=== PATIENT | female | born 1945 | race Caucasian/White ===

== ENCOUNTER 2024-06-26 17:29 | Inpatient (IN) | payer MEDICARE, SELFPAY ==
--- NOTE | ~2024-06-26 | XR_ITS ---
EXAMINATION: XR CHEST CLINICAL INFORMATION: wheezing COMPARISON: 06/26/2024 TECHNIQUE: Frontal view of the chest was obtained. FINDINGS: Cardiac and mediastinal contours are stable. Aortic calcification. Since the prior exam, consolidation has developed in the left base, and to lesser degree the medial right base. No effusions. No pneumothorax allowing for patient's chin obscuring portions of the medial apices. There are old right rib fractures. Severe erosive arthropathy bilateral shoulder joints, end-stage. Degenerative changes of the spine. XR/XR chest 1V IMPRESSION: 1. Development of left basilar, and to a lesser degree medial right basilar airspace opacities consistent with bibasilar pneumonia. 2. End-stage inflammatory arthropathy bilateral shoulder joints. Electronically signed by: Kike Sykes MD 06/28/2024 04:02 PM [facility]
--- NOTE | ~2024-06-26 | XR_ITS ---
CLINICAL HISTORY: hypotension 1 view chest x-ray Comparison: None Findings: Low lung volumes with mild infrahilar atelectasis. No consolidation, large effusion or pneumothorax. Normal heart size. Aortic atherosclerosis. Severe bilateral glenohumeral osteoarthritis with chronic appearing erosion of the right humeral head. IMPRESSION: 1. No acute cardiopulmonary findings. This document has been electronically signed by: Mia Manley MD on 06/26/2024 18:55:09
[2024-06-26 17:42] VITALS: BP 85/56; BP 92/51; PULSE 108; PULSE 115; RESP 20; TEMP 36.9; O2SAT 93; O2SAT 94; BMI 21.3
--- NOTE | 2024-06-26 17:42 | ECG_ITS ---
Test Reason : FALL Blood Pressure : */* mmHG Vent. Rate : 94 BPM Atrial Rate : 94 BPM P-R Int : 134 ms QRS Dur : 70 ms QT Int : 332 ms P-R-T Axes : 23 -31 8 degrees QTcB Int : 415 ms Normal sinus rhythm Left axis deviation Abnormal ECG No previous ECGs available Referred By: Edith Jin Electronically Signed By: KENDRICK MISHRA MD
--- NOTE | 2024-06-26 17:55 | ED.GENADULT ---
HPI - General Adult General Chief complaint: Weakness Stated complaint: weakeness unable to stand baseline walker Source: patient and EMS Mode of arrival: EMS Limitations: no limitations History of Present Illness ED Provider: Dr. Edith Jin HPI narrative: The emergency room via ambulance from home. According to EMS, the patient called them because today, 6 hours ago, patient went to use the restroom, slowly slid off the toilet when trying to get up and was not able to get up. Patient states that she did not land hard, patient states that she was too weak to get up. Patient kept trying for the following 5 hours trying to get up but she gave up and called 911 for a lift assist. Patient did not have any other complaints. According to EMS, it was hard to convince the patient to come to the emergency room. Patient states that she does not remember how long ago she has not been seen by a primary care physician. To her knowledge, she does not have any medical conditions other than ?arthritis pains?. She does not take any medications. Patient states that she and her live at home together, they do not go out anywhere. Patient denies drinking alcohol or ever smoking, denies using drugs Related Data Allergies Allergy/AdvReac Type Severity Reaction Status Date / Time No Known Allergies Allergy Verified 06/26/24 18:06 [No Known Allergies*] Review of Systems Review of Systems: Constitutional : No Weight loss, No Fever, No Chills, No Night Sweats, No Fatigue, No Malaise, complaining of weakness, unable to sit up. ENT/Mouth : No Hearing loss, No Ear Pain, No Nasal Congestion, No Sinus Pain, No Hoarseness, No sore throat, No Rhinorrhea, No Swallowing Difficulty Eyes: No Eye Pain, No Swelling, No Redness, No Foreign Body, No Discharge, No Vision Changes Cardiovascular : No Chest Pain, No SOB, No Dyspnea on Exertion, No Orthopnea, No Edema, No Palpitations Respiratory : No Cough, No Sputum, No Wheezing, No Smoke Exposure, No Dyspnea Gastrointestinal : No Nausea, No Vomiting, No Diarrhea, No Constipation, No abdominal Pain, No Hematochezia, No Melena Genitourinary : no irregular bleeding, No Dysuria, No Urinary Frequency, No Hematuria, No Urinary Incontinence, No Urgency, No Flank Pain, No Urinary Flow Changes, No Hesitancy Musculoskeletal : No joint pain, No Myalgias, No Joint Swelling Skin : No Skin Lesions, No rash Neuro : No Weakness, No Numbness, No Paresthesias, No Loss of Consciousness, No Dizziness, No Headache Psych : No Anxiety/Panic, No Depression, No SI/HI/AH/VH, No Social Issues, Heme/Lymph: No Bruising, No Bleeding,No Lymphadenopathy Endocrine : No Polyuria, No Polydipsia, No Temperature Intolerance [facility] Past Medical History Medical History (Updated 06/26/24 @ 20:28 by Edith Jin MD) Arthritis Social History Social History Advance Directives: No Advance Directives Information Provided: Yes Do you have a plan to hurt others: No Plan Physical Exam ED Vital Signs: Vital Signs - 24 hr 06/26/24 17:42 06/26/24 20:03 Temperature 98.4 F 98.3 F Pulse Rate 108 H 95 Respiratory Rate 20 14 Blood Pressure 92/51 L 121/61 Pulse Oximetry 93 92 Oxygen Delivery Method Room Air Room Air BMI result Body Mass Index 21.3 Const Other: Appearance: Alert. Oriented X3. No acute distress. Disheveled Eyes: Pupils equal, round and reactive to light. ENT: Pharynx normal. Neck: Normal inspection. Neck supple. No lymph nodes noted. No crepitus CVS: Normal heart rate and rhythm. Pulses normal. Normal S1 and S2 Respiratory: No respiratory distress. Breath sounds normal. No Wheezing. No rales Abdomen: Soft and nontender. No rigidity. No distention. Back: Patient has significant kyphosis Skin: Skin warm and dry. Normal skin color. Normal skin turgor. Extremities: +1 pitting edema bilaterally No Lacerations. No Rash Neuro: Oriented X 3. No motor deficit. No sensory deficit. Moving all extremities. No slurred speech. CN 2 through 12 grossly intact Psych: calm, cooperative, normal affect Course Course Course Narrative: According to the patient, she has no medical history other than arthritis pains Pt has very dry oral mucosa, as of now, no history of CHF. Patient is receiving IV fluids Patient is disheveled, patient has a strong odor, possibly UTI? Patient is empirically being treated with a dose of IV ceftriaxone. According to EMS, patient has blood pressure was in the 80s. However, here in the emergency room, patient's blood pressure has been above 90. Patient denies any UTI symptoms, denies URI Medications Administered Discontinued Medications Generic Name Dose Route Start Last Admin Trade Name René PRN Reason Stop Dose Admin Ceftriaxone Sodium 1 gm 06/26/24 17:43 06/26/24 18:22 Ceftriaxone Sodium 1 Gm Vial IVPUSH 06/26/24 17:44 1 gm ONCE ONE Administration Sodium Chloride 2,000 mls @ 999 mls/hr 06/26/24 17:43 06/26/24 18:15 Ns IVCONT 06/26/24 19:43 999 mls/hr .Q2H1M ONE Administration Medical Decision Making Medical Decision Making [facility] Narrative: My interpretation of EKG: Normal sinus rhythm, heart rate 94, no ST segment depression or elevation, no T-wave inversion, QTC 415 My interpretation of labs: Patient's white blood cell count 13.7, a bit anemic with a hemoglobin of 11.6, PT INR no acute abnormalities. Patient's chemistry shows a creatinine of 1.58. Last time we have any labs on the patient was about 5 years ago. Unclear if this is new or old. Given her current dehydration status, this is likely secondary to dehydration. Influenza positive LFTs are normal, lipase normal At this time, 60 16:00, patient's urine has returned, patient does have a UTI. Patient has already been treated with antibiotics and IV fluids. Current blood pressure 121/61 after IV hydration. No fever, normal heart rate I discussed the patient with Dr. Diop from the Medicine team, patient being admitted Differential Diagnosis Differential Diagnoses: The differential diagnosis associated with the presentation includes (Deconditioning, UTI, renal failure, ACD) Admission/Observation Consideration of admission/observation: Escalation of care including admission/observation considered Consult Healthcare Provider Management of the patient was discussed with: Hospitalist Lab Data [facility] Lab Attestation statement: I reviewed the patient's lab results. 06/26/24 18:11 06/26/24 18:11 Labs: Lab Results 06/26/24 06/26/24 06/26/24 Range/Units 18:01 18:11 18:17 WBC 13.7 H (4.8-10.8) X10*3/uL RBC 4.14 L (4.20-5.50) X10*6/uL Hgb 11.6 L (12.0-16.0) g/dl Hct 35.8 L (37.0-47.0) % MCV 86.5 (80.0-98.0) fL MCH 28.0 (27.0-33.0) pg MCHC 32.4 (31.0-35.0) g/dl RDW 15.3 (11.0-16.0) % Plt Count 230 (160-400) X10*3/uL MPV 10.0 (9.4-12.3) fL Immature Gran % (Auto) Cancelled Neut % (Auto) Cancelled Lymph % (Auto) Cancelled [place] % (Auto) Cancelled Eos % (Auto) Cancelled Baso % (Auto) Cancelled Lymph # (Auto) Cancelled [place] # (Auto) Cancelled Eos # (Auto) Cancelled Baso # (Auto) Cancelled Abs Immat Gran (auto) Cancelled Absolute Neuts (auto) Cancelled Absolute Nucleated RBC 0.000 (0.0-0.012) X10*3/uL Nucleated RBC % (auto) 0.0 (0.0-0.2) /100WBC Neutrophils % (Manual) 63 (45-73) % Band Neutrophils % 34 H (3-5) % Lymphocytes % (Manual) 2 L (20-40) % Metamyelocytes % 1 % Abs Neuts (Manual) 13.3 H (2.0-8.3) X10*3/uL Lymphocytes # (Manual) 0.3 L (1.2-4.9) X10*3/uL Metamyelocytes # 0.1 X10*3/uL Toxic Granulation PRESENT Toxic Vacuolation PRESENT Dohle Bodies PRESENT Platelet Estimate NORMAL (NORMAL) Plt Morphology Comment NORMAL RBC Morphology NOTED [place] Cells 3+ (>5) /OIF Schistocytes 1+ (0-2) /OIF PT 12.6 H (10.9-12.4) SEC INR 1.1 (0.9-1.1) VBG pH 7.45 H (7.32-7.43) VBG pCO2 30 mmHg VBG pO2 44 mmHg VBG HCO3 21 L (22-26) mmol/L VBG O2 Saturation 69.0 % VBG Base Excess -1.0 mmol/L Sodium 140 (135-145) mmol/L Potassium 4.3 (3.3-5.1) mmol/L Chloride 106 (96-108) mmol/L Carbon Dioxide 20 L (22-29) mmol/L Anion Gap 18 (12-20) BUN 42 H (9-16) mg/dL Creatinine 1.58 H (0.5-1.4) mg/dL Estim Creat Clear Calc 26.8 Estimated GFR 32 Random Glucose 115 (60-115) mg/dL Lactic Acid 2.4 H* (0.5-2.0) mmol/L Calcium 9.1 (8.4-10.2) mg/dL Magnesium 1.8 (1.6-2.6) mg/dL Total Bilirubin 0.5 (0.0-1.0) mg/dL Direct Bilirubin 0.2 (0.0-0.5) mg/dL AST 92 H (5-31) U/L ALT 27 (0-31) U/L Alkaline Phosphatase 80 (39-117) U/L Total Creatine Kinase 2079 H (26-140) U/L Troponin I High Sens 14.0 (<3.5-17.0) ng/L B-Natriuretic Peptide 21 (<100) pg/mL Total Protein 7.9 (6.5-8.0) g/dL Albumin 3.9 (3.5-5.0) g/dL Lipase 15 (8-78) U/L TSH 0.68 (0.32-4.0) uIU/mL Urine Color Dark Yellow Urine Appearance Turbid Urine pH 6.0 (5.0-9.0) Ur Specific [place] 1.020 (1.005-1.025) Urine Protein 300 (3+) H (Neg-Trace) mg/dL Urine Glucose (UA) Negative (Negative) mg/dL Urine Ketones Trace (Negative) mg/dL Urine Blood Large (3+) H (Negative) Urine Nitrite Positive H (Negative) Ur Leukocyte Esterase Large (3+) H (Negative) Urine RBC >20 H (0-2) /HPF Urine WBC >50 H (0-5) /HPF Ur Squamous Epith Cells 0-2 (0-2) /HPF Urine Bacteria 2+ (None Seen) Hyaline Casts 11-20 (0-2) /LPF Ethyl Alcohol < 10 mg/dL Influenza Type A (PCR) POSITIVE A (Negative) Influenza Type B (PCR) NEGATIVE (Negative) RSV RNA Qual (PCR) NEGATIVE (Negative) SARS-CoV-2 RNA (RT-PCR) NEGATIVE (Negative) S. pyogenes GrpA LAMONT (Negative) 06/26/24 Range/Units 20:09 WBC (4.8-10.8) X10*3/uL RBC (4.20-5.50) X10*6/uL Hgb (12.0-16.0) g/dl Hct (37.0-47.0) % MCV (80.0-98.0) fL MCH (27.0-33.0) pg MCHC (31.0-35.0) g/dl RDW (11.0-16.0) % Plt Count (160-400) X10*3/uL MPV (9.4-12.3) fL Immature Gran % (Auto) Neut % (Auto) Lymph % (Auto) [place] % (Auto) Eos % (Auto) Baso % (Auto) Lymph # (Auto) [place] # (Auto) Eos # (Auto) Baso # (Auto) Abs Immat Gran (auto) Absolute Neuts (auto) Absolute Nucleated RBC (0.0-0.012) X10*3/uL Nucleated RBC % (auto) (0.0-0.2) /100WBC Neutrophils % (Manual) (45-73) % Band Neutrophils % (3-5) % Lymphocytes % (Manual) (20-40) % Metamyelocytes % % Abs Neuts (Manual) (2.0-8.3) X10*3/uL Lymphocytes # (Manual) (1.2-4.9) X10*3/uL Metamyelocytes # X10*3/uL Toxic Granulation Toxic Vacuolation Dohle Bodies Platelet Estimate (NORMAL) Plt Morphology Comment RBC Morphology [place] Cells /OIF Schistocytes /OIF PT (10.9-12.4) SEC INR (0.9-1.1) VBG pH (7.32-7.43) VBG pCO2 mmHg VBG pO2 mmHg VBG HCO3 (22-26) mmol/L VBG O2 Saturation % VBG Base Excess mmol/L Sodium (135-145) mmol/L Potassium (3.3-5.1) mmol/L Chloride (96-108) mmol/L Carbon Dioxide (22-29) mmol/L Anion Gap (12-20) BUN (9-16) mg/dL Creatinine (0.5-1.4) mg/dL Estim Creat Clear Calc Estimated GFR Random Glucose (60-115) mg/dL Lactic Acid (0.5-2.0) mmol/L Calcium (8.4-10.2) mg/dL Magnesium (1.6-2.6) mg/dL Total Bilirubin (0.0-1.0) mg/dL Direct Bilirubin (0.0-0.5) mg/dL AST (5-31) U/L ALT (0-31) U/L Alkaline Phosphatase (39-117) U/L Total Creatine Kinase (26-140) U/L Troponin I High Sens (<3.5-17.0) ng/L B-Natriuretic Peptide (<100) pg/mL Total Protein (6.5-8.0) g/dL Albumin (3.5-5.0) g/dL Lipase (8-78) U/L TSH (0.32-4.0) uIU/mL Urine Color Urine Appearance Urine pH (5.0-9.0) Ur Specific [place] (1.005-1.025) Urine Protein (Neg-Trace) mg/dL Urine Glucose (UA) (Negative) mg/dL Urine Ketones (Negative) mg/dL Urine Blood (Negative) Urine Nitrite (Negative) Ur Leukocyte Esterase (Negative) Urine RBC (0-2) /HPF Urine WBC (0-5) /HPF Ur Squamous Epith Cells (0-2) /HPF Urine Bacteria (None Seen) Hyaline Casts (0-2) /LPF Ethyl Alcohol mg/dL Influenza Type A (PCR) (Negative) Influenza Type B (PCR) (Negative) RSV RNA Qual (PCR) (Negative) SARS-CoV-2 RNA (RT-PCR) (Negative) S. pyogenes GrpA LAMONT Negative (Negative) Independent Interpretation I performed an independent interpretation of an: EKG and Plain X-Ray Radiology Impression Discussion of test interpretation with radiology: I have reviewed the radiologist's reading. Radiologist Impression: Low lung volumes with mild infrahilar atelectasis. No consolidation, large effusion or pneumothorax. Normal heart size. Aortic atherosclerosis. Severe bilateral glenohumeral osteoarthritis with chronic appearing erosion of the right humeral head. IMPRESSION: 1. No acute cardiopulmonary findings. Critical Care Time Critical Care Time Critical Care Time: Yes Total Critical Care Time: 60 Attestation: I have personally provided critical care time. Time includes review of lab data, radiology results, discussion with consultants, and monitoring for potential decompensation. Intervention performed as documented. Discharge Plan Discharge Clinical Impression: Acute UTI, Rhabdomyolysis, Weakness, ZOIE (acute kidney injury), Influenza A Patient Disposition: Admitted As Inpatient Print Language: Surinamese
[2024-06-26] MEDS: 0.9 % Sodium Chloride 2,000 ML 999 ML IVCONT (18:15)
[2024-06-26] MEDS: cefTRIAXone sodium 1 GM VIAL IVPUSH (18:22)
[2024-06-26 18:23] LABS: VBG HCO3 21 mmol/L (22-26); VBG pCO2 30 mmHg; VBG pH 7.45 (7.32-7.43); VBG pO2 44 mmHg
[2024-06-26 18:23] LABS: Hematocrit 35.8 % (37.0-47.0); Hemoglobin 11.6 g/dl (12.0-16.0); Mean Corpuscular HGB Conc 32.4 g/dl (31.0-35.0); Mean Corpuscular Volume 86.5 fL (80.0-98.0); Platelet Count 230 X10*3/uL (160-400); Red Blood Count 4.14 X10*6/uL (4.20-5.50); Red Cell Distribution Width 15.3 % (11.0-16.0); White Blood Count 13.7 X10*3/uL (4.8-10.8)
[2024-06-26 18:24] LABS: Appearance Urine Turbid; Color Urine Dark Yellow; Glucose Urine UA Negative (Negative); Leukocyte Esterase Urine Large (3+) (Negative); Nitrite Urine Positive (Negative); UMIC TRIGGER UACC YES; Urine Blood Large (3+) (Negative); Urine Ketones Trace mg/dL (Negative); Urine Protein 300 (3+) mg/dL (Neg-Trace)
[2024-06-26 18:24] LABS: Venous Blood Gas Refer to POC result
--- NOTE | 2024-06-26 18:25 | PC.NURSE ---
patient difficult IV/blood draw access. delay in Blood cultures being obtained and abx administration.
[2024-06-26 18:29] LABS: INTERNATIONAL NORM RATIO 1.1 (0.9-1.1); Prothrombin Time 12.6 SEC (10.9-12.4)
[2024-06-26 18:36] LABS: Bacteria Urine 2+ (None Seen); RBC Urine >20 /HPF (0-2); Squamous Epithelial Cell Urine 0-2 /HPF (0-2); UACC Culture Trigger YES; WBC Urine >50 /HPF (0-5)
[2024-06-26 18:42] LABS: Alanine Aminotransferase 27 U/L (0-31); Albumin Level 3.9 g/dL (3.5-5.0); Alkaline Phosphatase 80 U/L (39-117); Anion Gap 18 (12-20); Aspartate Amino Transferase 92 U/L (5-31); Bilirubin Direct 0.2 mg/dL (0.0-0.5); Bilirubin Total 0.5 mg/dL (0.0-1.0); Blood Urea Nitrogen 42 mg/dL (9-16); Calcium 9.1 mg/dL (8.4-10.2); Carbon Dioxide 20 mmol/L (22-29); Chloride 106 mmol/L (96-108); Creatinine Clr Calc Pharmacy 26.8; Estimated Glomerular Filt Rate 32; Glucose Random 115 mg/dL (60-115); Lipase 15 U/L (8-78); Magnesium 1.8 mg/dL (1.6-2.6); Potassium 4.3 mmol/L (3.3-5.1); Sodium 140 mmol/L (135-145); Total Protein 7.9 g/dL (6.5-8.0)
[2024-06-26 18:44] LABS: Lactic Acid 2.4 mmol/L (0.5-2.0)
[2024-06-26 18:46] LABS: Neutrophils Percent Manual 63 % (45-73)
[2024-06-26 18:47] LABS: B Type Natriuretic Peptide 21 pg/mL (<100)
[2024-06-26 18:48] LABS: Band Neutrophils Percent 34 % (3-5); Lymphocytes Absolute Manual 0.3 X10*3/uL (1.2-4.9); Lymphocytes Percent Manual 2 % (20-40); Metamyelocytes Absolute 0.1 X10*3/uL; Metamyelocytes Percent 1 %; Neutrophils Absolute Manual 13.3 X10*3/uL (2.0-8.3); RBC Morphology NOTED
[2024-06-26 18:49] LABS: Burr Cells 3+ (>5) /OIF; Dohle Bodies PRESENT; Schistocytes 1+ (0-2) /OIF; Toxic Granulation PRESENT; Toxic Vacuolation PRESENT
[2024-06-26 18:50] LABS: Ethanol < 10 mg/dL; Platelet Estimate NORMAL (NORMAL); Platelet Morphology Comment NORMAL
[2024-06-26 19:04] LABS: TSH reflex Free T4 0.68 uIU/mL (0.32-4.0)
[2024-06-26 19:12] LABS: Influenza A PCR POSITIVE (Negative); Influenza B PCR NEGATIVE (Negative); Resp Syncy Virus RNA Qual PCR NEGATIVE (Negative); SARS COV2 PCR INHOUSE NEGATIVE (Negative)
[2024-06-26 20:03] VITALS: BP 121/61; PULSE 95; RESP 14; TEMP 36.8; O2SAT 92
--- NOTE | 2024-06-26 20:10 | PC.NURSE ---
This writer producer assumed care of this Pt at 1900. Pt A&Ox3, reports sore throat, and cold like symptoms. Fluids running per MAR at this time.
[2024-06-26 20:19] LABS: Reflex Lactate? Lactic Acid Added
[2024-06-26 20:26] LABS: IDNOW Serial# 58CA691E; Strep A Nucleic Acid Negative (Negative)
[2024-06-26 20:50] VITALS: BP 140/77; PULSE 100; RESP 18
[2024-06-26 20:57] LABS: Amphetamine Screen Urine Not Detected (Not Detect); Barbiturates, Urine Not Detected (Not Detect); Benzodiazepines Screen Urine Not Detected (Not Detect); Buprenorphine Scr Not Detected (Not Detect); Cannabinoid Screen Urine Not Detected (Not Detect); Cocaine Screen Urine Not Detected (Not Detect); Fentanyl, urine Not Detected (Not Detect); Methadone Screen, Urine Not Detected (Not Detect); Opiate Screen Urine Not Detected (Not Detect); Oxycodone Screen Urine Not Detected (Not Detect); Phencyclidine Screen Urine Not Detected (Not Detect)
[2024-06-26 21:11] LABS: ~Lactic Acid-LAB USE ONLY 1.5 mmol/L (0.5-2.0)
[2024-06-26 21:17] VITALS: BP 131/83; PULSE 99; RESP 14
[2024-06-26] MEDS: Enoxaparin Sodium 30 MG/0.3 ML SYRINGE SUBCUT (22:59)
[2024-06-26] MEDS: Dextrose 5 % and 0.9 % NaCl 1,000 ML 125 ML IVCONT (23:00)
[2024-06-26] MEDS: 0.9 % Sodium Chloride Flush 3 ML SYRINGE IVFLUSH (23:01)
[2024-06-26 23:05] VITALS: BP 119/71; PULSE 97; RESP 20; TEMP 37.2; O2SAT 93
--- NOTE | 2024-06-26 23:17 | P.HPHOSP_ITS ---
History of Present Illness Date of Service: 06/26/24 Attending physician on admission: Tom Diop Chief Complaint: Feeling unwell with cough & sore throat x 2 days Patient is a 79 year old pleasant white female with no significant medical history other than arthritis and currently not taking any medications who was brought to the emergency room from home for evaluation of weakness. She has been feeling unwell for a couple of days with a cough and sore throat and today, slid off the commode onto the floor and then had a hard time getting up because she was very weak. She spend almost 6 hours on the floor before she gave up and called 911 for lift assist. She otherwise denied any other complains including urinary symptoms, chest pain, fevers or chills. Initial work up done in the emergency room was notable for positive Influenza A PCR, acute renal failure with a BUN of 42 and creatinine of 1.58, elevated CPK at 2079, elevated lactic acid at 2.4, a leukocytosis of 13.7 K and infected urine (with urinalysis showing positive urine nitrites, large leukocyte esterase, > 50 WBC/HPF with 2+ bacteria. An assessment of severe sepsis due to UTI and likely influenza A was made and she was started on Tamiflu and Ceftriaxone and admission requested. Review of Systems 2 Review of Systems: Yes all other systems are reviewed and are negative [facility] Medical History (Updated 06/26/24 @ 20:28 by Edith Jin MD) Arthritis Functional capacity: uses cane/walker Patient : No Social History Advance Directives: No Advance Directives Information Provided: Yes Do you have a plan to hurt others: No Plan Patient : No Meds Allergies Allergy/AdvReac Type Severity Reaction Status Date / Time No Known Allergies Allergy Verified 06/26/24 18:06 [No Known Allergies*] Physical Exam 2 Vital Signs and Narrative: Vital Signs: Last Vital Signs Temp 98.9 F 06/26/24 23:05 Pulse 97 06/26/24 23:05 Resp 20 06/26/24 23:05 BP 119/71 06/26/24 23:05 Pulse Ox 93 06/26/24 23:05 O2 Del Method Room Air 06/26/24 23:05 BMI result Body Mass Index 21.3 General: Thin appearing, in bed, awake and alert. In no obvious respiratory distress. Psychiatric: Pleasant, cognition and affect. HEENT: Normocephalic, atraumatic. No pallor or jaundice. Moist oral mucus membranes. Neck: Supple. No JVD Lungs: Coarse & rhonchorous bilateral breath sounds with few wheezes. Heart: RRR. Normal s1/s2. No murmurs, rubs or gallops. No peripheral edema. Abdomen: Scaphoid, Soft, non-tender. Normoactive bowel sounds. No visceromegaly. Genitourinary: Deferred Back/Spine/Pelvis: Deferred Skin: Warm, dry, well perfused. Normal turgor. No mottling. Normal capillary refill (< 2 seconds). Neurologic: Awake and alert. Intact speech & cognition. Normal gait & balance. CN II-XII grossly normal. Extremities: Normal muscle bulk, tone and power. No obvious deformities. No peripheral edema. Good peripheral pulses. Results Labs 06/26/24 18:11 06/26/24 18:11 Labs: Laboratory Results - last 24 hr 06/26/24 06/26/24 06/26/24 18:01 18:11 18:17 MCV 86.5 MCH 28.0 MCHC 32.4 RDW 15.3 Plt Count 230 MPV 10.0 Immature Gran % (Auto) Cancelled Neut % (Auto) Cancelled Lymph % (Auto) Cancelled [place] % (Auto) Cancelled Eos % (Auto) Cancelled Baso % (Auto) Cancelled Lymph # (Auto) Cancelled [place] # (Auto) Cancelled Eos # (Auto) Cancelled Baso # (Auto) Cancelled Abs Immat Gran (auto) Cancelled Absolute Neuts (auto) Cancelled Absolute Nucleated RBC 0.000 Nucleated RBC % (auto) 0.0 Neutrophils % (Manual) 63 Band Neutrophils % 34 H Lymphocytes % (Manual) 2 L Metamyelocytes % 1 Abs Neuts (Manual) 13.3 H Lymphocytes # (Manual) 0.3 L Metamyelocytes # 0.1 Toxic Granulation PRESENT Toxic Vacuolation PRESENT Dohle Bodies PRESENT Platelet Estimate NORMAL Plt Morphology Comment NORMAL RBC Morphology NOTED [place] Cells 3+ (>5) Schistocytes 1+ (0-2) PT 12.6 H INR 1.1 VBG pH 7.45 H VBG pCO2 30 VBG pO2 44 VBG HCO3 21 L VBG O2 Saturation 69.0 VBG Base Excess -1.0 Anion Gap 18 Estim Creat Clear Calc 26.8 Estimated GFR 32 Random Glucose 115 Lactic Acid 2.4 H* Lactic Acid F/U @ 2Hr Calcium 9.1 Magnesium 1.8 Total Bilirubin 0.5 Direct Bilirubin 0.2 AST 92 H ALT 27 Alkaline Phosphatase 80 Total Creatine Kinase 2079 H Troponin I High Sens 14.0 B-Natriuretic Peptide 21 Total Protein 7.9 Albumin 3.9 Lipase 15 TSH 0.68 Urine Color Dark Yellow Urine Appearance Turbid Urine pH 6.0 Ur Specific [place] 1.020 Urine Protein 300 (3+) H Urine Glucose (UA) Negative Urine Ketones Trace Urine Blood Large (3+) H Urine Nitrite Positive H Ur Leukocyte Esterase Large (3+) H Urine RBC >20 H Urine WBC >50 H Ur Squamous Epith Cells 0-2 Urine Bacteria 2+ Hyaline Casts 11-20 Urine Opiates Screen Not Detected Ur Buprenorphine Scrn Not Detected Ur Oxycodone Screen Not Detected Urine Methadone Screen Not Detected Urine Fentanyl Screen Not Detected Ur Barbiturates Screen Not Detected Ur Phencyclidine Scrn Not Detected Ur Amphetamines Screen Not Detected U Benzodiazepines Scrn Not Detected Urine Cocaine Screen Not Detected U Marijuana (THC) Screen Not Detected Ethyl Alcohol < 10 Influenza Type A (PCR) POSITIVE A Influenza Type B (PCR) NEGATIVE RSV RNA Qual (PCR) NEGATIVE SARS-CoV-2 RNA (RT-PCR) NEGATIVE S. pyogenes GrpA LAMONT 06/26/24 06/26/24 20:09 20:52 MCV MCH MCHC RDW Plt Count MPV Immature Gran % (Auto) Neut % (Auto) Lymph % (Auto) [place] % (Auto) Eos % (Auto) Baso % (Auto) Lymph # (Auto) [place] # (Auto) Eos # (Auto) Baso # (Auto) Abs Immat Gran (auto) Absolute Neuts (auto) Absolute Nucleated RBC Nucleated RBC % (auto) Neutrophils % (Manual) Band Neutrophils % Lymphocytes % (Manual) Metamyelocytes % Abs Neuts (Manual) Lymphocytes # (Manual) Metamyelocytes # Toxic Granulation Toxic Vacuolation Dohle Bodies Platelet Estimate Plt Morphology Comment RBC Morphology Terese Cells Schistocytes PT INR VBG pH VBG pCO2 VBG pO2 VBG HCO3 VBG O2 Saturation VBG Base Excess Anion Gap Estim Creat Clear Calc Estimated GFR Random Glucose Lactic Acid Lactic Acid F/U @ 2Hr 1.5 Calcium Magnesium Total Bilirubin Direct Bilirubin AST ALT Alkaline Phosphatase Total Creatine Kinase Troponin I High Sens B-Natriuretic Peptide Total Protein Albumin Lipase TSH Urine Color Urine Appearance Urine pH Ur Specific [place] Urine Protein Urine Glucose (UA) Urine Ketones Urine Blood Urine Nitrite Ur Leukocyte Esterase Urine RBC Urine WBC Ur Squamous Epith Cells Urine Bacteria Hyaline Casts Urine Opiates Screen Ur Buprenorphine Scrn Ur Oxycodone Screen Urine Methadone Screen Urine Fentanyl Screen Ur Barbiturates Screen Ur Phencyclidine Scrn Ur Amphetamines Screen U Benzodiazepines Scrn Urine Cocaine Screen U Marijuana (THC) Screen Ethyl Alcohol Influenza Type A (PCR) Influenza Type B (PCR) RSV RNA Qual (PCR) SARS-CoV-2 RNA (RT-PCR) S. pyogenes GrpA LAMONT Negative Assessment and Plan (1) Influenza A: Status: Acute (2) ZOIE (acute kidney injury): Status: Acute (3) Weakness: Status: Acute (4) Rhabdomyolysis: Status: Acute (5) Acute UTI: Status: Acute Plan 79 year old pleasant white female with no significant medical history other than arthritis here with: # Severe Sepsis - meets criteria for severe sepsis with tachycardia, tachypnea and leucocytosis in setting of Influenza A and UTI - started on IV Ceftriaxone and Tamiflu which I will continue # UTI - urinalysis with findings concerning for UTI - will treat empirically with IV Ceftriaxone - follow up on urine cultures # Influenza A infection - continue Tamiflu # Asthenia - multi-factorial - infection in setting of advanced age - will benefit from PT evaluation - consider discharge to short term rehab facility # Rhabdomyolysis - traumatic - after laying on the [place] 6 [place] [id number] - continue IV fluids - recheck in AM # Acute renal failure - BUN up to 42 with creatinine at 1.58 - likely dehydrated - rehydrate and recheck in AM Patient will need a 2 night stay for treatment of severe sepsis due to UTI/Influenza ` Total time managing care of this patient today: 75 minutes. Quality Stroke Does the patient have a stroke diagnosis?: No VTE Prior VTE?: No VTE Risk Level:: Medical - moderate - high VTE Device Contraindication: N/A - Device Ordered VTE Drug Contraindication: N/A - Med Ordered
[2024-06-27] VITALS (10 sets, daily range): BP systolic 113–156; BP diastolic 53–93; PULSE 84–112; RESP 15–22; TEMP 36.7–37; O2SAT 94–96
[2024-06-27] MEDS: Oseltamivir Phosphate 30 MG CAPSULE PO ×2 (00:37→20:23)
--- NOTE | 2024-06-27 03:20 | PC.NURSE ---
Pt incontinent of urine, incontinent care provided. Purewick placed.
[2024-06-27] MEDS: Dextrose 5 % and 0.9 % NaCl 1,000 ML 125 ML IVCONT ×3 (06:36→22:39)
[2024-06-27 07:32] LABS: Alanine Aminotransferase 32 U/L (0-31); Albumin Level 3.3 g/dL (3.5-5.0); Alkaline Phosphatase 86 U/L (39-117); Anion Gap 15 (12-20); Aspartate Amino Transferase 125 U/L (5-31); Bilirubin Total 0.3 mg/dL (0.0-1.0); Blood Urea Nitrogen 35 mg/dL (9-16); Calcium 8.7 mg/dL (8.4-10.2); Carbon Dioxide 18 mmol/L (22-29); Chloride 114 mmol/L (96-108); Creatinine Clr Calc Pharmacy 48.1; Estimated Glomerular Filt Rate > 60; Glucose Random 109 mg/dL (60-115); Magnesium 1.8 mg/dL (1.6-2.6); Potassium 3.7 mmol/L (3.3-5.1); Sodium 143 mmol/L (135-145); Total Protein 6.9 g/dL (6.5-8.0)
[2024-06-27 07:39] LABS: Hematocrit 38.9 % (37.0-47.0); Mean Corpuscular HGB Conc 30.8 g/dl (31.0-35.0); Mean Corpuscular Hemoglobin 28.6 pg (27.0-33.0); Mean Corpuscular Volume 92.6 fL (80.0-98.0); Red Cell Distribution Width 15.9 % (11.0-16.0); WBC ABN SCTR FOR CBC 1
[2024-06-27 07:48] LABS: Thyroid Stimulating Hormone 0.35 uIU/mL (0.32-4.0)
[2024-06-27 08:26] LABS: Band Neutrophils Percent 38 % (3-5); Lymphocytes Percent Manual 8 % (20-40); Metamyelocytes Percent 1 %; Monocytes Percent Manual 4 % (2-11); Neutrophils Percent Manual 49 % (45-73)
[2024-06-27 08:27] LABS: Burr Cells 1+ (0-2) /OIF; Platelet Estimate NORMAL (NORMAL); Platelet Morphology Comment NORMAL; RBC Morphology NOTED; Smudge Cells PRESENT
[2024-06-27 08:31] LABS: Lymphocytes Absolute Manual 0.7 X10*3/uL (1.2-4.9); Mean Platelet Volume 10.8 fL (9.4-12.3); Metamyelocytes Absolute 0.1 X10*3/uL; Monocytes Absolute Manual 0.4 X10*3/uL (0.1-1.2); Neutrophils Absolute Manual 7.7 X10*3/uL (2.0-8.3); Platelet Count 151 X10*3/uL (160-400); White Blood Count 8.9 X10*3/uL (4.8-10.8)
--- NOTE | 2024-06-27 08:36 | PHA.MEDREC ---
Addendum entered by Jesus Alberto Melara RPh 06/27/24 08:53: Med rec was reviewed by [facility]. Original Note: Pharmacy Consult ? Medication Reconciliation Pharmacy has completed the medication reconciliation. Spoke to patient to confirm med list. Patient confirmed Alendronate 70 mg on Fridays, last fill 06/24/24.
--- NOTE | 2024-06-27 11:20 | HO.PM.IMPN ---
Subjective Subjective Date of Service: 06/27/24 Review of Systems Follow up FLU and UTI still feeling unwell mostly bed bound Physical Exam Vital Signs: Vital Signs: Last Vital Signs Temp 98.9 F 06/26/24 23:05 Pulse 96 06/27/24 06:38 Resp 16 06/27/24 06:38 BP 120/53 L 06/27/24 06:38 Pulse Ox 94 06/27/24 06:38 O2 Del Method Room Air 06/27/24 06:38 BMI result Body Mass Index 21.3 Objective Data Active Medications Acetaminophen (Acetaminophen 325 Mg Tablet) 650 mg PO Q6H PRN PRN Reason: Pain, Mild 1-3,fever,headache Albuterol/Ipratropium (Albuterol/Iprat 2.5/0.5mg 3 Ml Ampul.Neb) 3 ml INHALE Q4H PRN PRN Reason: Shortness of Breath/Wheezing Benzonatate (Benzonatate 100 Mg Capsule) 100 mg PO TID PRN PRN Reason: Cough Calcium Carbonate (Calcium Carbonate 750 Mg Tab.Chew) 750 mg PO Q4H PRN PRN Reason: Heartburn Ceftriaxone Sodium (Ceftriaxone Sodium 1 Gm Vial) 1 gm IVPUSH Q24H [facility] Enoxaparin Sodium (Enoxaparin Sodium 30 Mg/0.3 Ml Syringe) 30 mg SUBCUT Q24H [facility] Last Admin: 06/26/24 22:59 Dose: 30 mg Documented By: WAYNE Dextrose/Sodium Chloride (D5ns) 1,000 mls @ 125 mls/hr IVCONT .Q8H [facility] Last Admin: 06/27/24 06:36 Dose: 125 mls/hr Documented By: WAYNE Magnesium Hydroxide (Milk Of Magnesia 30 Ml Oral.Susp) 30 ml PO DAILY PRN PRN Reason: Constipation Melatonin (Melatonin 3 Mg Tablet) 6 mg PO BEDTIME PRN PRN Reason: Insomnia Ondansetron HCl (Ondansetron Hcl 4 Mg/2 Ml Vial) 4 mg IVPUSH Q8H PRN PRN Reason: Nausea and Vomiting Oseltamivir Phosphate (Oseltamivir Phosphate 30 Mg Capsule) 30 mg PO BEDTIME [facility] Stop: 06/30/24 21:01 Last Admin: 06/27/24 00:37 Dose: 30 mg Documented By: WAYNE Oxycodone HCl (Oxycodone Hcl Immed Release 5 Mg Tablet) 5 mg PO Q6H PRN PRN Reason: Pain, Severe (Pain Scale 7-10) Senna (Sennosides 8.6 Mg Tablet) 17.2 mg PO BEDTIME PRN PRN Reason: constipation Sodium Chloride (0.9 % Sodium Chloride Flush 3 Ml Syringe) 3 ml IVFLUSH QSHIFT [facility] Last Admin: 06/27/24 08:08 Dose: Not Given Documented By: SUSHIL Non-Admin Reason: IV Running Labs 06/27/24 06:37 06/27/24 06:37 Labs: Laboratory Results - last 24 hr 06/26/24 06/26/24 06/26/24 18:01 18:11 18:17 MCV 86.5 MCH 28.0 MCHC 32.4 RDW 15.3 Plt Count 230 MPV 10.0 Immature Gran % (Auto) Cancelled Neut % (Auto) Cancelled Lymph % (Auto) Cancelled Blount % (Auto) Cancelled Eos % (Auto) Cancelled Baso % (Auto) Cancelled Lymph # (Auto) Cancelled Blount # (Auto) Cancelled Eos # (Auto) Cancelled Baso # (Auto) Cancelled Abs Immat Gran (auto) Cancelled Absolute Neuts (auto) Cancelled Absolute Nucleated RBC 0.000 Nucleated RBC % (auto) 0.0 Neutrophils % (Manual) 63 Band Neutrophils % 34 H Lymphocytes % (Manual) 2 L Monocytes % (Manual) Metamyelocytes % 1 Abs Neuts (Manual) 13.3 H Lymphocytes # (Manual) 0.3 L Monocytes # (Manual) Metamyelocytes # 0.1 Smudge Cells Toxic Granulation PRESENT Toxic Vacuolation PRESENT Dohle Bodies PRESENT Platelet Estimate NORMAL Plt Morphology Comment NORMAL RBC Morphology NOTED Terese Cells 3+ (>5) Schistocytes 1+ (0-2) PT 12.6 H INR 1.1 VBG pH 7.45 H VBG pCO2 30 VBG pO2 44 VBG HCO3 21 L VBG O2 Saturation 69.0 VBG Base Excess -1.0 Anion Gap 18 Estim Creat Clear Calc 26.8 Estimated GFR 32 Random Glucose 115 Lactic Acid 2.4 H* Lactic Acid F/U @ 2Hr Calcium 9.1 Magnesium 1.8 Total Bilirubin 0.5 Direct Bilirubin 0.2 AST 92 H ALT 27 Alkaline Phosphatase 80 Total Creatine Kinase 2079 H Troponin I High Sens 14.0 B-Natriuretic Peptide 21 Total Protein 7.9 Albumin 3.9 Lipase 15 TSH 0.68 Urine Color Dark Yellow Urine Appearance Turbid Urine pH 6.0 Ur Specific [place] 1.020 Urine Protein 300 (3+) H Urine Glucose (UA) Negative Urine Ketones Trace Urine Blood Large (3+) H Urine Nitrite Positive H Ur Leukocyte Esterase Large (3+) H Urine RBC >20 H Urine WBC >50 H Ur Squamous Epith Cells 0-2 Urine Bacteria 2+ Hyaline Casts 11-20 Urine Opiates Screen Not Detected Ur Buprenorphine Scrn Not Detected Ur Oxycodone Screen Not Detected Urine Methadone Screen Not Detected Urine Fentanyl Screen Not Detected Ur Barbiturates Screen Not Detected Ur Phencyclidine Scrn Not Detected Ur Amphetamines Screen Not Detected U Benzodiazepines Scrn Not Detected Urine Cocaine Screen Not Detected U Marijuana (THC) Screen Not Detected Ethyl Alcohol < 10 Influenza Type A (PCR) POSITIVE A Influenza Type B (PCR) NEGATIVE RSV RNA Qual (PCR) NEGATIVE SARS-CoV-2 RNA (RT-PCR) NEGATIVE S. pyogenes GrpA LAMONT 06/26/24 06/26/24 06/27/24 20:09 20:52 06:37 MCV 92.6 D MCH 28.6 MCHC 30.8 L RDW 15.9 Plt Count 151 L D MPV 10.8 Immature Gran % (Auto) Cancelled Neut % (Auto) Cancelled Lymph % (Auto) Cancelled Blount % (Auto) Cancelled Eos % (Auto) Cancelled Baso % (Auto) Cancelled Lymph # (Auto) Cancelled Blount # (Auto) Cancelled Eos # (Auto) Cancelled Baso # (Auto) Cancelled Abs Immat Gran (auto) Cancelled Absolute Neuts (auto) Cancelled Absolute Nucleated RBC 0.000 Nucleated RBC % (auto) 0.0 Neutrophils % (Manual) 49 Band Neutrophils % 38 H Lymphocytes % (Manual) 8 L Monocytes % (Manual) 4 Metamyelocytes % 1 Abs Neuts (Manual) 7.7 Lymphocytes # (Manual) 0.7 L Monocytes # (Manual) 0.4 Metamyelocytes # 0.1 Smudge Cells PRESENT Toxic Granulation Toxic Vacuolation Dohle Bodies Platelet Estimate NORMAL Plt Morphology Comment NORMAL RBC Morphology NOTED [place] Cells 1+ (0-2) Schistocytes PT INR VBG pH VBG pCO2 VBG pO2 VBG HCO3 VBG O2 Saturation VBG Base Excess Anion Gap 15 Estim Creat Clear Calc 48.1 Estimated GFR > 60 Random Glucose 109 Lactic Acid Lactic Acid F/U @ 2Hr 1.5 Calcium 8.7 Magnesium 1.8 Total Bilirubin 0.3 Direct Bilirubin AST 125 H ALT 32 H Alkaline Phosphatase 86 Total Creatine Kinase 2842 H Troponin I High Sens B-Natriuretic Peptide Total Protein 6.9 Albumin 3.3 L Lipase TSH 0.35 Urine Color Urine Appearance Urine pH Ur Specific [place] Urine Protein Urine Glucose (UA) Urine Ketones Urine Blood Urine Nitrite Ur Leukocyte Esterase Urine RBC Urine WBC Ur Squamous Epith Cells Urine Bacteria Hyaline Casts Urine Opiates Screen Ur Buprenorphine Scrn Ur Oxycodone Screen Urine Methadone Screen Urine Fentanyl Screen Ur Barbiturates Screen Ur Phencyclidine Scrn Ur Amphetamines Screen U Benzodiazepines Scrn Urine Cocaine Screen U Marijuana (THC) Screen Ethyl Alcohol Influenza Type A (PCR) Influenza Type B (PCR) RSV RNA Qual (PCR) SARS-CoV-2 RNA (RT-PCR) S. pyogenes GrpA LAMONT Negative Microbiology Microbiology Results: Microbiology 06/26/24 18:01 Urine Culture - Preliminary Urine clean catch - Clean Catch Midstream Culture in progress. Assessment and Plan (1) Acute UTI: Status: Acute Plan 79 year old pleasant white female with no significant medical history other than arthritis here with Severe Sepsis. Sepsis resolved meets criteria for severe sepsis with tachycardia, tachypnea and leukocytosis in setting of Influenza A and UTI UTI urinalysis with findings concerning for UTI will treat empirically with IV Ceftriaxone follow up on urine cultures Influenza A infection continue Tamiflu Asthenia multi-factorial - infection in setting of advanced age will benefit from PT evaluation Rhabdomyolysis traumatic - after laying on the floor for 6 hours CPK elevated continue IV fluids Acute renal failure secondary to rhabdo likely dehydrated rehydrate and recheck in AM DVT prophylaxis with Lovenox Full code Quality Stroke Does the patient have a stroke diagnosis?: No VTE Prior VTE?: No VTE Risk Level:: Medical - moderate - high VTE Device Contraindication: N/A - Device Ordered VTE Drug Contraindication: N/A - Med Ordered
--- NOTE | 2024-06-27 13:00 | MHC.EDTECH ---
patient is incontinent of urine I washed patient up changed linen and gave patient a clean hospital gown put a new purewick on patient set her up for lunch.nurse aware
--- NOTE | 2024-06-27 13:21 | PC.NURSE ---
request to [employer] to continue home mediations. No response, no orders
--- NOTE | 2024-06-27 14:17 | MHC.CM.PN ---
QUILL STRIPPER MET WITH PT AT BEDSIDE. PT STATES SHE RECIEVES DAILY MEALS AT BREAKFAST AND DINNER AND 1.5 HOURS DAILY ASSISTANCE PT STATES SHE DOES NOT USE MEDICAL EQUIPMENT PT'S PCP IS KAYLEE JACK PT DOES NOT HAVE A HCP ON FILE PT'S INS IS [employer] MEDICARE IMM AND AUTH RELEASE SIGNED DCP-TBD- HOME VNA VS STR
--- NOTE | 2024-06-27 18:45 | MHC.EDTECH ---
patient was wet changed patient new purewick in [facility]. Nurse is aware.
[2024-06-27] MEDS: cefTRIAXone sodium 1 GM VIAL IVPUSH (19:04)
--- NOTE | 2024-06-27 19:21 | PC.NURSE ---
assumed care for this pt at 1900. Pt a&ox3, medicated pt per jul. Vital signs taken, fluids running per jul. pts needs met at this time.
[2024-06-27] MEDS: oxyCODONE HCl Immed Release 5 MG TABLET PO (20:23)
[2024-06-27] MEDS: Enoxaparin Sodium 30 MG/0.3 ML SYRINGE SUBCUT (22:39)
[2024-06-28] VITALS: BP 136/74; PULSE 110; RESP 20; TEMP 36.2; O2SAT 93
[2024-06-28] MEDS: Omeprazole 20 MG CAPSULE.DR PO (05:22)
[2024-06-28] MEDS: Dextrose 5 % and 0.9 % NaCl 1,000 ML 125 ML IVCONT (05:27)
--- NOTE | 2024-06-28 06:06 | PC.ADMIT ---
Patient is alert/oriented, lives at home with with [facility]. She reports she is bedbound. She has arthritis and states she takes tramadol for pain. She has very limited movement of lower extremities, feet are abducted. Her left ankle is pink, feet are dry,scaly,and toe nails are thick and poorly attended too. Her buttocks skin is intact although dark pigmentation. She is currently tachycardic, no cardiac history. Her breathing is uneven at times, slightly labored, scattered ronchi throughout. VSS. She states she is normally continent of both urine and stool although she wears a brief at home. Her last bm was Thursday, 2-9. She states she is able to get herself out of bed onto a bedside commode by holding onto furniture and whatever she can. She states she does not use a wheelchair although she has one and her uses her cane and walking devices. She has poor dentation although she states she has no issues chewing or swallowing. Takes her medications whole while sitting up as straight as she can. No acute events. Will continue to monitor.
[2024-06-28 08:00] VITALS: BP 132/63; PULSE 96; RESP 18; TEMP 36.2; O2SAT 94
[2024-06-28] MEDS: lisinopriL 20 MG TABLET PO (08:54)
[2024-06-28] MEDS: Cholecalciferol (Vitamin D3) 25 MCG TABLET 50 MCG PO (08:54)
--- NOTE | 2024-06-28 11:29 | MHC.CM.PN ---
CM MET WITH PT AT BEDSIDE. PT LIVES WITH SPOUSE AND HAS [employer]HOMEMAKING SERVICES THROUGH [employer] 1.5 HRS IN AM/1.5 HRS IN PM. PT IS DECLINING STR AND WOULD LIKE TO RETURN HOME WITH INCREASED SERVICES THROUGH [employer] IS ABLE TO PROVIDE SN/PT/OT AFTER CONFIRMATION WITH LUZ MARINA AT [employer] PT ALSO STATES SHE HAS SERVICES VIA [facility], THIS CM WILL TASK [facility] LIAISON TO CONFIRM.
[2024-06-28 11:39] VITALS: BP 156/79; PULSE 94; RESP 18; TEMP 36.8; O2SAT 97
[2024-06-28 11:52] LABS: Anion Gap 8 (12-20); Blood Urea Nitrogen 18 mg/dL (9-16); Calcium 7.9 mg/dL (8.4-10.2); Carbon Dioxide 22 mmol/L (22-29); Chloride 117 mmol/L (96-108); Creatinine Clr Calc Pharmacy 68.3; Estimated Glomerular Filt Rate > 60; Glucose Random 116 mg/dL (60-115); Potassium 3.1 mmol/L (3.3-5.1); Sodium 144 mmol/L (135-145)
--- NOTE | 2024-06-28 12:12 | P.PNIM_ITS ---
Subjective Subjective Date of Service: 06/28/24 Review of Systems Follow up FLU and UTI still feeling unwell mostly bed bound Physical Exam 2 Vital Signs: Vital Signs: Last Vital Signs Temp 98.3 F 06/28/24 11:39 Pulse 94 06/28/24 11:39 Resp 18 06/28/24 11:39 BP 156/79 H 06/28/24 11:39 Pulse Ox 97 06/28/24 11:39 O2 Del Method Room Air 06/28/24 11:39 BMI result Body Mass Index 21.3 Appearing in no acute distress lung sounds are clear to auscultation heart regular rate rhythm, clear S1, S2 positive bowel sounds, abdomen is soft, nontender neuro patient is alert x3, no focal deficits Objective Data Active Medications Acetaminophen (Acetaminophen 325 Mg Tablet) 650 mg PO Q6H PRN PRN Reason: Pain, Mild 1-3,fever,headache Albuterol/Ipratropium (Albuterol/Iprat 2.5/0.5mg 3 Ml Ampul.Neb) 3 ml INHALE Q4H PRN PRN Reason: Shortness of Breath/Wheezing Benzonatate (Benzonatate 100 Mg Capsule) 100 mg PO TID PRN PRN Reason: Cough Calcium Carbonate (Calcium Carbonate 750 Mg Tab.Chew) 750 mg PO Q4H PRN PRN Reason: Heartburn Ceftriaxone Sodium (Ceftriaxone Sodium 1 Gm Vial) 1 gm IVPUSH Q24H [facility] Last Admin: 06/27/24 19:04 Dose: 1 gm Documented By: VIRGINIA Enoxaparin Sodium (Enoxaparin Sodium 30 Mg/0.3 Ml Syringe) 30 mg SUBCUT Q24H [facility] Last Admin: 06/27/24 22:39 Dose: 30 mg Documented By: BROOKE Lisinopril (Lisinopril 20 Mg Tablet) 20 mg PO DAILY [facility]; Protocol Last Admin: 06/28/24 08:54 Dose: 20 mg Documented By: TERESITA Magnesium Hydroxide (Milk Of Magnesia 30 Ml Oral.Susp) 30 ml PO DAILY PRN PRN Reason: Constipation Melatonin (Melatonin 3 Mg Tablet) 6 mg PO BEDTIME PRN PRN Reason: Insomnia Omeprazole (Omeprazole 20 Mg Capsule.Dr) 20 mg PO DAILY@0630 [facility] Last Admin: 06/28/24 05:22 Dose: 20 mg Documented By: BROOKE Ondansetron HCl (Ondansetron Hcl 4 Mg/2 Ml Vial) 4 mg IVPUSH Q8H PRN PRN Reason: Nausea and Vomiting Oseltamivir Phosphate (Oseltamivir Phosphate 30 Mg Capsule) 30 mg PO BEDTIME [facility] Stop: 06/30/24 21:01 Last Admin: 06/27/24 20:23 Dose: 30 mg Documented By: VIRGINIA Oxycodone HCl (Oxycodone Hcl Immed Release 5 Mg Tablet) 5 mg PO Q6H PRN PRN Reason: Pain, Severe (Pain Scale 7-10) Last Admin: 06/27/24 20:23 Dose: 5 mg Documented By: VIRGINIA Senna (Sennosides 8.6 Mg Tablet) 17.2 mg PO BEDTIME PRN PRN Reason: constipation Sodium Chloride (0.9 % Sodium Chloride Flush 3 Ml Syringe) 3 ml IVFLUSH QSHIFT [facility] Last Admin: 06/28/24 07:25 Dose: Not Given Documented By: TERESITA Non-Admin Reason: IV Running Vitamin D (Cholecalciferol (Vitamin D3) 25 Mcg Tablet) 50 mcg PO DAILY [facility] Last Admin: 06/28/24 08:54 Dose: 50 mcg Documented By: TERESITA Labs 06/27/24 06:37 06/28/24 11:05 Labs: Laboratory Results - last 24 hr 06/28/24 11:05 Anion Gap 8 L Estim Creat Clear Calc 68.3 Estimated GFR > 60 Random Glucose 116 H Calcium 7.9 L D Total Creatine Kinase 1312 H Microbiology Microbiology Results: Microbiology 06/26/24 18:01 Urine Culture - Preliminary Urine clean catch - Clean Catch Midstream Gram negative ashley 06/26/24 18:19 Blood Culture - Preliminary Blood - Venous No growth after 24 hours. 06/26/24 18:19 Blood Culture - Preliminary Blood - Venous No growth after 24 hours. Assessment and Plan (1) Acute UTI: Status: Acute Plan 79 year old pleasant white female with no significant medical history other than arthritis here with Hypokalemia replace GNR UTI will treat empirically with IV Ceftriaxone follow up on urine cultures Severe Sepsis. Sepsis resolved meets criteria for severe sepsis with tachycardia, tachypnea and leukocytosis in setting of Influenza A and UTI Influenza A infection continue Tamiflu Asthenia multi-factorial - infection in setting of advanced age will benefit from PT evaluation Rhabdomyolysis traumatic - after laying on the floor for 6 hours CPK elevated continue IV fluids Acute renal failure secondary to rhabdo likely dehydrated DVT prophylaxis with Lovenox Attending Dr. Theodore Full code Quality Stroke Does the patient have a stroke diagnosis?: No VTE Prior VTE?: No VTE Risk Level:: Medical - moderate - high VTE Device Contraindication: N/A - Device Ordered VTE Drug Contraindication: N/A - Med Ordered
[2024-06-28] MEDS: Potassium Chloride ER 20 MEQ TAB.ER.PRT 40 MEQ PO (12:40)
[2024-06-28] MEDS: traMADoL HCL 50 MG TABLET PO ×2 (14:20→20:03)
--- NOTE | 2024-06-28 15:00 | HO.WOUND ---
Wound Consult: Initial 79yr old?[place] [facility] 21:58 - See progress notes and H&P for detailed history.? Wound consult placed for Sacral wound.? Patient agreeable to assessment and photo documentation.? Sacrum Etiology: Deep Tissue Injury - ??Present on Admission Wound Bed: two lesions noted for maroon purple nonblanchable tissue remains intact Drainage / Odor: None Edges: ? over brett prominences Aileen wound: ?MASD - red hyperpigmented tissue - No Induration, Fluctuance or Warmth noted Pain: tenderness reported Goals of Treatment: ? Barrier cream and Foam dressing over pressure injury sites to aid in pressure redistribution right Heel Right Heel Left Heel Of note the patients bilateral heels and feet were assessed. Her feet were noted for be overwhelmed with brown odorous buildup. Both feet were noted for dry scaling thickened tissue. She was agreeable to having her feet cleansed. [place] spray was used. It softened much of the buildup between toes - there was a significant amount of old skin cells, hair, and debris removed. There were no open wounds noted. Vaseline applied to feet and lower legs to aid in dry skin. Patient reports she is not able to reach her feet and they have not been washed in sometime. She reports she does have services to the house that help her bath hard to reach areas - she was encouraged to have them bath her feet and in between her toes regularly. She reports understanding. Both heels were assessed no pressure injury noted left heel is pink intact and remains blanchable. The right heel is noted for blue purple pigmentation irregular pattern noted not consistent with pressure injury development. Recommend elevating heels off of bed surface with pillows. Recommendations: 1. Turn and Reposition every 2 hours and as needed for patient comfort.? Use pillows or wedges to support off loading positions. 2. Off Load all bony prominences with use of pillows and heel boots if needed.? Apply Preventative foams where needed. ? 3. Monitor for incontinence and moisture control, use barrier creams when needed for prevention and treatment. 4. Provide adequate and supplemental nutrition.? 5. Order low air loss mattress. 6. When applicable maintain blood glucose levels per Providers order. 7. Sacrum - Q2hr turns with pillows. Apply skin prep to the skin allow to dry. Apply Sacral foam dressing over bony prominences, peel back and assess Q shift and Change every 5 days and PRN. 8. Bilateral heels - elevate heels off of bed surface with use of pillows. Re-consult wound care Nurse for wound deterioration or wound changes.
--- NOTE | 2024-06-28 15:10 | MHC.CLN ---
PT WITH NEW DTI WILL ADD ENSURE BID TO PROMOTE WOUND HEALING SUPP TO PROVIDE 700KCALS, 40G PROTEIN FULL CLINICAL NUTRITION ASSESSMENT TO FOLLOW
[2024-06-28 16:00] VITALS: BP 137/68; PULSE 96; RESP 18; TEMP 37.1; O2SAT 93
[2024-06-28] MEDS: cefTRIAXone sodium 1 GM VIAL IVPUSH (17:29)
[2024-06-28] MEDS: 0.9 % Sodium Chloride Flush 3 ML SYRINGE IVFLUSH ×2 (17:31→19:20)
[2024-06-28] MEDS: Azithromycin 500 MG in 0.9 % Sodium Chloride 250 ML 125 MG IV (19:16)
[2024-06-28 19:43] VITALS: BP 132/68; PULSE 107; RESP 17; TEMP 37.3; O2SAT 90
[2024-06-28] MEDS: Enoxaparin Sodium 40 MG/0.4 ML SYRINGE SUBCUT (20:03)
[2024-06-28] MEDS: Oseltamivir Phosphate 30 MG CAPSULE PO (20:04)
[2024-06-29] VITALS: BP 122/68; PULSE 90; RESP 18; TEMP 37.2; O2SAT 95
[2024-06-29 04:00] VITALS: BP 136/65; PULSE 82; RESP 18; TEMP 37.2; O2SAT 94
[2024-06-29] MEDS: Omeprazole 20 MG CAPSULE.DR PO (05:29)
[2024-06-29 08:07] VITALS: BP 142/81; PULSE 87; RESP 18; TEMP 36.8; O2SAT 95
[2024-06-29] MEDS: lisinopriL 20 MG TABLET PO (08:08)
[2024-06-29] MEDS: traMADoL HCL 50 MG TABLET PO (08:08)
[2024-06-29] MEDS: Cholecalciferol (Vitamin D3) 25 MCG TABLET 50 MCG PO (08:09)
[2024-06-29 09:06] LABS: Anion Gap 10 (12-20); Blood Urea Nitrogen 21 mg/dL (9-16); Calcium 8.2 mg/dL (8.4-10.2); Carbon Dioxide 21 mmol/L (22-29); Chloride 115 mmol/L (96-108); Creatinine Clr Calc Pharmacy 71.8; Estimated Glomerular Filt Rate > 60; Glucose Random 84 mg/dL (60-115); Potassium 3.9 mmol/L (3.3-5.1); Sodium 142 mmol/L (135-145)
[2024-06-29 11:01] VITALS: BMI 21.3
--- NOTE | 2024-06-29 11:09 | MHC.CLN ---
F/U DIET=REGULAR. SKIN WITH DTI TO SACRUM IDENTIFIED BY WOUND RN 06/28. ENSURE BID TO PROMOTE WOUND HEALING. SUPPLEMENT PROVIDES 700 KCALS, 40 G PROTEIN. PO INTAKE 50%. FOLLOW FOR PO INTAKE AND SKIN INTEGRITY. SEE CLINICAL NUTRITION ASSESSMENT 06/29/24.
--- NOTE | 2024-06-29 11:09 | MHC.CM.PN ---
DP: PT HAS BEEN MEDICALLY CLEARED FOR DC HOME WITH [facility]. [facility] UPDATED ON TODAY'S DC VIA [facility]. BLS TRANSPORT BOOKED FOR 1:30 PM VIA [facility]. PT SPOKE WITH HARVINDER WHO IS AWARE OF HER RETURN HOME. RN/SURGICAL ASSISTANT AWARE.
[2024-06-29 12:00] VITALS: BP 136/78; PULSE 97; RESP 18; TEMP 36.6; O2SAT 93
--- NOTE | 2024-06-29 12:00 | P.DS_ITS ---
DS: Providers Provider Date of Service: 06/29/24 Date of admission: 06/26/24 21:58 Date of discharge: 06/29/24 Primary care physician: Ivan España MD Consults: 06/28/24 13:00 Consult to Wound Care Routine Reason for consultation: st 1 coccyx DS: Diagnosis Discharge Diagnosis (1) Acute UTI: Status: Acute DS: Summary Hospital Course Hospital Course: Patient is a 79 year old pleasant white female with no significant medical history other than arthritis and currently not taking any medications who was brought to the emergency room from home for evaluation of weakness. She has been feeling unwell for a couple of days with a cough and sore throat and today, slid off the commode onto the floor and then had a hard time getting up because she was very weak. She spend almost 6 hours on the floor before she gave up and called 911 for lift assist. She otherwise denied any other complains including urinary symptoms, chest pain, fevers or chills. Initial work up done in the emergency room was notable for positive Influenza A PCR, acute renal failure with a BUN of 42 and creatinine of 1.58, elevated CPK at 2079, elevated lactic acid at 2.4, a leukocytosis of 13.7 K and infected urine (with urinalysis showing positive urine nitrites, large leukocyte esterase, > 50 WBC/HPF with 2+ bacteria. An assessment of severe sepsis due to UTI and likely influenza A was m renu and she was started on Tamiflu and Ceftriaxone and admission requested. Hypokalemia replaced GNR UTI will treat empirically with IV Ceftriaxone follow up on urine cultures Severe Sepsis. Sepsis resolved met criteria for severe sepsis with tachycardia, tachypnea and leukocytosis in setting of Influenza A and UTI Influenza A infection continue Tamiflu, total 5 days treatment Asthenia multi-factorial - infection in setting of advanced age Rhabdomyolysis traumatic - after laying on the floor for 6 hours CPK elevated continue IV fluids Acute renal failure secondary to rhabdo likely dehydrated Time Attestation Discharge Coordination Time (in mins): 40 Quality: Safe Use of Opioids Does Pt have an Active Cancer Diagnosis on the Problem List?: No Quality: Stroke Does the patient have a stroke diagnosis?: No Physical Exam Vital Signs: Vital Signs: Last Vital Signs Temp 98.2 F 06/29/24 08:07 Pulse 87 06/29/24 08:07 Resp 18 06/29/24 08:07 BP 142/81 H 06/29/24 08:07 Pulse Ox 95 06/29/24 08:07 O2 Del Method Nasal Cannula 06/29/24 08:07 O2 Flow Rate 1 06/29/24 08:07 BMI result Body Mass Index 21.3 Appearing in no acute distress head is normocephalic atraumatic eyes pupils are PERRLA sclera is anicteric mouth throat mucous membranes are intact and moist neck is supple no lymphadenopathy, no JVD noted lung sounds are clear to auscultation heart regular rate rhythm, clear S1, S2 positive bowel sounds, abdomen is soft, nontender neuro patient is alert x3, no focal deficits mostly bedbound DS: Data Data Completed and Pending Labs on day of discharge: Laboratory Results - last 24 hr 06/29/24 08:06 Sodium 142 Potassium 3.9 D Chloride 115 H Carbon Dioxide 21 L Anion Gap 10 L BUN 21 H Creatinine 0.59 Estim Creat Clear Calc 71.8 Estimated GFR > 60 Random Glucose 84 Calcium 8.2 L Total Creatine Kinase 570 H Preliminary micro results at discharge 06/26/24 18:19 Blood Culture - Preliminary Blood - Venous No growth after 48 hours. 06/26/24 18:19 Blood Culture - Preliminary Blood - Venous No growth after 48 hours. Discharge Plan Discharge Anticipated Discharge Date/Time: 06/29/24 11:21 Patient Disposition: Home Health Service Discharge Diagnosis: Rhabdomyolysis Fall Hypokalemia Severe sepsis Influenza a ZOIE Referrals: [facility] [Outside] - 1 Week ([facility] WITH ADDITION OF HALFWAY, PHYSICAL THERAPY AND OCCUPATIONAL THERAPY- A NURSE WILL CALL TO [facility].) Ivan España MD [Primary Care Provider] - 1 Week Discharge Medications: New cefuroxime axetil 500 mg tablet 500 mg PO BID Qty: 6 0RF cefuroxime axetil 500 mg tablet 500 mg PO BID Qty: 6 0RF Continued lisinopril 20 mg tablet 20 mg PO DAILY alendronate 70 mg tablet 70 mg PO FR tramadol 50 mg tablet 50 mg PO TID omeprazole 20 mg capsule,delayed release(DR/EC) 20 mg PO DAILY@0630 cholecalciferol (vitamin D3) [Vitamin D3] 50 mcg (2,000 unit) Capsule 50 mcg PO DAILY Discharge Orders: Discharge Order (Routine); Ordered 06/29/24 Ordered By: Evelyn Gonzalez Diet: Advance to usual diet Activity on Discharge: As tolerated Stand Alone Forms: Patient Portal Discharge page Print Language: Turkmen Care Plan Goals: complete antibiotic course Health Concerns: Rhabdomyolysis Fall Hypokalemia Severe sepsis Influenza a ZOIE Plan of Treatment: Follow up with primary care provider as needed Take all medications as prescribed Assessment: See discharge summary Discharge Date/Time: 06/29/24 15:50
--- NOTE | 2024-06-29 12:55 | W.MHC.F2F ---
Service Date Service Date: 06/29/24 Encounter Date of encounter: 06/29/24 Reasons for Services Signs and symptoms assessed: Sepsis hypokalemia Flu A Rhabdo ZOIE Reason for long term: CV/CP assess and/or care Reason for physical therapy: home safety and mobility and gait/transfer training Homebound: Leaving the home is medically contraindicated at this time without the asist of a device and/or another person due th the listed conditions above and below. Reason homebound: bedbound/chairbound and weakness related to hospital stay Certification: Based on the above findings, I certify that this patient is confined to the home and needs intermittent long term care, physical therapy and/or speech therapy, or continues to need occupational therapy. The patient is under my care, and I have initiated the establishment of the plan of care. The patient will be followed by a physician who will periodically review the plan of care. Time Spent With Patient Time: Total time managing care of this patient today ____ minutes.
== END 2024-06-29 15:50 | disposition home health service (06) | DRG 690 ==
LOC: HO.ED 20:26 → HO.EDOVER 22:08 → HO.S3 06-27 19:00
PROVIDERS: Admitting Provider Internal Medicine; Emergency Provider Emergency Medicine; PCP Internal Medicine; Visit Provider Nurse Practitioner Acute Care
DX: N39.0 Urinary tract infection, site not specified (principal); M62.82 Rhabdomyolysis; N17.9 Acute kidney failure, unspecified; J10.1 Influenza due to other identified influenza virus with other respiratory manifestations; R54 Age-related physical debility; E87.6 Hypokalemia; E86.0 Dehydration; Z20.822 Contact with and (suspected) exposure to COVID-19; Z79.899 Other long term (current) drug therapy
CPT/HCPCS: 0241U; 36415; 71045; 80048; 80053; 80076; 80307; 81001; 82550; 82803; 83605; 83690; 83735; 83880; 84443; 84484; 85007; 85025; 85027; 85610; 87040; 87086; 87088; 87186; 87651; 93005; 97162; 97530; 99285; J0456; J0696; J1650

== ENCOUNTER → 2024-06-26 17:42 | Outpatient (BNV) | payer MEDICARE, SELFPAY | PROVIDERS: Admitting Provider Internal Medicine; Emergency Provider Emergency Medicine; PCP Internal Medicine; Visit Provider Internal Medicine Cardiovascular Disease | DX: R94.31 Abnormal electrocardiogram [ECG] [EKG] (principal); W19.XXXA Unspecified fall, initial encounter | CPT/HCPCS: 93010 ==

== ENCOUNTER → 2024-06-26 17:42 | Outpatient (BNV) | payer MEDICARE, SELFPAY | PROVIDERS: Emergency Provider Emergency Medicine; Visit Provider Radiology Diagnostic Radiology | DX: I70.0 Atherosclerosis of aorta (principal); I95.9 Hypotension, unspecified | CPT/HCPCS: 71045 ==

== ENCOUNTER 2024-06-26 21:58 | Outpatient (BNV) | payer MEDICARE, SELFPAY | END 2024-06-28 15:45 | PROVIDERS: Admitting Provider Internal Medicine; Emergency Provider Emergency Medicine; PCP Internal Medicine; Visit Provider Radiology Diagnostic Radiology | DX: J18.9 Pneumonia, unspecified organism (principal); M06.4 Inflammatory polyarthropathy | CPT/HCPCS: 71045 ==

== ENCOUNTER → 2024-06-26 21:58 | Outpatient (BNV) | payer MEDICARE, SELFPAY | PROVIDERS: Admitting Provider Internal Medicine; Emergency Provider Emergency Medicine; PCP Internal Medicine; Visit Provider Internal Medicine | DX: N39.0 Urinary tract infection, site not specified (principal) | CPT/HCPCS: G0180 ==

== ENCOUNTER 2024-07-07 09:29 | Inpatient (IN) | payer MEDICARE, SELFPAY ==
--- NOTE | ~2024-07-07 | XR_ITS ---
EXAMINATION: XR KNEE, RIGHT CLINICAL INFORMATION: Rt knee pain COMPARISON: None available. TECHNIQUE: Two views of the right knee. FINDINGS: There is osteopenia. There is a subtle cortical buckle of the medial tibial metaphysis on the AP projection. Cannot exclude a subtle fracture. Severe joint space loss lateral compartment with [id number] appearance, subchondral sclerosis, and large marginal productive osteophytes. There is valgus angulation of the joint. There is widening of the medial compartment. 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 There are patellar subchondral cystic changes with sclerosis. There is diffuse of cutaneous edema the knee. There are vascular calcifications. There is an associated joint effusion. XR/XR knee RT 2V IMPRESSION: 1. Subtle cortical buckling of the medial tibial metaphysis on the AP projection. Cannot exclude a subtle fracture. 2. 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 [id number]-[id number] appearance lateral compartment with large osteophytes and subchondral sclerosis.. 2. Large productive osteophyte causes 1.8 cm anterior displacement of the patella relative to the femur. 3. Suprapatellar joint effusion. Electronically signed by: Kike Sykes MD 07/08/2024 09:47 AM [facility] [place]
--- NOTE | ~2024-07-07 | XR_ITS ---
EXAMINATION: XR FOOT, LEFT CLINICAL INFORMATION: pain, bruising r/o fx COMPARISON: None available. TECHNIQUE: AP, lateral, and oblique views of the left foot. FINDINGS: Exam is significantly limited by significant osteoporosis, and suboptimal positioning for the oblique and lateral projection (presumably due to patient inability). Within the confines of profound osteopenia, no definitive fracture or dislocation is identified. There is diffuse soft tissue swelling of the entire foot and ankle. There are vascular calcifications. XR/XR foot LT 2V IMPRESSION: 1. No definite fracture or dislocation within confines of patient positioning and osteopenia. If there is high suspicion, MRI may be of benefit. 2. There is diffuse soft tissue swelling of the entire foot and ankle. Electronically signed by: Kike Sykes MD 07/11/2024 12:04 PM [facility]
--- NOTE | ~2024-07-07 | XR_ITS ---
EXAMINATION: XR CHEST CLINICAL INFORMATION: FTT cough COMPARISON: 06/28/2024, 06/26/2024. TECHNIQUE: Frontal view of the chest was obtained. FINDINGS: Limited exam as the patient's chin obscures the right apex, and there is rightward rotation. The cardiac, hilar, and mediastinal contours are normal. Aortic mural calcification. There is stable elevation of the left hemidiaphragm with linear airspace opacity left base. This may reflect persistent or residual prior pneumonia. The medial right basilar airspace opacity has resolved. No pneumothorax or effusion. End-stage arthropathy bilateral shoulder joints again noted. No soft tissue abnormalities. XR/XR chest 1V IMPRESSION: 1. Mildly limited exam as detailed. 2. Persistently elevated left hemidiaphragm with improved but persistent linear airspace disease left base. 3. Resolved airspace opacity in the medial right base. Electronically signed by: Kike Sykes MD 07/07/2024 11:07 AM [facility]
[2024-07-07 09:40] VITALS: BP 112/70; PULSE 55; O2SAT 94
[2024-07-07 10:22] VITALS: BP 118/62; PULSE 109; RESP 20; TEMP 36.9; O2SAT 95; BMI 25.4
[2024-07-07 10:27] VITALS: BP 118/62; PULSE 109; RESP 20; TEMP 36.9; O2SAT 97
--- NOTE | 2024-07-07 10:38 | ECG_ITS ---
Test Reason : FALL Blood Pressure : */* mmHG Vent. Rate : 108 BPM Atrial Rate : 108 BPM P-R Int : 136 ms QRS Dur : 58 ms QT Int : 324 ms P-R-T Axes : 34 -31 46 degrees QTcB Int : 434 ms Sinus tachycardia Left axis deviation Minimal voltage criteria for LVH, may be normal variant ( R in aVL ) Inferior infarct , age undetermined Abnormal ECG When compared with ECG of 26-Jun-2024 18:20, Nonspecific T wave abnormality now evident in Lateral leads Referred By: Kaye Chavez Electronically Signed By: JOYCE COLON
--- OUTSIDE RECORDS SUMMARY | 2024-07-07 10:42 | XMS_ITS ---
Author Organization Ivan España MD Address [address] [place], [place] [id number] Care Team Providers Care Top Knitter Name Role Phone Ivan España Primary Care Provider Allergies No Known Allergies REASON FOR VISIT PH Patient cannot get out of bed today and her aide is going home., audio [phone] Medications Medication SIG (Take, Route, Frequency, Duration) Notes Start Date End Date Status Lisinopril 20 MG Take 1 tablet by juanito once daily for 90 Active Omeprazole 20MG Take 1 capsule by [facility] once daily Orally Once a day for 90 days Active traMADol HCl 50 MG 1 tablet as needed Orally three times a day for 30 days 2024 Active Celecoxib 200 MG Take 1 capsule by [facility] once daily Orally Once a day for 30 days Not-Taking Vitamin D 1000 UNIT 1 tablet Orally Once a day Active Alendronate Sodium 70 MG Take 1 tablet b y mouth once a week Orally once a week for 84 days Active Tylenol 325 MG 2 tablet as needed Orally every 6 hrs Not-Taking Furosemide 20 MG 1 tablet Orally Once a day for 30 day(s) Not-Taking predniSONE 10 MG 1 tablet Orally Once a day for 30 day(s) 09/10/2021 Not-Taking Aleve 220 MG 1 tablet as needed Orally every 12 hrs Not-Taking Vital Signs Height 65 in 07/05/2024 Weight 130 lbs 07/05/2024 BMI 21.63 kg/m2 07/05/2024 weight at home is 130 BP not taken today Encounters Encounter Location Date Provider Diagnosis Ivan España MD [address] [place], [place] [phone] 07/05/2024 Ivan España Muscle weakness M62.81 Assessments Encounter Date Diagnosis (ICD Code) Assessment Notes Treatment Notes Treatment Clinical Notes Section Notes 07/05/2024 Muscle weakness (ICD-10 - M62.81) i have spoken to her and she needs to go to a long term. not able to get out of bed. is no longer safe to be there. advised to call ambulance and go to hospital/ going to go Plan Of Treatment Treatment Notes Assessment Notes Muscle weakness i have spoken to her and she needs to go to a long term. not able to get out of bed. is no longer safe to be there. advised to call ambulance and go to hospital/ going to go Progress Notes * Monica GARDNER ADOB:[birth year] (79 yo F)Acc No.[id number]:07/05/2024 Patient:?Monica GARDNER A Provider:?Ivan España MD :1945???Age:79 Y???Sex:Female D ate:07/05/2024 Address:[address] [place] [address], [place] [address] Subjective: * Chief Complaints: * ???1. PH Patient cannot get out of bed today and her aide is going home.. 2. Audio [phone]. * HPI: ???Symptom(s):?Telehealth?Location of provider rendering services:?[address], [address],?Location of patient:?at address listed in demographics for today's visit,?Patient identification confirmed using:?Name, ,?Telehealth method:?Telephone only. Patient not visible to care provider.,?Consent:?Patient verbally consented to treatment, Patient verbally consented to billing insurance company, Patient informed of any privacy concerns related to method of visit,?Total time spend talking with patient (minutes)?20.?patient is a 79 yo female audio telehealth visit here for follow up of hospital discharge summary has been reviewed and medications reconcilled. fell and had to get help. was in long term. legs are aching. had the flu and a kidney infection. can't get out of bed now. last night was not a good night. legs don't have strength. had to call 911 to get back in bed. * ROS:?General/Constitutional:?Denies?Chills.?Denies?Fatigue.?Denies?Fever.?Denies?Headache.?ENT:?Patient denies?decreased sense of smell, any loss of taste, sore throat.?Denies?Sore throat.?Respiratory:?Admits?Cough.?Denies?Shortness of breath at rest.?Denies?Shortness of breath with exertion.?Denies?Sputum production.?Gastrointestinal:?Denies?Diarrhea.?Denies?Nausea.?Musculoskeletal:?Patient denies?muscle aches.?Peripheral Vascular:?Patient denies?red and blue toes.? * Medical History:?Refuses col onoscopy 02-14-13 and 09-06-13. refuses colonoscopy 2014; had FOBT done 03/2016; refused colonoscopy/cologuard 02/06/20, Esophageal spasm, Anemia of chronic disease. * Medications:?Taking Vitamin D 1000 UNIT Tablet 1 tablet Orally Once a day , Taking Alendronate Sodium 70 MG Tablet Take 1 tablet by mouth once a week Orally once a week , Taking Omeprazole 20MG Capsule Delayed Release Take 1 capsule by mouth once daily Orally Once a day , Taking Lisinopril 20 MG Tablet Take 1 tablet by mouth once daily , Taking traMADol HCl 50 MG Tablet 1 tablet as needed Orally three times a day , Not-Taking/PRN Celecoxib 200 MG Capsule Take 1 capsule by mouth once daily Orally Once a day , Not-Taking/PRN predniSONE 10 MG Tablet 1 tablet Orally Once a day , Not-Taking/PRN Furosemide 20 MG Tablet 1 tablet Orally Once a day , Not- Taking/PRN Aleve 220 MG Tablet 1 tablet as needed Orally every 12 hrs , Not-Taking/PRN Tylenol 325 MG Tablet 2 tablet as needed Orally every 6 hrs * Allergies:?N.K.D.A. Objective: * Vitals:?Ht: 65, Wt: 130, BMI :21.63, Wt-k.97. weight at home is 130 BP? not taken today. Assessment: * Assessment: 1.?Muscle weakness - M62.81 (Primary)??? Plan: * Treatment: * * The named appointment provid er may or may not be the originator of this progress note, and it is not deemed complete until electronically signed by the appointment provider. Sign off status: Pending * Provider:?Ivan España MD Date:?0 07/05/2024 Generated for Lori barnett/Angely/eTransmitting on:?07/07/2024 10:42 AM EST History and Physical Notes * HPI (History of Present Illness) Category Sub-Category Detail Notes Category Not es Symptom(s) Telehealth Location of [facility] rendering services:: [address], [address] patient is a 79 yo female audio telehealth visit here for follow up of hospital discharge summary has been reviewed and medications reconcilled. fell and had to get help. was in long term. legs are aching. had the flu and a kidney infection. can't get out of bed now. last night was not a good night. legs don't have strength. had to call 911 to get back in bed Location of patient:: at address listed in demographics for today's visit Patient identification confirmed using:: Name, Telehealth method:: Telephone only. Kimberly ent not visible to care provider. Consent:: Patient verbally c onsented to treatment, Patient verbally consented to billing insurance company, Patient informed of any privacy concerns related to method of visit Total time spend talking with patient (m inutes): 20
--- OUTSIDE RECORDS SUMMARY | 2024-07-07 10:42 | XMS_ITS ---
Author Organization Ivan España MD Address [address] [place], [place] [phone] Care Team Providers Care Welding Machine Operator Arc Name Role Phone Ivan España Primary Care Provider REASON FOR VISIT Refused Nursing and PT Encounters Encounter Location Date Provider Diagnosis Ivan España MD [address] [place], [place] [phone] 07/07/2024 Ivan España Plan Of Treatment No Information Progress Notes * Monica GARDNER ADOB:[birth year] (79 yo F)Acc No.[id number]:07/07/2024 Patient:?Monica GARDNER :1945???Age:79 Y???Sex:Female Address:[address] [place] [address], [address], [place] [address] * * Date:?
--- OUTSIDE RECORDS SUMMARY | 2024-07-07 10:42 | XMS_ITS ---
Author Organization Ivan España MD Address [address] [place] [phone] Care Team Providers Care Chain Saw Driver Name Role Phone Ivan España Primary Care Provider REASON FOR VISIT REFILL TRAMADOL Medications Medication SIG (Take, Route, Fr equency, Duration) Notes Start Date End Date Status traMADol HCl 50 MG 1 tablet as needed O rally three times a day for 30 days 07/05/2024 Active Encounters Encounter Location Date Provider Diagnosis Ivan España MD [address] [place] [phone] 07/05/2024 Ivan España Arthritis M19.90 Assessments Encounter Date Diagnosis (ICD Code) Assessment Notes Treatment Notes Treatment Clinical Notes Section Notes 07/05/2024 Arthritis (ICD-10 - M19.90) Plan Of Treatment Medication Medication Name Sig Start Date Stop Date Notes traMADol HCl 50 MG 1 tablet as needed O rally three times a day for 30 days 07/05/2024 Progress Notes * Monica GARDNER ADOB:[birth year] (79 yo F)Acc No.[id number]:07/05/2024 Patient:?Monica GARDNER :1945???Age:79 Y???Sex:Female Address:[address] [place] [address], [address], [place] [address] * Refills? Refill traMADol HCl Tablet, 50 MG, Orally, 90, 1 tablet as needed, three times a day, 30 days, Refills=4 * true * Date:? Generated for Lori barnett/Angely/Joseitting on:?07/07/2024 10:42 AM EST
--- OUTSIDE RECORDS SUMMARY | 2024-07-07 10:42 | XMS_ITS | Clinical Summary ---
Author Organization [facility] Address [address] [place] [address] Care Team Providers Care Squeegeer And Former Name Role Phone Unavailable Primary Care Provider Unavailabl e Social History Tobacco Use Types Packs/Day Years Used Date Smoking Tobacco: Never Assessed Comments Unknown Sex and Gender Information Value Date Recorded Sex Assigned at Not on file Legal Sex Female 2:42 AM EST Gender Identity Not on file Sexual Orientation Not on file Plan of Treatment Health Maintenance Due Date Last Done Comments DTaP,Tdap,and Td Vaccines (1 - Tdap) 1966 Pneumococcal Vaccine: 50+ Ye ars (1 of 1 - PCV) 1997 Zoster Vaccines (1 of 2) 1997 RSV Immunization Patients 60 + Years Old (1 - 1-dose 75+ series) 2022 COVID-19 Vaccine ( - 2023-2 5 season) 2024 Influenza Vaccine (#1) 2024 HIB Vaccines Aged Out No longer eligi ble based on patient's age to complete this topic HPV Vaccines Aged Out No longer eligi ble based on patient's age to complete this topic Hepatitis A Vaccines Aged Out No long er eligible based on patient's age to complete this topic Hepatitis B Vaccines Aged Out No long er eligible based on patient's age to complete this topic IPV Vaccines Aged Out No longer eligi ble based on patient's age to complete this topic MMR Vaccines Aged Out No longer eligi ble based on patient's age to complete this topic Meningococcal ACWY Vaccine Aged Out N o longer eligible based on patient's age to complete this topic Meningococcal B Vacine Aged Out No lo nger eligible based on patient's age to complete this topic RSV Immunization Patients Un liv 20 months Aged Out No longer eligible b ased on patient's age to complete this topic Varicella Vaccines Aged Out No longer eligible based on patient's age to complete this topic
--- NOTE | 2024-07-07 10:49 | ED.WEAKNESS ---
HPI - Weakness General Chief complaint: Failure to Thrive Stated complaint: INC WEAKNESS,FTT PER EMS Time Seen by Provider: 07/07/24 10:26 Source: patient, EMS, RN notes reviewed and old records reviewed Mode of arrival: EMS History of Present Illness ED Provider: Kaye Chavez PA-C HPI Narrative: 79-year-old female with past medical history of arthritis, recent discharged from our facility on 06/29/2024 s/p sepsis secondary to UTI and influenza A, presenting to the ED via EMS from home for concerns of failure to thrive by VNA. Per EMS patient is visiting nurse called due to finding patient defecating in bed with inability to care for herself. Patient reports bedsores and acute on chronic LE pain secondary to arthritis. States she has been bed-bound since hospital discharge. Has been unable to get to commode. Denies recent falls or injury. Denies fever, chills, CP/SOB, abdominal pain, nausea/vomiting. Lives at home with Related Data Home Medications ?Medication ?Instructions ?Recorded ?Confirmed alendronate 70 mg tablet 70 mg PO FR 06/27/24 06/27/24 cholecalciferol (vitamin D3) 50 50 mcg PO DAILY 06/27/24 06/27/24 mcg (2,000 unit) capsule (Vitamin D3) lisinopril 20 mg tablet 20 mg PO DAILY 06/27/24 06/27/24 omeprazole 20 mg capsule,delayed 20 mg PO DAILY@0630 06/27/24 06/27/24 release tramadol 50 mg tablet 50 mg PO TID 06/27/24 06/27/24 Previous Rx's ?Medication ?Instructions ?Recorded cefuroxime axetil 500 mg tablet 500 mg PO BID #6 tabs 06/29/24 cefuroxime axetil 500 mg tablet 500 mg PO BID #6 tabs 06/29/24 Allergies Allergy/AdvReac Type Severity Reaction Status Date / Time No Known Allergies Allergy Verified 07/07/24 10:24 [No Known Allergies*] Review of Systems Review of Systems: Yes all other systems are reviewed and are negative Constitutional: Constitutional: Reports as per HPI [facility] Past Medical History Attestation statement: The following information was validated with the patient. Source: old records reviewed Medical History Arthritis Social History Social History Household Members: Spouse Housing: Apartment Do you presently have visiting nurse or other home services: Yes (excel) Alcohol intake: never Patient Tobacco Use Status: Never used Tobacco Smoked in Last 30 Days: No Second Hand Smoke Exposure: No Use of substances other than those prescribed or required for medical reasons: No Advance Directives: Yes Advance Directives Information Provided: Yes Do you have a plan to hurt others: No Plan service: No Physical Exam Vital Signs: Vital Signs: Last Vital Signs Temp 98.2 F 07/07/24 16:14 Pulse 113 H 07/07/24 16:14 Resp 20 07/07/24 16:14 BP 133/85 07/07/24 16:14 Pulse Ox 93 07/07/24 16:14 O2 Del Method Room Air 07/07/24 16:14 BMI result Body Mass Index 25.4 Const: General: cooperative, no acute distress and poor hygiene Orientation/consciousness: patient oriented x3 Limitations: no limitations HEENT: Head: Yes normal to inspection and Yes atraumatic Ears: hearing grossly normal bilaterally General nose exam: Normal external nose present Face and sinus: Yes normal facial exam Eyes: General: appearance normal, both eyes and all related structures EOM: EOMs intact bilaterally Neck: Neck: Yes normal visual inspection and Yes no meningeal signs Resp: Effort & Inspection: normal respiratory effort and no respiratory distress Auscultation: clear to auscultation bilaterally Cardio: Rate: regular rate Heart sounds: S1 normal heart sound present and S2 normal heart sound present GI: Inspection: Yes normal to inspection Palpation (GI): Soft to palpation, nontender, no guarding and not rigid Skin: Other: Superficial bed sore noted coccygeal region. No surrounding erythema. No fluctuance/induration Rashes: no rashes Neuro: General: patient oriented x3, tone normal and no meningeal signs Cranial nerves: Yes CN's II-XII intact bilaterally Extrem: Other: + bilateral LE edema Course Course Course Narrative: -1353--H&H lower than baseline, 9.7/30.2 > patient denies any active bleeding, bloody stools or melena. Will obtain occult stool. -BUN chronically elevated. Initial troponin 15.8 > will obtain repeat -viral testing negative XR chest 1V IMPRESSION: 1. Mildly limited exam as detailed. 2. Persistently elevated left hemidiaphragm with improved but persistent linear airspace disease left base. 3. Resolved airspace opacity in the medial right base. -1520--occult stool negative. Repeat troponin flat, mi unlikely -UA infected > will initiate p.o. Ceftin. Plan for PT/case management. Elder protective Services reached out to case management and reported patient is unable to care for self at home. Physician observation initiated at 15:21 -1630-- ED care transferred to ANTOLIN Vargas pending PT/CM Medications Administered Generic Name Dose Route Start Last Admin Trade Name Freq PRN Reason Stop Dose Admin Cefuroxime Axetil 250 mg 07/07/24 18:00 07/07/24 16:15 Cefuroxime Axetil 250 Mg Tablet PO 07/14/24 17:59 250 mg Q12H SARTHAK Administration Discontinued Medications Generic Name Dose Route Start Last Admin Trade Name Freq PRN Reason Stop Dose Admin Sodium Chloride 1,000 mls @ 999 mls/hr 07/07/24 10:45 07/07/24 12:53 Ns IV 07/07/24 11:45 Infused .Q1H1M SARTAHK Infusion Olanzapine 5 mg 07/07/24 15:45 07/07/24 16:15 Olanzapine 5 Mg Tablet PO 07/07/24 15:46 5 mg ONCE ONE Administration Medical Decision Making Medical Decision Making [facility] Narrative: 1058 - 79-year-old female with past medical history of arthritis, recent discharged from our facility on 06/29/2024 s/p sepsis secondary to UTI and influenza A, presenting to the ED via EMS from home for concerns of failure to thrive by VNA. Per EMS patient is visiting nurse called due to finding patient defecating in bed with inability to care for herself. On exam tachycardic, poor hygiene, NAD, nontoxic appearing, lungs CTA, abdomen soft/nontender. Superficial bed sore noted without acute cellulitis/infectious etiology appreciated. Concern for adult failure to thrive vs metabolic / infectious etiologies. Low suspicion for acute ACS. Low suspicion for severe sepsis at this time Plan: EKG, labs, UA, viral testing, CXR, IVF, re-evaluate Please refer to course for remaining clinical decision making, interpretation of labs/imaging results, and discussions with consultants and/or family members. Differential Diagnosis Differential Diagnoses: The differential diagnosis associated with the presentation includes As above Admission/Observation Consideration of admission/observation: Escalation of care including admission/observation considered Lab Data MDM Lab Attestation statement: I reviewed the patient's lab results. 07/07/24 11:44 07/07/24 11:44 Labs: Lab Results 07/07/24 07/07/24 07/07/24 Range/Units 11:44 14:20 14:42 WBC 11.3 H (4.8-10.8) X10*3/uL RBC 3.43 L (4.20-5.50) X10*6/uL Hgb 9.7 L (12.0-16.0) g/dl Hct 30.2 L D (37.0-47.0) % MCV 88.0 (80.0-98.0) fL MCH 28.3 (27.0-33.0) pg MCHC 32.1 (31.0-35.0) g/dl RDW 15.9 (11.0-16.0) % Plt Count 442 H D (160-400) X10*3/uL MPV 9.5 (9.4-12.3) fL Immature Gran % (Auto) 0.9 H (0.0-0.4) % Neut % (Auto) 80.3 H (45-73) % Lymph % (Auto) 9.7 L (20-40) % [place] % (Auto) 8.0 (2-11) % Eos % (Auto) 0.7 (0-4) % Baso % (Auto) 0.4 (0-2) % Lymph # (Auto) 1.1 L (1.2-4.9) X10*3/uL [place] # (Auto) 0.9 (0.1-1.2) X10*3/uL Eos # (Auto) 0.1 (0.0-0.4) X10*3/uL Baso # (Auto) 0.0 (0.0-0.2) X10*3/uL Abs Immat Gran (auto) 0.10 H (0.00-0.03) X10*3/uL Absolute Neuts (auto) 9.1 H (2.0-8.3) x10*3/uL Absolute Nucleated RBC 0.000 (0.0-0.012) X10*3/uL Nucleated RBC % (auto) 0.0 (0.0-0.2) /100WBC Sodium 144 (135-145) mmol/L Potassium 4.1 (3.3-5.1) mmol/L Chloride 110 H (96-108) mmol/L Carbon Dioxide 27 (22-29) mmol/L Anion Gap 11 L (12-20) BUN 18 H (9-16) mg/dL Creatinine 0.53 (0.5-1.4) mg/dL Estim Creat Clear Calc 71.4 Estimated GFR > 60 Random Glucose 146 H (60-115) mg/dL Calcium 8.8 D (8.4-10.2) mg/dL Magnesium 1.7 (1.6-2.6) mg/dL Total Bilirubin 0.4 (0.0-1.0) mg/dL Direct Bilirubin 0.2 (0.0-0.5) mg/dL AST 30 (5-31) U/L ALT 16 (0-31) U/L Alkaline Phosphatase 110 (39-117) U/L Total Creatine Kinase 45 (26-140) U/L Troponin I High Sens 15.8 15.2 (<3.5-17.0) ng/L Total Protein 6.8 (6.5-8.0) g/dL Albumin 2.9 L (3.5-5.0) g/dL Urine Color Urine Appearance Urine pH (5.0-9.0) Ur Specific [place] (1.005-1.025) Urine Protein (Neg-Trace) mg/dL Urine Glucose (UA) (Negative) mg/dL Urine Ketones (Negative) mg/dL Urine Blood (Negative) Urine Nitrite (Negative) Ur Leukocyte Esterase (Negative) Urine RBC (0-2) /HPF Urine WBC (0-5) /HPF Ur Squamous Epith Cells (0-2) /HPF Urine Bacteria (None Seen) Hyaline Casts (0-2) /LPF Granular Casts Stool Occult Blood NEGATIVE (NEGATIVE) Influenza Type A (PCR) NEGATIVE (Negative) Influenza Type B (PCR) NEGATIVE (Negative) RSV RNA Qual (PCR) NEGATIVE (Negative) SARS-CoV-2 RNA (RT-PCR) NEGATIVE (Negative) 02/20/25 Range/Units 15:01 WBC (4.8-10.8) X10*3/uL RBC (4.20-5.50) X10*6/uL Hgb (12.0-16.0) g/dl Hct (37.0-47.0) % MCV (80.0-98.0) fL MCH (27.0-33.0) pg MCHC (31.0-35.0) g/dl RDW (11.0-16.0) % Plt Count (160-400) X10*3/uL MPV (9.4-12.3) fL Immature Gran % (Auto) (0.0-0.4) % Neut % (Auto) (45-73) % Lymph % (Auto) (20-40) % [place] % (Auto) (2-11) % Eos % (Auto) (0-4) % Baso % (Auto) (0-2) % Lymph # (Auto) (1.2-4.9) X10*3/uL [place] # (Auto) (0.1-1.2) X10*3/uL Eos # (Auto) (0.0-0.4) X10*3/uL Baso # (Auto) (0.0-0.2) X10*3/uL Abs Immat Gran (auto) (0.00-0.03) X10*3/uL Absolute Neuts (auto) (2.0-8.3) x10*3/uL Absolute Nucleated RBC (0.0-0.012) X10*3/uL Nucleated RBC % (auto) (0.0-0.2) /100WBC Sodium (135-145) mmol/L Potassium (3.3-5.1) mmol/L Chloride (96-108) mmol/L Carbon Dioxide (22-29) mmol/L Anion Gap (12-20) BUN (9-16) mg/dL Creatinine (0.5-1.4) mg/dL Estim Creat Clear Calc Estimated GFR Random Glucose (60-115) mg/dL Calcium (8.4-10.2) mg/dL Magnesium (1.6-2.6) mg/dL Total Bilirubin (0.0-1.0) mg/dL Direct Bilirubin (0.0-0.5) mg/dL AST (5-31) U/L ALT (0-31) U/L Alkaline Phosphatase (39-117) U/L Total Creatine Kinase (26-140) U/L Troponin I High Sens (<3.5-17.0) ng/L Total Protein (6.5-8.0) g/dL Albumin (3.5-5.0) g/dL Urine Color Dark Yellow Urine Appearance Turbid Urine pH 5.5 (5.0-9.0) Ur Specific [place] 1.025 (1.005-1.025) Urine Protein 100 (2+) H (Neg-Trace) mg/dL Urine Glucose (UA) Negative (Negative) mg/dL Urine Ketones Negative (Negative) mg/dL Urine Blood Large (3+) H (Negative) Urine Nitrite Negative (Negative) Ur Leukocyte Esterase Moderate (2+) H (Negative) Urine RBC >20 H (0-2) /HPF Urine WBC >50 H (0-5) /HPF Ur Squamous Epith Cells 0-2 (0-2) /HPF Urine Bacteria 3+ (None Seen) Hyaline Casts 3-5 (0-2) /LPF Granular Casts Present Stool Occult Blood (NEGATIVE) Influenza Type A (PCR) (Negative) Influenza Type B (PCR) (Negative) RSV RNA Qual (PCR) (Negative) SARS-CoV-2 RNA (RT-PCR) (Negative) Independent Interpretation I performed an independent interpretation of an: EKG and Plain X-Ray Radiology Impression Discussion of test interpretation with radiology: I have reviewed the radiologist's reading. External Record Review External record reviewed: Inpatient record, Office record, Outpatient record, Prior outpatient labs, Prior outpatient radiology, Primary care record and Outside ED record Tests considered The following testing was considered but not selected: As above Prescription Management I considered prescription management with: Pain Medication and Antibiotic Chronic Conditions Patient?s care impacted by: Other Social Determinants Patient?s care significantly limited by Social Determinants of Health including: Inadequate housing, Low income, Problems related to primary support group, Unemployment, Problems related to employment and Other Social Determinant of Health Discharge Plan Discharge Clinical Impression: Acute UTI, Adult failure to thrive Patient Disposition: Still a Patient Prescriptions: No Action lisinopril 20 mg tablet 20 mg PO DAILY alendronate 70 mg tablet 70 mg PO FR tramadol 50 mg tablet 50 mg PO TID omeprazole 20 mg capsule,delayed release(DR/EC) 20 mg PO DAILY@0630 cholecalciferol (vitamin D3) [Vitamin D3] 50 mcg (2,000 unit) Capsule 50 mcg PO DAILY cefuroxime axetil 500 mg tablet 500 mg PO BID Qty: 6 0RF cefuroxime axetil 500 mg tablet 500 mg PO BID Qty: 6 0RF Print Language: Qatari
[2024-07-07] MEDS: 0.9 % Sodium Chloride 1,000 ML 999 ML IV (11:45)
[2024-07-07 11:49] LABS: MANUAL DIFF FLAG NO
[2024-07-07 11:51] LABS: Basophils Percent Auto 0.4 % (0-2); Eosinophils Absolute Auto 0.1 X10*3/uL (0.0-0.4); Eosinophils Percent Auto 0.7 % (0-4); Hematocrit 30.2 % (37.0-47.0); Hemoglobin 9.7 g/dl (12.0-16.0); Imm Gran Pct Auto 0.9 % (0.0-0.4); Lymphocytes Absolute Auto 1.1 X10*3/uL (1.2-4.9); Lymphocytes Percent Auto 9.7 % (20-40); Mean Corpuscular HGB Conc 32.1 g/dl (31.0-35.0); Mean Corpuscular Hemoglobin 28.3 pg (27.0-33.0); Mean Platelet Volume 9.5 fL (9.4-12.3); Monocytes Absolute Auto 0.9 X10*3/uL (0.1-1.2); Neutrophils Absolute Auto 9.1 x10*3/uL (2.0-8.3); Neutrophils Percent Auto 80.3 % (45-73); Platelet Count 442 X10*3/uL (160-400); Red Blood Count 3.43 X10*6/uL (4.20-5.50); Red Cell Distribution Width 15.9 % (11.0-16.0); White Blood Count 11.3 X10*3/uL (4.8-10.8)
[2024-07-07 12:13] LABS: Troponin-I High Sensitivity 15.8 ng/L (<3.5-17.0)
[2024-07-07 12:19] LABS: Alanine Aminotransferase 16 U/L (0-31); Albumin Level 2.9 g/dL (3.5-5.0); Alkaline Phosphatase 110 U/L (39-117); Anion Gap 11 (12-20); Aspartate Amino Transferase 30 U/L (5-31); Bilirubin Direct 0.2 mg/dL (0.0-0.5); Bilirubin Total 0.4 mg/dL (0.0-1.0); Blood Urea Nitrogen 18 mg/dL (9-16); Calcium 8.8 mg/dL (8.4-10.2); Carbon Dioxide 27 mmol/L (22-29); Chloride 110 mmol/L (96-108); Creatinine Clr Calc Pharmacy 71.4; Estimated Glomerular Filt Rate > 60; Glucose Random 146 mg/dL (60-115); Magnesium 1.7 mg/dL (1.6-2.6); Potassium 4.1 mmol/L (3.3-5.1); Sodium 144 mmol/L (135-145); Total Protein 6.8 g/dL (6.5-8.0)
[2024-07-07 12:40] LABS: Influenza A PCR NEGATIVE (Negative); Influenza B PCR NEGATIVE (Negative); Resp Syncy Virus RNA Qual PCR NEGATIVE (Negative); SARS COV2 PCR INHOUSE NEGATIVE (Negative)
[2024-07-07 14:26] LABS: OBS Int Ctl Valid YES; OBS1 NEGATIVE (NEGATIVE)
--- NOTE | 2024-07-07 15:02 | MHC.CM.ED ---
Received telephone call from [employer]. Humaira can be reached via telephone at [phone], ext [phone]. Humaira is concerned about patient being able to safely return home. Patient has been having difficulty caring for herself. Patient's is unable to assist with patient's care. Provider made aware. Continue to monitor for d/c needs.
[2024-07-07 15:06] LABS: Troponin-I High Sensitivity 15.2 ng/L (<3.5-17.0)
[2024-07-07 15:10] LABS: Appearance Urine Turbid; Color Urine Dark Yellow; Glucose Urine UA Negative (Negative); Leukocyte Esterase Urine Moderate (2+) (Negative); Nitrite Urine Negative (Negative); PH 5.5 (5.0-9.0); Specific Gravity - Urine 1.025 (1.005-1.025); UMIC TRIGGER UACC YES; Urine Blood Large (3+) (Negative); Urine Ketones Negative (Negative); Urine Protein 100 (2+) mg/dL (Neg-Trace)
[2024-07-07 15:16] LABS: Bacteria Urine 3+ (None Seen); Granular Casts Urine Present; RBC Urine >20 /HPF (0-2); Squamous Epithelial Cell Urine 0-2 /HPF (0-2); UACC Culture Trigger YES; WBC Urine >50 /HPF (0-5)
[2024-07-07 16:14] VITALS: BP 133/85; PULSE 113; RESP 20; TEMP 36.8; O2SAT 93
[2024-07-07] MEDS: cefuroxime axetiL 250 MG TABLET PO (16:15)
[2024-07-07] MEDS: OLANZapine 5 MG TABLET PO (16:15)
--- NOTE | 2024-07-07 17:09 | PC.NURSE ---
This RN resumed care of patient at 1500, pt at this time was screaming out multiple times, pt given zyprexa and antibiotic early per PA, pt given call titus as she did not have it, advised pt to please use call titus vs yelling, pt cleaned up, hygiene care provided, linens cleaned. Pt provided emotional support and is not screaming at this time and resting comfortably
--- NOTE | 2024-07-07 19:40 | PC.NURSE ---
Addendum entered by Krystina Ybarra RN 07/08/24 00:26: Pt is A&Ox3, seems pleasantly confused regarding situation. Reoriented. Per review, pt was seen here and discharged on 06/29 after being treated for UTI and Flu. VSS. Pt continues on ordered po ceftin per JUL. Denies chest pain, sob, and n/v. Denies pain at rest, only discomfort with moving legs due to arthritis per pt. Offered medications which patient declined. Pressure injuries to buttock and right heel, appearing to be DTIs with open areas to buttock. Wound photos uploaded by proposal lead writer and wound care consult placed for treatment recommendations. Foams applied to buttock and bilateral heels, as well as q2h turning and repositioning and heels floated/offloaded on pillows. Bed alarm on and safety measures in place. Call titus within reach. Patient rings to make needs known. Awaiting PT/CM evaluation for disposition. Original Note: Patient arrived to ED overflow from main ED at 1940. Assumed care of patient at this time.
[2024-07-07 19:54] VITALS: BP 123/61; PULSE 112; RESP 20; TEMP 36.9; O2SAT 96
--- NOTE | 2024-07-07 21:16 | HO.SKINPHOTO ---
Location: Buttocks RIGHT HEEL
--- NOTE | 2024-07-08 02:36 | PC.NURSE ---
Took over care at 1:40am, pt is sleeping at this time.
[2024-07-08 04:59] VITALS: BP 120/62; PULSE 108; RESP 18; TEMP 37.1; O2SAT 95
--- NOTE | 2024-07-08 05:00 | PC.NURSE ---
pt sleeping no sign of distress.
[2024-07-08] MEDS: cefuroxime axetiL 250 MG TABLET PO ×2 (05:55→18:01)
--- NOTE | 2024-07-08 06:05 | PC.NURSE ---
pt reposition in bed, luiz care complete, new hospital gown and pure wick in place. medicated per jul.
--- NOTE | 2024-07-08 08:41 | PC.NURSE ---
PT notified this RN hat pts right knee is very swollen and painful. pt is unable to move knee. Pt states that she fell at home. PA notified and XR ordered. Pts dentures are broken very unclean. They are not properly placed in her mouth. per previous shift, pt had some trouble eating. Provider notified, speech consult ordered
--- NOTE | 2024-07-08 10:13 | PHA.MEDREC ---
Pharmacy Consult ? Medication Reconciliation Pharmacy has reviewed the medication reconciliation done by nursing. Matches pharmacy claims and discharge med list from a few days ago. Following up with provider about Ceftin as it was continued but patient last filled only a 3 day supply on 06/29/24.
[2024-07-08 11:04] VITALS: BP 124/65; PULSE 112; RESP 19; TEMP 37.1; O2SAT 94
--- NOTE | 2024-07-08 12:05 | MHC.SL.SWA ---
Speech Pathologist Impression: Risk of Aspiration Oral Phase Dysphagia Risk of Aspiration Due to: Poor dentition Dysphasia Diet Status: Downgrade to NDD3 Liquid Consistency and Strategies for Safe Swallow: Liquid Intake Recommendation: Thin Liquid Intake Strategies: Small Sips Solid Food Consistency: Dietary Recommendations: Chopped/Advanced (NDD3) Additional Modifications to Solid Foods: Patient presents with mild oral phase dysphagia with dentures which are in poor condition (broken/missing teeth). Patient has a tendency to suck on harder solids, demonstrated prolonged chewing and multiple swallow attempts. Patient w/ arthritis of the hands- She will need direct supervision to assist as needed throughout meal by ensuring containers are opened and accessible Oral Medication Intake: Whole with Liquid Please contact the pharmacy regarding appropriate crushable or liquid drug formulations that are available whenever modified delivery is recommended. Compensatory Strategies and Precautions to be Taken for Safe Swallow: Sitting Upright (90 deg) Small Bites and Sips Alternate Liquids/Solids Rate of Ingestion Change Avoid Specific Foods Supervision While Eating and Drinking for Safe Swallow: Total Supervision (1:1) Foods to Avoid: [place] hard or tough to chew solids Swallowing Recommended Treatments: Compens. Strategy Educat. Recommendation for Speech: Inpatient Speech Therapy Comment: 1 f/u to monitor tolerance Frequency/Duration: Date Range for Service Req: Timeline to reassess: Instructor Dancing Clinican/Clinical Fellow: No Supervisory Statement: I have reviewed and agree with the student/clinical fellow's documentation: N/A Speech Language Pathologist: Yandy Stark M.A., CCC-PRACTICING MD ANESTHESIOLOGIST
--- NOTE | 2024-07-08 13:42 | MHC.CM.ED ---
Patient remains in ER overflow. Physical therapy eval attempted. However knee deformity was seen on patient. Knee xray performed. Found to have potential knee fracture. Waiting for ortho's input in regards to management and weight bearing status. Continue to monitor for d/c needs.
[2024-07-08] MEDS: traMADoL HCL 50 MG TABLET PO ×2 (16:25→21:46)
--- NOTE | 2024-07-08 19:09 | PC.NURSE ---
Assumed patient care aprx 1400, patient in bed high jane's watching tv. Pain reported and scheduled Tramadol administered. Patient able to take pills whole with water. Pitcher with water provided and patient encouraged to take fluids, purewick in use draining dark orange, concentrated urine. Patient ate dinner about 75%.
[2024-07-08 22:00] VITALS: BP 110/56; PULSE 99; RESP 16; TEMP 36.3; O2SAT 94
--- NOTE | 2024-07-09 00:28 | MHC.EDTECH ---
This tech took over care of pt at 2330,patient is sleeping,resp rate WNL,call titus in reach,bed alarm on for safety
--- NOTE | 2024-07-09 00:32 | PC.NURSE ---
Patient medicated with Tramadol for 4/10 pain in lower legs. Patient offers no complaints at present, purewick in place, call titus in patient's reach.
--- NOTE | 2024-07-09 04:08 | PC.NURSE ---
Patient calm and cooperative. Patient repositioned on back with lights dimmed to promote sleep. Patient denies pain or discomfort at this time.
[2024-07-09] MEDS: Omeprazole 20 MG CAPSULE.DR PO (05:57)
[2024-07-09] MEDS: cefuroxime axetiL 250 MG TABLET PO ×2 (05:57→17:35)
[2024-07-09] MEDS: traMADoL HCL 50 MG TABLET PO ×3 (08:21→21:21)
[2024-07-09] MEDS: Cholecalciferol (Vitamin D3) 25 MCG TABLET 50 MCG PO (08:21)
[2024-07-09 08:22] VITALS: BP 118/57
[2024-07-09] MEDS: lisinopriL 20 MG TABLET PO (08:22)
[2024-07-09 08:27] VITALS: BP 118/57; PULSE 82; RESP 16; TEMP 37.3; O2SAT 99
--- NOTE | 2024-07-09 10:34 | PC.NURSE ---
Care of Pt assumed at change of shift. Pt eats breakfast without complication. AM med pass completed without issue. Pt is now resting quietly watching TV. No complaints offered.
--- NOTE | 2024-07-09 11:58 | PC.NURSE ---
Lunch tray provided to Pt.
[2024-07-09 14:49] VITALS: BP 107/59; PULSE 107; RESP 18; TEMP 37.3
--- NOTE | 2024-07-09 21:35 | PC.NURSE ---
this rn assumed care of pt @ 1900 pt medicated according to mar reporting 09/24 pain pt startled awake when obtaining pt VS pt states was very started. HR 128 denies CP denies SOB this rn made Evelyn strauss aware no new orders at this time
[2024-07-09 21:38] VITALS: BP 123/63; PULSE 128; RESP 20; TEMP 36.8; O2SAT 99
[2024-07-09 21:53] VITALS: PULSE 121; TEMP 37.6
[2024-07-09 21:54] VITALS: TEMP 35
--- NOTE | 2024-07-09 21:54 | PC.NURSE ---
Addendum entered by Stefani Gutierrez 07/09/24 22:35: per susanna tucker no new orders at this time Original Note: per susanna strapper and buffer orders rectal temp assessed pt not agreeable to plan for rectal temp this rn explained the importance of accurate temp reading pt agreed. thermometer ready subjectively slowly pt started screaming take it out take it out reading of 95 rectally susanna made aware HR 121 tucker made aware awaiting new orders
[2024-07-10] VITALS (19 sets, daily range): BP systolic 76–162; BP diastolic 37–98; PULSE 91–114; RESP 18–20; TEMP 36.6–38.2; O2SAT 93–98
--- NOTE | 2024-07-10 05:36 | PC.NURSE ---
Addendum entered by Stefani Gutierrez 07/10/24 06:02: orders placed for PO 975mg tylenol and Normal saline. pt agreeable to plan. pt medicated according to mar Original Note: dr mauricio made aware of temp of 100.6 orally HR 109 BP 104/61. no new orders at this time
[2024-07-10] MEDS: Omeprazole 20 MG CAPSULE.DR PO (05:47)
[2024-07-10] MEDS: 0.9 % Sodium Chloride 1,000 ML 999 ML IVCONT (05:48)
[2024-07-10] MEDS: Acetaminophen 325 MG TABLET 975 MG PO (05:48)
[2024-07-10] MEDS: cefuroxime axetiL 250 MG TABLET PO ×2 (05:48→17:03)
[2024-07-10 08:07] LABS: Basophils Absolute Auto 0.1 X10*3/uL (0.0-0.2); Basophils Percent Auto 0.4 % (0-2); Eosinophils Absolute Auto 0.1 X10*3/uL (0.0-0.4); Eosinophils Percent Auto 0.4 % (0-4); Hemoglobin 8.5 g/dl (12.0-16.0); Imm Gran Pct Auto 1.1 % (0.0-0.4); Lymphocytes Absolute Auto 1.2 X10*3/uL (1.2-4.9); Lymphocytes Percent Auto 6.5 % (20-40); MANUAL DIFF FLAG SCAN; Mean Corpuscular HGB Conc 32.7 g/dl (31.0-35.0); Mean Corpuscular Hemoglobin 27.6 pg (27.0-33.0); Mean Corpuscular Volume 84.4 fL (80.0-98.0); Mean Platelet Volume 8.8 fL (9.4-12.3); Monocytes Absolute Auto 1.9 X10*3/uL (0.1-1.2); Monocytes Percent Auto 10.5 % (2-11); Neutrophils Absolute Auto 14.4 x10*3/uL (2.0-8.3); Neutrophils Percent Auto 81.1 % (45-73); Platelet Count 463 X10*3/uL (160-400); Red Blood Count 3.08 X10*6/uL (4.20-5.50); Red Cell Distribution Width 15.9 % (11.0-16.0); SCAN SMEAR FLAG 1; White Blood Count 17.8 X10*3/uL (4.8-10.8)
[2024-07-10] MEDS: Acetaminophen 1,000 MG/100 ML PIGGYBACK 400 MG IV (08:09)
[2024-07-10] MEDS: Piperacillin Sodium/Tazobactam 3.375 GM in 0.9 % Sodium Chloride 50 ML IV (08:11)
[2024-07-10] MEDS: Cholecalciferol (Vitamin D3) 25 MCG TABLET 50 MCG PO (08:13)
[2024-07-10] MEDS: traMADoL HCL 50 MG TABLET PO ×3 (08:15→21:26)
--- NOTE | 2024-07-10 08:17 | PC.NURSE ---
Provider updated on low BP. all orders and meds followed. BP med held. Second IV line placed. Pt is alert and at her baseline, actively talking.
[2024-07-10 08:21] LABS: Alanine Aminotransferase 8 U/L (0-31); Albumin Level 2.6 g/dL (3.5-5.0); Alkaline Phosphatase 110 U/L (39-117); Anion Gap 12 (12-20); Aspartate Amino Transferase 25 U/L (5-31); Bilirubin Total 0.6 mg/dL (0.0-1.0); Blood Urea Nitrogen 17 mg/dL (9-16); C Reactive Protein 8.05 mg/dL (< or = 0.50); Calcium 7.9 mg/dL (8.4-10.2); Carbon Dioxide 23 mmol/L (22-29); Chloride 108 mmol/L (96-108); Creatinine Clr Calc Pharmacy 64.1; Estimated Glomerular Filt Rate > 60; Glucose Random 120 mg/dL (60-115); Sodium 139 mmol/L (135-145)
[2024-07-10 08:22] LABS: Lactic Acid 1.4 mmol/L (0.5-2.0)
[2024-07-10 08:24] LABS: SLIDE REVIEW VERIFIED
--- NOTE | 2024-07-10 08:30 | PM.IMHP ---
History of Present Illness Date of Service: 07/10/24 Chief Complaint: UTI 79 year old female evaluated at the bedside this AM for feeling unwell. She reports she feels tired and weak. She tells me she is urinating more frequently than usual and it smells strong. She is also complaining of R knee pain worse w/ palpation, rom, and better at rest. Reports this pain has been going on for along time . She has been here for a few days she tells me and has felt about the same . She tells me she recently had the flu and a UTI. Denies cp, sob, nausea, vomiting, abd pain, headache, vision changes, dizziness, weakness Review of Systems Review of Systems: Yes all other systems are reviewed and are negative [facility] Medical History Arthritis Functional capacity: independent ambulation (partial weightbearing to RLE ) Patient : No Social History Household Members: Spouse Housing: Apartment Do you presently have visiting nurse or other home services: Yes (excel) Alcohol intake: never Patient Tobacco Use Status: Never used Tobacco Smoked in Last 30 Days: No Second Hand Smoke Exposure: No Use of substances other than those prescribed or required for medical reasons: No Advance Directives: Yes Advance Directives Information Provided: Yes Do you have a plan to hurt others: No Plan Patient : No service: No Meds Allergies Allergy/AdvReac Type Severity Reaction Status Date / Time No Known Allergies Allergy Verified 07/07/24 10:24 [No Known Allergies*] Active Medications: Current Medications Cefuroxime Axetil (Cefuroxime Axetil 250 Mg Tablet) 250 mg PO Q12H [facility] Stop: 07/14/24 17:59 Last Admin: 07/10/24 05:48 Dose: 250 mg Albumin Human (Kedbumin 25 %) 100 mls @ 133.333 mls/hr IV Q1H [facility] Stop: 07/10/24 10:44 Lisinopril (Lisinopril 20 Mg Tablet) 20 mg PO DAILY [facility]; Protocol Last Admin: 07/10/24 08:13 Dose: Not Given Omeprazole (Omeprazole 20 Mg Capsule.) 20 mg PO DAILY@0630 [facility] Last Admin: 07/10/24 05:47 Dose: 20 mg Tramadol HCl (Tramadol Hcl 50 Mg Tablet) 50 mg PO TID [facility] Last Admin: 07/10/24 08:15 Dose: 50 mg Vitamin D (Cholecalciferol (Vitamin D3) 25 Mcg Tablet) 50 mcg PO DAILY [facility] Last Admin: 07/10/24 08:13 Dose: 50 mcg Home Medications ?Medication ?Instructions ?Recorded ?Confirmed ?Last Taken ?Type alendronate 70 mg tablet 70 mg PO FR 06/27/24 07/08/24 07/01/24 History cholecalciferol (vitamin D3) 50 50 mcg PO DAILY 06/27/24 07/08/24 06/26/24 History mcg (2,000 unit) capsule (Vitamin D3) lisinopril 20 mg tablet 20 mg PO DAILY 06/27/24 07/08/24 06/26/24 History omeprazole 20 mg capsule,delayed 20 mg PO DAILY@0630 06/27/24 07/08/24 06/26/24 History release tramadol 50 mg tablet 50 mg PO TID 06/27/24 07/08/24 06/26/24 History Physical Exam Vital Signs and Narrative: Vital Signs: Last Vital Signs Temp 100.8 F H 07/10/24 07:26 Pulse 109 H 07/10/24 08:16 Resp 20 07/10/24 08:16 BP 92/50 L 07/10/24 08:16 Pulse Ox 95 07/10/24 08:16 O2 Del Method Room Air 07/10/24 08:16 BMI result Body Mass Index 25.4 Patient w/ fever , tachycardia, hypotension Appearance: Alert.? Oriented X3.? No acute distress.? Head: Normocephalic, atraumatic, no step-offs or deformities Eyes: Pupils equal, round and reactive to light.? Neck: Normal inspection.? Neck supple.? CVS: Normal heart rate and rhythm.? Pulses normal.? Respiratory: No respiratory distress.? Breath sounds normal.? Abdomen: Soft and nontender.? Skin: Skin warm and dry.? Normal skin color.? Normal skin turgor.?+ r heel wound ( image below), sacral wound (image below) Extremities: No lower extremity edema.? No calf ttp. Global weakness + TTP to R knee. 2+ DP,AT, PT pulses equal and b/l Neuro: Oriented X 3.? No motor deficit.? No sensory deficit. CN 2-12 intact Results Labs 07/10/24 08:01 07/10/24 08:00 Labs: Laboratory Results - last 24 hr 07/10/24 07/10/24 08:00 08:01 MCV 84.4 MCH 27.6 MCHC 32.7 RDW 15.9 Plt Count 463 H MPV 8.8 L Immature Gran % (Auto) 1.1 H Neut % (Auto) 81.1 H Lymph % (Auto) 6.5 L Weber % (Auto) 10.5 Eos % (Auto) 0.4 Baso % (Auto) 0.4 Lymph # (Auto) 1.2 Weber # (Auto) 1.9 H Eos # (Auto) 0.1 Baso # (Auto) 0.1 Abs Immat Gran (auto) 0.20 H Absolute Neuts (auto) 14.4 H Absolute Nucleated RBC 0.000 Nucleated RBC % (auto) 0.0 Smear Tech's Comments VERIFIED Anion Gap 12 Estim Creat Clear Calc 64.1 Estimated GFR > 60 Random Glucose 120 H Lactic Acid 1.4 Calcium 7.9 L D Total Bilirubin 0.6 AST 25 ALT 8 Alkaline Phosphatase 110 C-Reactive Protein 8.05 H Total Protein 6.0 L Albumin 2.6 L Assessment and Plan (1) Acute UTI: Status: Acute (2) Sacral wound: Status: Acute Plan This is a 79 year old female hx of hypertension, recent UTI, GERD, osteoarthritis who presented to the ED on 07/07/24 for failure to thrive noted by [facility]. Also, patient had been complaining of LE pain on the right which she attributed to arthritis. On arrival to the ED slightly anemic, negative OBS, flat troponin, non ischemic EKG, UA infected and ceftin po was initiated. She was placed in observation and observed she complained at one point of R knee pain and she was noted to have difficulty w/ ambulation which prompted me to order XR of R knee xray showed earlier today the patient was unable to get up with physical therapy, as she was complaining of knee pain.? X-ray showing subtle cortical buckling of the medial tibial metaphysis on the AP projection.? Can not exclude a subtle fracture.? Severe likely degenerative arthropathy of the knee joint as discussed with valgus angulation of the joint and widening of the medial compartment.? This was discussed w/ ortho who recommended Partial weight bearing to RLE. No need for an immobilizer. This morning 07/10 nurse made the ED provider aware that the patient was febrile, tachycardic and borderline hypotensive. Labs revealed leukocytosis and low albumin. She was given 1 L NS, albumin and IV Zosyn and admitted to the medical team for further evaluation and tx. #UTI w/ acute sepsis? -Given zosyn this AM 07/10 -Continue zosyn 3.375 g Q 6H #Sacral and R heel wounds -Images in chart -Vancomycin added ? # Tibial metaphysis fx? -Noted on Xray R knee 06/19 -Non surgical per ortho. Partial weight bearing on RLE . Likely insufficiency fracture vs result of severe OA. ? #Pain control? -Tramadol 50 mg TID? # Hypertension? -Lisinopril 20 mg po daily? #GERD? -Omeprazole 20 mg po daily? #Osteoarthritis? -Alendronate 70 mg PO DVTP: Lovenox Code status: full code Total time managing care of this patient today: 35 minutes. Quality Stroke Does the patient have a stroke diagnosis?: No VTE Prior VTE?: No VTE Risk Level:: Medical - moderate - high VTE Device Contraindication: Treatment Not Indicated VTE Drug Contraindication: N/A - Med Ordered
--- NOTE | 2024-07-10 08:42 | PC.NURSE ---
Pt ate all her breakfast. Took her morning meds whole with no issues (held BP med). Pt neg for acute distress, breathing even and unlabored. Blankets removed to aid with temperature. Meds infused per JUL. Pt moving over to main ED due to probable urosepsis. RN called report.
[2024-07-10 08:44] LABS: Erythrocyte Sedimentation Rate 77 MM/HR (0-20)
[2024-07-10 08:47] LABS: Influenza A PCR NEGATIVE (Negative); Influenza B PCR NEGATIVE (Negative); Resp Syncy Virus RNA Qual PCR NEGATIVE (Negative); SARS COV2 PCR INHOUSE NEGATIVE (Negative)
--- NOTE | 2024-07-10 09:15 | ECG_ITS ---
Test Reason : TACHY Blood Pressure : */* mmHG Vent. Rate : 98 BPM Atrial Rate : 98 BPM P-R Int : 130 ms QRS Dur : 76 ms QT Int : 370 ms P-R-T Axes : 21 -29 103 degrees QTcB Int : 472 ms Normal sinus rhythm Minimal voltage criteria for LVH, may be normal variant ( R in aVL ) T wave abnormality, consider lateral ischemia Abnormal ECG When compared with ECG of 07-Jul-2024 11:06, No significant changes seen Referred By: Chichi Barry Electronically Signed By: JOYCE COLON
[2024-07-10] MEDS: Albumin Human 25 % 100 ML 133.33 ML IV ×2 (09:34→10:44)
[2024-07-10 09:56] LABS: B Type Natriuretic Peptide 36 pg/mL (<100)
[2024-07-10] MEDS: 0.9 % Sodium Chloride 1,769.01 ML 1769.01 ML IV (10:03)
--- NOTE | 2024-07-10 10:03 | PC.NURSE ---
Provider notified of bp- new orders given
[2024-07-10] MEDS: Enoxaparin Sodium 40 MG/0.4 ML SYRINGE SUBCUT (10:11)
[2024-07-10] MEDS: Midodrine HCl 5 MG TABLET PO (10:11)
[2024-07-10 11:04] LABS: Lactic Acid 1.8 mmol/L (0.5-2.0)
[2024-07-10] MEDS: vancomycin HCL 1,500 MG in 0.9 % Sodium Chloride 500 ML 333.33 MG IV (11:55)
[2024-07-10] MEDS: 0.9 % Sodium Chloride Flush 3 ML SYRINGE IVFLUSH ×2 (15:13→23:43)
--- NOTE | 2024-07-10 19:45 | PC.NURSE ---
Assumed care of pt at 1900. PT a/o x4. in no acute distress. VSS. skin pwd. foam Covered wounds reported and noted on bilateral heals and coccyx PT denies pain at this time unless moving left leg. Plan for admission
[2024-07-11] VITALS (7 sets, daily range): BP systolic 100–139; BP diastolic 53–62; PULSE 97–107; RESP 18–20; TEMP 36.7–37.1; O2SAT 95–99; BMI 25.4
--- NOTE | 2024-07-11 03:18 | PC.NURSE ---
2130: rash noted on bilateral upper extremities and chest/neck area- MD Sanchez made aware- no new orders
[2024-07-11] MEDS: Omeprazole 20 MG CAPSULE.DR PO (05:53)
[2024-07-11] MEDS: cefuroxime axetiL 250 MG TABLET PO (05:53)
[2024-07-11 06:40] LABS: MANUAL DIFF FLAG NO
[2024-07-11 06:50] LABS: Basophils Percent Auto 0.2 % (0-2); Eosinophils Absolute Auto 0.1 X10*3/uL (0.0-0.4); Eosinophils Percent Auto 0.7 % (0-4); Hematocrit 25.1 % (37.0-47.0); Hemoglobin 7.9 g/dl (12.0-16.0); Imm Gran Abs Auto 0.14 X10*3/uL (0.00-0.03); Imm Gran Pct Auto 1.1 % (0.0-0.4); Lymphocytes Absolute Auto 1.4 X10*3/uL (1.2-4.9); Lymphocytes Percent Auto 10.2 % (20-40); Mean Corpuscular HGB Conc 31.5 g/dl (31.0-35.0); Mean Corpuscular Hemoglobin 27.5 pg (27.0-33.0); Mean Corpuscular Volume 87.5 fL (80.0-98.0); Mean Platelet Volume 9.7 fL (9.4-12.3); Monocytes Absolute Auto 0.9 X10*3/uL (0.1-1.2); Monocytes Percent Auto 6.7 % (2-11); Neutrophils Absolute Auto 10.8 x10*3/uL (2.0-8.3); Neutrophils Percent Auto 81.1 % (45-73); Platelet Count 476 X10*3/uL (160-400); Red Blood Count 2.87 X10*6/uL (4.20-5.50); Red Cell Distribution Width 15.9 % (11.0-16.0); White Blood Count 13.3 X10*3/uL (4.8-10.8)
[2024-07-11 07:10] LABS: Alanine Aminotransferase 12 U/L (0-31); Albumin Level 2.7 g/dL (3.5-5.0); Alkaline Phosphatase 115 U/L (39-117); Anion Gap 11 (12-20); Aspartate Amino Transferase 28 U/L (5-31); Bilirubin Total 0.4 mg/dL (0.0-1.0); Blood Urea Nitrogen 13 mg/dL (9-16); Calcium 8.2 mg/dL (8.4-10.2); Carbon Dioxide 25 mmol/L (22-29); Chloride 110 mmol/L (96-108); Estimated Glomerular Filt Rate > 60; Glucose Random 83 mg/dL (60-115); Potassium 4.1 mmol/L (3.3-5.1); Sodium 142 mmol/L (135-145); Total Protein 5.7 g/dL (6.5-8.0)
[2024-07-11] MEDS: Enoxaparin Sodium 40 MG/0.4 ML SYRINGE SUBCUT (08:08)
[2024-07-11] MEDS: lisinopriL 20 MG TABLET PO (08:08)
[2024-07-11] MEDS: 0.9 % Sodium Chloride Flush 3 ML SYRINGE IVFLUSH ×3 (08:08→21:22)
[2024-07-11] MEDS: Cholecalciferol (Vitamin D3) 25 MCG TABLET 50 MCG PO (08:08)
[2024-07-11] MEDS: traMADoL HCL 50 MG TABLET PO ×3 (08:10→21:20)
[2024-07-11 08:55] LABS: Immature Retic Fraction 17.1 % (3.0-15.9); Retic HGB Equivalent 23.8 pg (30.0-35.0); Reticulocyte Percent 1.7 % (0.5-1.8); Reticulocytes Absolute 0.048 X10*6/uL (0.026-0.095)
[2024-07-11 09:08] LABS: Iron 7 mcg/dL (30-160); Percent Iron Saturation 7 % (15-50); Total Iron Binding Capacity 104 mcg/dL (228-428); Unsaturated Iron Binding 97 ug/dL
[2024-07-11 09:27] LABS: Ferritin 519 ng/mL (10-250)
[2024-07-11 09:32] LABS: Lactate Dehydrogenase 245 U/L (122-220)
[2024-07-11] MEDS: vancomycin HCL 750 MG in 0.9 % Sodium Chloride 250 ML 265 MG IV (10:45)
--- NOTE | 2024-07-11 12:32 | MHC.CLN ---
PT WITH INCREASED NUTRITION RISK R/T PRESSURE INJURY PO 75% X1 MEAL DIET RX: CARDIAC-WILL LIBERALIZE TO PROMOTE INCREASED PO RECOMMEND ADDING ENSURE BID TO PROMOTE WOUND HEALING SUP TO PROVIDE 700KCALS, 40G PROTEIN MONITOR PO INTAKE AND ENCOURAGE SUPPLEMENTS SEE ALSO FULL CLINICAL NUTRITION ASSESSMENT
--- NOTE | 2024-07-11 12:35 | MHC.CM.PN ---
CM ATTEMPTED TO MEET W/PT X2, PT WAS OUT OF ROOM AND NOW PT EATING LUNCH AND REQUESTED CM COME BACK LATER, CM TO REVISIT.
--- NOTE | 2024-07-11 13:43 | MHC.SLORD ---
Speech Language Pathology Order Status: Pt d/c planned today, recc reviewed with RN. Pt tolerating diet as ordered.
--- NOTE | 2024-07-11 14:26 | MHC.CM.PN ---
Addendum entered by Ramila Zepeda RN 07/11/24 14:40: PT NOT A RELIABLE HISTORIAN, PT SENT IN BY [facility] SHE WAS DEFECATING IN BED, P.T. RECOMMENDING STR, NO PLAN FOR SURGICAL INTERVENTION OF R KNEE AND IS WBAT ON RLE. BROAD LOCAL REF TO BE PLACED. Original Note: IMM 07/11/24, EMR REVIEWED, PT UROSEPSIS AND KNEE FX, CM MET W/PT WHO REPORTS SHE LIVES W/HER , PT REPORTS SHE IS IN BED MOST OF THE TIME HOWEVER STAND/PIVOTS TO BEDSIDE COMMODE, PT REPORTS SHE HAD BEEN WALKING W/A WALKER HOWEVER JUST PRIOR TO ADMISSION WAS UNABLE TO DO SO, PT IS ACTIVE W/EXCEL FOR HH 1.5HRS IN AM AND 1.5HRS IN PM PER PREVIOUS ADMIT AND WAS SENT HOME EARLIER IN MONTH W/ADDED SN/OT/PT W/EXCEL, REFERRAL PLACED AND PT REPORTS HER GOAL FOR DC IS HOME W/RESUMP OF SERVICES PT VERIFIES PCP/HCP ON FILE.
--- NOTE | 2024-07-11 15:09 | HO.PM.IMPN ---
Subjective Subjective Date of Service: 07/11/24 Interval History: c/o urinary frequency L foot pain but no trauma fever resolved Review of Systems Review of Systems: Yes all other systems are reviewed and are negative Physical Exam Vital Signs: Vital Signs: Last Vital Signs Temp 98.4 F 07/11/24 11:52 Pulse 98 07/11/24 11:52 Resp 20 07/11/24 11:52 BP 127/58 L 07/11/24 11:52 Pulse Ox 99 07/11/24 11:52 O2 Del Method Room Air 07/11/24 11:52 BMI result Body Mass Index 25.4 Gen: in no acute distress HEENT: sclera anicteric, moist mucus membranes Neck: supple Lungs: clear to auscultation bilaterally Heart: regular rate and rhythm, no murmurs Abd: soft, non-tender, non-distended Ext: no edema, L great toe bruised and tender, R knee swollen with ROM limited by pain Skin: warm/well-perfused, bilateral heels discolored Neuro: alert and oriented x3, no focal findings Psych: appropriate affect Objective Data Active Medications Acetaminophen (Acetaminophen 325 Mg Tablet) 650 mg PO Q6H PRN PRN Reason: Pain, Mild 1-3,fever,headache Calcium Carbonate (Calcium Carbonate 750 Mg Tab.Chew) 750 mg PO Q4H PRN PRN Reason: Heartburn Enoxaparin Sodium (Enoxaparin Sodium 40 Mg/0.4 Ml Syringe) 40 mg SUBCUT Q24H [facility] Last Admin: 07/11/24 08:08 Dose: 40 mg Documented By: KARINE Vancomycin HCl 750 mg/ Sodium (Chloride) 265 mls @ 265 mls/hr IV Q12H [facility] Last Infusion: 07/11/24 12:03 Dose: Infused Documented By: KARINE Lisinopril (Lisinopril 20 Mg Tablet) 20 mg PO DAILY [facility]; Protocol Last Admin: 07/11/24 08:08 Dose: 20 mg Documented By: KARINE Magnesium Hydroxide (Milk Of Magnesia 30 Ml Oral.Susp) 30 ml PO DAILY PRN PRN Reason: Constipation Melatonin (Melatonin 3 Mg Tablet) 6 mg PO BEDTIME PRN PRN Reason: Insomnia Omeprazole (Omeprazole 20 Mg Capsule.Dr) 20 mg PO DAILY@0630 [facility] Last Admin: 07/11/24 05:53 Dose: 20 mg Documented By: TESFAYE Pharmacy Consult (Consult Rx Vancomycin Dosing) 1 each MISCELLANE DAILY PRN PRN Reason: Consult order Sodium Chloride (0.9 % Sodium Chloride Flush 3 Ml Syringe) 3 ml IVFLUSH QSHIFT [facility] Last Admin: 07/11/24 08:08 Dose: 3 ml Documented By: KARINE Tramadol HCl (Tramadol Hcl 50 Mg Tablet) 50 mg PO TID [facility] Last Admin: 07/11/24 14:15 Dose: 50 mg Documented By: KARINE Vitamin D (Cholecalciferol (Vitamin D3) 25 Mcg Tablet) 50 mcg PO DAILY [facility] Last Admin: 07/11/24 08:08 Dose: 50 mcg Documented By: KARINE Labs 07/11/24 06:10 07/11/24 06:10 Labs: Laboratory Results - last 24 hr 07/11/24 06:10 MCV 87.5 MCH 27.5 MCHC 31.5 RDW 15.9 Plt Count 476 H MPV 9.7 Immature Gran % (Auto) 1.1 H Neut % (Auto) 81.1 H Lymph % (Auto) 10.2 L [place] % (Auto) 6.7 Eos % (Auto) 0.7 Baso % (Auto) 0.2 Lymph # (Auto) 1.4 [place] # (Auto) 0.9 Eos # (Auto) 0.1 Baso # (Auto) 0.0 Abs Immat Gran (auto) 0.14 H Absolute Neuts (auto) 10.8 H Absolute Nucleated RBC 0.000 Nucleated RBC % (auto) 0.0 Absolute Retic 0.048 Percent Retic 1.7 Immature Retic Fraction 17.1 H Retic Hgb Equivalent 23.8 L Anion Gap 11 L Estim Creat Clear Calc 70.0 Estimated GFR > 60 Random Glucose 83 Calcium 8.2 L Iron 7 L TIBC 104 L % Saturation 7 L Unsat Iron Binding 97 Ferritin 519 H Total Bilirubin 0.4 AST 28 ALT 12 Alkaline Phosphatase 115 Lactate Dehydrogenase 245 H Total Protein 5.7 L Albumin 2.7 L Impressions Foot X-Ray 07/11/24 11:35 IMPRESSION: 1. No definite fracture or dislocation within confines of patient positioning and osteopenia. If there is high suspicion, MRI may be of benefit. 2. There is diffuse soft tissue swelling of the entire foot and ankle. Electronically signed by: Kike Sykes MD 07/11/2024 12:[address] [facility] Microbiology Microbiology Results: Microbiology 07/10/24 08:00 Blood Culture - Preliminary Blood - Venous No growth after 24 hours. 07/10/24 08:00 Blood Culture - Preliminary Blood - Venous No growth after 24 hours. 07/07/24 15:01 Urine Culture - Final Urine clean catch - Clean Catch Midstream Enterococcus faecium Assessment and Plan (1) Acute UTI: Status: Acute Plan d2 for 79yo F with HTN, GERD, OA, recent UTI sent in by [facility] 07/07/24 for FTT; found to have UTI + R knee with subtle cortical buckling of the medial tibial metaphysis on the AP projection. Became septic 07/10 likely from UTI. sepsis due to UTI, VRE - change from cefuroxime to linezolid, BCx negative, ID consult sacral deep tissue injury heel scaling - Wound Care consults question of subtle medial tibial metaphyseal fracture - formal Ortho consult; in meanwhile, partial weigt bearing on RLE - tramadol for pain control HTN - lisinopril GERD - PPI osteoporosis - alendronate VTE ppx - enoxaparin dispo - PT consulted, STR recommended In my clinical judgment, the patient requires continued inpatient hospitalization for the following reasons: IV ABX, ID consultation, placement Total time managing care of this patient today: 35 minutes. Quality Stroke Does the patient have a stroke diagnosis?: No VTE Prior VTE?: No VTE Risk Level:: Medical - moderate - high VTE Device Contraindication: Treatment Not Indicated VTE Drug Contraindication: N/A - Med Ordered
--- NOTE | 2024-07-11 16:05 | MHC.CM.PN ---
JANAE RECEIVED CALL FROM DEMARCO AT [facility] WHERE PT WAS SET UP W/SN/OT/PT PRIOR TO DC AND HAD HOME HEALTH AID, DEMARCO REPORTS SHE DOES NOT FEEL PT SHOULD BE LIVING AT HOME ALONE AND NEITHER SHOULD PT'S , DEMARCO REPORTS THAT MULTIPLE PEOPLE HAVE FILED W/GSSS INCLUDING PT'S NURSE/PT AND HOME HEALTH AIDES, DEMARCO REPORTED THERE IS A PHOTOGRAPHY INTERN HOME W/PT'S . DEMARCO ALSO REPORTS PT HAS BEEN REFUSING [facility] RECONCILE HER MEDS AND REFUSING P.T. AT HOME. P.T. CURRENTLY RECOMMENDING STR.
[2024-07-11] MEDS: Linezolid/D5W 600 MG/300 ML PIGGYBACK 300 MG IV (16:54)
[2024-07-12 03:30] VITALS: BP 102/57; PULSE 95; RESP 18; TEMP 36.4; O2SAT 97
[2024-07-12] MEDS: Linezolid/D5W 600 MG/300 ML PIGGYBACK 300 MG IV ×2 (05:22→16:29)
[2024-07-12] MEDS: Omeprazole 20 MG CAPSULE.DR PO (05:49)
--- NOTE | 2024-07-12 07:13 | PM.CNOR ---
History of Present Illness HPI Consult date: 07/12/24 Chief complaint: urosepsis Narrative: 79 YO F admitted to hospital for failure to thrive R knee pain, no known injury R knee XR taken in the ED reveal severe OA and subtle cortical irregularity concerning for insufficiency fracture Patient in bed this AM, resting comfortably No pain at this time No other acute complaints or concerns Review of Systems Review of Systems: Yes all other systems are reviewed and are negative [facility] Past Medical History Medical History Arthritis Social History Social History Household Members: Spouse Housing: House Do you presently have visiting nurse or 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 home 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) Alcohol intake: never Patient Tobacco Use Status: Never used Tobacco Second Hand Smoke Exposure: No Advance Directives Date on File: 06/30/24 service: No Meds Allergies Allergy/AdvReac Type Severity Reaction Status Date / Time No Known Allergies Allergy Verified 07/07/24 10:24 [No Known Allergies*] Active Medications: Current Medications Acetaminophen (Acetaminophen 325 Mg Tablet) 650 mg PO Q6H PRN PRN Reason: Pain, Mild 1-3,fever,headache Calcium Carbonate (Calcium Carbonate 750 Mg Tab.Chew) 750 mg PO Q4H PRN PRN Reason: Heartburn Enoxaparin Sodium (Enoxaparin Sodium 40 Mg/0.4 Ml Syringe) 40 mg SUBCUT Q24H [facility] Last Admin: 07/11/24 08:08 Dose: 40 mg Ferrous Sulfate (Ferrous Sulfate 324 Mg Tablet.) 324 mg PO DAILY [facility] Linezolid (Zyvox/D5w) 600 mg in 300 mls @ 300 mls/hr IV Q12H [facility] Last Infusion: 07/12/24 06:22 Dose: Infused Lisinopril (Lisinopril 20 Mg Tablet) 20 mg PO DAILY [facility]; Protocol Last Admin: 07/11/24 08:08 Dose: 20 mg Magnesium Hydroxide (Milk Of Magnesia 30 Ml Oral.Susp) 30 ml PO DAILY PRN PRN Reason: Constipation Melatonin (Melatonin 3 Mg Tablet) 6 mg PO BEDTIME PRN PRN Reason: Insomnia Omeprazole (Omeprazole 20 Mg Capsule.) 20 mg PO DAILY@0630 [facility] Last Admin: 07/12/24 05:49 Dose: 20 mg Sodium Chloride (0.9 % Sodium Chloride Flush 3 Ml Syringe) 3 ml IVFLUSH QSHIFT [facility] Last Admin: 07/11/24 21:22 Dose: 3 ml Tramadol HCl (Tramadol Hcl 50 Mg Tablet) 50 mg PO TID [facility] Last Admin: 07/11/24 21:20 Dose: 50 mg Vitamin D (Cholecalciferol (Vitamin D3) 25 Mcg Tablet) 50 mcg PO DAILY [facility] Last Admin: 07/11/24 08:08 Dose: 50 mcg Home Medications ?Medication ?Instructions ?Recorded ?Confirmed ?Last Taken ?Type alendronate 70 mg tablet 70 mg PO FR 06/27/24 07/08/24 07/01/24 History cholecalciferol (vitamin D3) 50 50 mcg PO DAILY 06/27/24 07/08/24 06/26/24 History mcg (2,000 unit) capsule (Vitamin D3) lisinopril 20 mg tablet 20 mg PO DAILY 06/27/24 07/08/24 06/26/24 History omeprazole 20 mg capsule,delayed 20 mg PO DAILY@0630 06/27/24 07/08/24 06/26/24 History release tramadol 50 mg tablet 50 mg PO TID 06/27/24 07/08/24 06/26/24 History Physical Exam Vital Signs: Vital Signs: Last Vital Signs Temp 97.5 F 07/12/24 03:30 Pulse 95 07/12/24 03:30 Resp 18 07/12/24 03:30 BP 102/57 L 07/12/24 03:30 Pulse Ox 97 07/12/24 03:30 O2 Del Method Room Air 07/12/24 03:30 BMI result Body Mass Index 25.4 Extrem: Other: Patient's right knee normal to inspection No erythema, ecchymosis, edema noted No lacerations, abrasions, open areas No evidence of infection Patient reports no tenderness to palpation of the right knee Patient is able to extend the right knee fully and flex to approximately 60-70 degrees while laying in bed Distal sensation intact Capillary refill brisk Results Labs 07/11/24 06:10 07/11/24 06:10 Labs: Abnormal lab results 07/11/24 Range/Units 06:10 Immature Retic Fraction 17.1 H (3.0-15.9) % Retic Hgb Equivalent 23.8 L (30.0-35.0) pg Iron 7 L (30-160) mcg/dL TIBC 104 L (228-428) mcg/dL % Saturation 7 L (15-50) % Ferritin 519 H (10-250) ng/mL Lactate Dehydrogenase 245 H (122-220) U/L H & H 07/07/24 07/10/24 07/11/24 Range/Units 11:44 08:01 06:10 Hgb 9.7 L 8.5 L 7.9 L (12.0-16.0) g/dl Hct 30.2 L D 26.0 L 25.1 L (37.0-47.0) % All other labs normal. Diagnostic results Knee x-ray: report reviewed and image reviewed Assessment and Plan (1) Osteoarthritis of right knee: Status: Acute (2) Insufficiency fracture: Status: Acute Plan 1. Osteoarhtirits of R knee 2. Possible insufficiency fracture of R knee Patient is educated about this condition Patient should be partially weight bearing on the R knee, per Dr. Holliday Patient should continue working on ROM of the R knee Continue with all other recommendations per Medicine No acute orthopedic intervention indicated Patient may f/u with us outpatient upon d/c Procedures Date of Service Date of Service: 07/12/24
[2024-07-12 07:15] VITALS: BP 107/59; PULSE 92; RESP 20; TEMP 37.2; O2SAT 97
[2024-07-12 07:34] LABS: Hematocrit 23.7 % (37.0-47.0); Hemoglobin 7.3 g/dl (12.0-16.0); Mean Corpuscular HGB Conc 30.8 g/dl (31.0-35.0); Mean Corpuscular Hemoglobin 26.7 pg (27.0-33.0); Mean Corpuscular Volume 86.8 fL (80.0-98.0); Mean Platelet Volume 9.8 fL (9.4-12.3); Platelet Count 525 X10*3/uL (160-400); Red Blood Count 2.73 X10*6/uL (4.20-5.50); White Blood Count 10.9 X10*3/uL (4.8-10.8)
[2024-07-12 07:48] LABS: Anion Gap 10 (12-20); Blood Urea Nitrogen 17 mg/dL (9-16); Calcium 8.2 mg/dL (8.4-10.2); Carbon Dioxide 26 mmol/L (22-29); Chloride 106 mmol/L (96-108); Creatinine Clr Calc Pharmacy 68.8; Estimated Glomerular Filt Rate > 60; Glucose Random 116 mg/dL (60-115); Potassium 4.6 mmol/L (3.3-5.1); Sodium 137 mmol/L (135-145)
[2024-07-12 08:22] LABS: Folate 6.8 ng/mL (> or = 4.0); Vitamin B12 673 pg/mL (200-900)
[2024-07-12] MEDS: lisinopriL 20 MG TABLET PO (08:44)
[2024-07-12] MEDS: traMADoL HCL 50 MG TABLET PO ×3 (08:44→20:28)
[2024-07-12] MEDS: Ferrous Sulfate 324 MG TABLET.DR PO (08:45)
[2024-07-12] MEDS: Cholecalciferol (Vitamin D3) 25 MCG TABLET 50 MCG PO (08:45)
[2024-07-12] MEDS: Enoxaparin Sodium 40 MG/0.4 ML SYRINGE SUBCUT (08:45)
[2024-07-12] MEDS: 0.9 % Sodium Chloride Flush 3 ML SYRINGE IVFLUSH ×3 (08:45→20:31)
--- NOTE | 2024-07-12 10:54 | MHC.SL.SWA ---
Speech Pathologist Impression: Oral Phase Dysphagia d/t Poor Dentition Dysphasia Diet Status: No Change Liquid Consistency and Strategies for Safe Swallow: Liquid Intake Recommendation: Thin Liquid Intake Strategies: Small Sips Solid Food Consistency: Dietary Recommendations: Regular Additional Modifications to Solid Foods: Patient is tolerating unmodified diet. No changes made to diet order. Patient w/ dentures that have missing teeth, in poor condition. Recommend patient avoid foods which are overly hard or difficult for her to chew. Please re-refer with any changes or if [facility] can be of further assistance. Oral Medication Intake: Whole with Liquid Please contact the pharmacy regarding appropriate crushable or liquid drug formulations that are available whenever modified delivery is recommended. Compensatory Strategies and Precautions to be Taken for Safe Swallow: Sitting Upright (90 deg) Small Bites and Sips Alternate Liquids/Solids Rate of Ingestion Change Avoid Specific Foods Supervision While Eating and Drinking for Safe Swallow: Intermittent Supervision Foods to Avoid: [place] hard or tough to chew solids Swallowing Recommended Treatments: Compens. Strategy Educat. Recommendation for Speech: Inpatient Speech Therapy Green Building Design Specialist Clinican/Clinical Fellow: No Supervisory Statement: I have reviewed and agree with the student/clinical fellow's documentation: N/A Speech Language Pathologist: Yandy Stark M.A., [facility]
[2024-07-12 11:14] VITALS: BP 94/50; PULSE 100; RESP 18; TEMP 37.1; O2SAT 100
--- NOTE | 2024-07-12 11:46 | MHC.CM.PN ---
PT evaluated pt, and are recommending LTC due to pt not participating with them. This CM met with pt to discuss and she is agreeable to going to a facility, she states [facility] is her first choice. This CM discussed that we could send a referral to [facility], but that if they do not accept her insurance or don't have a bed we will have to expand the referral out farther and will potentially look across the state for an available bed. Referral sent to [facility] in [facility], awaiting response. Referral sent to [facility] financial counselors to review LTC payer source for pt. This CM also received a phone call from Flora from [facility], she would like to be notified at [phone] ext [phone] if pt discharges, they are in agreement with LTC for this pt.
--- NOTE | 2024-07-12 12:40 | P.PNIM_ITS ---
Subjective Subjective Date of Service: 07/12/24 Interval History: feels well and WBC coming down urinary frequency improved Review of Systems Review of Systems: Yes all other systems are reviewed and are negative Physical Exam 2 Vital Signs: Vital Signs: Last Vital Signs Temp 98.8 F 07/12/24 11:14 Pulse 100 07/12/24 11:14 Resp 18 07/12/24 11:14 BP 94/50 L 07/12/24 11:14 Pulse Ox 100 07/12/24 11:14 O2 Del Method Room Air 07/12/24 11:14 BMI result Body Mass Index 25.4 Gen: in no acute distress HEENT: sclera anicteric, moist mucus membranes Neck: supple Lungs: clear to auscultation bilaterally Heart: regular rate and rhythm, no murmurs Abd: soft, non-tender, non-distended Ext: no edema, L great toe bruised and tender, R knee tender Skin: warm/well-perfused, bilateral heels discolored with scaly crust, L great toe bruised Neuro: alert and oriented x3, no focal findings Psych: appropriate affect Objective Data Active Medications Acetaminophen (Acetaminophen 325 Mg Tablet) 650 mg PO Q6H PRN PRN Reason: Pain, Mild 1-3,fever,headache Calcium Carbonate (Calcium Carbonate 750 Mg Tab.Chew) 750 mg PO Q4H PRN PRN Reason: Heartburn Enoxaparin Sodium (Enoxaparin Sodium 40 Mg/0.4 Ml Syringe) 40 mg SUBCUT Q24H [facility] Last Admin: 07/12/24 08:45 Dose: 40 mg Documented By: KARINE Ferrous Sulfate (Ferrous Sulfate 324 Mg Tablet.) 324 mg PO DAILY [facility] Last Admin: 07/12/24 08:45 Dose: 324 mg Documented By: KARINE Linezolid (Zyvox/D5w) 600 mg in 300 mls @ 300 mls/hr IV Q12H [facility] Last Infusion: 07/12/24 06:22 Dose: Infused Documented By: TESFAYE Lisinopril (Lisinopril 20 Mg Tablet) 20 mg PO DAILY [facility]; Protocol Last Admin: 07/12/24 08:44 Dose: 20 mg Documented By: KARINE Magnesium Hydroxide (Milk Of Magnesia 30 Ml Oral.Susp) 30 ml PO DAILY PRN PRN Reason: Constipation Melatonin (Melatonin 3 Mg Tablet) 6 mg PO BEDTIME PRN PRN Reason: Insomnia Omeprazole (Omeprazole 20 Mg Capsule.Dr) 20 mg PO DAILY@0630 [facility] Last Admin: 07/12/24 05:49 Dose: 20 mg Documented By: TESFAYE Sodium Chloride (0.9 % Sodium Chloride Flush 3 Ml Syringe) 3 ml IVFLUSH QSHIFT [facility] Last Admin: 07/12/24 08:45 Dose: 3 ml Documented By: KARINE Tramadol HCl (Tramadol Hcl 50 Mg Tablet) 50 mg PO TID [facility] Last Admin: 07/12/24 08:44 Dose: 50 mg Documented By: KARINE Vitamin D (Cholecalciferol (Vitamin D3) 25 Mcg Tablet) 50 mcg PO DAILY [facility] Last Admin: 07/12/24 08:45 Dose: 50 mcg Documented By: KARINE Labs 07/12/24 06:58 07/12/24 06:58 Labs: Laboratory Results - last 24 hr 07/12/24 06:58 MCV 86.8 MCH 26.7 L MCHC 30.8 L RDW 16.0 Plt Count 525 H MPV 9.8 Absolute Nucleated RBC 0.000 Nucleated RBC % (auto) 0.0 Anion Gap 10 L Estim Creat Clear Calc 68.8 Estimated GFR > 60 Random Glucose 116 H Calcium 8.2 L Vitamin B12 673 Folate 6.8 Blood Type O Positive Antibody Screen NEGATIVE Microbiology Microbiology Results: Microbiology 07/10/24 08:00 Blood Culture - Preliminary Blood - Venous No growth after 48 hours. 07/10/24 08:00 Blood Culture - Preliminary Blood - Venous No growth after 48 hours. 07/07/24 15:01 Urine Culture - Final Urine clean catch - Clean Catch Midstream Enterococcus faecium Assessment and Plan (1) Acute UTI: Status: Acute Plan d3 for 79yo F with HTN, GERD, OA, recent UTI sent in by [facility] 07/07/24 for FTT; found to have UTI + R knee with subtle cortical buckling of the medial tibial metaphysis on the AP projection. Was awaiting placement but became septic 07/10 from UTI sepsis due to UTI, VRE - changed from cefuroxime to linezolid 07/11-, BCx negative, ID consult pending normocytic anemia - due to iron deficiency and chronic disease; FOBT negative; replete iron; T+S active; if Hb 7 or less, transfuse sacral deep tissue injury heel scaling - Wound Care consult pending question of subtle medial tibial metaphyseal fracture - Ortho consulted; partial weight bear on RLE; outpt f/u - tramadol for pain control HTN - lisinopril GERD - PPI osteoporosis - alendronate VTE ppx - enoxaparin dispo - PT consulted, STR recommended In my clinical judgment, the patient requires continued inpatient hospitalization for the following reasons: ID consultation, placement Total time managing care of this patient today: 35 minutes. Quality Stroke Does the patient have a stroke diagnosis?: No VTE Prior VTE?: No VTE Risk Level:: Medical - moderate - high VTE Device Contraindication: Treatment Not Indicated VTE Drug Contraindication: N/A - Med Ordered
[2024-07-12 15:22] VITALS: BP 122/63; PULSE 108; RESP 20; TEMP 37.2; O2SAT 98
--- NOTE | 2024-07-12 16:11 | HO.WOUND ---
Wound Consult: Initial 79yr old?female admitted [place] [facility] [place] - See progress notes and H&P for detailed history.? Wound consult placed for Sacral wound.? Patient agreeable to assessment and photo documentation.? Sacrum Etiology: Deep Tissue Injury in Evolution - ??Present on Admission Wound Bed: maroon purple nonblanchable tissue with scattered open areas with red pink moist partial thickness tissue loss Drainage / Odorscant serosang Edges: ? irregular Aileen wound: ?MASD - red hyperpigmented tissue - No Induration, Fluctuance or Warmth noted Pain: tenderness reported Goals of Treatment: ? Barrier cream and Foam dressing over pressure injury sites to aid in pressure redistribution Right Heel Left Heel Bilateral Heels Etiology: Deep Tissue Injury - ??Present on Admission Wound Bed: purple nonblanchable tissue Drainage / Odor: none Edges: ? irregular Aileen wound: ?[place] intact tissue No Induration or Warmth noted Pain: tenderness reported Goals of Treatment: ? Foam dressing recommended to aid in pressure redistribution Recommend elevating heels off of bed surface with pillows or heel protector boots. Right inner Thigh Etiology:Unstageable Pressure Injury - ?Suspect device related Brief use at home - ?Present on Admission Wound Bed: adherent yellow slough Drainage / Odor: none Edges: ?linear and attached Aileen wound: ?[place] intact tissue No Induration or Warmth noted Pain: tenderness reported Goals of Treatment: ? TRiad recommended to allow for autolytic debridement - do not use brief while inpatient Recommendations: 1. Turn and Reposition every 2 hours and as needed for patient comfort.? Use pillows or wedges to support off loading positions. 2. Off Load all bony prominences with use of pillows and heel boots if needed.? Apply Preventative foams where needed. ? 3. Monitor for incontinence and moisture control, use barrier creams when needed for prevention and treatment. 4. Provide adequate and supplemental nutrition.? 5. Continue low air loss mattress. 6. When applicable maintain blood glucose levels per Providers order. 7. Sacrum - Off Load Pressure with Q2 hr turns and use of pillows - Cleanse with PH balance spray or wipes, pat dry. ?Apply thin layer of Triad to wound bed. Do not remove all of paste between applications as this may cause further skin damage.? Cover with foam dressing to aid in off loading and protection from friction. Change every 5 days and PRN. 8. Bilateral heels - Apply Skin prep allow to dry. Elevate heels off of bed surface with use of pillows or heel protector boots. 9. Right Inner Thigh - Off Load Pressure do not use brief while inpatient - Cleanse with PH balance spray or wipes, pat dry. ?Apply thin layer of Triad to wound bed. Do not remove all of paste between applications as this may cause further skin damage.?Apply twice daily and PRN. May cover with ABd pad for protection. Re-consult wound care Nurse for wound deterioration or wound changes.
[2024-07-12 20:00] VITALS: BP 109/53; PULSE 115; RESP 18; TEMP 36.9; O2SAT 98
[2024-07-13] VITALS (8 sets, daily range): BP systolic 100–118; BP diastolic 46–61; PULSE 65–110; RESP 16–20; TEMP 36.3–38.2; O2SAT 92–99
[2024-07-13] MEDS: Linezolid/D5W 600 MG/300 ML PIGGYBACK 300 MG IV ×2 (04:01→17:11)
[2024-07-13] MEDS: Omeprazole 20 MG CAPSULE.DR PO (05:11)
[2024-07-13 07:03] LABS: Hematocrit 23.6 % (37.0-47.0); Hemoglobin 7.5 g/dl (12.0-16.0); Mean Corpuscular HGB Conc 31.8 g/dl (31.0-35.0); Mean Corpuscular Hemoglobin 27.1 pg (27.0-33.0); Mean Corpuscular Volume 85.2 fL (80.0-98.0); Mean Platelet Volume 9.8 fL (9.4-12.3); Platelet Count 555 X10*3/uL (160-400); Red Blood Count 2.77 X10*6/uL (4.20-5.50); Red Cell Distribution Width 15.9 % (11.0-16.0); White Blood Count 10.5 X10*3/uL (4.8-10.8)
[2024-07-13] MEDS: traMADoL HCL 50 MG TABLET PO (08:02)
[2024-07-13] MEDS: Cholecalciferol (Vitamin D3) 25 MCG TABLET 50 MCG PO (08:03)
[2024-07-13] MEDS: Ferrous Sulfate 324 MG TABLET.DR PO (08:03)
[2024-07-13] MEDS: 0.9 % Sodium Chloride Flush 3 ML SYRINGE IVFLUSH ×3 (08:03→21:01)
[2024-07-13] MEDS: lisinopriL 20 MG TABLET PO (08:03)
--- NOTE | 2024-07-13 09:06 | MHC.CM.PN ---
Addendum entered by Ramila Zepeda RN 07/13/24 10:39: [facility] REPORTING THEY DID NOT RECEIVE REFERRAL FOR PT, CM HAS FAXED REFERRAL TO [facility] AT [phone] Addendum entered by Ramila Zepeda RN 07/13/24 10:29: CM HAS REACHED OUT TO [facility] [phone] TO DETERMINE IF MH APPLICATION HAS BEEN STARTED. Original Note: EMR REVIEWED, P.T. RECOMMENDING LTC, PT AGREEABLE AND PREFERS [facility] FINANCIALS AND CM AWAITING OFFICIAL BED OFFER, PT MAY NEED PAYOR SOURCE PRIOR TO DC SHE DOES NOT HAVE MH AT THIS TIME, CM WILL CONT TO FOLLOW.
--- NOTE | 2024-07-13 11:03 | HO.PM.IMPN ---
Subjective Subjective Date of Service: 07/13/24 Interval History: feeling better Physical Exam Vital Signs: Vital Signs: Last Vital Signs Temp 98.7 F 07/13/24 08:00 Pulse 98 07/13/24 08:00 Resp 18 07/13/24 08:00 BP 118/61 07/13/24 08:00 Pulse Ox 97 07/13/24 08:00 O2 Del Method Room Air 07/13/24 08:00 BMI result Body Mass Index 25.4 Gen: in no acute distress HEENT: sclera anicteric, moist mucus membranes Neck: supple Lungs: clear to auscultation bilaterally Heart: regular rate and rhythm, no murmurs Abd: soft, non-tender, non-distended Ext: no edema, L great toe bruised and tender, R knee tender Skin: warm/well-perfused, bilateral heels discolored with scaly crust, L great toe bruised Neuro: alert and oriented x3, no focal findings Psych: appropriate affect Objective Data Active Medications Acetaminophen (Acetaminophen 325 Mg Tablet) 650 mg PO Q6H PRN PRN Reason: Pain, Mild 1-3,fever,headache Calcium Carbonate (Calcium Carbonate 750 Mg Tab.Chew) 750 mg PO Q4H PRN PRN Reason: Heartburn Enoxaparin Sodium (Enoxaparin Sodium 40 Mg/0.4 Ml Syringe) 40 mg SUBCUT Q24H [facility] Last Admin: 07/12/24 08:45 Dose: 40 mg Documented By: KARINE Ferrous Sulfate (Ferrous Sulfate 324 Mg Tablet.) 324 mg PO DAILY [facility] Last Admin: 07/13/24 08:03 Dose: 324 mg Documented By: KADEN Linezolid (Zyvox/D5w) 600 mg in 300 mls @ 300 mls/hr IV Q12H [facility] Last Infusion: 07/13/24 05:24 Dose: Infused Documented By: CARY Lisinopril (Lisinopril 20 Mg Tablet) 20 mg PO DAILY [facility]; Protocol Last Admin: 07/13/24 08:03 Dose: 20 mg Documented By: KADEN Magnesium Hydroxide (Milk Of Magnesia 30 Ml Oral.Susp) 30 ml PO DAILY PRN PRN Reason: Constipation Melatonin (Melatonin 3 Mg Tablet) 6 mg PO BEDTIME PRN PRN Reason: Insomnia Omeprazole (Omeprazole 20 Mg Capsule.) 20 mg PO DAILY@0630 [facility] Last Admin: 07/13/24 05:11 Dose: 20 mg Documented By: CARY Sodium Chloride (0.9 % Sodium Chloride Flush 3 Ml Syringe) 3 ml IVFLUSH QSHIFT [facility] Last Admin: 07/13/24 08:03 Dose: 3 ml Documented By: KADEN Tramadol HCl (Tramadol Hcl 50 Mg Tablet) 50 mg PO TID [facility] Last Admin: 07/13/24 08:02 Dose: 50 mg Documented By: KADEN Vitamin D (Cholecalciferol (Vitamin D3) 25 Mcg Tablet) 50 mcg PO DAILY [facility] Last Admin: 07/13/24 08:03 Dose: 50 mcg Documented By: KADEN Labs 07/13/24 06:17 07/12/24 06:58 Labs: Laboratory Results - last 24 hr 07/13/24 06:17 MCV 85.2 MCH 27.1 MCHC 31.8 RDW 15.9 Plt Count 555 H MPV 9.8 Absolute Nucleated RBC 0.000 Nucleated RBC % (auto) 0.0 Microbiology Microbiology Results: Microbiology 07/10/24 08:00 Blood Culture - Preliminary Blood - Venous No growth after 48 hours. 07/10/24 08:00 Blood Culture - Preliminary Blood - Venous No growth after 48 hours. Assessment and Plan (1) Acute UTI: Status: Acute Plan d4 for 79yo F with HTN, GERD, OA, recent UTI sent in by [facility] 07/07/24 for FTT; found to have UTI + R knee with subtle cortical buckling of the medial tibial metaphysis on the AP projection. Was awaiting placement but became septic 07/10 from UTI sepsis due to UTI, VRE changed from cefuroxime to linezolid 07/11-, BCx negative, ID consult pending normocytic anemia due to iron deficiency and chronic disease; FOBT negative; replete iron; T+S active; if Hb 7 or less, transfuse sacral deep tissue injury heel scaling Wound Care seen question of subtle medial tibial metaphyseal fracture Ortho consulted; partial weight bear on RLE; outpt f/u tramadol for pain control HTN lisinopril GERD PPI osteoporosis alendronate VTE ppx enoxaparin dispo LTC reason for continued hospitalization:placement Total time managing care of this patient today: 35 minutes. Quality Stroke Does the patient have a stroke diagnosis?: No VTE Prior VTE?: No VTE Risk Level:: Medical - moderate - high VTE Device Contraindication: Treatment Not Indicated VTE Drug Contraindication: N/A - Med Ordered
[2024-07-13] MEDS: Enoxaparin Sodium 40 MG/0.4 ML SYRINGE SUBCUT (11:06)
--- NOTE | 2024-07-13 11:33 | MHC.CLN ---
F/U PT WITH INCREASED NUTRITION RISK R/T PRESSURE INJURY PO INTAKE GOOD CONSUMING 75-100% DIET RX: REGULAR RECEIVING ENSURE BID TO PROMOTE WOUND HEALING SUPP PROVIDES 700KCALS, 40G PROTEIN MONITOR PO INTAKE AND ENCOURAGE SUPPLEMENTS
--- NOTE | 2024-07-13 16:18 | W.PM.IDCN ---
History of Present Illness Data of Consult Service Date: 07/13/24 Requesting physician: Del Fonseca Primary Care Provider: Ivan España MD HPI Reason for consult: back pain,enterococcus urine She presents with feeling ill and unable to get out of bed to use bathroom. She had been hospitalized for flu and suspected UTI and discharged with seven days cefuroxime on 06/29. She now has fever and tachycardia and urine shows vancomycin resistant faecium. She has some shortness of breath. 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 If so, by whom?: No Do you feel safe in your current relationship?: Yes Is there a partner from a previous relationship who is making you feel unsafe now?: No Are you made to feel afraid or neglected: No Advance Directives: Yes Advance Directives Information Provided: Yes Advance Directives on File: Yes ([id number]) Advance Directives Date on File: 06/30/24 Do you have a plan to hurt others: No Plan Recently lost weight without trying: No Nutrition Risks: No Nutritional Risk Patient : Yes : No Poor oral hygiene: Yes service: No Meds Allergies Allergy/AdvReac Type Severity Reaction Status Date / Time No Known Allergies Allergy Verified 07/07/24 10:24 [No Known Allergies*] Active Medications: Current Medications Acetaminophen (Acetaminophen 325 Mg Tablet) 650 mg PO Q6H PRN PRN Reason: Pain, Mild 1-3,fever,headache Calcium Carbonate (Calcium Carbonate 750 Mg Tab.Chew) 750 mg PO Q4H PRN PRN Reason: Heartburn Enoxaparin Sodium (Enoxaparin Sodium 40 Mg/0.4 Ml Syringe) 40 mg SUBCUT Q24H [facility] Last Admin: 07/13/24 11:06 Dose: 40 mg Ferrous Sulfate (Ferrous Sulfate 324 Mg Tablet.) 324 mg PO DAILY [facility] Last Admin: 07/13/24 08:03 Dose: 324 mg Linezolid (Zyvox/D5w) 600 mg in 300 mls @ 300 mls/hr IV Q12H [facility] Last Infusion: 07/13/24 05:24 Dose: Infused Lisinopril (Lisinopril 20 Mg Tablet) 20 mg PO DAILY [facility]; Protocol Last Admin: 07/13/24 08:03 Dose: 20 mg Magnesium Hydroxide (Milk Of Magnesia 30 Ml Oral.Susp) 30 ml PO DAILY PRN PRN Reason: Constipation Melatonin (Melatonin 3 Mg Tablet) 6 mg PO BEDTIME PRN PRN Reason: Insomnia Omeprazole (Omeprazole 20 Mg Capsule.) 20 mg PO DAILY@629 [facility] Last Admin: 07/13/24 05:11 Dose: 20 mg Sodium Chloride (0.9 % Sodium Chloride Flush 3 Ml Syringe) 3 ml IVFLUSH QSHIFT [facility] Last Admin: 07/13/24 08:03 Dose: 3 ml Vitamin D (Cholecalciferol (Vitamin D3) 25 Mcg Tablet) 50 mcg PO DAILY [facility] Last Admin: 07/13/24 08:03 Dose: 50 mcg Home Medications ?Medication ?Instructions ?Recorded ?Confirmed ?Last Taken ?Type alendronate 70 mg tablet 70 mg PO FR 06/27/24 07/08/24 07/01/24 History cholecalciferol (vitamin D3) 50 50 mcg PO DAILY 06/27/24 07/08/24 06/26/24 History mcg (2,000 unit) capsule (Vitamin D3) lisinopril 20 mg tablet 20 mg PO DAILY 06/27/24 07/08/24 06/26/24 History omeprazole 20 mg capsule,delayed 20 mg PO DAILY@0630 06/27/24 07/08/24 06/26/24 History release tramadol 50 mg tablet 50 mg PO TID 06/27/24 07/08/24 06/26/24 History Physical Exam Vital Signs: Vital Signs: Last Vital Signs Temp 98.8 F 07/13/24 15:22 Pulse 108 H 07/13/24 15:22 Resp 20 07/13/24 15:22 BP 108/53 L 07/13/24 15:22 Pulse Ox 99 07/13/24 15:22 O2 Del Method Room Air 07/13/24 15:22 BMI result Body Mass Index 25.4 Const: General: cooperative HEENT: Head: Yes normal to inspection Face and sinus: Yes normal facial exam Mouth: Normal oral and palatal mucosa present Teeth and gingiva: dentition normal Eyes: General: appearance normal, both eyes and all related structures Pupils: Equal, round and reactive pupils present Resp: Effort & Inspection: normal respiratory effort Cardio: Rate: regular rate Rhythm: regular rhythm GI: Palpation (GI): Soft to palpation and nontender : General: Yes no CVA tenderness Back/Spine/Pelvis: Back: no CVA tenderness Skin: General skin exam: no rashes or lesions noted Neuro: General: moves all extremities Cranial nerves: Yes Equal, round and reactive pupils present Extrem: General: Yes normal to inspection Psych: Appearance: grossly normal Results Labs 07/13/24 06:17 07/12/24 06:58 Labs: Short CBC 07/13/24 Range/Units 06:17 WBC 10.5 (4.8-10.8) X10*3/uL Hgb 7.5 L (12.0-16.0) g/dl Hct 23.6 L (37.0-47.0) % Plt Count 555 H (160-400) X10*3/uL Microbiology Microbiology Results: Microbiology 07/10/24 08:00 Blood - Venous Blood Culture - Preliminary No growth after 48 hours. 07/10/24 08:00 Blood - Venous Blood Culture - Preliminary No growth after 48 hours. 07/07/24 15:01 Urine clean catch - Clean Catch Midstream Urine Culture - Final Enterococcus faecium Assessment and Plan (1) Osteoarthritis of right knee: Status: Acute (2) Acute UTI: Status: Acute (3) Adult failure to thrive: Status: Acute Plan Would treat urinary infection with po linezolid 600 mg bid for 10 days. Rehab or more home services.
[2024-07-13] MEDS: Acetaminophen 325 MG TABLET 650 MG PO (20:54)
[2024-07-14 03:43] VITALS: BP 109/50; PULSE 87; RESP 18; TEMP 36.6; O2SAT 96
[2024-07-14] MEDS: Linezolid/D5W 600 MG/300 ML PIGGYBACK 300 MG IV (04:41)
[2024-07-14] MEDS: Omeprazole 20 MG CAPSULE.DR PO (06:16)
[2024-07-14 08:00] VITALS: BP 119/61; PULSE 92; RESP 20; TEMP 36.4; O2SAT 100
[2024-07-14] MEDS: Cholecalciferol (Vitamin D3) 25 MCG TABLET 50 MCG PO (08:43)
[2024-07-14] MEDS: lisinopriL 20 MG TABLET PO (08:43)
[2024-07-14] MEDS: 0.9 % Sodium Chloride Flush 3 ML SYRINGE IVFLUSH ×3 (08:44→20:56)
[2024-07-14] MEDS: Ferrous Sulfate 324 MG TABLET.DR PO (08:44)
--- NOTE | 2024-07-14 10:56 | HO.PM.IMPN ---
Subjective Subjective Date of Service: 07/14/24 Interval History: feeling better Physical Exam Vital Signs: Vital Signs: Last Vital Signs Temp 97.5 F 07/14/24 08:00 Pulse 92 07/14/24 08:00 Resp 20 07/14/24 08:00 BP 119/61 07/14/24 08:00 Pulse Ox 100 07/14/24 08:00 O2 Del Method Room Air 07/14/24 08:00 BMI result Body Mass Index 25.4 Const: General: cooperative HEENT: Head: Yes normal to inspection Face and sinus: Yes normal facial exam Mouth: Normal oral and palatal mucosa present Teeth and gingiva: dentition normal Eyes: General: appearance normal, both eyes and all related structures Pupils: Equal, round and reactive pupils present Resp: Effort & Inspection: normal respiratory effort Cardio: Rate: regular rate Rhythm: regular rhythm GI: Palpation (GI): Soft to palpation and nontender : General: Yes no CVA tenderness Back/Spine/Pelvis: Back: no CVA tenderness Skin: General skin exam: no rashes or lesions noted Neuro: General: moves all extremities Cranial nerves: Yes Equal, round and reactive pupils present Extrem: General: Yes normal to inspection Psych: Appearance: grossly normal Objective Data Active Medications Acetaminophen (Acetaminophen 325 Mg Tablet) 650 mg PO Q6H PRN PRN Reason: Pain, Mild 1-3,fever,headache Last Admin: 07/13/24 20:54 Dose: 650 mg Documented By: CARY Calcium Carbonate (Calcium Carbonate 750 Mg Tab.Chew) 750 mg PO Q4H PRN PRN Reason: Heartburn Enoxaparin Sodium (Enoxaparin Sodium 40 Mg/0.4 Ml Syringe) 40 mg SUBCUT Q24H [facility] Last Admin: 07/13/24 11:06 Dose: 40 mg Documented By: KADEN Ferrous Sulfate (Ferrous Sulfate 324 Mg Tablet.Dr) 324 mg PO DAILY [facility] Last Admin: 07/14/24 08:44 Dose: 324 mg Documented By: KADEN Linezolid (Zyvox/D5w) 600 mg in 300 mls @ 300 mls/hr IV Q12H [facility] Last Infusion: 07/14/24 06:43 Dose: Infused Documented By: CARY Lisinopril (Lisinopril 20 Mg Tablet) 20 mg PO DAILY [facility]; Protocol Last Admin: 07/14/24 08:43 Dose: 20 mg Documented By: KADEN Magnesium Hydroxide (Milk Of Magnesia 30 Ml Oral.Susp) 30 ml PO DAILY PRN PRN Reason: Constipation Melatonin (Melatonin 3 Mg Tablet) 6 mg PO BEDTIME PRN PRN Reason: Insomnia Omeprazole (Omeprazole 20 Mg Capsule.Dr) 20 mg PO DAILY@0630 [facility] Last Admin: 07/14/24 06:16 Dose: 20 mg Documented By: CARY Sodium Chloride (0.9 % Sodium Chloride Flush 3 Ml Syringe) 3 ml IVFLUSH QSHIFT [facility] Last Admin: 07/14/24 08:44 Dose: 3 ml Documented By: KADEN Vitamin D (Cholecalciferol (Vitamin D3) 25 Mcg Tablet) 50 mcg PO DAILY [facility] Last Admin: 07/14/24 08:43 Dose: 50 mcg Documented By: KADEN Labs 07/13/24 06:17 07/12/24 06:58 Assessment and Plan (1) Acute UTI: Status: Acute Plan d4 for 79yo F with HTN, GERD, OA, recent UTI sent in by [facility] 07/07/24 for FTT; found to have UTI + R knee with subtle cortical buckling of the medial tibial metaphysis on the AP projection. Was awaiting placement but became septic 07/10 from UTI sepsis due to UTI, VRE changed from cefuroxime to linezolid 07/11-, BCx negative, ID appreciated, continue zyvox until 07/20/24 normocytic anemia due to iron deficiency and chronic disease; FOBT negative; replete iron; T+S active; if Hb 7 or less, transfuse sacral deep tissue injury heel scaling Wound Care seen question of subtle medial tibial metaphyseal fracture Ortho consulted; partial weight bear on RLE; outpt f/u tramadol for pain control HTN lisinopril GERD PPI osteoporosis alendronate VTE ppx enoxaparin dispo LTC reason for continued hospitalization:placement Total time managing care of this patient today: 35 minutes. Quality Stroke Does the patient have a stroke diagnosis?: No VTE Prior VTE?: No VTE Risk Level:: Medical - moderate - high VTE Device Contraindication: Treatment Not Indicated VTE Drug Contraindication: N/A - Med Ordered
[2024-07-14 11:03] VITALS: BP 114/60; PULSE 109; RESP 20; TEMP 36.9; O2SAT 99
[2024-07-14 15:46] VITALS: BP 109/51; PULSE 109; RESP 19; TEMP 36.9; O2SAT 94
[2024-07-14] MEDS: Linezolid 600 MG TABLET PO (17:22)
[2024-07-14 19:16] VITALS: BP 125/77; PULSE 114; RESP 21; TEMP 37.5; O2SAT 92
[2024-07-14] MEDS: Acetaminophen 325 MG TABLET 650 MG PO (20:51)
[2024-07-15] VITALS (8 sets, daily range): BP systolic 84–142; BP diastolic 50–78; PULSE 86–108; RESP 16–23; TEMP 36–37.2; O2SAT 94–99
[2024-07-15] MEDS: Linezolid 600 MG TABLET PO ×2 (05:58→18:31)
[2024-07-15] MEDS: Omeprazole 20 MG CAPSULE.DR PO (05:58)
[2024-07-15] MEDS: Ferrous Sulfate 324 MG TABLET.DR PO (08:20)
[2024-07-15] MEDS: lisinopriL 20 MG TABLET PO (08:20)
[2024-07-15] MEDS: Cholecalciferol (Vitamin D3) 25 MCG TABLET 50 MCG PO (08:20)
[2024-07-15] MEDS: Enoxaparin Sodium 40 MG/0.4 ML SYRINGE SUBCUT (08:21)
[2024-07-15] MEDS: Acetaminophen 325 MG TABLET 650 MG PO ×2 (08:21→20:09)
--- NOTE | 2024-07-15 09:21 | MHC.CM.PN ---
EMR REVIEWED, PER CM DIRECTOR WILL START PROCESS FOR [facility]/CONSERVATOR, PSYCH CONSULT FOR CAPACITY AND OT FOR MOCHA/ACL REQUESTED, JESSICA FRIAS UPDATED AND FOLLOWING FOR LTC BED, CM WILL CONT TO FOLLOW DC NEEDS.
--- NOTE | 2024-07-15 09:31 | P.CDIM_ITS ---
PROVIDER RESPONSE TEXT: To clarify, the appropriate diagnosis supported by the clinical indicators: Pressure (decubitus) ulcer/DTI bilateral heels: dti QUERY TEXT: PHYSICIAN'S DOCUMENTATION REQUEST Date of Query: 07/15/2024 09:21 AM EST Patient Name: Monica May Admit Date: 07/10/2024 Dear Del Fonseca MD, A review of the medical record indicates additional documentation may be needed. Please review below and update the documentation accordingly. Clinical Indicators: Per wound note 07/12/24: bilateral heels deep tissue injury present on admission Foam dressing recommended to aid in pressure redistribution Recommend elevating heels off of bed surface with pillows or heel protector boots. Based on the above, could you please provide further information regarding the ulcer/wound: Pressure (decubitus) ulcer/DTI bilateral heels Please include the stage of the ulcer and specify the location and laterality of the ulcer/wound Other (explain) Clinically unable to determine (explain) Thank you, Rena Montaño RN Use of terms such as suspected, likely, concern for, or probable (associated with a specific diagnosi s that is being evaluated, monitored, or treated as if it exists) are acceptable and can be coded in the inpatient se tting, when documented at the time of discharge. Please use your independent medical judgment in providing your response. THIS QUERY IS PART OF THE PERMANENT MEDICAL RECORD
--- NOTE | 2024-07-15 09:31 | P.CDIM_ITS ---
PROVIDER RESPONSE TEXT: To clarify, the appropriate diagnosis supported by the clinical indicators: Pressure (decubitus) ulcer right inner thigh, unstageable, present on admission QUERY TEXT: PHYSICIAN'S DOCUMENTATION REQUEST Date of Query: 07/15/2024 09:24 AM EST Patient Name: Monica May Admit Date: 07/10/2024 Dear Del Fonseca MD, A review of the medical record indicates additional documentation may be needed. Please review below and update the documentation accordingly. Clinical Indicators: Per wound note 07/12/24: right inner thigh unstageable pressure injury, suspect related to brief use at home, present on admis kiran [facility]ad recommended to allow for autolytic debridement - do not use brief while inpatient Based on the above, could you please provide further information regarding the ulcer/wound: Pressure (decubitus) ulcer right inner thigh, unstageable, present on admission Non-healing surgical wound Please specify the location and laterality of the ulcer/wound Other (explain) Clinically unable to determine (explain) Thank you, Rena Montaño RN Use of terms such as suspected, likely, concern for, or probable (associated with a specific diagnosi s that is being evaluated, monitored, or treated as if it exists) are acceptable and can be coded in the inpatient se tting, when documented at the time of discharge. Please use your independent medical judgment in providing your response. THIS QUERY IS PART OF THE PERMANENT MEDICAL RECORD
--- NOTE | 2024-07-15 09:41 | HO.PM.IMPN ---
Subjective Subjective Date of Service: 07/15/24 Interval History: feeling better Physical Exam Vital Signs: Vital Signs: Last Vital Signs Temp 98.3 F 07/15/24 07:18 Pulse 95 07/15/24 07:18 Resp 20 07/15/24 07:18 BP 121/60 07/15/24 07:18 Pulse Ox 96 07/15/24 07:18 O2 Del Method Room Air 07/15/24 07:18 BMI result Body Mass Index 25.4 Const: General: cooperative HEENT: Head: Yes normal to inspection Face and sinus: Yes normal facial exam Mouth: Normal oral and palatal mucosa present Teeth and gingiva: dentition normal Eyes: General: appearance normal, both eyes and all related structures Pupils: Equal, round and reactive pupils present Resp: Effort & Inspection: normal respiratory effort Cardio: Rate: regular rate Rhythm: regular rhythm GI: Palpation (GI): Soft to palpation and nontender : General: Yes no CVA tenderness Back/Spine/Pelvis: Back: no CVA tenderness Skin: General skin exam: no rashes or lesions noted Neuro: General: moves all extremities Cranial nerves: Yes Equal, round and reactive pupils present Extrem: General: Yes normal to inspection Psych: Appearance: grossly normal Objective Data Active Medications Acetaminophen (Acetaminophen 325 Mg Tablet) 650 mg PO Q6H PRN PRN Reason: Pain, Mild 1-3,fever,headache Last Admin: 07/15/24 08:21 Dose: 650 mg Documented By: SONNY Calcium Carbonate (Calcium Carbonate 750 Mg Tab.Chew) 750 mg PO Q4H PRN PRN Reason: Heartburn Enoxaparin Sodium (Enoxaparin Sodium 40 Mg/0.4 Ml Syringe) 40 mg SUBCUT Q24H [facility] Last Admin: 07/15/24 08:21 Dose: 40 mg Documented By: SONNY Ferrous Sulfate (Ferrous Sulfate 324 Mg Tablet.) 324 mg PO DAILY [facility] Last Admin: 07/15/24 08:20 Dose: 324 mg Documented By: SONNY Linezolid (Linezolid 600 Mg Tablet) 600 mg PO Q12H [facility] Last Admin: 07/15/24 05:58 Dose: 600 mg Documented By: CARY Lisinopril (Lisinopril 20 Mg Tablet) 20 mg PO DAILY [facility]; Protocol Last Admin: 07/15/24 08:20 Dose: 20 mg Documented By: SONNY Magnesium Hydroxide (Milk Of Magnesia 30 Ml Oral.Susp) 30 ml PO DAILY PRN PRN Reason: Constipation Melatonin (Melatonin 3 Mg Tablet) 6 mg PO BEDTIME PRN PRN Reason: Insomnia Omeprazole (Omeprazole 20 Mg Capsule.Dr) 20 mg PO DAILY@0630 [facility] Last Admin: 07/15/24 05:58 Dose: 20 mg Documented By: CARY Sodium Chloride (0.9 % Sodium Chloride Flush 3 Ml Syringe) 3 ml IVFLUSH QSHIFT [facility] Last Admin: 07/15/24 08:25 Dose: Not Given Documented By: SONNY Non-Admin Reason: Previously Administered Vitamin D (Cholecalciferol (Vitamin D3) 25 Mcg Tablet) 50 mcg PO DAILY [facility] Last Admin: 07/15/24 08:20 Dose: 50 mcg Documented By: SONNY Labs 07/13/24 06:17 07/12/24 06:58 Assessment and Plan (1) Acute UTI: Status: Acute Plan d4 for 79yo F with HTN, GERD, OA, recent UTI sent in by [facility] 07/07/24 for FTT; found to have UTI + R knee with subtle cortical buckling of the medial tibial metaphysis on the AP projection. Was awaiting placement but became septic 07/10 from UTI sepsis due to UTI, VRE changed from cefuroxime to linezolid 07/11-, BCx negative, ID appreciated, continue zyvox until 07/20/24 normocytic anemia due to iron deficiency and chronic disease; FOBT negative; replete iron; T+S active; if Hb 7 or less, transfuse sacral deep tissue injury heel scaling Wound Care seen question of subtle medial tibial metaphyseal fracture Ortho consulted; partial weight bear on RLE; outpt f/u tramadol for pain control HTN lisinopril GERD PPI osteoporosis alendronate VTE ppx enoxaparin dispo LTC reason for continued hospitalization:placement Total time managing care of this patient today: 35 minutes. Quality Stroke Does the patient have a stroke diagnosis?: No VTE Prior VTE?: No VTE Risk Level:: Medical - moderate - high VTE Device Contraindication: Treatment Not Indicated VTE Drug Contraindication: N/A - Med Ordered
[2024-07-15] MEDS: 0.9 % Sodium Chloride 500 ML 999 ML IV (11:52)
--- NOTE | 2024-07-15 12:15 | MHC.CLN ---
F/U PT WITH INCREASED NUTRITION RISK R/T PRESSURE INJURY PO INTAKE 75-100% CONSISTENTLY DIET RX: REGULAR RECEIVING ENSURE BID TO PROMOTE WOUND HEALING SUPP PROVIDES 700KCALS, 40G PROTEIN CONTINUE TO MONITOR PO INTAKE AND ENCOURAGE SUPPLEMENTS
[2024-07-15] MEDS: polyethylene glycoL 3350 17 GM POWD.PACK PO (16:02)
[2024-07-15] MEDS: 0.9 % Sodium Chloride Flush 3 ML SYRINGE IVFLUSH (16:02)
--- NOTE | 2024-07-15 17:15 | P.CNPS_ITS ---
History of Present Illness Date of Service: 07/15/2024 Chief Complaint: urosepsis Reason for Consult: capacity Requesting physician: Del Fonseca Discussed with referring provider: Yes Sources of Information: patient interviewed, chart reviewed and crisis/core team assessment reviewed HPI Narrative: Mrs. May is a 79 year-old woman who was brought via EMS on 07/07/2024 after [facility] called as since [place] [facility] [place]24 after tx for influenza and UTI, pt has not been able to ambulate and had defecated on self. Pt was awaiting LTC in the ED, however, developed signs of sepsis and was medically admitted. it appears source of infection is UTI positive for enterococcus faecium. Pt seen by ID recommended starting on linezolid 600mg po BID x 10 days. She also presented with R knee with severe OA and insufficiency fracture. Psychiatry was asked to complete capacity assessment, and also assess Mrs. May's ability to care for herself. Pt seen in her room. She presents as calm and pleasant. She is able to tell this telegraphic typewriter operator that she was at home, not able to ambulate, felt weak, had exacerbated pain on R knee. She reports her visiting nurse came and helped her call 911 to bring her to the hospital as she states she has not been able to walk since discharge. She is able to tell this telegraphic typewriter operator that she was found to have UTI, currently being treated with antibiotic. She also reports she was seen by Ortho for her knee pain, which she also mentions she has long hx of OA. She agrees that ambulation is very hard and she needs assistance with this. She is readily oriented to place, month, year, situation date and day. She knows exactly how long she has been in the hospital, explaining to this telegraphic typewriter operator that she was brought on 07/07 and as of today, she has been 8 days in the hospital. OT completed MOCA- showed scored of 24/30 with impairments in attention (serial 7, repeating numbers forward, although able to do numbers backward), visuospatial (difficulty copying cube), language fluency, recall 3/5 without cuing but 2/2 with categorical cuing. However, higher functions of brain such as executive function, abstraction, orientation, naming are intact. Her ACL (functional cognition) scored was 4.6 showing able to live independently with some assistance, able to perform familiar activities or follow familiar daily routines with need of support in novel situation. Past Psychiatric History: none prior [facility] Medical History Arthritis Diagnostics Vital Signs (24Hr): Vital Signs - 24 hr 07/14/24 19:16 07/15/24 00:00 07/15/24 04:00 Temperature 99.5 F 97.4 F 97.5 F Pulse Rate 114 H 100 93 Respiratory Rate 21 H 16 16 Blood Pressure 125/77 142/63 H 128/78 Pulse Oximetry 92 96 98 Oxygen Delivery Method Nasal Cannula Room Air Nasal Cannula 07/15/24 07:18 07/15/24 11:22 07/15/24 13:00 Temperature 98.3 F 99.0 F Pulse Rate 95 106 H 86 Respiratory Rate 20 20 Blood Pressure 121/60 84/50 L 100/55 L Pulse Oximetry 96 98 Oxygen Delivery Method Room Air Room Air 07/15/24 15:47 Temperature 98.6 F Pulse Rate 100 Respiratory Rate 16 Blood Pressure 91/55 L Pulse Oximetry 96 Oxygen Delivery Method Room Air BMI result Body Mass Index 25.4 Labs 07/13/24 06:17 07/12/24 06:58 Imaging Radiology Impressions: ITS Impressions Chest X-Ray 07/07/24 10:38 IMPRESSION: 1. Mildly limited exam as detailed. 2. Persistently elevated left hemidiaphragm with improved but persistent linear airspace disease left base. 3. Resolved airspace opacity in the medial right base. Electronically signed by: Kike Sykes MD 07/07/2024 11:07 AM EST RP Knee X-Ray 07/08/24 08:32 IMPRESSION: 1. Subtle cortical buckling of the medial tibial metaphysis on the AP projection. Cannot exclude a subtle fracture. 2. 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 [id number] appearance lateral compartment with large osteophytes and subchondral sclerosis.. 2. Large productive osteophyte causes 1.8 cm anterior displacement of the patella relative to the femur. 3. Suprapatellar joint effusion. Electronically signed by: Kike Sykes MD 07/08/2024 09:47 AM EST RP Foot X-Ray 07/11/24 11:35 IMPRESSION: 1. No definite fracture or dislocation within confines of patient positioning and osteopenia. If there is high suspicion, MRI may be of benefit. 2. There is diffuse soft tissue swelling of the entire foot and ankle. Electronically signed by: Kike Sykes MD 07/11/2024 12:04 PM EST Mental Status Exam Mental Status Exam Narrative: Appearance: wearing hospital gown, fair hygiene, in NAD Behavior: cooperative and friendly Psychomotor: no agitation or retardation noted Speech: clear, normal rate/rhythm/volume, spontaneous TP: linear, coherent TC: wanting to get better Mood: better Affect: congruent SI: none HI: none VH/AH: none Delusions: none Insight/judgment: fair x 2, but intact Memory/cog: alert, oriented to place, month, day, date, year and situation. MOCA 26/30--> most impairments in attention, language fluency, visuo spatial, fair recall (3/5). With intact orientation executive function, abstraction, naming, language repetition. ACL 4.6 Medications Medications Current Medications Acetaminophen (Acetaminophen 325 Mg Tablet) 650 mg PO Q6H PRN PRN Reason: Pain, Mild 1-3,fever,headache Last Admin: 07/15/24 08:21 Dose: 650 mg Calcium Carbonate (Calcium Carbonate 750 Mg Tab.Chew) 750 mg PO Q4H PRN PRN Reason: Heartburn Enoxaparin Sodium (Enoxaparin Sodium 40 Mg/0.4 Ml Syringe) 40 mg SUBCUT Q24H [facility] Last Admin: 07/15/24 08:21 Dose: 40 mg Ferrous Sulfate (Ferrous Sulfate 324 Mg Tablet.) 324 mg PO DAILY [facility] Last Admin: 07/15/24 08:20 Dose: 324 mg Linezolid (Linezolid 600 Mg Tablet) 600 mg PO Q12H [facility] Last Admin: 07/15/24 05:58 Dose: 600 mg Magnesium Hydroxide (Milk Of Magnesia 30 Ml Oral.Susp) 30 ml PO DAILY PRN PRN Reason: Constipation Melatonin (Melatonin 3 Mg Tablet) 6 mg PO BEDTIME PRN PRN Reason: Insomnia Omeprazole (Omeprazole 20 Mg Capsule.) 20 mg PO DAILY@0630 [facility] Last Admin: 07/15/24 05:58 Dose: 20 mg Sodium Chloride (0.9 % Sodium Chloride Flush 3 Ml Syringe) 3 ml IVFLUSH QSHIFT SARTHAK Last Admin: 07/15/24 16:02 Dose: 3 ml Vitamin D (Cholecalciferol (Vitamin D3) 25 Mcg Tablet) 50 mcg PO DAILY [facility] Last Admin: 07/15/24 08:20 Dose: 50 mcg Allergies Allergies Allergy/AdvReac Type Severity Reaction Status Date / Time No Known Allergies Allergy Verified 07/07/24 10:24 [No Known Allergies*] Assessment & Plan Assessment & Plan (1) MCI (mild cognitive impairment): Status: Acute Code(s): G31.84 - Mild cognitive impairment of uncertain or unknown etiology Plan Mrs. May is a 79 year-old woman who was brought via EMS to [facility] [place] on 07/07 due to inability to walk, weakness, not able to take her of her hygiene due to mobility issues. Psychiatry asked to complete capacity assessment. Pt is able to show understanding of medical conditions, appreciation of risk versus benefits of accepting treatment and express a decisions. She is able to show ability to reason when discussing her medical conditions and recommendation from treating providers. Her orientation is intact. More over higher function of the brain are still intact such as executive function and her recall is not as impaired. She does show a mild cognitive impairment of a vascular type of impairment (can do head CT to look for vascular changes and s/s of atrophy). Progression may be slower but advised to continue monitoring cognition/memory [id number] or so. AT this moment, pt has capacity to make medical decisions. She is also safe, at least from a cognitive and memory perspective, to live independently. ACLof 4.6 also supportive of pt being able to safely live independently with additional supports. This is not to say that physically, she is not able to properly care for herself and may require more assistance with transfers and toileting. At this point, I DO NOT recommend applying for a guardianship, but would advise that HCP is completed. There is one on file but not sure what impediment is with this one. It does not need to be invoked now as again, pt DOES show capacity to make medical decisions. Total time managing care of this patient today ____ minutes.
[2024-07-15] MEDS: Melatonin 3 MG TABLET 6 MG PO (23:34)
[2024-07-16] MEDS: 0.9 % Sodium Chloride Flush 3 ML SYRINGE IVFLUSH ×3 (00:38→17:13)
[2024-07-16 02:48] VITALS: BP 95/72; PULSE 95; RESP 20; TEMP 37.1; O2SAT 94
[2024-07-16] MEDS: Linezolid 600 MG TABLET PO ×2 (05:36→17:11)
[2024-07-16] MEDS: Omeprazole 20 MG CAPSULE.DR PO (05:36)
[2024-07-16 08:00] VITALS: BP 115/62; PULSE 95; RESP 18; TEMP 37.1; O2SAT 95
[2024-07-16] MEDS: Cholecalciferol (Vitamin D3) 25 MCG TABLET 50 MCG PO (09:05)
[2024-07-16] MEDS: Enoxaparin Sodium 40 MG/0.4 ML SYRINGE SUBCUT (09:05)
[2024-07-16] MEDS: Ferrous Sulfate 324 MG TABLET.DR PO (09:05)
--- NOTE | 2024-07-16 09:32 | HO.PM.IMPN ---
Subjective Subjective Date of Service: 07/16/24 Interval History: feeling better Physical Exam Vital Signs: Vital Signs: Last Vital Signs Temp 98.7 F 07/16/24 08:00 Pulse 95 07/16/24 08:00 Resp 18 07/16/24 08:00 BP 115/62 07/16/24 08:00 Pulse Ox 95 07/16/24 08:00 O2 Del Method Room Air 07/16/24 08:00 BMI result Body Mass Index 25.4 Const: General: cooperative HEENT: Head: Yes normal to inspection Face and sinus: Yes normal facial exam Mouth: Normal oral and palatal mucosa present Teeth and gingiva: dentition normal Eyes: General: appearance normal, both eyes and all related structures Pupils: Equal, round and reactive pupils present Resp: Effort & Inspection: normal respiratory effort Cardio: Rate: regular rate Rhythm: regular rhythm GI: Palpation (GI): Soft to palpation and nontender : General: Yes no CVA tenderness Back/Spine/Pelvis: Back: no CVA tenderness Skin: General skin exam: no rashes or lesions noted Neuro: General: moves all extremities Cranial nerves: Yes Equal, round and reactive pupils present Extrem: General: Yes normal to inspection Psych: Appearance: grossly normal Objective Data Active Medications Acetaminophen (Acetaminophen 325 Mg Tablet) 650 mg PO Q6H PRN PRN Reason: Pain, Mild 1-3,fever,headache Last Admin: 07/15/24 20:09 Dose: 650 mg Documented By: BROOKE Calcium Carbonate (Calcium Carbonate 750 Mg Tab.Chew) 750 mg PO Q4H PRN PRN Reason: Heartburn Enoxaparin Sodium (Enoxaparin Sodium 40 Mg/0.4 Ml Syringe) 40 mg SUBCUT Q24H [facility] Last Admin: 07/16/24 09:05 Dose: 40 mg Documented By: SONNY Ferrous Sulfate (Ferrous Sulfate 324 Mg Tablet.Dr) 324 mg PO DAILY [facility] Last Admin: 07/16/24 09:05 Dose: 324 mg Documented By: SONNY Linezolid (Linezolid 600 Mg Tablet) 600 mg PO Q12H [facility] Last Admin: 07/16/24 05:36 Dose: 600 mg Documented By: BROOKE Magnesium Hydroxide (Milk Of Magnesia 30 Ml Oral.Susp) 30 ml PO DAILY PRN PRN Reason: Constipation Melatonin (Melatonin 3 Mg Tablet) 6 mg PO BEDTIME PRN PRN Reason: Insomnia Last Admin: 07/15/24 23:34 Dose: 6 mg Documented By: BROOKE Omeprazole (Omeprazole 20 Mg Cindy.) 20 mg PO DAILY@0630 [facility] Last Admin: 07/16/24 05:36 Dose: 20 mg Documented By: BROOKE Sodium Chloride (0.9 % Sodium Chloride Flush 3 Ml Syringe) 3 ml IVFLUSH QSHIFT [facility] Last Admin: 07/16/24 09:08 Dose: 3 ml Documented By: SONNY Vitamin D (Cholecalciferol (Vitamin D3) 25 Mcg Tablet) 50 mcg PO DAILY [facility] Last Admin: 07/16/24 09:05 Dose: 50 mcg Documented By: SONNY Labs 07/13/24 06:17 07/12/24 06:58 Microbiology Microbiology Results: Microbiology 07/10/24 08:00 Blood Culture - Final Blood - Venous No growth after 5 days. 07/10/24 08:00 Blood Culture - Final Blood - Venous No growth after 5 days. Assessment and Plan (1) Acute UTI: Status: Acute Plan d4 for 79yo F with HTN, GERD, OA, recent UTI sent in by [facility] 07/07/24 for FTT; found to have UTI + R knee with subtle cortical buckling of the medial tibial metaphysis on the AP projection. Was awaiting placement but became septic 07/10 from UTI sepsis due to UTI, VRE changed from cefuroxime to linezolid 07/11-, BCx negative, ID appreciated, continue zyvox until 07/20/24 normocytic anemia due to iron deficiency and chronic disease; FOBT negative; replete iron; T+S active; if Hb 7 or less, transfuse sacral deep tissue injury heel scaling Wound Care seen question of subtle medial tibial metaphyseal fracture Ortho consulted; partial weight bear on RLE; outpt f/u tramadol for pain control HTN lisinopril GERD PPI osteoporosis alendronate VTE ppx enoxaparin dispo LTC reason for continued hospitalization:placement Total time managing care of this patient today: 35 minutes. Quality Stroke Does the patient have a stroke diagnosis?: No VTE Prior VTE?: No VTE Risk Level:: Medical - moderate - high VTE Device Contraindication: Treatment Not Indicated VTE Drug Contraindication: N/A - Med Ordered
[2024-07-16 11:45] VITALS: BP 104/52; PULSE 99; RESP 16; TEMP 36.9; O2SAT 98
[2024-07-16] MEDS: bisacodyL 5 MG TABLET.DR 10 MG PO (13:19)
[2024-07-16] MEDS: Acetaminophen 325 MG TABLET 650 MG PO (13:21)
[2024-07-16 16:00] VITALS: BP 106/62; PULSE 108; RESP 16; TEMP 37.1; O2SAT 98
[2024-07-17] VITALS: BP 108/78; PULSE 104; RESP 20; TEMP 37.1; O2SAT 97
[2024-07-17 04:00] VITALS: BP 128/57; PULSE 102; RESP 20; TEMP 36.6; O2SAT 94
[2024-07-17] MEDS: Linezolid 600 MG TABLET PO ×2 (06:35→16:49)
[2024-07-17] MEDS: Omeprazole 20 MG CAPSULE.DR PO (06:35)
[2024-07-17 08:00] VITALS: BP 116/59; PULSE 96; RESP 16; TEMP 37; O2SAT 93
[2024-07-17] MEDS: Enoxaparin Sodium 40 MG/0.4 ML SYRINGE SUBCUT (09:11)
[2024-07-17] MEDS: Ferrous Sulfate 324 MG TABLET.DR PO (09:11)
[2024-07-17] MEDS: Cholecalciferol (Vitamin D3) 25 MCG TABLET 50 MCG PO (09:11)
[2024-07-17] MEDS: Acetaminophen 325 MG TABLET 650 MG PO (09:11)
[2024-07-17] MEDS: 0.9 % Sodium Chloride Flush 3 ML SYRINGE IVFLUSH ×3 (09:12→16:50)
--- NOTE | 2024-07-17 09:54 | P.PNIM_ITS ---
Subjective Subjective Date of Service: 07/17/24 Interval History: feeling better Physical Exam 2 Vital Signs: Vital Signs: Last Vital Signs Temp 98.6 F 07/17/24 08:00 Pulse 96 07/17/24 08:00 Resp 16 07/17/24 08:00 BP 116/59 L 07/17/24 08:00 Pulse Ox 93 07/17/24 08:00 O2 Del Method Room Air 07/17/24 08:00 BMI result Body Mass Index 25.4 Const: General: cooperative HEENT: Head: Yes normal to inspection Face and sinus: Yes normal facial exam Mouth: Normal oral and palatal mucosa present Teeth and gingiva: d entition normal Eyes: General: appearance normal, both eyes and all related structures P upils: Equal, round and reactive pupils present Resp: Effort & Inspection: normal respiratory effort Cardio: Rate: regular rate Rhythm: regular rhythm GI: Palpation (GI): Soft to palpation and nontender : General: Yes no CVA tenderness Back/Spine/Pelvis: Back: no CVA tenderness Skin: General skin exam: no rashes or lesions noted Neuro: General: moves all extremities Cranial nerves: Yes Equal, round and reactive pupils present Extrem: General: Yes normal to inspection Psych: Appearance: grossly normal Objective Data Active Medications Acetaminophen (Acetaminophen 325 Mg Tablet) 650 mg PO Q6H PRN PRN Reason: Pain, Mild 1-3,fever,headache Last Admin: 07/17/24 09:11 Dose: 650 mg Documented By: SONNY Calcium Carbonate (Calcium Carbonate 750 Mg Tab.Chew) 750 mg PO Q4H PRN PRN Reason: Heartburn Enoxaparin Sodium (Enoxaparin Sodium 40 Mg/0.4 Ml Syringe) 40 mg SUBCUT Q24H [facility] Last Admin: 07/17/24 09:11 Dose: 40 mg Documented By: SONNY Ferrous Sulfate (Ferrous Sulfate 324 Mg Tablet.Dr) 324 mg PO DAILY [facility] Last Admin: 07/17/24 09:11 Dose: 324 mg Documented By: SONNY Linezolid (Linezolid 600 Mg Tablet) 600 mg PO Q12H [facility] Last Admin: 07/17/24 06:35 Dose: 600 mg Documented By: ANALIA Magnesium Hydroxide (Milk Of Magnesia 30 Ml Oral.Susp) 30 ml PO DAILY PRN PRN Reason: Constipation Melatonin (Melatonin 3 Mg Tablet) 6 mg PO BEDTIME PRN PRN Reason: Insomnia Last Admin: 07/15/24 23:34 Dose: 6 mg Documented By: BROOKE Omeprazole (Omeprazole 20 Mg Capsule.) 20 mg PO DAILY@0630 [facility] Last Admin: 07/17/24 06:35 Dose: 20 mg Documented By: ANALIA Sodium Chloride (0.9 % Sodium Chloride Flush 3 Ml Syringe) 3 ml IVFLUSH QSHIFT [facility] Last Admin: 07/17/24 09:12 Dose: 3 ml Documented By: SONNY Vitamin D (Cholecalciferol (Vitamin D3) 25 Mcg Tablet) 50 mcg PO DAILY [facility] Last Admin: 07/17/24 09:11 Dose: 50 mcg Documented By: SONNY Labs 07/13/24 06:17 07/12/24 06:58 Assessment and Plan (1) Acute UTI: Status: Acute Plan d4 for 79yo F with HTN, GERD, OA, recent UTI sent in by [facility] 07/07/24 for FTT; found to have UTI + R knee with subtle cortical buckling of the medial tibial metaphysis on the AP projection. Was awaiting placement but became septic 07/10 from UTI sepsis due to UTI, VRE changed from cefuroxime to linezolid 07/11-, BCx negative, ID appreciated, continue zyvox until 07/20/24 normocytic anemia due to iron deficiency and chronic disease; FOBT negative; replete iron; T+S active; if Hb 7 or less, transfuse sacral deep tissue injury heel scaling Wound Care seen question of subtle medial tibial metaphyseal fracture Ortho consulted; partial weight bear on RLE; outpt f/u tramadol for pain control HTN lisinopril GERD PPI osteoporosis alendronate VTE ppx enoxaparin dispo LTC reason for continued hospitalization:placement Total time managing care of this patient today: 35 minutes. Quality Stroke Does the patient have a stroke diagnosis?: No VTE Prior VTE?: No VTE Risk Level:: Medical - moderate - high VTE Device Contraindication: Treatment Not Indicated VTE Drug Contraindication: N/A - Med Ordered
[2024-07-17 11:37] VITALS: BP 112/56; PULSE 94; RESP 16; TEMP 37.1; O2SAT 95
[2024-07-17 15:22] VITALS: BP 89/60; PULSE 98; RESP 14; TEMP 37; O2SAT 95
[2024-07-17 20:00] VITALS: BP 119/53; PULSE 100; RESP 20; TEMP 37.2; O2SAT 98
[2024-07-18] VITALS: BP 106/59; PULSE 100; RESP 20; TEMP 37; O2SAT 92
[2024-07-18] MEDS: 0.9 % Sodium Chloride Flush 3 ML SYRINGE IVFLUSH ×3 (02:58→17:25)
[2024-07-18] MEDS: Acetaminophen 325 MG TABLET 650 MG PO (03:36)
[2024-07-18 04:00] VITALS: BP 113/58; PULSE 91; RESP 18; TEMP 36.5; O2SAT 94
[2024-07-18] MEDS: Omeprazole 20 MG CAPSULE.DR PO (05:48)
[2024-07-18] MEDS: Linezolid 600 MG TABLET PO ×2 (05:48→17:25)
--- NOTE | 2024-07-18 05:59 | PC.NURSE ---
Pt arrived to rm [id number] at 0400 on a bed alert and oriented, denies any SOB, oriented to th new unit, endorsed generalized joint pain, vitals WNL, prn Tylenol 650 mg po given, slept after.
[2024-07-18 08:00] VITALS: BP 113/55; PULSE 96; RESP 18; TEMP 36.6; O2SAT 94
--- NOTE | 2024-07-18 08:40 | P.PNIM_ITS ---
Subjective Subjective Date of Service: 07/18/24 Interval History: feeling better Physical Exam 2 Vital Signs: Vital Signs: Last Vital Signs Temp 97.8 F 07/18/24 08:00 Pulse 96 07/18/24 08:00 Resp 18 07/18/24 08:00 BP 113/55 L 07/18/24 08:00 Pulse Ox 94 07/18/24 08:00 O2 Del Method Room Air 07/18/24 08:00 BMI result Body Mass Index 25.4 Const: General: cooperative HEENT: Head: Yes normal to inspection Face and sinus: Yes normal facial exam Mouth: Normal oral and palatal mucosa present Teeth and gingiva: d entition normal Eyes: General: appearance normal, both eyes and all related structures P upils: Equal, round and reactive pupils present Resp: Effort & Inspection: normal respiratory effort Cardio: Rate: regular rate Rhythm: regular rhythm GI: Palpation (GI): Soft to palpation and nontender : General: Yes no CVA tenderness Back/Spine/Pelvis: Back: no CVA tenderness Skin: General skin exam: no rashes or lesions noted Neuro: General: moves all extremities Cranial nerves: Yes Equal, round and reactive pupils present Extrem: General: Yes normal to inspection Psych: Appearance: grossly normal Objective Data Active Medications Acetaminophen (Acetaminophen 325 Mg Tablet) 650 mg PO Q6H PRN PRN Reason: Pain, Mild 1-3,fever,headache Last Admin: 07/18/24 03:36 Dose: 650 mg Documented By: JUAN ANTONIO Calcium Carbonate (Calcium Carbonate 750 Mg Tab.Chew) 750 mg PO Q4H PRN PRN Reason: Heartburn Enoxaparin Sodium (Enoxaparin Sodium 40 Mg/0.4 Ml Syringe) 40 mg SUBCUT Q24H [facility] Last Admin: 07/17/24 09:11 Dose: 40 mg Documented By: SONNY Ferrous Sulfate (Ferrous Sulfate 324 Mg Tablet.Dr) 324 mg PO DAILY [facility] Last Admin: 07/17/24 09:11 Dose: 324 mg Documented By: SONNY Linezolid (Linezolid 600 Mg Tablet) 600 mg PO Q12H [facility] Last Admin: 07/18/24 05:48 Dose: 600 mg Documented By: JUAN ANTONIO Magnesium Hydroxide (Milk Of Magnesia 30 Ml Oral.Susp) 30 ml PO DAILY PRN PRN Reason: Constipation Melatonin (Melatonin 3 Mg Tablet) 6 mg PO BEDTIME PRN PRN Reason: Insomnia Last Admin: 07/15/24 23:34 Dose: 6 mg Documented By: BROOKE Omeprazole (Omeprazole 20 Mg Capsule.) 20 mg PO DAILY@0630 [facility] Last Admin: 07/18/24 05:48 Dose: 20 mg Documented By: CASTILTameka Sodium Chloride (0.9 % Sodium Chloride Flush 3 Ml Syringe) 3 ml IVFLUSH QSHIFT [facility] Last Admin: 07/18/24 02:58 Dose: 3 ml Documented By: SALJUANITO Vitamin D (Cholecalciferol (Vitamin D3) 25 Mcg Tablet) 50 mcg PO DAILY [facility] Last Admin: 07/17/24 09:11 Dose: 50 mcg Documented By: RUANES Labs 07/13/24 06:17 07/12/24 06:58 Assessment and Plan (1) Acute UTI: Status: Acute Plan d4 for 79yo F with HTN, GERD, OA, recent UTI sent in by [facility] 07/07/24 for FTT; found to have UTI + R knee with subtle cortical buckling of the medial tibial metaphysis on the AP projection. Was awaiting placement but became septic 07/10 from UTI sepsis due to UTI, VRE changed from cefuroxime to linezolid 07/11-, BCx negative, ID appreciated, continue zyvox until 07/20/24 normocytic anemia due to iron deficiency and chronic disease; FOBT negative; replete iron; T+S active; if Hb 7 or less, transfuse sacral deep tissue injury heel scaling Wound Care seen question of subtle medial tibial metaphyseal fracture Ortho consulted; partial weight bear on RLE; outpt f/u tramadol for pain control HTN lisinopril GERD PPI osteoporosis alendronate VTE ppx enoxaparin dispo LTC reason for continued hospitalization:placement Total time managing care of this patient today: 35 minutes. Quality Stroke Does the patient have a stroke diagnosis?: No VTE Prior VTE?: No VTE Risk Level:: Medical - moderate - high VTE Device Contraindication: Treatment Not Indicated VTE Drug Contraindication: N/A - Med Ordered
[2024-07-18] MEDS: Ferrous Sulfate 324 MG TABLET.DR PO (08:43)
[2024-07-18] MEDS: Cholecalciferol (Vitamin D3) 25 MCG TABLET 50 MCG PO (08:43)
[2024-07-18] MEDS: Enoxaparin Sodium 40 MG/0.4 ML SYRINGE SUBCUT (10:00)
[2024-07-18 12:00] VITALS: BP 120/58; PULSE 109; RESP 18; TEMP 36.6; O2SAT 95
--- NOTE | 2024-07-18 13:38 | MHC.CLN ---
F/U PT WITH INCREASED NUTRITION RISK R/T PRESSURE INJURY PO INTAKE 100% MOST MEALS DIET RX: REGULAR RECEIVING ENSURE BID TO PROMOTE WOUND HEALING SUPP PROVIDES 700KCALS, 40G PROTEIN CONTINUE TO MONITOR PO INTAKE AND ENCOURAGE SUPPLEMENTS
[2024-07-18 15:57] VITALS: BP 125/65; PULSE 101; RESP 14; TEMP 36.6; O2SAT 98
[2024-07-18 19:42] VITALS: BP 120/56; PULSE 109; RESP 18; TEMP 36.2; O2SAT 97
[2024-07-19] VITALS (7 sets, daily range): BP systolic 97–134; BP diastolic 51–63; PULSE 96–110; RESP 16–22; TEMP 36.7–37.3; O2SAT 93–96
[2024-07-19] MEDS: 0.9 % Sodium Chloride Flush 3 ML SYRINGE IVFLUSH ×4 (00:11→20:12)
[2024-07-19] MEDS: Omeprazole 20 MG CAPSULE.DR PO (05:35)
[2024-07-19] MEDS: Linezolid 600 MG TABLET PO ×2 (05:35→16:39)
[2024-07-19] MEDS: Enoxaparin Sodium 40 MG/0.4 ML SYRINGE SUBCUT (08:28)
[2024-07-19] MEDS: Ferrous Sulfate 324 MG TABLET.DR PO (08:28)
[2024-07-19] MEDS: Cholecalciferol (Vitamin D3) 25 MCG TABLET 50 MCG PO (08:28)
--- NOTE | 2024-07-19 08:54 | HO.PM.IMPN ---
Subjective Subjective Date of Service: 07/19/24 Interval History: no complaints Physical Exam Vital Signs: Vital Signs: Last Vital Signs Temp 98.6 F 07/19/24 08:00 Pulse 98 07/19/24 08:00 Resp 18 07/19/24 08:00 BP 112/58 L 07/19/24 08:00 Pulse Ox 94 07/19/24 08:00 O2 Del Method Room Air 07/19/24 08:00 BMI result Body Mass Index 25.4 Const: General: cooperative HEENT: Head: Yes normal to inspection Face and sinus: Yes normal facial exam Mouth: Normal oral and palatal mucosa present Teeth and gingiva: dentition normal Eyes: General: appearance normal, both eyes and all related structures Pupils: Equal, round and reactive pupils present Resp: Effort & Inspection: normal respiratory effort Cardio: Rate: regular rate Rhythm: regular rhythm GI: Palpation (GI): Soft to palpation and nontender : General: Yes no CVA tenderness Back/Spine/Pelvis: Back: no CVA tenderness Skin: General skin exam: no rashes or lesions noted Neuro: General: moves all extremities Cranial nerves: Yes Equal, round and reactive pupils present Extrem: General: Yes normal to inspection Psych: Appearance: grossly normal Objective Data Active Medications Acetaminophen (Acetaminophen 325 Mg Tablet) 650 mg PO Q6H PRN PRN Reason: Pain, Mild 1-3,fever,headache Last Admin: 07/18/24 03:36 Dose: 650 mg Documented By: JUAN ANTONIO Calcium Carbonate (Calcium Carbonate 750 Mg Tab.Chew) 750 mg PO Q4H PRN PRN Reason: Heartburn Enoxaparin Sodium (Enoxaparin Sodium 40 Mg/0.4 Ml Syringe) 40 mg SUBCUT Q24H [facility] Last Admin: 07/19/24 08:28 Dose: 40 mg Documented By: KADEN Ferrous Sulfate (Ferrous Sulfate 324 Mg Tablet.Dr) 324 mg PO DAILY [facility] Last Admin: 07/19/24 08:28 Dose: 324 mg Documented By: KADEN Linezolid (Linezolid 600 Mg Tablet) 600 mg PO Q12H [facility] Last Admin: 07/19/24 05:35 Dose: 600 mg Documented By: BERYL Magnesium Hydroxide (Milk Of Magnesia 30 Ml Oral.Susp) 30 ml PO DAILY PRN PRN Reason: Constipation Melatonin (Melatonin 3 Mg Tablet) 6 mg PO BEDTIME PRN PRN Reason: Insomnia Last Admin: 07/15/24 23:34 Dose: 6 mg Documented By: BROOKE Omeprazole (Omeprazole 20 Mg Cindy.) 20 mg PO DAILY@0630 [facility] Last Admin: 07/19/24 05:35 Dose: 20 mg Documented By: BERYL Sodium Chloride (0.9 % Sodium Chloride Flush 3 Ml Syringe) 3 ml IVFLUSH QSHIFT [facility] Last Admin: 07/19/24 08:32 Dose: 3 ml Documented By: KADEN Vitamin D (Cholecalciferol (Vitamin D3) 25 Mcg Tablet) 50 mcg PO DAILY [facility] Last Admin: 07/19/24 08:28 Dose: 50 mcg Documented By: KADEN Labs 07/13/24 06:17 07/12/24 06:58 Assessment and Plan (1) Acute UTI: Status: Acute Plan 79F PMH HTN, GERD, OA, recent UTI sent in by [facility] 07/07/24 for FTT; found to have UTI + R knee with subtle cortical buckling of the medial tibial metaphysis on the AP projection. Was awaiting placement but became septic 07/10 from UTI sepsis due to UTI, VRE changed from cefuroxime to linezolid 07/11-, BCx negative, ID appreciated, continue zyvox until 07/20/24 normocytic anemia due to iron deficiency and chronic disease; FOBT negative; replete iron; T+S active; if Hb 7 or less, transfuse sacral deep tissue injury heel scaling Wound Care seen - see notes question of subtle medial tibial metaphyseal fracture Ortho consulted; partial weight bear on RLE; outpt f/u tramadol for pain control HTN lisinopril GERD PPI osteoporosis alendronate VTE ppx enoxaparin dispo LTC reason for continued hospitalization:placement Total time managing care of this patient today: 35 minutes. Quality Stroke Does the patient have a stroke diagnosis?: No VTE Prior VTE?: No VTE Risk Level:: Medical - moderate - high VTE Device Contraindication: Treatment Not Indicated VTE Drug Contraindication: N/A - Med Ordered
[2024-07-19] MEDS: Acetaminophen 325 MG TABLET 650 MG PO (16:40)
[2024-07-20 03:26] VITALS: BP 116/58; PULSE 106; RESP 17; TEMP 36.6; O2SAT 96
[2024-07-20] MEDS: Omeprazole 20 MG CAPSULE.DR PO (06:04)
[2024-07-20] MEDS: Linezolid 600 MG TABLET PO ×2 (06:04→16:24)
[2024-07-20 06:12] LABS: Hematocrit 23.5 % (37.0-47.0); Hemoglobin 7.4 g/dl (12.0-16.0); Mean Corpuscular HGB Conc 31.5 g/dl (31.0-35.0); Mean Corpuscular Hemoglobin 27.2 pg (27.0-33.0); Mean Corpuscular Volume 86.4 fL (80.0-98.0); Mean Platelet Volume 8.4 fL (9.4-12.3); NRBC Pct Auto 0.2 /100WBC (0.0-0.2); Platelet Count 652 X10*3/uL (160-400); Red Blood Count 2.72 X10*6/uL (4.20-5.50); Red Cell Distribution Width 17.2 % (11.0-16.0)
[2024-07-20 06:25] LABS: Alanine Aminotransferase 18 U/L (0-31); Albumin Level 2.5 g/dL (3.5-5.0); Alkaline Phosphatase 146 U/L (39-117); Anion Gap 10 (12-20); Aspartate Amino Transferase 35 U/L (5-31); Bilirubin Direct 0.2 mg/dL (0.0-0.5); Bilirubin Total 0.3 mg/dL (0.0-1.0); Blood Urea Nitrogen 22 mg/dL (9-16); Calcium 8.1 mg/dL (8.4-10.2); Carbon Dioxide 27 mmol/L (22-29); Chloride 107 mmol/L (96-108); Creatinine Clr Calc Pharmacy 65.2; Estimated Glomerular Filt Rate > 60; Glucose Random 97 mg/dL (60-115); Magnesium 2.1 mg/dL (1.6-2.6); Potassium 4.9 mmol/L (3.3-5.1); Sodium 139 mmol/L (135-145); Total Protein 5.9 g/dL (6.5-8.0)
[2024-07-20 08:01] VITALS: BP 107/58; PULSE 97; RESP 18; TEMP 36.4; O2SAT 94
[2024-07-20] MEDS: Ferrous Sulfate 324 MG TABLET.DR PO (09:09)
[2024-07-20] MEDS: Cholecalciferol (Vitamin D3) 25 MCG TABLET 50 MCG PO (09:09)
[2024-07-20] MEDS: 0.9 % Sodium Chloride Flush 3 ML SYRINGE IVFLUSH ×3 (09:11→19:39)
[2024-07-20] MEDS: Enoxaparin Sodium 40 MG/0.4 ML SYRINGE SUBCUT (09:11)
[2024-07-20] MEDS: traMADoL HCL 50 MG TABLET 25 MG PO (09:15)
--- NOTE | 2024-07-20 09:58 | MHC.CM.PN ---
Per equity sales assistant, patient has capacity and is her own decision maker. On 07/18 TAISHA Charito Flowers completed new HCP ww/ patient naming a cousin. CM will explore sending patient home- as she is at her baseline regarding functionability. 07/19 [facility] updated regarding the above events- they asked [facility] to provide any further updates regarding d/c plan.
--- NOTE | 2024-07-20 10:55 | P.PNIM_ITS ---
Subjective Subjective Date of Service: 07/20/24 Interval History: seen and evaluated frail looking feels better no reported events Review of Systems Review of Systems: Yes all other systems are reviewed and are negative Physical Exam 2 Vital Signs: Vital Signs: Last Vital Signs Temp 97.6 F 07/20/24 08:01 Pulse 97 07/20/24 08:01 Resp 18 07/20/24 08:01 BP 107/58 L 07/20/24 08:01 Pulse Ox 94 07/20/24 08:01 O2 Del Method Room Air 07/20/24 08:01 BMI result Body Mass Index 25.4 Const: Other: Constitutional : interactive, not in distress Cardiovascular : no JVP, no lower extremity edema Respiratory : bilateral chest movement, not in resp distress Gastrointestinal: soft, lax, Non tender Skin : Warm, Dry, chronic sacral wound Neurological : Alert & oriented to self and place, No focal deficit Objective Data Active Medications Acetaminophen (Acetaminophen 325 Mg Tablet) 650 mg PO Q6H PRN PRN Reason: Pain, Mild 1-3,fever,headache Last Admin: 07/19/24 16:40 Dose: 650 mg Documented By: KADEN Calcium Carbonate (Calcium Carbonate 750 Mg Tab.Chew) 750 mg PO Q4H PRN PRN Reason: Heartburn Enoxaparin Sodium (Enoxaparin Sodium 40 Mg/0.4 Ml Syringe) 40 mg SUBCUT Q24H [facility] Last Admin: 07/20/24 09:11 Dose: 40 mg Documented By: MARIA Ferrous Sulfate (Ferrous Sulfate 324 Mg Tablet.) 324 mg PO DAILY [facility] Last Admin: 07/20/24 09:09 Dose: 324 mg Documented By: MARIA Linezolid (Linezolid 600 Mg Tablet) 600 mg PO Q12H [facility] Stop: 08/20/24 23:00 Last Admin: 07/20/24 06:04 Dose: 600 mg Documented By: LAWRENCE Magnesium Hydroxide (Milk Of Magnesia 30 Ml Oral.Susp) 30 ml PO DAILY PRN PRN Reason: Constipation Melatonin (Melatonin 3 Mg Tablet) 6 mg PO BEDTIME PRN PRN Reason: Insomnia Last Admin: 07/15/24 23:34 Dose: 6 mg Documented By: BROOKE Omeprazole (Omeprazole 20 Mg Capsule.) 20 mg PO DAILY@0630 [facility] Last Admin: 07/20/24 06:04 Dose: 20 mg Documented By: LAWRENCE Sodium Chloride (0.9 % Sodium Chloride Flush 3 Ml Syringe) 3 ml IVFLUSH QSHIFT [facility] Last Admin: 07/20/24 09:11 Dose: 3 ml Documented By: MARIA Tramadol HCl (Tramadol Hcl 50 Mg Tablet) 25 mg PO Q6H PRN PRN Reason: Pain, Severe (Pain Scale 7-10) Last Admin: 07/20/24 09:15 Dose: 25 mg Documented By: MARIA Vitamin D (Cholecalciferol (Vitamin D3) 25 Mcg Tablet) 50 mcg PO DAILY [facility] Last Admin: 07/20/24 09:09 Dose: 50 mcg Documented By: MARIA Labs 07/20/24 05:18 07/20/24 05:18 Labs: Laboratory Results - last 24 hr 07/20/24 05:18 MCV 86.4 MCH 27.2 MCHC 31.5 RDW 17.2 H Plt Count 652 H MPV 8.4 L Absolute Nucleated RBC 0.020 H Nucleated RBC % (auto) 0.2 Anion Gap 10 L Estim Creat Clear Calc 65.2 Estimated GFR > 60 Random Glucose 97 Calcium 8.1 L Magnesium 2.1 Total Bilirubin 0.3 Direct Bilirubin 0.2 AST 35 H ALT 18 Alkaline Phosphatase 146 H Total Protein 5.9 L Albumin 2.5 L Assessment and Plan (1) MCI (mild cognitive impairment): Status: Acute (2) Acute UTI: Status: Acute Plan 79F PMH HTN, GERD, OA, recent UTI sent in by [facility] 07/07/24 for FTT; found to have UTI + R knee with subtle cortical buckling of the medial tibial metaphysis on the AP projection. Was awaiting placement but became septic 07/10 from UTI sepsis due to UTI, VRE changed from cefuroxime to linezolid 07/11-07/20 BCx negative, ID appreciated, continue zyvox until 07/20/24 normocytic anemia due to iron deficiency and chronic disease; FOBT negative; replete iron; T+S active; if Hb 7 or less, transfuse sacral deep tissue injury heel scaling Wound Care seen - see notes question of subtle medial tibial metaphyseal fracture Ortho consulted; partial weight bear on RLE; outpt f/u tramadol for pain control HTN lisinopril GERD PPI osteoporosis alendronate VTE ppx enoxaparin dispo LTC reason for continued hospitalization:placement Quality Stroke Does the patient have a stroke diagnosis?: No VTE Prior VTE?: No VTE Risk Level:: Medical - moderate - high VTE Device Contraindication: Treatment Not Indicated VTE Drug Contraindication: N/A - Med Ordered
[2024-07-20 12:00] VITALS: BP 103/57; PULSE 108; RESP 18; TEMP 36.4; O2SAT 96
--- NOTE | 2024-07-20 15:22 | MHC.CLN ---
F/U PT WITH INCREASED NUTRITION RISK R/T PRESSURE INJURY PO INTAKE 25-50% X 2DAYS PT REPORTS DECREASE APPETITE BECAUSE SHE WANTED TO GO HOME DIET RX: REGULAR RECEIVING ENSURE BID TO PROMOTE WOUND HEALING SUPP PROVIDES 700KCALS, 40G PROTEIN CONTINUE TO MONITOR PO INTAKE AND ENCOURAGE SUPPLEMENTS
--- NOTE | 2024-07-20 15:25 | MHC.CM.PN ---
AWAITING PTS SECOND ATTEMPT AT A NEW EVAL TOMORROW ,CALLED AND SPOKE TO HCP KEDAR [phone] TO UPDATE HIM RE PTS STAUS HE WILL SPEAK WITH PT LATER TODAY WE DISCUSSEDF THE POSSIBILTY OF PT BEING PRIVATE PAY IN A [place] IF PT AGAIN STATES LTC HE AGREES THAT PT WOULD,NOT BE SAFE TO GO HOME EVEN THO THEY HAVE SOME PP HELP AT HOME ..HE SEEMS WILLING TO ASSIST IN [place] HE CAN HE WAS GIVEN JORGITO GONZALEZ NAME A CONTACT FOR TOMORROW ..TO SEE WHAT PT SAYS AND WHAT COURSE WILL NEED TO BE TAKEN
[2024-07-20 16:03] VITALS: BP 98/55; PULSE 117; RESP 18; TEMP 36.6; O2SAT 97
[2024-07-20 19:14] VITALS: BP 115/56; PULSE 120; RESP 17; TEMP 36.6; O2SAT 97
[2024-07-20 23:26] VITALS: BP 101/54; PULSE 109; RESP 17; TEMP 37; O2SAT 94
[2024-07-21 03:47] VITALS: BP 109/58; PULSE 98; RESP 17; TEMP 36.6; O2SAT 95
[2024-07-21] MEDS: Omeprazole 20 MG CAPSULE.DR PO (05:51)
[2024-07-21 08:00] VITALS: BP 109/54; PULSE 97; RESP 16; TEMP 36.6; O2SAT 97
[2024-07-21] MEDS: Enoxaparin Sodium 40 MG/0.4 ML SYRINGE SUBCUT (09:05)
[2024-07-21] MEDS: Cholecalciferol (Vitamin D3) 25 MCG TABLET 50 MCG PO (09:05)
[2024-07-21] MEDS: Ferrous Sulfate 324 MG TABLET.DR PO (09:05)
--- NOTE | 2024-07-21 09:37 | P.PNIM_ITS ---
Subjective Subjective Date of Service: 07/21/24 Interval History: seen and evaluated frail looking feels better no reported events Physical Exam 2 Vital Signs: Vital Signs: Last Vital Signs Temp 97.9 F 07/21/24 08:00 Pulse 97 07/21/24 08:00 Resp 16 07/21/24 08:00 BP 109/54 L 07/21/24 08:00 Pulse Ox 97 07/21/24 08:00 O2 Del Method Room Air 07/21/24 08:00 BMI result Body Mass Index 25.4 Const: Other: Constitutional : interactive, not in distress Cardiovascular : no JVP, no lower extremity edema Respiratory : bilateral chest movement, not in resp distress Gastrointestinal: soft, lax, Non tender Skin : Warm, Dry, chronic sacral wound Neurological : Alert & oriented to self and place, No focal deficit Objective Data Active Medications Acetaminophen (Acetaminophen 325 Mg Tablet) 650 mg PO Q6H PRN PRN Reason: Pain, Mild 1-3,fever,headache Last Admin: 07/19/24 16:40 Dose: 650 mg Documented By: KADEN Calcium Carbonate (Calcium Carbonate 750 Mg Tab.Chew) 750 mg PO Q4H PRN PRN Reason: Heartburn Enoxaparin Sodium (Enoxaparin Sodium 40 Mg/0.4 Ml Syringe) 40 mg SUBCUT Q24H [facility] Last Admin: 07/21/24 09:05 Dose: 40 mg Documented By: ERROL Ferrous Sulfate (Ferrous Sulfate 324 Mg Tablet.) 324 mg PO DAILY [facility] Last Admin: 07/21/24 09:05 Dose: 324 mg Documented By: ERROL Magnesium Hydroxide (Milk Of Magnesia 30 Ml Oral.Susp) 30 ml PO DAILY PRN PRN Reason: Constipation Melatonin (Melatonin 3 Mg Tablet) 6 mg PO BEDTIME PRN PRN Reason: Insomnia Last Admin: 07/15/24 23:34 Dose: 6 mg Documented By: BROOKE Omeprazole (Omeprazole 20 Mg Capsule.) 20 mg PO DAILY@0630 [facility] Last Admin: 07/21/24 05:51 Dose: 20 mg Documented By: DAPHNE Sodium Chloride (0.9 % Sodium Chloride Flush 3 Ml Syringe) 3 ml IVFLUSH QSHIFT [facility] Last Admin: 07/21/24 09:16 Dose: Not Given Documented By: ERROL Non-Admin Reason: Previously Administered Tramadol HCl (Tramadol Hcl 50 Mg Tablet) 25 mg PO Q6H PRN PRN Reason: Pain, Severe (Pain Scale 7-10) Last Admin: 07/20/24 09:15 Dose: 25 mg Documented By: MARIA Vitamin D (Cholecalciferol (Vitamin D3) 25 Mcg Tablet) 50 mcg PO DAILY [facility] Last Admin: 07/21/24 09:05 Dose: 50 mcg Documented By: ERROL Labs 07/20/24 05:18 07/20/24 05:18 Assessment and Plan (1) Acute UTI: Status: Acute Plan 79F PMH HTN, GERD, OA, recent UTI sent in by [facility] 07/07/24 for FTT; found to have UTI + R knee with subtle cortical buckling of the medial tibial metaphysis on the AP projection. Was awaiting placement but became septic 07/10 from UTI sepsis due to UTI, VRE, resolved changed from cefuroxime to linezolid 07/11-07/20 and finished therapy BCx negative, ID appreciated, continue zyvox until 07/20/24 physical deconditioning unable to participate with PT normocytic anemia due to iron deficiency and chronic disease; FOBT negative; replete iron; T+S active; if Hb 7 or less, transfuse sacral deep tissue injury heel scaling Wound Care seen - see notes question of subtle medial tibial metaphyseal fracture Ortho consulted; partial weight bear on RLE; outpt f/u tramadol for pain control HTN lisinopril GERD PPI osteoporosis alendronate VTE ppx enoxaparin dispo LTC reason for continued hospitalization:placement Quality Stroke Does the patient have a stroke diagnosis?: No VTE Prior VTE?: No VTE Risk Level:: Medical - moderate - high VTE Device Contraindication: Treatment Not Indicated VTE Drug Contraindication: N/A - Med Ordered
--- NOTE | 2024-07-21 13:23 | MHC.CM.PN ---
CM MET WITH PT TO DISCUSS DC PLANS SHE IS AWARE SHE CANNOT GO TO STR SINCE SHE HAS NOT BEEN WORKING WITH PT SHE STATES SHE IS SCARED AND THAT IS WHY SHE IS NOT STANDING WITH PT CM ASSURED HER PT IS WELL TRAINED TO KEEP HER SAFE AND OTHER STAFF COULD BE PRESENT IF IT MADE HER FEEL BETTER PER DISCUSSION, PT WILL TRY TO WORK WITH PT ONE MORE TIME AND IF SHE REFUSES/IS UNABLE, SHE WILL DC HOME WITH SERVICES SHE HAS DAILY [employer] [facility] [employer], [facility] IS FOLLOWING FOR HER RETURN HOME SHE WILL ALSO HAVE VNA FOR PT / OT IF SHE DISCHARGES HOME
[2024-07-21 15:58] VITALS: BP 114/57; PULSE 108; RESP 14; TEMP 36.8; O2SAT 97
[2024-07-21] MEDS: 0.9 % Sodium Chloride Flush 3 ML SYRINGE IVFLUSH (19:08)
[2024-07-21 23:16] VITALS: BP 133/62; PULSE 98; RESP 16; TEMP 36.5; O2SAT 96
[2024-07-22] MEDS: Omeprazole 20 MG CAPSULE.DR PO (05:53)
[2024-07-22 06:54] VITALS: BP 130/64; PULSE 99; RESP 18; TEMP 36.5; O2SAT 100
[2024-07-22] MEDS: 0.9 % Sodium Chloride Flush 3 ML SYRINGE IVFLUSH ×2 (08:26→15:28)
[2024-07-22] MEDS: Cholecalciferol (Vitamin D3) 25 MCG TABLET 50 MCG PO (08:26)
[2024-07-22] MEDS: Ferrous Sulfate 324 MG TABLET.DR PO (08:26)
[2024-07-22] MEDS: Enoxaparin Sodium 40 MG/0.4 ML SYRINGE SUBCUT (08:26)
--- NOTE | 2024-07-22 09:55 | P.PNIM_ITS ---
Subjective Subjective Date of Service: 07/22/24 Interval History: seen and evaluated frail looking , laying comfortable in bed no reported events Review of Systems Review of Systems: Yes all other systems are reviewed and are negative Physical Exam 2 Vital Signs: Vital Signs: Last Vital Signs Temp 97.7 F 07/22/24 06:54 Pulse 99 07/22/24 06:54 Resp 18 07/22/24 06:54 BP 130/64 07/22/24 06:54 Pulse Ox 100 07/22/24 06:54 O2 Del Method Room Air 07/22/24 06:54 BMI result Body Mass Index 25.4 Const: Other: Constitutional : interactive, not in distress Cardiovascular : no JVP, no lower extremity edema Respiratory : bilateral chest movement, not in resp distress Gastrointestinal: soft, lax, Non tender Skin : Warm, Dry, chronic sacral wound Neurological : Alert & oriented to self and place, No focal deficit Objective Data Active Medications Acetaminophen (Acetaminophen 325 Mg Tablet) 650 mg PO Q6H PRN PRN Reason: Pain, Mild 1-3,fever,headache Last Admin: 07/19/24 16:40 Dose: 650 mg Documented By: KADEN Calcium Carbonate (Calcium Carbonate 750 Mg Tab.Chew) 750 mg PO Q4H PRN PRN Reason: Heartburn Enoxaparin Sodium (Enoxaparin Sodium 40 Mg/0.4 Ml Syringe) 40 mg SUBCUT Q24H [facility] Last Admin: 07/22/24 08:26 Dose: 40 mg Documented By: MARIA Ferrous Sulfate (Ferrous Sulfate 324 Mg Tablet.) 324 mg PO DAILY [facility] Last Admin: 07/22/24 08:26 Dose: 324 mg Documented By: MARIA Magnesium Hydroxide (Milk Of Magnesia 30 Ml Oral.Susp) 30 ml PO DAILY PRN PRN Reason: Constipation Melatonin (Melatonin 3 Mg Tablet) 6 mg PO BEDTIME PRN PRN Reason: Insomnia Last Admin: 07/15/24 23:34 Dose: 6 mg Documented By: BROOKE Omeprazole (Omeprazole 20 Mg Capsule.) 20 mg PO DAILY@0630 [facility] Last Admin: 07/22/24 05:53 Dose: 20 mg Documented By: DAPHNE Sodium Chloride (0.9 % Sodium Chloride Flush 3 Ml Syringe) 3 ml IVFLUSH QSHIFT [facility] Last Admin: 07/22/24 08:26 Dose: 3 ml Documented By: MARIA Tramadol HCl (Tramadol Hcl 50 Mg Tablet) 25 mg PO Q6H PRN PRN Reason: Pain, Severe (Pain Scale 7-10) Last Admin: 07/20/24 09:15 Dose: 25 mg Documented By: MARIA Vitamin D (Cholecalciferol (Vitamin D3) 25 Mcg Tablet) 50 mcg PO DAILY [facility] Last Admin: 07/22/24 08:26 Dose: 50 mcg Documented By: MARIA Labs 07/20/24 05:18 07/20/24 05:18 Assessment and Plan (1) MCI (mild cognitive impairment): Status: Acute (2) Acute UTI: Status: Acute Plan 79F PMH HTN, GERD, OA, recent UTI sent in by [facility] 07/07/24 for FTT; found to have UTI + R knee with subtle cortical buckling of the medial tibial metaphysis on the AP projection. Was awaiting placement but became septic 07/10 from UTI sepsis due to UTI, VRE, resolved changed from cefuroxime to linezolid 07/11-07/20 and finished therapy BCx negative, ID appreciated, finished zyvox by 07/20/24 physical deconditioning unable to participate with PT normocytic anemia due to iron deficiency and chronic disease; FOBT negative; replete iron; T+S active; if Hb 7 or less, transfuse sacral deep tissue injury heel scaling Wound Care seen - see notes question of subtle medial tibial metaphyseal fracture Ortho consulted; partial weight bear on RLE; outpt f/u tramadol for pain control HTN lisinopril GERD PPI osteoporosis alendronate VTE ppx enoxaparin dispo LTC reason for continued hospitalization:placement Quality Stroke Does the patient have a stroke diagnosis?: No VTE Prior VTE?: No VTE Risk Level:: Medical - moderate - high VTE Device Contraindication: Treatment Not Indicated VTE Drug Contraindication: N/A - Med Ordered
[2024-07-22 10:41] VITALS: BP 130/64; PULSE 99; O2SAT 100
--- NOTE | 2024-07-22 11:27 | MHC.CLN ---
F/U PT WITH INCREASED NUTRITION RISK R/T PRESSURE INJURIES. VARIABLE PO INTAKE, 25-100%. DIET RX: REGULAR. RECEIVING ENSURE BID TO PROMOTE WOUND HEALING. SUPP PROVIDES 700KCALS, 40G PROTEIN. CONTINUE TO MONITOR PO INTAKE AND ENCOURAGE SUPPLEMENTS.
--- NOTE | 2024-07-22 12:25 | MHC.CM.PN ---
Addendum entered by Nano Foss 07/23/24 10:47: CM SPOKE TO ZAINA AT [facility] [employer] AND INFORMED HER OF PTS DC SHE TOOK ALL DC INFO AND THEY WILL FOLLOW UP ON ELDER AT RISK PREVIOUSLY FILED Addendum entered by Nano Foss 07/23/24 08:26: PT WILL DC HOME TODAY AT 0900 HOURS VIA [facility] HER [employer] SALES REPRESENTATIVE WILL MEET HER AT THE HOME PER ARRANGEMENTS MADE YESTERDAY AFTERNOON Addendum entered by Nano Foss 07/22/24 16:18: CM CALLED [facility] AND SPOKE TO DEMARCO SHE CONFIRMED PTS HOME CARE SERVICES CAN RESUME TOMORROW MORNING AT 0900 CM MET WITH PT WHO IS IN AGREEMENT WITH DISCHARGING TOMORROW AT 0900 HOURS SHE UNDERSTANDS 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
[2024-07-22 15:22] VITALS: BP 107/55; PULSE 103; RESP 18; TEMP 36.9; O2SAT 97
[2024-07-22 19:35] VITALS: BP 127/59; PULSE 108; RESP 20; TEMP 36.8; O2SAT 96
[2024-07-23] MEDS: 0.9 % Sodium Chloride Flush 3 ML SYRINGE IVFLUSH ×2 (00:30→08:24)
[2024-07-23] MEDS: Omeprazole 20 MG CAPSULE.DR PO (05:31)
[2024-07-23 07:11] VITALS: BP 110/56; PULSE 91; RESP 16; TEMP 36.3; O2SAT 96
--- NOTE | 2024-07-23 07:22 | P.DS_ITS ---
DS: Providers Provider Date of Service: 07/23/24 Date of admission: 07/10/24 09:13 Date of discharge: 07/23/24 Primary care physician: Ivan España MD Consults: 07/07/24 21:37 Consult to Wound Care Routine Reason for consultation: Recs for DTI to buttock and right heel on admit 07/07/24 21:39 Consult to Wound Care Routine Reason for consultation: back wound 07/11/24 03:47 Consult to Wound Care Routine Reason for consultation: L foot/toes recommendation 07/11/24 08:03 Consult to Orthopedics Routine Consulting Provider: [facility] Orthopedic Surgeons Reason for consultation: metaphyseal fx vs oa; please leave brief consult note 07/11/24 15:16 Consult to Infectious Diseases Routine Consulting Provider: [facility] Reason for consultation: VRE UTI 07/15/24 08:18 Consult to Psychiatry Routine Consulting Provider: [facility] Psych Covering Reason for consultation: ?capacity for medical decisions, such as dispo, medications 07/22/24 23:21 Consult to Wound Care Routine Reason for consultation: DTI B/L heels & sacrum/inner thigh unstageable DS: Diagnosis Discharge Diagnosis (1) MCI (mild cognitive impairment): Status: Acute (2) Acute UTI: Status: Acute (3) Adult failure to thrive: Status: Acute (4) Sacral wound: Status: Acute DS: Summary Hospital Course Hospital Course: Admission note HPI 79 year old female evaluated at the bedside this AM for feeling unwell. She reports she feels tired and weak. She tells me she is urinating more frequently than usual and it smells strong. She is also complaining of R knee pain worse w/ palpation, rom, and better at rest. Reports this pain has been going on for along time . She has been here for a few days she tells me and has felt about the same . She tells me she recently had the flu and a UTI. Denies cp, sob, nausea, vomiting, abd pain, headache, vision changes, dizziness, weakness Hospital course The patient was treated for the following: # Sepsis due to UTI, grew VRE in urine. changed from cefuroxime to linezolid 07/11-07/20 and finished therapy of 10 days of antibiotic based on ID evaluation. # physical deconditioning and FTT, participated partially with PT , recommended LTC placement. # normocytic anemia, due to iron deficiency and chronic disease; FOBT negative; Hemoglovin level stable 7-8. To discharge on PO iron. # Sacral deep tissue injury heel scaling. Wound Care saw the patient and recommended: Off Load Pressure with Q2 hr turns and use of pillows - Cleanse with PH balance spray or wipes, pat dry. ?Apply thin layer of Triad to wound bed. Do not remove all of paste between applications as this may cause further skin damage.? Cover with foam dressing to aid in off loading and protection from friction. Change every 5 days and PRN. # subtle medial tibial metaphyseal fracture, Ortho consulted; partial weight bear on RLE; outpt f/u with orthopedic if further work. Tylenol. Tramadol can be used PRN for pain. Discharge plan Continue Iron supplement physical therapy as tolerated Time Attestation Discharge Coordination Time (in mins): 38 Quality: Safe Use of Opioids Does Pt have an Active Cancer Diagnosis on the Problem List?: No Quality: Stroke Does the patient have a stroke diagnosis?: No Physical Exam Vital Signs: Vital Signs: Last Vital Signs Temp 97.4 F 07/23/24 07:11 Pulse 91 07/23/24 07:11 Resp 16 07/23/24 07:11 BP 110/56 L 07/23/24 07:11 Pulse Ox 96 07/23/24 07:11 O2 Del Method Room Air 07/23/24 07:11 BMI result Body Mass Index 25.4 Const: Other: Constitutional : interactive, not in distress Cardiovascular : no JVP, no lower extremity edema Respiratory : bilateral chest movement, not in resp distress Gastrointestinal: soft, lax, Non tender Skin : Warm, Dry, chronic sacral wound Neurological : Alert & oriented to self and place, No focal deficit DS: Data Imaging Chest x-ray: Radiologist's impression: ITS Impressions Chest X-Ray 07/07/24 10:38 IMPRESSION: 1. Mildly limited exam as detailed. 2. Persistently elevated left hemidiaphragm with improved but persistent linear airspace disease left base. 3. Resolved airspace opacity in the medial right base. Electronically signed by: Kike Sykes MD 07/07/2024 11:07 AM [facility] Knee X-Ray 07/08/24 08:32 IMPRESSION: 1. Subtle cortical buckling of the medial tibial metaphysis on the AP projection. Cannot exclude a subtle fracture. 2. 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 [id number] appearance lateral compartment with large osteophytes and subchondral sclerosis.. 2. Large productive osteophyte causes 1.8 cm anterior displacement of the patella relative to the femur. 3. Suprapatellar joint effusion. Electronically signed by: Kike Sykes MD 07/08/2024 09:47 AM EST RP Foot X-Ray 07/11/24 11:35 IMPRESSION: 1. No definite fracture or dislocation within confines of patient positioning and osteopenia. If there is high suspicion, MRI may be of benefit. 2. There is diffuse soft tissue swelling of the entire foot and ankle. Electronically signed by: Kike Sykes MD 07/11/2024 12:04 PM EST RP Discharge Plan Discharge Anticipated Discharge Date/Time: 07/23/24 07:20 Patient Disposition: Xfer [facility] Discharge Diagnosis: Urine infection Referrals: Ivan España MD [Primary Care Provider] - 1 Week Discharge Medications: New ferrous sulfate 324 mg (65 mg iron) Tablet,Delayed Release (Dr/Ec) 324 mg PO DAILY Qty: 90 0RF Continued lisinopril 20 mg tablet 20 mg PO DAILY alendronate 70 mg tablet 70 mg PO FR tramadol 50 mg tablet 50 mg PO TID omeprazole 20 mg capsule,delayed release(DR/EC) 20 mg PO DAILY@0630 cholecalciferol (vitamin D3) [Vitamin D3] 50 mcg (2,000 unit) Capsule 50 mcg PO DAILY Discontinued cefuroxime axetil 500 mg tablet 500 mg PO BID Qty: 6 0RF Discharge Orders: Discharge Order (Routine); Ordered 07/23/24 Ordered By: Iris Morrison Diet: Advance to usual diet Activity on Discharge: As tolerated Stand Alone Forms: Patient Portal Discharge page Print Language: Citizen Of [place] Care Plan Goals: Physical therapy Iron supplement UTI: finished antibiotics Health Concerns: Urine infection deconditioning Plan of Treatment: Iron supplement Assessment: as above
[2024-07-23] MEDS: Cholecalciferol (Vitamin D3) 25 MCG TABLET 50 MCG PO (08:23)
[2024-07-23] MEDS: Ferrous Sulfate 324 MG TABLET.DR PO (08:24)
[2024-07-23] MEDS: Enoxaparin Sodium 40 MG/0.4 ML SYRINGE SUBCUT (08:24)
== END 2024-07-23 08:57 | disposition home or self-care (01) | DRG 872 ==
LOC: HO.ED 07-10 09:05 → HO.EDOVER 07-10 09:18 → HO.IMC 07-10 19:50 → HO.S3 07-18 03:07
PROVIDERS: Family Medicine; Internal Medicine; Physician Assistant; Physician Assistant Medical; Admitting Provider Physician Assistant; Emergency Provider Emergency Medicine; PCP Internal Medicine; Visit Provider Student in an Organized Health Care Education/Training Program
DX: A41.9 Sepsis, unspecified organism (principal); Z16.21 Resistance to vancomycin; M80.061A Age-related osteoporosis with current pathological fracture, right lower leg, initial encounter for fracture; N39.0 Urinary tract infection, site not specified; G31.84 Mild cognitive impairment of uncertain or unknown etiology; K21.9 Gastro-esophageal reflux disease without esophagitis; D50.9 Iron deficiency anemia, unspecified; I10 Essential (primary) hypertension; M17.11 Unilateral primary osteoarthritis, right knee; R62.7 Adult failure to thrive; Z68.25 Body mass index [BMI] 25.0-25.9, adult; B95.2 Enterococcus as the cause of diseases classified elsewhere; D63.8 Anemia in other chronic diseases classified elsewhere; L89.890 Pressure ulcer of other site, unstageable; L89.626 Pressure-induced deep tissue damage of left heel; L89.616 Pressure-induced deep tissue damage of right heel; Z20.822 Contact with and (suspected) exposure to COVID-19; Z79.899 Other long term (current) drug therapy
CPT/HCPCS: 0241U; 36415; 71045; 73560; 73620; 80048; 80053; 80076; 81001; 82272; 82550; 82607; 82728; 82746; 83540; 83605; 83615; 83735; 83880; 84484; 85025; 85027; 85045; 85652; 86140; 86850; 86900; 86901; 87040; 87086; 87088; 87186; 92526; 93005; 97110; 97161; 97165; 97530; 99285; J0131; J1650; J2020; J2543; J3370; J3371; P9047

== ENCOUNTER → 2024-07-07 10:38 | Outpatient (BNV) | payer MEDICARE, SELFPAY | PROVIDERS: Emergency Provider Emergency Medicine; PCP Internal Medicine; Visit Provider Radiology Diagnostic Radiology | DX: J98.4 Other disorders of lung (principal); R62.7 Adult failure to thrive | CPT/HCPCS: 71045 ==

== ENCOUNTER → 2024-07-07 10:38 | Outpatient (BNV) | payer MEDICARE, SELFPAY | PROVIDERS: Emergency Provider Emergency Medicine; PCP Internal Medicine; Visit Provider Internal Medicine | DX: R00.0 Tachycardia, unspecified (principal) | CPT/HCPCS: 93010 ==

== ENCOUNTER → 2024-07-08 08:32 | Outpatient (BNV) | payer MEDICARE, SELFPAY | PROVIDERS: Emergency Provider Emergency Medicine; PCP Internal Medicine; Visit Provider Radiology Diagnostic Radiology | DX: M17.11 Unilateral primary osteoarthritis, right knee (principal); M25.761 Osteophyte, right knee; S83.004A Unspecified dislocation of right patella, initial encounter; M25.461 Effusion, right knee | CPT/HCPCS: 73560 ==

== ENCOUNTER 2024-07-10 09:13 | Outpatient (BNV) | payer MEDICARE, SELFPAY | END 2024-07-11 11:35 | PROVIDERS: Admitting Provider Physician Assistant; Emergency Provider Emergency Medicine; PCP Internal Medicine; Visit Provider Radiology Diagnostic Radiology | DX: M70.872 Other soft tissue disorders related to use, overuse and pressure, left ankle and foot (principal) | CPT/HCPCS: 73620 ==

== ENCOUNTER 2024-07-10 09:13 | Outpatient (BNV) | payer MEDICARE, SELFPAY | END 2024-07-10 09:15 | PROVIDERS: Admitting Provider Physician Assistant; Emergency Provider Emergency Medicine; PCP Internal Medicine; Visit Provider Internal Medicine | DX: R94.31 Abnormal electrocardiogram [ECG] [EKG] (principal); R00.0 Tachycardia, unspecified | CPT/HCPCS: 93010 ==

== ENCOUNTER → 2024-07-10 09:13 | Outpatient (BNV) | payer MEDICARE, SELFPAY | PROVIDERS: Admitting Provider Physician Assistant; Emergency Provider Emergency Medicine; PCP Internal Medicine; Visit Provider Social Worker | DX: F29 Unspecified psychosis not due to a substance or known physiological condition (principal); G31.84 Mild cognitive impairment of uncertain or unknown etiology | CPT/HCPCS: 99232 ==

== ENCOUNTER → 2024-07-10 09:13 | Outpatient (BNV) | payer MEDICARE, SELFPAY | PROVIDERS: Admitting Provider Physician Assistant; Emergency Provider Emergency Medicine; PCP Internal Medicine; Visit Provider Internal Medicine | DX: M17.11 Unilateral primary osteoarthritis, right knee (principal); N39.0 Urinary tract infection, site not specified; R62.7 Adult failure to thrive | CPT/HCPCS: 99222 ==

== ENCOUNTER → 2024-07-10 09:13 | Outpatient (BNV) | payer MEDICARE, SELFPAY | PROVIDERS: Admitting Provider Physician Assistant; Emergency Provider Emergency Medicine; PCP Internal Medicine | DX: M17.11 Unilateral primary osteoarthritis, right knee (principal); M84.40XA Pathological fracture, unspecified site, initial encounter for fracture | CPT/HCPCS: 99222 ==

== ENCOUNTER → 2024-07-10 09:13 | Outpatient (BNV) | payer MEDICARE, SELFPAY | PROVIDERS: Admitting Provider Physician Assistant; Emergency Provider Emergency Medicine; PCP Internal Medicine; Visit Provider Family Medicine | DX: N39.0 Urinary tract infection, site not specified (principal) | CPT/HCPCS: 99231; 99232; 99233 ==

== ENCOUNTER 2024-10-06 09:40 | Inpatient (IN) | payer MEDICARE, SELFPAY ==
[2024-10-06] VITALS (9 sets, daily range): BP systolic 105–143; BP diastolic 64–84; PULSE 75–105; RESP 18–22; TEMP 36.6–37.2; O2SAT 95–100; BMI 24.6
--- NOTE | ~2024-10-06 | MR_ITS ---
CLINICAL HISTORY: Sacrum decubitus ulcer MR pelvis withoutcontrast Comparison: CT/MT - CT ABDOMEN PELVIS W IV CON - 10/06/24 11:24 EDT Findings: Sagittal T1 weighted and coronal STIR images were submitted for review. The patient refused to continue the examination. No decreased signal within the sacrum on the T1 weighted images. No increased signal within the sacrum on the STIR images. There is edema in the left femoral head and acetabulum, likely degenerative. There is signal abnormality of the endplates of the lumbosacral spine, degenerative. Mild multilevel anterolisthesis, degenerative. No dislocation. There is severe bilateral degenerative change of the hips with remodeling of the femoral heads, greater on the right. The right femoral head is subluxed towards the superolateral aspect. Moderate-sized right and small left joint effusions. There is edema within the musculature indicating myositis which is atrophic. Evaluation of the tendons is limited. No identified complete tear. Unremarkable limited evaluation of the vessels and nerves. There is edema in the subcutaneous fat which could be secondary to infection or edema. There is a sacral decubitus ulcer. No drainable fluid collection. There is wall thickening of the bladder, likely indicating cystitis. Impression: Sacral decubitus ulcer without osteomyelitis. This document has been electronically signed by: Shradhda Benavides MD on 10/08/2024 13:02:33
--- NOTE | ~2024-10-06 | CT_ITS ---
EXAMINATION: CT ABDOMEN PELVIS WITH IV CONTRAST HISTORY: extensive sacral ulcer with tunneling, odor, drain COMPARISON: There are no prior studies for comparison. TECHNIQUE: CT scan of the abdomen and pelvis was performed following administration of 85 mL Omnipaque 350 using standard departmental protocol. Coronal and sagittal reformatted images were generated and reviewed. Oral contrast material was not administered at the request of the referring physician. This CT exam was performed with one or more of the following dose reduction techniques: automated exposure control, adjustment of the mA and/or kV according to patient size, use of iterative reconstruction technique. DLP: 602 mGy-cm FINDINGS: LOWER CHEST: There is mild scarring at both lung bases. There is no pleural effusion. CARDIOVASCULATURE: The heart is normal in size. There is no pericardial effusion. LIVER: The liver is normal in size and contour. No liver mass is identified. The hepatic and portal veins are patent. GALLBLADDER / BILE DUCTS: There is cholelithiasis. There is no intra or extrahepatic biliary ductal dilatation. SPLEEN: The spleen is normal in size. No focal splenic lesion is identified. PANCREAS: There is limited visualization of the pancreas. ADRENAL GLANDS: Within normal limits. KIDNEYS/RETROPERITONEUM: There are multiple calculi in upper pole calyces extending into the renal pelvis measuring up to 1.5 cm in size. There is mild enhancement of the renal pelvis which may indicate infection. There is no hydronephrosis. There is an extrarenal pelvis on the left. Tiny layering calculi are noted within the left renal pelvis. No left hydroureter. No renal masses are identified. LYMPH NODES: No abdominal or pelvic lymphadenopathy. VASCULATURE: The abdominal aorta demonstrates atherosclerotic calcification, but is normal in caliber. MESENTERY/PERITONEUM: No free fluid. No masses. There is no free intraperitoneal gas. STOMACH: The stomach is collapsed, limiting evaluation. SMALL BOWEL: The small bowel is normal in caliber. COLON: There is a very large amount of stool throughout the colon. APPENDIX: The appendix is not seen, however no inflammatory changes are seen adjacent to the cecum. URINARY BLADDER/PELVIC ORGANS: There is marked wall thickening of the urinary bladder with surrounding inflammatory changes, likely representing cystitis. There is a tiny bubble of gas in the urinary bladder. The uterus is atrophic. BONES / SOFT TISSUES: There is severe degenerative disc disease of the spine. There is grade I spondylolisthesis of L4 on L5. There are decubitus ulcers overlying the sacrum and at the posterior aspect of the left thigh. The sacral decubitus ulcer extends to the bone. There is no gross osseous destruction. CT/CT abdomen pelvis w IV con IMPRESSION: 1. Sacral decubitus ulcer which extends to the bone. While there is no gross osseous destruction, osteomyelitis is not excluded. There is an additional decubitus ulcer at the posterior aspect of the left thigh. 2. Findings suggestive of cystitis as described. A tiny bubble of gas in the urinary bladder may be due to prior instrumentation. Clinical correlation is recommended. 3. Bilateral nephrolithiasis as described. Enhancement of the tolentino of the right renal pelvis may indicate pyelitis. 4. Very large amount of stool throughout the colon. Electronically signed by: John Boston MD 10/06/2024 11:59 AM EDT
--- NOTE | 2024-10-06 10:03 | ED.SKABFB ---
HPI - Skin/Abscess/Foreign Bdy General Chief complaint: Wound/Laceration Stated complaint: BLEEDING FROM BED SORES PER EMS Time Seen by Provider: 10/06/24 09:46 Source: patient, EMS and old records reviewed Mode of arrival: EMS Limitations: no limitations History of Present Illness ED Provider: AISHA ART narrative: 79 yo female with PMH of cognitive impairment, UTI, FTT, sacral wound back in July is much different today from the imagines from wound on chart in Jun it was not open then. She came in today with c/o bleeding from her sacrum she states she has girls to help her. She came in with a saturated adult brief and no dressings or packings to large tunneled wound. She is alert and oriented and I asked why did you come in today and she states it has been bleeding for a while and now she has more pain. She feels hot but no n/v and no known fevers. MD complaint: lesion Onset (ago): month(s) Tetanus up to date: yes Location: buttocks Severity: moderate Quality: aching Pain Consistency: constant Relieving factors: none Exacerbating factors: movement Context: other Associated symptoms: chills Treatments prior to arrival: none Related Data Home Medications ?Medication ?Instructions ?Recorded ?Confirmed alendronate 70 mg tablet 70 mg PO FR 06/27/24 07/08/24 cholecalciferol (vitamin D3) 50 50 mcg PO DAILY 06/27/24 07/08/24 mcg (2,000 unit) capsule (Vitamin D3) lisinopril 20 mg tablet 20 mg PO DAILY 06/27/24 07/08/24 omeprazole 20 mg capsule,delayed 20 mg PO DAILY@0630 06/27/24 07/08/24 release tramadol 50 mg tablet 50 mg PO TID 06/27/24 07/08/24 Previous Rx's ?Medication ?Instructions ?Recorded ferrous sulfate 324 mg (65 mg 324 mg PO DAILY #90 tabs 07/23/24 iron) tablet,delayed release Allergies Allergy/AdvReac Type Severity Reaction Status Date / Time No Known Allergies Allergy Verified 10/06/24 10:10 [No Known Allergies*] Review of Systems Review of Systems: Constitutional : No Fever, No Chills ENT/Mouth : No sore throat, No Rhinorrhea Eyes: No Eye Pain, No Swelling, No Redness Cardiovascular : No Chest Pain, No SOB Respiratory : No Cough, No Sputum Gastrointestinal : No Nausea, No Vomiting, No Diarrhea, No abdominal Pain Genitourinary : No Dysuria, No Hematuria Musculoskeletal : No joint pain, No Myalgias, No Joint Swelling Skin : pos kin Lesion, positive skin rash Neuro : No Weakness, No Numbness, No Headache Psych : No Anxiety, No Depression All other systems reviewed and are negative [facility] Past Medical History Attestation statement: The following information was validated with the patient. 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 Oriented X3. unkempt and disheveled mild acute distress. Eyes: Pupils equal, round and reactive to light. ENT: Pharynx normal. Neck: Normal inspection. Neck supple. CVS: Normal heart rate and rhythm. Pulses normal. Respiratory: No respiratory distress. Breath sounds normal. Abdomen: Soft and nontender. Skin: Skin warm and dry. pale skin color. Back: deep large tunneled sacral wound there is scant bleeding from edge margins she came in without bandage/packing and just a dirty old adult brief, there is an odor to the wound it was covered in feces Extremities: No lower extremity edema. Neuro: Oriented X 3. No motor deficit. No sensory deficit. CN2-12 intact Course Course Course Narrative: given hx of VRE and grossly positive UA will start on zyvox Medications Administered Generic Name Dose Route Start Last Admin Trade Name Freq PRN Reason Stop Dose Admin Linezolid 600 mg in 300 mls @ 300 mls/hr 10/06/24 11:30 10/06/24 11:56 Zyvox/D5w IV 10/06/24 12:29 300 mls/hr ONCE ONE Administration Discontinued Medications Generic Name Dose Route Start Last Admin Trade Name Freq PRN Reason Stop Dose Admin Piperacillin Sod/Tazobactam 50 mls @ 100 mls/hr 10/06/24 10:07 10/06/24 11:22 Sod 3.375 gm/ Sodium Chloride IV 10/06/24 10:36 Infused ONCE ONE Infusion Lactated Ringer's 1,000 mls @ 999 mls/hr 10/06/24 10:21 10/06/24 10:30 Lr IV 10/06/24 11:21 999 mls/hr .Q1H1M ONE Administration Iohexol 100 ml 10/06/24 11:33 10/06/24 11:33 Iohexol 350 Mg/Ml 100 Ml Infus..Btl IV 10/06/24 11:34 85 ml ONCE ONE Administration Morphine Sulfate 2 mg 10/06/24 10:07 10/06/24 10:37 Morphine Sulfate 2 Mg/Ml Cartridge IVPUSH 10/06/24 10:08 2 mg ONCE ONE Administration Protocol Medical Decision Making Medical Decision Making [facility] Narrative: 79 yo female with PMH of cognitive impairment, UTI, FTT, sacral wound now here with worsening wound and bleeding from margins though no active bleeding on exam she was unkempt in brief no dressings. At is time will obtain labs, cultures, CT scan for osteo - start on zosyn. There is concern for ability to care for herself at home - EMS states can barely get around and the house was unkempt. Differential Diagnosis Differential Diagnoses: The differential diagnosis associated with the presentation includes infected wound, sacral ulcer, FTT, dehydration, anemia Admission/Observation Consideration of admission/observation: Escalation of care including admission/observation considered admit for IV abx and inpatient wound care Consult Healthcare Provider Management of the patient was discussed with: Hospitalist (will admit) Lab Data [facility] Lab Attestation statement: I reviewed the patient's lab results. 10/06/24 10:22 10/06/24 10:22 Labs: Lab Results 10/06/24 10/06/24 Range/Units 10:22 11:19 WBC 9.8 (4.8-10.8) X10*3/uL RBC 3.71 L D (4.20-5.50) X10*6/uL Hgb 8.7 L (12.0-16.0) g/dl Hct 29.1 L D (37.0-47.0) % MCV 78.4 L (80.0-98.0) fL MCH 23.5 L (27.0-33.0) pg MCHC 29.9 L (31.0-35.0) g/dl RDW 18.1 H (11.0-16.0) % Plt Count 613 H (160-400) X10*3/uL MPV 8.4 L (9.4-12.3) fL Immature Gran % (Auto) 0.6 H (0.0-0.4) % Neut % (Auto) 74.2 H (45-73) % Lymph % (Auto) 12.3 L (20-40) % [place] % (Auto) 10.8 (2-11) % Eos % (Auto) 1.2 (0-4) % Baso % (Auto) 0.9 (0-2) % Lymph # (Auto) 1.2 (1.2-4.9) X10*3/uL [place] # (Auto) 1.1 (0.1-1.2) X10*3/uL Eos # (Auto) 0.1 (0.0-0.4) X10*3/uL Baso # (Auto) 0.1 (0.0-0.2) X10*3/uL Abs Immat Gran (auto) 0.06 H (0.00-0.03) X10*3/uL Absolute Neuts (auto) 7.3 (2.0-8.3) x10*3/uL Absolute Nucleated RBC 0.000 (0.0-0.012) X10*3/uL Nucleated RBC % (auto) 0.0 (0.0-0.2) /100WBC ESR 104 H (0-20) MM/HR Sodium 138 (135-145) mmol/L Potassium 4.3 (3.3-5.1) mmol/L Chloride 102 (96-108) mmol/L Carbon Dioxide 26 (22-29) mmol/L Anion Gap 14 (12-20) BUN 20 H (9-16) mg/dL Creatinine 0.56 (0.5-1.4) mg/dL Estim Creat Clear Calc 72.5 Estimated GFR > 60 Random Glucose 128 H (60-115) mg/dL Lactic Acid 1.7 (0.5-2.0) mmol/L Calcium 9.4 D (8.4-10.2) mg/dL Magnesium 1.6 (1.6-2.6) mg/dL Total Bilirubin 0.2 (0.0-1.0) mg/dL Direct Bilirubin < 0.2 (0.0-0.5) mg/dL AST 17 (5-31) U/L ALT < 6 (0-31) U/L Total Creatine Kinase 21 L (26-140) U/L C-Reactive Protein 6.50 H (< or = 0.50) mg/dL Total Protein 7.3 (6.5-8.0) g/dL Albumin 3.1 L (3.5-5.0) g/dL Urine Color Red A Urine Appearance Turbid Urine pH 7.5 (5.0-9.0) Ur Specific [place] 1.010 (1.005-1.025) Urine Protein 300 (3+) H (Neg-Trace) mg/dL Urine Glucose (UA) Negative (Negative) mg/dL Urine Ketones Negative (Negative) mg/dL Urine Blood Large (3+) H (Negative) Urine Nitrite Positive H (Negative) Ur Leukocyte Esterase Large (3+) H (Negative) Urine RBC >20 H (0-2) /HPF Urine WBC >50 H (0-5) /HPF Urine WBC Clumps Present Ur Squamous Epith Cells 6-10 (0-2) /HPF Urine Bacteria 2+ (None Seen) Hyaline Casts 0-2 (0-2) /LPF Independent Interpretation I performed an independent interpretation of an: EKG and CT Scan (pyelitis) Interpretation: Rate: 96 Rhythm: NSR [place]: left Normal P waves. Normal JUDITH. Normal QRS complex. ST T wave : artifact but no JAMEL, flat t wave V1 qTC: 439 prior studies: no acute ischemia The study has been interpreted contemporaneously by me. . Radiology Impression Discussion of test interpretation with radiology: I have reviewed the radiologist's reading. Independent Historian Clinical information obtained from an independent historian. History obtained from or confirmed by: EMS External Record Review External record reviewed: Inpatient record and Outpatient record Discharge Plan Discharge Clinical Impression: Sacral decubitus ulcer, Acute UTI, Acute pyelitis Patient Disposition: Admitted As Inpatient Prescriptions: No Action lisinopril 20 mg tablet 20 mg PO DAILY alendronate 70 mg tablet 70 mg PO FR tramadol 50 mg tablet 50 mg PO TID omeprazole 20 mg capsule,delayed release(DR/EC) 20 mg PO DAILY@0630 cholecalciferol (vitamin D3) [Vitamin D3] 50 mcg (2,000 unit) Capsule 50 mcg PO DAILY ferrous sulfate 324 mg (65 mg iron) Tablet,Delayed Release (Dr/Ec) 324 mg PO DAILY Qty: 90 0RF Print Language: Swedish
[2024-10-06] MEDS: Lactated Ringers 1,000 ML 999 ML IV (10:30)
[2024-10-06 10:31] LABS: MANUAL DIFF FLAG NO
[2024-10-06 10:33] LABS: Basophils Absolute Auto 0.1 X10*3/uL (0.0-0.2); Basophils Percent Auto 0.9 % (0-2); Eosinophils Absolute Auto 0.1 X10*3/uL (0.0-0.4); Eosinophils Percent Auto 1.2 % (0-4); Hematocrit 29.1 % (37.0-47.0); Hemoglobin 8.7 g/dl (12.0-16.0); Imm Gran Abs Auto 0.06 X10*3/uL (0.00-0.03); Imm Gran Pct Auto 0.6 % (0.0-0.4); Lymphocytes Absolute Auto 1.2 X10*3/uL (1.2-4.9); Lymphocytes Percent Auto 12.3 % (20-40); Mean Corpuscular HGB Conc 29.9 g/dl (31.0-35.0); Mean Corpuscular Hemoglobin 23.5 pg (27.0-33.0); Mean Corpuscular Volume 78.4 fL (80.0-98.0); Mean Platelet Volume 8.4 fL (9.4-12.3); Monocytes Absolute Auto 1.1 X10*3/uL (0.1-1.2); Monocytes Percent Auto 10.8 % (2-11); Neutrophils Absolute Auto 7.3 x10*3/uL (2.0-8.3); Neutrophils Percent Auto 74.2 % (45-73); Platelet Count 613 X10*3/uL (160-400); Red Blood Count 3.71 X10*6/uL (4.20-5.50); Red Cell Distribution Width 18.1 % (11.0-16.0); White Blood Count 9.8 X10*3/uL (4.8-10.8)
[2024-10-06] MEDS: Morphine Sulfate 2 MG/ML CARTRIDGE IVPUSH (10:37)
[2024-10-06] MEDS: Piperacillin Sodium/Tazobactam 3.375 GM in 0.9 % Sodium Chloride 50 ML IV (10:38)
[2024-10-06 10:56] LABS: Lactic Acid 1.7 mmol/L (0.5-2.0)
[2024-10-06 10:59] LABS: Alanine Aminotransferase < 6 U/L (0-31); Albumin Level 3.1 g/dL (3.5-5.0); Anion Gap 14 (12-20); Aspartate Amino Transferase 17 U/L (5-31); Bilirubin Direct < 0.2 mg/dL (0.0-0.5); Bilirubin Total 0.2 mg/dL (0.0-1.0); Blood Urea Nitrogen 20 mg/dL (9-16); Calcium 9.4 mg/dL (8.4-10.2); Carbon Dioxide 26 mmol/L (22-29); Chloride 102 mmol/L (96-108); Creatinine Clr Calc Pharmacy 72.5; Estimated Glomerular Filt Rate > 60; Glucose Random 128 mg/dL (60-115); Magnesium 1.6 mg/dL (1.6-2.6); Potassium 4.3 mmol/L (3.3-5.1); Sodium 138 mmol/L (135-145); Total Protein 7.3 g/dL (6.5-8.0)
--- NOTE | 2024-10-06 11:05 | MHC.CM.ED ---
Received telephone call from Chris of [employer]. He can be reached via telephone at [phone] ext. [phone]. Chris states patient is active with their agency and has a history of self-neglect in regards to her chronic wounds. Patient has capacity to make her own decisions. Chris requesting telephone call when work up is complete and plan of care is deteremined. Continue to monitor for d/c needs.
[2024-10-06 11:08] LABS: Erythrocyte Sedimentation Rate 104 MM/HR (0-20)
--- OUTSIDE RECORDS SUMMARY | 2024-10-06 11:11 | XMS_ITS ---
Author Organization Ivan España MD Address [address] [place] [phone] Care Team Providers Care Squaring Machine Operator Name Role Phone Ivan España Primary Care Provider Allergies No Known Allergies REASON FOR VISIT wound needs referral for wound care, [id number] Medications Medication SIG (Take, Route, Frequency, Duration) Notes Start Date End Date Status Vitamin D 1000 UNIT 1 tablet Orally Once a day Active Aleve 220 MG 1 tablet as needed Orally every 12 hrs Not-Taking Tylenol 325 MG 2 tablet as needed Orally every 6 hrs Not-Taking predniSONE 10 MG 1 tablet Orally Once a day for 30 day(s) 09/10/2021 Not-Taking Furosemide 20 MG 1 tablet Orally Once a day for 30 day(s) Not-Taking traMADol HCl 50 MG 1 tablet as needed Orally three times a day for 30 days 07/05/2024 Active Ferrous Sulfate 324 MG 1 tablet Orally d aily for 30 days 07/28/2024 Active Triad Hydrophilic Wound Dress - as directed Externally daily for 30 days 09/01/2024 Active Omeprazole 20MG Take 1 capsule by mo [facility] once daily Orally Once a day for 90 days Active Celecoxib 200 MG Take 1 capsule by mo ut once daily Orally Once a day for 30 days Not-Taking Lisinopril 20 MG Take 1 tablet by juanito once daily for 90 Active Problems Problem Type SNOMED Code ICD Code Onset Dates Problem Status W/U Status Risk Notes Problem 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) (851128620771326 02) Bed sore on buttock, right, unstageable (L89.310) Active confirmed Vital Signs Height 65 in 09/30/2024 weight and BP not taken Encounters Encounter Location Date Provider Diagnosis Ivan España MD [address] [place] [address] [address] [place], [place] [phone] 09/30/2024 Ivan España Bed sore on buttock, right, unstageable L89.310 Assessments Encounter Date Diagnosis (ICD Code) Assessment Notes Treatment Notes Treatment Clinical Notes Section Notes 09/30/2024 Bed sore on buttock, right, unstageable (ICD-10 - L89.310) Have a care out to [facility] for wound care services send referral to [facility]. says she can't afford to go to senior care. retold her that it is not safe for her to be there at home Plan Of Treatment Treatment Notes Assessment Notes Bed sore on buttock, right, unstageable Have a care out to [facility] for wound care services Next Appt Details Provider Name:Ivan Angelo ier, 11/28/2024 01:30:00 PM, [address] [place] [address], [place] [address], [place], [place], [phone], Progress Notes * Monica MAY ADOB:[birth year] (79 yo F)Acc No.[id number]:09/30/2024 Patient:?Monica MAY A Provider:?Ivan España MD :1945???Age:79 Y???Sex:Female D ate:09/30/2024 Address:[address] [place], [place] [id number] Subjective: * Chief Complaints: * ???Wound needs referral for wound [id number] * HPI: ???Symptom(s):?Telehealth?Location of provider rendering services:?[address] [place] [address], Suite [facility],?Location of patient:?at address listed in demographics for today's visit,?Patient identification confirmed using:?Name, ,?Telehealth method:?Telephone only. Patient not visible to care provider.,?Consent:?Patient verbally consented to treatment, Patient verbally consented to billing insurance company, Patient informed of any privacy concerns related to method of visit,?Total time spend talking with patient (minutes)?17.?patient is a 79 yo audio telehealth visit, here for evaluation of bed sore. wants [facility] to take care of wound and meals. they bathe her. * ROS:?General/Constitutional:?Denies?Chills.?Denies?Fatigue.?Denies?Fever.?Denies?Headache.?Respiratory:?Denies?Cough.?Denies?Shortness of breath at rest.?Denies?Shortness of breath with exertion.?Gastrointestinal:?Denies?Diarrhea.?Denies?Nausea.? * Medical History:? * Surgical History:? * Hospitalization/Major Diagno stic Procedure:? * Medications:?TakingVitamin D 1000 UNIT Tablet 1 tablet Orally Once a day Lisinopril 20 MG Tablet Take 1 tablet by mouth once daily traMADol HCl 50 MG Tablet 1 tablet as needed Orally three times a day Ferrous Sulfate 324 MG Tablet Delayed Release 1 tablet Orally daily Triad Hydrophilic Wound Dress - Paste as directed Externally daily Omeprazole 20MG Capsule Delayed Release Take 1 capsule by mouth once daily Orally Once a day Taking Vitamin D 1000 UNIT Tablet 1 tablet Orally Once a day Taking Lisinopril 20 MG Tablet Take 1 tablet by mouth once daily Taking traMADol HCl 50 MG Tablet 1 tablet as needed Orally three times a day Taking Ferrous Sulfate 324 MG Tablet Delayed Release 1 tablet Orally daily Taking Triad Hydrophilic Wound Dress - Paste as directed Externally daily Taking Omeprazole 20MG Capsule Delayed Release Take 1 capsule by mouth once daily Orally Once a day Not-Taking/PRNCelecoxib 200 MG Capsule Take 1 capsule by mouth once daily Orally Once a day predniSONE 10 MG Tablet 1 tablet Orally Once a day Furosemide 20 MG Tablet 1 tablet Orally Once a day Aleve 220 MG Tablet 1 tablet as needed Orally every 12 hrs Tylenol 325 MG Tablet 2 tablet as needed Orally every 6 hrs Medication List reviewed and reconciled with the patientNot-Taking/PRN Celecoxib 200 MG Capsule Take 1 capsule by mouth once daily Orally Once a day Not-Taking/PRN predniSONE 10 MG Tablet 1 tablet Orally Once a day Not-Taking/PRN Furosemide 20 MG Tablet 1 tablet Orally Once a day Not-Taking/PRN Aleve 220 MG Tablet 1 tablet as needed Orally every 12 hrs Not-Taking/PRN Tylenol 325 MG Tablet 2 tablet as needed Orally every 6 hrs Medication List reviewed and reconciled with the patient * Allergies:?N.K.D.A.yes[Rosa beltran Verified] Objective: * Vitals:?Ht: 65. weight and BP? not taken. Assessment: * Assessment: 1.?Bed sore on buttock, righ t, unstageable - L89.310 (Primary)??? send referral to [facility]. says she can't afford to go to senior care. retold her that it is not safe for her to be there at home Plan: * Treatment: * Procedure Codes:? * * Sign off status: Completed true * Provider:?Ivan España MD Date:?0 09/30/2024 Generated for Lori barnett/Angely/eTransmitting on:?10/06/2024 11:11 AM EDT History and Physical Notes * HPI (History of Present Illness) Category Sub-Category Detail Notes Category Not es Symptom(s) Telehealth Location of [facility] rendering services:: [address], [address] patient is a 79 yo audio telehealth visit, here for evaluation of bed sore. wants [facility] to take care of wound and meals. they bathe her Location of patient:: at address listed in demographics for today's visit Patient identification confirmed using:: Name, Telehealth method:: Telephone only. Kimberly ent not visible to care provider. Consent:: Patient verbally c onsented to treatment, Patient verbally consented to billing insurance [employer], Patient informed of any privacy concerns related to method of visit Total time spend talking with patient (m inutes): 17
--- OUTSIDE RECORDS SUMMARY | 2024-10-06 11:11 | XMS_ITS | Clinical Summary ---
Author Organization [facility] ity Address [address] [place] [address] Care Team Providers Care Fireproof Door Assembler Name Role Phone Unavailable Primary Care Provider [...] Vaccines (1 of 2) 1997 RSV Immunization Adult Patie nts (1 - 1-dose 75+ series) 2022 COVID-19 Vaccine (1 - 2023-2 5 season) 2024 Influenza Vaccine (Season Ended) 2025 HIB Vaccines Aged Out No longer eligi [...] age to complete this topic Meningococcal B Vaccine Aged Out No l onger eligible based on patient's age to complete this topic RSV Immunization Patients Un liv 20 months Aged Out No longer eligible b ased on patient's age to complete this topic Varicella Vaccines Aged Out No longer eligible based on patient's age to complete this topic
--- OUTSIDE RECORDS SUMMARY | 2024-10-06 11:12 | XMS_ITS | Patient Health Record ---
Author Organization Ivan España MD Address [address] [place], [place] [id number] Care Team Providers Care Dry Room Attendant Name Role Phone Ivan España Primary Care Provider Allergies No Known Allergies Results Component Value Reference Range Notes Lactic Acid-LAB USE ONLY Reviewed date:06/27/2024 09:15:11 AM Interpretation: Performing Lab:[facility], [address] [place] [phone] Notes/Report: Lactic Acid-LAB USE ONLY 1.5 0.5-2.0 mmol/L Complete Blood Count Man Dif Reviewed date:06/27/2024 09:13:44 AM Interpretation: Performing Lab:[facility], [address] [place] [phone] Notes/Report: White Blood Count 8.9 4.8-10.8 X10*3/uL Red Blood Count 4.20 4.20-5.50 X10*6/uL Hemoglobin 12.0 12.0-16.0 g/dl Hematocrit 38.9 37.0-47.0 % Mean Corpuscular Volume 92.6 80.0-98.0 fL Mean Corpuscular Hemoglobin 28.6 27.0-33.0 pg Mean Corpuscular HGB Conc 30.8 31.0-35.0 g/dl Red Cell Distribution Width 15.9 11.0-16.0 % Platelet Count 151 160-400 X10*3/uL Mean Platelet Volume 10.8 9.4-12.3 fL NRBC Pct Auto 0.0 0.0-0.2 /100WBC NRBC Abs Auto 0.000 0.0-0.012 X10*3/uL Neutrophils Percent Manual 49 45-73 % Band Neutrophils Percent 38 3-5 % Lymphocytes Percent Manual 8 20-40 % Monocytes Percent Manual 4 2-11 % Metamyelocytes Percent 1 Neutrophils Absolute Manual 7.7 2.0-8.3 X10*3/uL Lymphocytes Absolute Manual 0.7 1.2-4.9 X10*3/uL Monocytes Absolute Manual 0.4 0.1-1.2 X10*3/uL Metamyelocytes Absolute 0.1 Smudge Cells PRESENT Platelet Estimate NORMAL NORMAL Platelet Morphology Comment NORMAL RBC Morphology NOTED Terese Cells 1+ (0-2) Comprehensive Met. Panel Reviewed date:06/27/2024 12:32:25 PM Interpretation: Performing Lab:[address] [phone] Notes/Report: Sodium 143 135-145 mmol/L Potassium 3.7 3.3-5.1 mmol/L Chloride 114 96-108 mmol/L Carbon Dioxide 18 22-29 mmol/L Anion Gap 15 12-20 Blood Urea Nitrogen 35 9-16 mg/dL Creatinine 0.88 0.5-1.4 mg/dL Creatinine Clr Calc Pharmacy 48.1 Provided height and weight: 165.1 cm, 58.06 kg. eGFR (calculated from the MDRD study equation) and eCrCl (calculated from the Cockcroft-Gault equation) are based on different parameters and may not yield comparable results. If eCrCl result is absurd, please check patient's height/weight. Estimated Glomerular Filt Rate > 60 Chronic Kidney Disease: Estimated GFR < 60 mL/min/1.73m2 Severe Kidney Disease: Estimated GFR < 15 mL/min/1.73m2 Glucose Random 109 60-115 mg/dL Calcium 8.7 8.4-10.2 mg/dL Bilirubin Total 0.3 0.0-1.0 mg/dL Aspartate Amino Transferase 125 5-31 U/L Alanine Aminotransferase 32 0-31 U/L Total Protein 6.9 6.5-8.0 g/dL Albumin Level 3.3 3.5-5.0 g/dL Alkaline Phosphatase 86 39-117 U/L Magnesium Reviewed date:06/27/2024 09:14:55 AM Interpretation: Performing Lab:[facility], [address] [place] [phone] Notes/Report: Magnesium 1.8 1.6-2.6 mg/dL Creatine Kinase Total Reviewed date:06/27/2024 09:15:03 AM Interpretation: Performing Lab:[facility], [address] [place] [phone] Notes/Report: Creatine Kinase Total 2842 26-140 U/L Thyroid Stimulating Hormone Reviewed date:06/27/2024 09:14:47 AM Interpretation: Performing Lab:[facility], [address] [place] [phone] Notes/Report: Thyroid Stimulating Hormone 0.35 0.32-4.0 uIU/mL TSH 3rd Generation ([facility]) Basic Metabolic Panel Reviewed date:06/28/2024 12:35:39 PM Interpretation: Performing Lab:[facility], [address] [place] [phone] Notes/Report: Sodium 144 135-145 mmol/L Potassium 3.1 3.3-5.1 mmol/L Chloride 117 96-108 mmol/L Carbon Dioxide 22 22-29 mmol/L Anion Gap 8 12-20 Blood Urea Nitrogen 18 9-16 mg/dL Creatinine 0.62 0.5-1.4 mg/dL Creatinine Clr Calc Pharmacy 68.3 Provided height and weight: 165.1 cm, 58.06 kg. eGFR (calculated from the MDRD study equation) and eCrCl (calculated from the Cockcroft-Gault equation) are based on different parameters and may not yield comparable results. If eCrCl result is absurd, please check patient's height/weight. Estimated Glomerular Filt Rate > 60 Chronic Kidney Disease: Estimated GFR < 60 mL/min/1.73m2 Severe Kidney Disease: Estimated GFR < 15 mL/min/1.73m2 Glucose Random 116 60-115 mg/dL Calcium 7.9 8.4-10.2 mg/dL Creatine Kinase Total Reviewed date:06/28/2024 12:35:22 PM Interpretation: Performing Lab:[address] [phone] Notes/Report: Creatine Kinase Total 1312 26-140 U/L XR chest 1V Reviewed date:06/28/2024 04:47:24 PM Interpretation: Performing Lab: Notes/Report: [address] [address] XRay Report Signed Patient: Monica May MR#: [id number] : 1945 Acct:[id number] Age/Sex: 79 / F ADM Date: 06/26/24 Loc: HO.S3 375-[address]: Evelyn Gonzalez NP Ordering Physician: Evelyn Gonzalez NP Date of Service: 06/28/24 Procedure(s): XR chest 1V Accession Number(s): [id number] cc: Ivan España MD; Evelyn Gonzalez NP EXAMINATION: XR CHEST CLINICAL INFORMATION: wheezing COMPARISON: 06/26/2024 TECHNIQUE: Frontal view of the chest was obtained. FINDINGS: Cardiac and mediastinal contours are stable. Aortic calcification. Since the prior exam, consolidation has developed in the left base, and to lesser degree the medial right base. No effusions. No pneumothorax allowing for patient's chin obscuring portions of the medial apices. There are old right rib fractures. Severe erosive arthropathy bilateral shoulder joints, end-stage. Degenerative changes of the spine. XR/XR chest 1V IMPRESSION: 1. Development of left basilar, and to a lesser degree medial right basilar airspace opacities consistent with bibasilar pneumonia. 2. End-stage inflammatory arthropathy bilateral shoulder joints. Electronically signed by: Kike Sykes MD 06/28/2024 04:02 PM [facility] Dictated By: Kike Sykes MD Signed By: <Electronically signed by Kike Sykes MD in OV> 06/28/24 1602 DD/ 1545 TD/TT: 06/28/24 1558 Environmental Protection Specialist: [address] [address] XRay Report Signed Patient: Monica May MR#: [id number] : 1945 Acct:[id number] Age/Sex: 79 / F ADM Date: 06/26/24 Loc: HO.S3 375-[address]: Evelyn Gonzalez NP Ordering Physician: Evelyn Gonzalez NP Date of Service: 06/28/24 Procedure(s): XR [address] 1V Accession Number(s): [id number] cc: Ivan España MD; Evelyn Gonzalez NP EXAMINATION: XR CHEST CLINICAL INFORMATION: wheezing COMPARISON: 06/26/2024 TECHNIQUE: Frontal view of the chest was obtained. FINDINGS: Cardiac and mediastinal contours are stable. Aortic calcification. Since the prior exam , consolidation has developed in the left base, and to lesser degree the medial right base. No effusions. No pneumothorax allowing for patient's chin obscuring portions of the medi al apices. There are old right rib fractures. Severe erosive arthropathy bilateral shoulder joints, end-stage. Degenerative changes of the spine. XR/XR chest 1V IMPRESSION: 1. Development of le ft basilar, and to a lesser degree medial right basilar airspace opacities consistent with bibasilar pneumonia. 2. End-stage inflammatory arthropathy bilateral shoulder joints. Electronically edwige d by: Kike Sykes MD 06/28/2024 04:02 PM [facility] Dictated By: Kike Sykes MD Signed By: <Electronically signed by Kike Sykes MD in OV> 06/28/24 1602 DD/ 1545 TD/TT: 06/28/24 1551 Environmental Protection Specialist: Basic Metabolic Panel Reviewed date:06/30/2024 05:01:27 PM Interpretation: Performing Lab:[facility], [address] [place] [phone] Notes/Report: Sodium 142 135-145 mmol/L Potassium 3.9 3.3-5.1 mmol/L Chloride 115 96-108 mmol/L Carbon Dioxide 21 22-29 mmol/L Anion Gap 10 12-20 Blood Urea Nitrogen 21 9-16 mg/dL Creatinine 0.59 0.5-1.4 mg/dL Creatinine Clr Calc Pharmacy 71.8 Provided height and weight: 165.1 cm, 58.06 kg. eGFR (calculated from the MDRD study equation) and eCrCl (calculated from the Cockcroft-Gault equation) are based on different parameters and may not yield comparable results. If eCrCl result is absurd, please check patient's height/weight. Estimated Glomerular Filt Rate > 60 Chronic Kidney Disease: Estimated GFR < 60 mL/min/1.73m2 Severe Kidney Disease: Estimated GFR < 15 mL/min/1.73m2 Glucose Random 84 60-115 mg/dL Calcium 8.2 8.4-10.2 mg/dL Creatine Kinase Total Reviewed date:06/29/2024 05:42:45 PM Interpretation: Performing Lab:[facility], [address] [place] [phone] Notes/Report: Creatine Kinase Total 570 26-140 U/L Complete Blood Count Auto Di ff Reviewed date:07/07/2024 02:19:12 PM Interpretation: Performing Lab:[facility], [address] [place] [phone] Notes/Report: White Blood Count 11.3 4.8-10.8 X10*3/uL Red Blood Count 3.43 4.20-5.50 X10*6/uL Hemoglobin 9.7 12.0-16.0 g/dl Hematocrit 30.2 37.0-47.0 % Mean Corpuscular Volume 88.0 80.0-98.0 fL Mean Corpuscular Hemoglobin 28.3 27.0-33.0 pg Mean Corpuscular HGB Conc 32.1 31.0-35.0 g/dl Red Cell Distribution Width 15.9 11.0-16.0 % Platelet Count 442 160-400 X10*3/uL Mean Platelet Volume 9.5 9.4-12.3 fL Neutrophils Percent Auto 80.3 45-73 % Imm Gran Pct Auto 0.9 0.0-0.4 % Lymphocytes Percent Auto 9.7 20-40 % Monocytes Percent Auto 8.0 2-11 % Eosinophils Percent Auto 0.7 0-4 % Basophils Percent Auto 0.4 0-2 % NRBC Pct Auto 0.0 0.0-0.2 /100WBC Neutrophils Absolute Auto 9.1 2.0-8.3 x10*3/uL Imm Gran Abs Auto 0.10 0.00-0.03 X10*3/uL Lymphocytes Absolute Auto 1.1 1.2-4.9 X10*3/uL Monocytes Absolute Auto 0.9 0.1-1.2 X10*3/uL Eosinophils Absolute Auto 0.1 0.0-0.4 X10*3/uL Basophils Absolute Auto 0.0 0.0-0.2 X10*3/uL NRBC Abs Auto 0.000 0.0-0.012 X10*3/uL OBSX1 Reviewed date:07/07/2024 04:51:50 PM Interpretation: Performing Lab:[facility], [address] [place] [phone] Notes/Report: OBS1 NEGATIVE NEGATIVE Liver Panel Reviewed date:07/07/2024 01:36:03 PM Interpretation: Performing Lab:[facility], [address] [place] [phone] Notes/Report: Bilirubin Total 0.4 0.0-1.0 mg/dL Bilirubin Direct 0.2 0.0-0.5 mg/dL Aspartate Amino Transferase 30 5-31 U/L Slight Hemolysis.Interpret result with caution. Alanine Aminotransferase 16 0-31 U/L Total Protein 6.8 6.5-8.0 g/dL Albumin Level 2.9 3.5-5.0 g/dL Alkaline Phosphatase 110 39-117 U/L Basic Metabolic Panel Reviewed date:07/07/2024 01:35:38 PM Interpretation: Performing Lab:[facility], [address] [place] [phone] Notes/Report: Sodium 144 135-145 mmol/L Potassium 4.1 3.3-5.1 mmol/L Slight Hemolysis.Interpret result with caution. Chloride 110 96-108 mmol/L Carbon Dioxide 27 22-29 mmol/L Anion Gap 11 12-20 Blood Urea Nitrogen 18 9-16 mg/dL Creatinine 0.53 0.5-1.4 mg/dL Creatinine Clr Calc Pharmacy 71.4 Provided height and weight: 152.4 cm, 58.967 kg. eGFR (calculated from the MDRD study equation) and eCrCl (calculated from the Cockcroft-Gault equation) are based on different parameters and may not yield comparable results. If eCrCl result is absurd, please check patient's height/weight. Estimated Glomerular Filt Rate > 60 Chronic Kidney Disease: Estimated GFR < 60 mL/min/1.73m2 Severe Kidney Disease: Estimated GFR < 15 mL/min/1.73m2 Glucose Random 146 60-115 mg/dL Calcium 8.8 8.4-10.2 mg/dL Magnesium Reviewed date:07/07/2024 12:39:50 PM Interpretation: Performing Lab:[facility], [address] [place] [phone] Notes/Report: Magnesium 1.7 1.6-2.6 mg/dL Creatine Kinase Total Reviewed date:07/07/2024 12:39:40 PM Interpretation: Performing Lab:[facility], [address] [place] [phone] Notes/Report: Creatine Kinase Total 45 26-140 U/L Troponin-I High Sensitivity Reviewed date:07/07/2024 01:35:54 PM Interpretation: Performing Lab:[facility], [address] [place] [phone] Notes/Report: Troponin-I High Sensitivity 15.8 <3.5-17.0 ng/L [facility] high sensitivity Troponin-I results should be used in conjunction with other diagnostic information such as ECG, clinical observations and information, and patient symptoms to aid in the diagnosis of ND. Urine Culture Reviewed date:07/11/2024 12:28:10 PM Interpretation: Performing Lab:[facility], [address] [place] [phone] Notes/Report: O:ENTFAM Enterococcus faecium Urine Culture Quant Urine Culture > 100,000 cfu/mL Urine Culture VRE Notification Urine Culture * * This is a Vancomycin-resistant Enterococcus * * Ampicillin >=32 Levofloxacin >=8 Linezolid 2 Nitrofurantoin 64 Tetracycline >=16 Vancomycin >=32 SARS-CoV2/FLU/RSV Reviewed date:07/07/2024 01:35:15 PM Interpretation: Performing Lab:[facility], [address] [place] [phone] Notes/Report: Influenza A PCR NEGATIVE Negative Influenza B PCR NEGATIVE Negative Resp Syncy Virus RNA Qual PCR NEGATIVE Negative SARS COV2 PCR INHOUSE NEGATIVE Negative All test results must be correlated with clinical findings. Negative results do not preclude SARS-CoV2, influenza A virus, influenza B virus and/or RSV infection and should not be used as the sole basis for treatment or other patient management decisions. Negative results must be combined with clinical observations, patient history, and epidemiological information. This test has not been evaluated for monitoring treatment of infection. This test has been authorized by the FDA under an Emergency Use Authorization (EUA) for use by authorized laboratories. Testing performed on the [employer] GeneXpert utilizing real-time RT-PCR. All SARS CoV2 and positive influenza A/B results are reported to [facility]. UA ClnCatch+Micro w/rflx Cul t Reviewed date:07/07/2024 04:56:27 PM Interpretation: Performing Lab:[facility], [address] [place] [phone] Notes/Report: Urine, Clean Catch Color Urine Dark Yellow Appearance Urine Turbid PH 5.5 5.0-9.0 Glucose Urine UA Negative Negative mg/dL Urine Blood Large (3+) Negative Specific [place] - Urine 1.025 1.005-1.025 Urine Protein 100 (2+) Neg-Trace mg/dL Urine Ketones Negative Negative mg/dL Nitrite Urine Negative Negative Leukocyte Esterase Urine Moderate (2+) Negative RBC Urine >20 0-2 /HPF WBC Urine >50 0-5 /HPF Squamous Epithelial Cell Urine 0-2 0-2 /HPF Bacteria Urine 3+ None Seen Hyaline Casts Urine 3-5 0-2 /LPF Granular Casts Urine Present XR chest 1V Reviewed date:07/07/2024 12:40:18 PM Interpretation: Performing Lab: Notes/Report: [address] [address] XRay Report Signed Patient: Monica May MR#: [id number] : 1945 Acct:[id number] Age/Sex: 79 / F ADM Date: 07/07/24 Loc: HO.ED Attending Dr: Ordering Physician: Kaye Chavez Date of Service: 07/07/24 Procedure(s): XR chest 1V Accession Number(s): [id number] cc: Ivan España MD; Kaye Chavez EXAMINATION: XR CHEST CLINICAL INFORMATION: FTT cough COMPARISON: 06/28/2024, 06/26/2024. TECHNIQUE: Frontal view of the chest was obtained. FINDINGS: Limited exam as the patient's chin obscures the right apex, and there is rightward rotation. The cardiac, hilar, and mediastinal contours are normal. Aortic mural calcification. There is stable elevation of the left hemidiaphragm with linear airspace opacity left base. This may reflect persistent or residual prior pneumonia. The medial right basilar airspace opacity has resolved. No pneumothorax or effusion. End-stage arthropathy bilateral shoulder joints again noted. No soft tissue abnormalities. XR/XR chest 1V IMPRESSION: 1. Mildly limited exam as detailed. 2. Persistently elevated left hemidiaphragm with improved but persistent linear airspace disease left base. 3. Resolved airspace opacity in the medial right base. Electronically signed by: Kike Sykes MD 07/07/2024 11:07 AM EST Dictated By: Kike Sykes MD Signed By: <Electronically signed by Kike Sykes MD in OV> 07/07/24 1107 DD/ 1038 TD/TT: 07/07/24 1050 Environmental Protection Specialist: [place] [id number] XRay Report Signed Patient: Monica May MR#: [id number] : 1945 Acct:[id number] Age/Sex: 79 / F ADM Date: 07/07/24 Loc: HO.ED Attending Dr: Ordering Physician: Kaye Chavez Date of Service: 07/07/24 Procedure(s): XR [address] 1V Accession Number(s): [id number] cc: Ivan España MD; Kaye Chavez EXAMINATION: XR CHEST CLINICAL INFORMATION: FTT cough COMPARISON: 06/28/2024, 06/26/2024. TECHNIQUE: Frontal view of the chest was obtained. FINDINGS: Limited exam as the patient's chin obscures the right apex, and there is rightward rotation. The cardiac, hilar, and mediastinal contours are normal. Aortic mural calcification. There is stable elevation of the left hemidiaphragm with linear airspace opacity lef t base. This may reflect persistent or residual prior pneumonia. The medial right basilar airspace opacity has resolved. No pneumothorax or effusion. End-stage arthropath y bilateral shoulder joints again noted. No soft tissue abnormalities. XR/XR chest 1V IMPRESSION: 1. Mildly limited ex am as detailed. 2. Persistently elevated left hemidiaphragm with improved but persistent linear airspace disease left base. 3. Resolved airspace opacity in the medial right base. Electronically edwige d by: Kike Sykes MD 07/07/2024 11:07 AM EST Dictated By: Kike Sykes MD Signed By: <Electronically signed by Kike Sykes MD in OV> 07/07/24 1107 DD/ 1038 TD/TT: 07/07/24 1050 Environmental Protection Specialist: Troponin-I High Sensitivity Reviewed date:07/07/2024 04:50:52 PM Interpretation: Performing Lab:[facility], [address] [place] [phone] Notes/Report: Troponin-I High Sensitivity 15.2 <3.5-17.0 ng/L [facility] high sensitivity Troponin-I results should be used in conjunction with other diagnostic information such as ECG, clinical observations and information, and patient symptoms to aid in the diagnosis of ND. XR knee RT 2V Reviewed date:07/08/2024 12:28:47 PM Interpretation: Performing Lab: Notes/Report: [address] [address] XRay Report Signed Patient: Monica May MR#: [id number] : 1945 Acct:[id number] Age/Sex: 79 / F ADM Date: 07/07/24 Loc: HO.ED Attending Dr: Ordering Physician: Chichi Barry Date of Service: 07/08/24 Procedure(s): XR knee RT 2V Accession Number(s): [id number] cc: Ivan España MD; Chichi Barry EXAMINATION: XR KNEE, RIGHT CLINICAL INFORMATION: Rt knee pain COMPARISON: None available. TECHNIQUE: Two views of the right knee. FINDINGS: There is osteopenia. There is a subtle cortical buckle of the medial tibial metaphysis on the AP projection. Cannot exclude a subtle fracture. Severe joint space loss lateral compartment with dpau-oz-qaim appearance, subchondral sclerosis, and large marginal productive osteophytes. There is valgus angulation of the joint. There is widening of the medial compartment. 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 There are patellar subchondral cystic changes with sclerosis. There is diffuse of cutaneous edema the knee. There are vascular calcifications. There is an associated joint effusion. XR/XR knee RT 2V IMPRESSION: 1. Subtle cortical buckling of the medial tibial metaphysis on the AP projection. Cannot exclude a subtle fracture. 2. 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 Jhvk-bm-mgwa appearance lateral compartment with large osteophytes and subchondral sclerosis.. 2. Large productive osteophyte causes 1.8 cm anterior displacement of the patella relative to the femur. 3. Suprapatellar joint effusion. Electronically signed by: Kike Sykes MD 07/08/2024 09:47 AM [facility] Dictated By: Kike Sykes MD Signed By: <Electronically signed by Kike Sykes MD in OV> 07/08/24 0947 DD/ 0832 TD/TT: 07/08/24 0938 Environmental Protection Specialist: [place] [id number] XRay Report Signed Patient: Monica May MR#: [id number] : 1945 Acct:[id number] Age/Sex: 79 / F ADM Date: 07/07/24 Loc: .ED Attending Dr: Ordering Physician: Chichi Barry Date of Service: 07/08/24 Procedure(s): XR kne e RT 2V Accession Number(s): [id number] cc: Ivan sEpaña MD; Chichi Barry EXAMINATION: XR KNEE, RIGHT CLINICAL INFORMATION: Rt knee pain COMPARISON: None available. TECHNIQUE: Two views of the rig ht knee. FINDINGS: There is osteopenia. There is a subtle cortical buckle of the medial tibial metaphysis on the AP projection. Cannot exclude a subtle fracture. Severe joint space loss lateral compartment with stfm-jr-dkjd appearance, subchondral sclerosis, and large marginal productive osteophytes. There i s valgus angulation of the joint. There is widening of the medial compartment. 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 There are patellar subchondral cystic changes with sclerosis. There is diffuse of cutaneous edema the knee. There are vascular calcifications. Ther e is an associated joint effusion. XR/XR knee RT 2V IMPRESSION: 1. Subtle cortical buckling of the medial tibial metaphysis on the AP projection. Cannot exclude a subtle fracture. 2. 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 Weim-yr-iivb appearance lateral compartment with large osteophytes an d subchondral sclerosis.. 2. Large productive osteophyte causes 1.8 cm anterior displacement of the patella relative to the femur. 3. Suprapatellar amaya nt effusion. Electronically edwige d by: Kike Sykes MD 07/08/2024 09:47 AM [facility] Dictated By: Kike Sykes MD Signed By: <Electronically signed by Kike Sykes MD in OV> 07/08/24 0947 DD/ 0832 TD/TT: 07/08/24 0938 Environmental Protection Specialist: Complete Blood Count Auto Di ff Reviewed date:07/10/2024 09:32:22 AM Interpretation: Performing Lab:[facility], [address] [place] [phone] Notes/Report: White Blood Count 17.8 4.8-10.8 X10*3/uL Red Blood Count 3.08 4.20-5.50 X10*6/uL Hemoglobin 8.5 12.0-16.0 g/dl Hematocrit 26.0 37.0-47.0 % Mean Corpuscular Volume 84.4 80.0-98.0 fL Mean Corpuscular Hemoglobin 27.6 27.0-33.0 pg Mean Corpuscular HGB Conc 32.7 31.0-35.0 g/dl Red Cell Distribution Width 15.9 11.0-16.0 % Platelet Count 463 160-400 X10*3/uL Mean Platelet Volume 8.8 9.4-12.3 fL Neutrophils Percent Auto 81.1 45-73 % Imm Gran Pct Auto 1.1 0.0-0.4 % Lymphocytes Percent Auto 6.5 20-40 % Monocytes Percent Auto 10.5 2-11 % Eosinophils Percent Auto 0.4 0-4 % Basophils Percent Auto 0.4 0-2 % NRBC Pct Auto 0.0 0.0-0.2 /100WBC Neutrophils Absolute Auto 14.4 2.0-8.3 x10*3/uL Imm Gran Abs Auto 0.20 0.00-0.03 X10*3/uL Lymphocytes Absolute Auto 1.2 1.2-4.9 X10*3/uL Monocytes Absolute Auto 1.9 0.1-1.2 X10*3/uL Eosinophils Absolute Auto 0.1 0.0-0.4 X10*3/uL Basophils Absolute Auto 0.1 0.0-0.2 X10*3/uL NRBC Abs Auto 0.000 0.0-0.012 X10*3/uL White Blood Count 17.8 4.8-10.8 X10*3/uL Red Blood Count 3.08 4.20-5.50 X10*6/uL Hemoglobin 8.5 12.0-16.0 g/dl Hematocrit 26.0 37.0-47.0 % Mean Corpuscular Volume 84.4 80.0-98.0 fL Mean Corpuscular Hemoglobin 27.6 27.0-33.0 pg Mean Corpuscular HGB Conc 32.7 31.0-35.0 g/dl Red Cell Distribution Width 15.9 11.0-16.0 % Platelet Count 463 160-400 X10*3/uL Mean Platelet Volume 8.8 9.4-12.3 fL Neutrophils Percent Auto 81.1 45-73 % Imm Gran Pct Auto 1.1 0.0-0.4 % Lymphocytes Percent Auto 6.5 20-40 % Monocytes Percent Auto 10.5 2-11 % Eosinophils Percent Auto 0.4 0-4 % Basophils Percent Auto 0.4 0-2 % NRBC Pct Auto 0.0 0.0-0.2 /100WBC Neutrophils Absolute Auto 14.4 2.0-8.3 x10*3/uL Imm Gran Abs Auto 0.20 0.00-0.03 X10*3/uL Lymphocytes Absolute Auto 1.2 1.2-4.9 X10*3/uL Monocytes Absolute Auto 1.9 0.1-1.2 X10*3/uL Eosinophils Absolute Auto 0.1 0.0-0.4 X10*3/uL Basophils Absolute Auto 0.1 0.0-0.2 X10*3/uL NRBC Abs Auto 0.000 0.0-0.012 X10*3/uL CORRECTED REPORT CORRECTED REPORT Erythrocyte Sedimentation Ra te Reviewed date:07/10/2024 09:32:41 AM Interpretation: Performing Lab:[facility], [address] [place] [phone] Notes/Report: Erythrocyte Sedimentation Rate 77 0-20 MM/HR Patients with polycythemia and many hemoglobin abnormalities may have depressed sed rates whereas patients with anemia may have elevated sed rates. Comprehensive Met. Panel Reviewed date:07/10/2024 09:37:54 AM Interpretation: Performing Lab:[facility], [address] [place] [phone] Notes/Report: Sodium 139 135-145 mmol/L Potassium 4.0 3.3-5.1 mmol/L Chloride 108 96-108 mmol/L Carbon Dioxide 23 22-29 mmol/L Anion Gap 12 12-20 Blood Urea Nitrogen 17 9-16 mg/dL Creatinine 0.59 0.5-1.4 mg/dL Creatinine Clr Calc Pharmacy 64.1 Provided height and weight: 152.4 cm, 58.967 kg. eGFR (calculated from the MDRD study equation) and eCrCl (calculated from the Cockcroft-Gault equation) are based on different parameters and may not yield comparable results. If eCrCl result is absurd, please check patient's height/weight. Estimated Glomerular Filt Rate > 60 Chronic Kidney Disease: Estimated GFR < 60 mL/min/1.73m2 Severe Kidney Disease: Estimated GFR < 15 mL/min/1.73m2 Glucose Random 120 60-115 mg/dL Calcium 7.9 8.4-10.2 mg/dL Bilirubin Total 0.6 0.0-1.0 mg/dL Aspartate Amino Transferase 25 5-31 U/L Alanine Aminotransferase 8 0-31 U/L Total Protein 6.0 6.5-8.0 g/dL Albumin Level 2.6 3.5-5.0 g/dL Alkaline Phosphatase 110 39-117 U/L Lactic Acid Reviewed date:07/10/2024 09:37:35 AM Interpretation: Performing Lab:[facility], [address] [place] [phone] Notes/Report: Lactic Acid 1.4 0.5-2.0 mmol/L C Reactive Protein Reviewed date:07/10/2024 09:31:44 AM Interpretation: Performing Lab:[facility], [address] [place] [phone] Notes/Report: C Reactive Protein 8.05 < or = 0.50 mg/dL B Type Natriuretic Peptide Reviewed date:07/11/2024 12:28:55 PM Interpretation: Performing Lab:[facility], [address] [place] [phone] Notes/Report: B Type Natriuretic Peptide 36 <100 pg/mL For those patients who are being treated with Natrecor (nesiritide, recombinant BNP), BNP testing should be performed at least two hours post treatment in order to ensure that only endogenous levels of BNP are detected. SLIDE REVIEW Reviewed date:07/10/2024 09:37:26 AM Interpretation: Performing Lab:[facility], [address] [place] [phone] Notes/Report: SLIDE REVIEW VERIFIED SARS-CoV2/FLU/RSV Reviewed date:07/10/2024 09:31:36 AM Interpretation: Performing Lab:[facility], [address] [place] [phone] Notes/Report: Influenza A PCR NEGATIVE Negative Influenza B PCR NEGATIVE Negative Resp Syncy Virus RNA Qual PCR NEGATIVE Negative SARS COV2 PCR INHOUSE NEGATIVE Negative All test results must be correlated with clinical findings. Negative results do not preclude SARS-CoV2, influenza A virus, influenza B virus and/or RSV infection and should not be used as the sole basis for treatment or other patient management decisions. Negative results must be combined with clinical observations, patient history, and epidemiological information. This test has not been evaluated for monitoring treatment of infection. This test has been authorized by the FDA under an Emergency Use Authorization (EUA) for use by authorized laboratories. Testing performed on the [employer] GeneXpert utilizing real-time RT-PCR. All SARS CoV2 and positive influenza A/B results are reported to [facility]. Blood Culture (First) Reviewed date:07/15/2024 04:39:37 PM Interpretation: Performing Lab:[address] [phone] Notes/Report: Blood Culture (First) No growth after 5 days. Blood Culture (Second) Reviewed date:07/15/2024 04:39:45 PM Interpretation: Performing Lab:[address] [address] Notes/Report: Blood Culture (Second) No growth after 5 days. Lactic Acid Reviewed date:07/11/2024 12:29:03 PM Interpretation: Performing Lab:[address] [phone] Notes/Report: Lactic Acid 1.8 0.5-2.0 mmol/L Complete Blood Count Auto Di ff Reviewed date:07/11/2024 12:32:02 PM Interpretation: Performing Lab:[address] [phone] Notes/Report: White Blood Count 13.3 4.8-10.8 X10*3/uL Red Blood Count 2.87 4.20-5.50 X10*6/uL Hemoglobin 7.9 12.0-16.0 g/dl Hematocrit 25.1 37.0-47.0 % Mean Corpuscular Volume 87.5 80.0-98.0 fL Mean Corpuscular Hemoglobin 27.5 27.0-33.0 pg Mean Corpuscular HGB Conc 31.5 31.0-35.0 g/dl Red Cell Distribution Width 15.9 11.0-16.0 % Platelet Count 476 160-400 X10*3/uL Mean Platelet Volume 9.7 9.4-12.3 fL Neutrophils Percent Auto 81.1 45-73 % Imm Gran Pct Auto 1.1 0.0-0.4 % Lymphocytes Percent Auto 10.2 20-40 % Monocytes Percent Auto 6.7 2-11 % Eosinophils Percent Auto 0.7 0-4 % Basophils Percent Auto 0.2 0-2 % NRBC Pct Auto 0.0 0.0-0.2 /100WBC Neutrophils Absolute Auto 10.8 2.0-8.3 x10*3/uL Imm Gran Abs Auto 0.14 0.00-0.03 X10*3/uL Lymphocytes Absolute Auto 1.4 1.2-4.9 X10*3/uL Monocytes Absolute Auto 0.9 0.1-1.2 X10*3/uL Eosinophils Absolute Auto 0.1 0.0-0.4 X10*3/uL Basophils Absolute Auto 0.0 0.0-0.2 X10*3/uL NRBC Abs Auto 0.000 0.0-0.012 X10*3/uL RETIC Reviewed date:07/11/2024 12:31:23 PM Interpretation: Performing Lab:[facility], [address] [place] [phone] Notes/Report: Reticulocytes Absolute 0.048 0.026-0.0 95 X10*6/uL Immature Retic Fraction 17.1 3.0-15.9 % Retic HGB Equivalent 23.8 30.0-35.0 pg Reticulocyte Percent 1.7 0.5-1.8 % Comprehensive Met. Panel Reviewed date:07/11/2024 12:32:22 PM Interpretation: Performing Lab:[facility], [address] [place] [phone] Notes/Report: Sodium 142 135-145 mmol/L Potassium 4.1 3.3-5.1 mmol/L Chloride 110 96-108 mmol/L Carbon Dioxide 25 22-29 mmol/L Anion Gap 11 12-20 Blood Urea Nitrogen 13 9-16 mg/dL Creatinine 0.54 0.5-1.4 mg/dL Creatinine Clr Calc Pharmacy 70.0 Provided height and weight: 152.4 cm, 58.967 kg. eGFR (calculated from the MDRD study equation) and eCrCl (calculated from the Cockcroft-Gault equation) are based on different parameters and may not yield comparable results. If eCrCl result is absurd, please check patient's height/weight. Estimated Glomerular Filt Rate > 60 Chronic Kidney Disease: Estimated GFR < 60 mL/min/1.73m2 Severe Kidney Disease: Estimated GFR < 15 mL/min/1.73m2 Glucose Random 83 60-115 mg/dL Calcium 8.2 8.4-10.2 mg/dL Bilirubin Total 0.4 0.0-1.0 mg/dL Aspartate Amino Transferase 28 5-31 U/L Alanine Aminotransferase 12 0-31 U/L Total Protein 5.7 6.5-8.0 g/dL Albumin Level 2.7 3.5-5.0 g/dL Alkaline Phosphatase 115 39-117 U/L IRON PROFILE Reviewed date:07/11/2024 12:31:39 PM Interpretation: Performing Lab:[address] [phone] Notes/Report: Iron 7 30-160 mcg/dL Total Iron Binding Capacity 104 228-428 mcg/dL Percent Iron Saturation 7 15-50 % Unsaturated Iron Binding 97 Ferritin Reviewed date:07/11/2024 12:31:31 PM Interpretation: Performing Lab:[address] [phone] Notes/Report: Ferritin 519 10-250 ng/mL Lactate Dehydrogenase Reviewed date:07/11/2024 12:31:49 PM Interpretation: Performing Lab:[address] [phone] Notes/Report: Lactate Dehydrogenase 245 122-220 U/L XR foot LT 2V Reviewed date:07/11/2024 12:27:45 PM Interpretation: Performing Lab: Notes/Report: [address] [address] XRay Report Signed Patient: Monica May MR#: [id number] : 1945 Acct:[id number] Age/Sex: 79 / F ADM Date: 07/10/24 Loc: [facility] 460-[address]: Moira Hicks MD Ordering Physician: Moira Hicks MD Date of Service: 07/11/24 Procedure(s): XR foot LT 2V Accession Number(s): [id number] cc: Ivan España MD; Moira Hicks MD EXAMINATION: XR FOOT, LEFT CLINICAL INFORMATION: pain, bruising r/o fx COMPARISON: None available. TECHNIQUE: AP, lateral, and oblique views of the left foot. FINDINGS: Exam is significantly limited by significant osteoporosis, and suboptimal positioning for the oblique and lateral projection (presumably due to patient inability). Within the confines of profound osteopenia, no definitive fracture or dislocation is identified. There is diffuse soft tissue swelling of the entire foot and ankle. There are vascular calcifications. XR/XR foot LT 2V IMPRESSION: 1. No definite fracture or dislocation within confines of patient positioning and osteopenia. If there is high suspicion, MRI may be of benefit. 2. There is diffuse soft tissue swelling of the entire foot and ankle. Electronically signed by: Kike Sykes MD 07/11/2024 12:04 PM [facility] Dictated By: Kike Sykes MD Signed By: <Electronically signed by Kike Sykes MD in OV> 07/11/24 1204 DD/ 1135 TD/TT: 07/11/24 1145 Environmental Protection Specialist: [place] [id number] XRay Report Signed Patient: Monica May MR#: [id number] : 1945 Acct:[id number] Age/Sex: 79 / F ADM Date: 07/10/24 Loc: [facility] 460-[address]: Evelin Hicks MD Ordering Physician: Moira Hicks MD Date of Service: 07/11/24 Procedure(s): XR randolph t LT 2V Accession Number(s): [id number] cc: Ivan España MD; Moira Hicks MD EXAMINATION: XR FOOT, LEFT CLINICAL INFORMATION: pain, bruising r/o fx COMPARISON: None available. TECHNIQUE: AP, lateral, and oblique views of the left foot. FINDINGS: Exam is significantl y limited by significant osteoporosis, and suboptimal positioni ng for the oblique and lateral projection (presumably due to patient inability). Within the confines of profound osteopenia, no definitive fracture or dislocation is identified. There is diffuse sof t tissue swelling of the entire foot and ankle. There are vascular calcifications. XR/XR foot LT 2V IMPRESSION: 1. No definite fracture or dislocation within confines of patient positioning and osteopenia. If there is high suspicion, MRI may be of benefit. 2. There is diffuse soft tissue swelling of the entire foot and ankle. Electronically edwige d by: Kike Sykes MD 07/11/2024 12:04 PM [facility] Dictated By: Kike Sykes MD Signed By: <Electronically signed by Kike Sykes MD in OV> 07/11/24 1204 DD/ 1135 TD/TT: 07/11/24 1145 Environmental Protection Specialist: Complete Blood Count no Diff Reviewed date:07/12/2024 12:28:54 PM Interpretation: Performing Lab:[address] [phone] Notes/Report: White Blood Count 10.9 4.8-10.8 X10*3/uL Red Blood Count 2.73 4.20-5.50 X10*6/uL Hemoglobin 7.3 12.0-16.0 g/dl Hematocrit 23.7 37.0-47.0 % Mean Corpuscular Volume 86.8 80.0-98.0 fL Mean Corpuscular Hemoglobin 26.7 27.0-33.0 pg Mean Corpuscular HGB Conc 30.8 31.0-35.0 g/dl Red Cell Distribution Width 16.0 11.0-16.0 % Platelet Count 525 160-400 X10*3/uL Mean Platelet Volume 9.8 9.4-12.3 fL NRBC Pct Auto 0.0 0.0-0.2 /100WBC NRBC Abs Auto 0.000 0.0-0.012 X10*3/uL Basic Metabolic Panel Reviewed date:07/12/2024 12:28:26 PM Interpretation: Performing Lab:[address] [phone] Notes/Report: Sodium 137 135-145 mmol/L Potassium 4.6 3.3-5.1 mmol/L Chloride 106 96-108 mmol/L Carbon Dioxide 26 22-29 mmol/L Anion Gap 10 12-20 Blood Urea Nitrogen 17 9-16 mg/dL Creatinine 0.55 0.5-1.4 mg/dL Creatinine Clr Calc Pharmacy 68.8 Provided height and weight: 152.4 cm, 58.967 kg. eGFR (calculated from the MDRD study equation) and eCrCl (calculated from the Cockcroft-Gault equation) are based on different parameters and may not yield comparable results. If eCrCl result is absurd, please check patient's height/weight. Estimated Glomerular Filt Rate > 60 Chronic Kidney Disease: Estimated GFR < 60 mL/min/1.73m2 Severe Kidney Disease: Estimated GFR < 15 mL/min/1.73m2 Glucose Random 116 60-115 mg/dL Calcium 8.2 8.4-10.2 mg/dL Vitamin B12 and Folate Reviewed date:07/12/2024 12:28:06 PM Interpretation: Performing Lab:[facility], [address] [place] [phone] Notes/Report: Vitamin B12 673 200-900 pg/mL NORMAL 200-900 PG/ML INDETERMINATE 160-199 PG/ML DEFICIENT < 160 PG/ML Folate 6.8 > or = 4.0 ng/mL Reference Values: > or = 4.0 ng/mL < 4.0 ng/mL suggests folate deficiency Methotrexate, aminopterin and folinic acid (leucovorin) are chemotherapeutic agents whose molecular structures are similar to folate; therefore, the [employer] folate assay cannot be used for patients using these drugs. Type and Screen Reviewed date:07/12/2024 12:28:15 PM Interpretation: Performing Lab:[facility], [address] [place] [phone] Notes/Report: Blood Type OP Antibody Screen NEGATIVE Complete Blood Count no Diff Reviewed date:07/13/2024 01:23:20 PM Interpretation: Performing Lab:[facility], [address] [place] [phone] Notes/Report: White Blood Count 10.5 4.8-10.8 X10*3/uL Red Blood Count 2.77 4.20-5.50 X10*6/uL Hemoglobin 7.5 12.0-16.0 g/dl Hematocrit 23.6 37.0-47.0 % Mean Corpuscular Volume 85.2 80.0-98.0 fL Mean Corpuscular Hemoglobin 27.1 27.0-33.0 pg Mean Corpuscular HGB Conc 31.8 31.0-35.0 g/dl Red Cell Distribution Width 15.9 11.0-16.0 % Platelet Count 555 160-400 X10*3/uL Mean Platelet Volume 9.8 9.4-12.3 fL NRBC Pct Auto 0.0 0.0-0.2 /100WBC NRBC Abs Auto 0.000 0.0-0.012 X10*3/uL Complete Blood Count no Diff Reviewed date:07/21/2024 12:42:19 PM Interpretation: Performing Lab:[facility], [address] [place] [phone] Notes/Report: White Blood Count 13.0 4.8-10.8 X10*3/uL Red Blood Count 2.72 4.20-5.50 X10*6/uL Hemoglobin 7.4 12.0-16.0 g/dl Hematocrit 23.5 37.0-47.0 % Mean Corpuscular Volume 86.4 80.0-98.0 fL Mean Corpuscular Hemoglobin 27.2 27.0-33.0 pg Mean Corpuscular HGB Conc 31.5 31.0-35.0 g/dl Red Cell Distribution Width 17.2 11.0-16.0 % Platelet Count 652 160-400 X10*3/uL Mean Platelet Volume 8.4 9.4-12.3 fL NRBC Pct Auto 0.2 0.0-0.2 /100WBC NRBC Abs Auto 0.020 0.0-0.012 X10*3/uL Liver Panel Reviewed date:07/20/2024 08:42:16 PM Interpretation: Performing Lab:[address] [address] Notes/Report: Bilirubin Total 0.3 0.0-1.0 mg/dL Bilirubin Direct 0.2 0.0-0.5 mg/dL Aspartate Amino Transferase 35 5-31 U/L Alanine Aminotransferase 18 0-31 U/L Total Protein 5.9 6.5-8.0 g/dL Albumin Level 2.5 3.5-5.0 g/dL Alkaline Phosphatase 146 39-117 U/L Basic Metabolic Panel Reviewed date:07/20/2024 08:42:07 PM Interpretation: Performing Lab:[facility], [address] [place] [phone] Notes/Report: Sodium 139 135-145 mmol/L Potassium 4.9 3.3-5.1 mmol/L Chloride 107 96-108 mmol/L Carbon Dioxide 27 22-29 mmol/L Anion Gap 10 12-20 Blood Urea Nitrogen 22 9-16 mg/dL Creatinine 0.58 0.5-1.4 mg/dL Creatinine Clr Calc Pharmacy 65.2 Provided height and weight: 152.4 cm, 58.967 kg. eGFR (calculated from the MDRD study equation) and eCrCl (calculated from the Cockcroft-Gault equation) are based on different parameters and may not yield comparable results. If eCrCl result is absurd, please check patient's height/weight. Estimated Glomerular Filt Rate > 60 Chronic Kidney Disease: Estimated GFR < 60 mL/min/1.73m2 Severe Kidney Disease: Estimated GFR < 15 mL/min/1.73m2 Glucose Random 97 60-115 mg/dL Calcium 8.1 8.4-10.2 mg/dL Magnesium Reviewed date:07/20/2024 08:41:28 PM Interpretation: Performing Lab:[facility], [address] [place] [phone] Notes/Report: Magnesium 2.1 1.6-2.6 mg/dL Reason For Referral No Information Medications Medication SIG (Take, Route, Frequency, Duration) Notes Start Date End Date Status traMADol HCl 50 MG 1 tablet as needed Orally three times a day for 30 days 07/05/2024 Active Ferrous Sulfate 324 MG 1 tablet Orally d aily for 30 days 07/28/2024 Active Vitamin D 1000 UNIT 1 tablet Orally Once a day Active Lisinopril 20 MG Take 1 tablet by once daily for 90 Active [employer] - as directed Externally daily for 30 days 09/01/2024 Active Omeprazole 20MG Take 1 capsule by [facility] once daily Orally Once a day for 90 days Active Celecoxib 200 MG Take 1 capsule by mo ut once daily Orally Once a day for 30 days Not-Taking Aleve 220 MG 1 tablet as needed Orally every 12 hrs Not-Taking Tylenol 325 MG 2 tablet as needed Orally every 6 hrs Not-Taking predniSONE 10 MG 1 tablet Orally Once a day for 30 day(s) 09/10/2021 Not-Taking Furosemide 20 MG 1 tablet Orally Once a day for 30 day(s) Not-Taking Immunizations Vaccine Route Administration Date Status Comme nts Flu Vaccine Unknown 04/16/2012 Administered PPSV23 (Pnemovax) IM Intramuscular 10/08/2012 Administered Flu Vaccine IM Intramuscular 02/07/2013 Administered TDaP IM Intramuscular 03/08/2013 Administered Flu Vaccine IM Intramuscular 03/20/2014 Administered Fluarix Quadrivalent IM Intramuscular 03/02/2015 Administe red Prevnar 13 IM Intramuscular 03/02/2015 Administered Fluarix Quadrivalent IM Intramuscular [facility]/30[facility] PPSV23 (Pnemovax) IM Intramuscular 11/16/2017 Administered Fluarix Quadrivalent IM Intramuscular 02/04/2018 [facility] Fluarix Quadrivalent IM Intramuscular 08/01/[facility] SARS-COV-2 Moderna Unknown 11/27/2020 Administered SARS-COV-2 Moderna Unknown 01/23/2021 Administered Social History Tobacco Use: Social History Observation Description Date Details (start date - stop date) Never Smoker NA - NA Tobacco Use/Smoking Question Answer Notes Patient is a nonsmoker Additional Findings: Tobacco Non-User Cu rrent non-smoker, currently using no form of tobacco Alcohol Screen Question Answer Notes Did you have a drink containing alcohol in the p ast year? No Points 0 Interpretation Negative Problems Problem Type SNOMED Code ICD Code Onset Dates Problem Status W/U Status Risk Notes Problem 627210195 Reflux esophagitis (K21.00) Active confirmed Problem 56108098 Vitamin D deficiency (E55.9) Active confirmed Problem 61983754 Polymyalgia rheumatica (M35.3) Active confirmed Problem 7242075 Arthritis (M19.90) Active confirmed Problem 924796205 Lumbar disc disease (M51.9) Active confirmed Problem 60641298 Essential hypertension (I10) Active confirmed Problem 7129593 Prediabetes (R73.09) Active confirmed Problem 09244704 Osteoporosis (M81.0) Active confirmed Problem 384440489 Non morbid obesity due to excess calories (E66.09) Active confirmed Problem 089694514 Cervical disc disease (M50.90) Active confirmed Problem 4116195117768 Cervical neuropathy (G54.2) Active confirmed Problem Anemia of chronic disease (010936925) Anemia of chronic disease (D63.8) Active confirmed Problem Decubitus ulcer of sacral region, unstageable (L89.150) Active confirmed Problem 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) (9211464034058073 2) Bed sore on buttock, right, unstageable (L89.310) Active confirmed Problem 404639982 Generalized osteoarthritis (M15.9) Active confirmed Vital Signs Height 65 in 09/30/2024 weight and BP n ot taken Weight 130 lbs 09/01/2024 weight is 130 a t home BP not taken BMI 21.63 kg/m2 09/01/2024 weight is 130 a t home BP not taken Encounters Encounter Location Date Provider Diagnosis Ivan España MD [address] [place] [id number] 07/05/2024 Ivan España Muscle weakness M62.81 Ivan España MD [address] [place] [id number] 07/28/2024 Ivan España Anemia D64.9 Ivan España MD [address] [place] [id number] 09/01/2024 Ivan España Decubitus ulcer of sacral region, unstageable L89.150 Ivan España MD [address] [place] [id number] 09/30/2024 Ivan España Bed sore on buttock, right, unstageable L89.310 Ivan España MD [address] [place] [id number] 11/03/2023 Ivan España MD [address] [place] [id number] 2024 Ivan España Arthritis M19.90 Ivan España MD [address] [place] [address] [id number] 07/01/2024 Ivan España MD [address] [place] [id number] 07/05/2024 Ivan España Arthritis M19.90 Ivan España MD [address] [place] [address] [id number] 07/07/2024 Ivan España MD [address] [place] [address] [id number] 07/26/2024 Ivan España MD [address] [place] [address] [id number] 09/01/2024 Ivan España MD [address] [place] [address] [id number] 09/09/2024 Ivan España MD [address] [place] [address] [id number] 09/16/2024 Ivan España MD [address] [place] [address] [id number] 09/29/2024 Ivan España MD [address] [place] [address] [id number] 09/30/2024 Ivan España MD [address] [place] [id number] 10/03/2024 Ivan España Assessments Encounter Date Diagnosis (ICD Code) Assessment Notes Treatment Notes Treatment Clinical Notes Section Notes 07/05/2024 Muscle weakness (ICD-10 - M62.81) i have spoken to her and she needs to go to a [facility]. not able to get out of bed. is no longer safe to be there. advised to call ambulance and go to hospital/ going to go 07/28/2024 Anemia (ICD-10 - D64.9) patient verbalized understanding of medication and directions for use 09/01/2024 Decubitus ulcer of sacral region, unstageable (ICD-10 - L89.150) is going to call us with the name of the cream that she is using. has diapers that she uses . have once again advised her to go to nursing 09/30/2024 Bed sore on buttock, right, unstageable (ICD-10 - L89.310) Have a care out to [facility] for wound care services send referral to [facility]. says she can't afford to go to [facility]. retold her that it is not safe for her to be there at home 2024 Arthritis (ICD-10 - M19.90) 07/05/2024 Arthritis (ICD-10 - M19.90) 07/28/2024 Other once again told her she needs to be in a [facility] Plan Of Treatment Pending Test Test Name Order Date Electrocardiogram (EKG) 06/04/2017 Electrocardiogram (EKG) 04/27/2015 Electrocardiogram (EKG) 02/04/2018 Electrocardiogram (EKG) 05/22/2016 CT LUMBAR SPINE NO CONTRAST 11/06/2014 MRI LUMBAR SPINE NO CONTRAST 11/16/2017 XR GI SERIES 03/30/2014 BONE DENSITY DEXA 10/08/2012 US LEG BILATERAL VENOUS DOPPLER 08/20/19 17 Next Appt Details Provider Name:Ivan Angelo ier, 11/28/2024 01:30:00 PM, [address] [place] [address], [address], [place], [place], [id number], Insurance Providers Payer Name Payer Address Payer Phone Subscriber Number Group Number Insured Name Patient Relationship to Insured Coverage Start Date Coverage End Date [facility] [employer] [address] [address] [place] [address] [id number] Monica Farris Self - patient is the insured Medical (General) History Medical History History ICD Code Refuses colonoscopy 02-14-13 and 09-06-13. refuses colonoscopy 2014; had FOBT done 03/2016; refused colonoscopy/cologuard 02/06/20 Esophageal spasm Anemia of chronic disease D63.8
--- OUTSIDE RECORDS SUMMARY | 2024-10-06 11:12 | XMS_ITS ---
Author Organization Ivan España MD Address [address] [place] [phone] Care Team Providers Care Supervisor [employer] Name Role Phone Ivan España Primary Care Provider [phone] REASON FOR VISIT [facility] Encounters Encounter Location Date Provider Diagnosis Ivan España MD [address] [facility] [address] [place] [id number] 09/30/2024 Ivan España Plan Of Treatment Next Appt Details Provider Name:Ivan Angelo ier, 11/28/2024 01:30:00 PM, [address], [address], [place], [place], [phone], Progress Notes * Monica GARDNER ADOB:[birth year] (79 yo F)Acc No.[id number]:09/30/2024 Patient:?Monica GARDNER :1945???Age:79 Y???Sex:Female Address:[address] [place] [address], [address], [place] [address] * true * Date:? Generated for Printi ng/Facoltg/eTransmitting on:?10/06/2024 11:12 AM EDT
--- OUTSIDE RECORDS SUMMARY | 2024-10-06 11:12 | XMS_ITS ---
Author Organization Ivan España MD Address [address] [place] [phone] Care Team Providers Care Tablet Coater Name Role Phone Ivan España Primary Care Provider [phone] REASON FOR VISIT Protective Services Encounters Encounter Location Date Provider Diagnosis Ivan España MD [address] [place] [address] [phone] 10/03/2024 Ivan España Plan Of Treatment Next Appt Details Provider Name:Ivan Angelo ier, 11/28/2024 01:30:00 PM, [address], [address], [place], [place], [phone], Progress Notes * Monica GARDNER ADOB:[birth year] (79 yo F)Acc No.[id number]:10/03/2024 Patient:?Monica GARDNER :1945???Age:79 Y???Sex:Female Address:[address] [place] [address], [address], [place] [address] * true * Date:? Generated for Printi ng/Facoltg/eTransmitting on:?10/06/2024 11:12 AM EDT
[2024-10-06 11:26] LABS: Appearance Urine Turbid; Color Urine Red; Glucose Urine UA Negative (Negative); Leukocyte Esterase Urine Large (3+) (Negative); Nitrite Urine Positive (Negative); PH 7.5 (5.0-9.0); UMIC TRIGGER UACC YES; Urine Blood Large (3+) (Negative); Urine Ketones Negative (Negative); Urine Protein 300 (3+) mg/dL (Neg-Trace)
--- NOTE | 2024-10-06 11:30 | ECG_ITS ---
Test Reason : check qtc Blood Pressure : */* mmHG Vent. Rate : 96 BPM Atrial Rate : 96 BPM P-R Int : 104 ms QRS Dur : 70 ms QT Int : 348 ms P-R-T Axes : 65 -15 45 degrees QTcB Int : 439 ms Sinus rhythm with short TX Otherwise normal ECG When compared with ECG of 10-Jul-2024 09:23, T wave inversion no longer evident in Lateral leads Referred By: Lucina Rhodes Electronically Signed By: Mina Boggs
[2024-10-06] MEDS: iohexoL 350 MG/ML 100 ML INFUS..BTL IV (11:33)
[2024-10-06 11:43] LABS: Bacteria Urine 2+ (None Seen); Hyaline Casts Urine 0-2 /LPF (0-2); RBC Urine >20 /HPF (0-2); UACC Culture Trigger YES; WBC Clumps Urine Present; WBC Urine >50 /HPF (0-5)
[2024-10-06] MEDS: Linezolid/D5W 600 MG/300 ML PIGGYBACK 300 MG IV (11:56)
[2024-10-06 12:20] LABS: Alkaline Phosphatase 79 U/L (39-117)
--- NOTE | 2024-10-06 12:23 | PHA.MEDREC ---
Addendum entered by Jesus Alberto Melara RPh 10/06/24 12:40: Med rec was reviewed by [facility]. Original Note: Pharmacy Consult ? Medication Reconciliation Pharmacy has completed the medication reconciliation. Spoke with patient and she was able to confirm her medications. Patient confirmed she still uses the Alendronate 70mg tab once a week on Fridays and states she forgot to take it last Saturday 09/30 but thinks she took it the Thursday before that 09/23.
--- NOTE | 2024-10-06 12:55 | PM.IMHP ---
History of Present Illness Date of Service: 10/06/24 Chief Complaint: Bleeding and pain of sacrum 79 year old female with a PMH of Mild cognitive impairment, UTI with VRE, FTT, HTN, GERD, anemia, arthritis and sacral wound which has progressively gotten worse since Jun 2024 imagining. Patient reports being bed bound for about 1 month, she reports having sacral pain for the past couple of weeks, and that sacral bleeding increased today. In the ER labs, CTA, EKG, BC, urinalysis obtained. Patient was started on Zosyn, Linezolid, morphine and given an LR bolus for the sepsis protocol. Labs significant for ESR 101, CRP 6.50,LA 1.7, CTA: osteomyelitis not excluded, cystitis, and bilateral nephrolithiasis BC pending Urine: large 3+ blood, Positive nitrates, Large 3+ leukocytes esterase, >20 RBC EKG: Sinus rhythm with short MI Patient will be admitted to the hospital for further evaluation of sacral ulcer with potential osteomylitis and UTI. Review of Systems Review of Systems: General: Appetite is normal. Denies weight gain or loss. Denies fever or chills. No trouble sleeping ?Skin: denies rashes or lesions ?Eyes: denies vision changes ?Ears: denies pain or discharge ?Mouth: denies pain or dental concerns ?Pharynx/Layrnx: denies sore throat, diff swallowing, voice change, coughing with eating ?Lungs: denies cough or SOB ?Heart: denies chest pain or palpitations ?Abdomen: denies nausea, vomiting, diarrhea, constipation, abdominal pain, rectal bleeding ?: reports pain with urination, incontinence. ?Musculoskeletal: reports pain in both legs and feet due to arthritis ?Neuro: denies headache, weakness or dizziness [facility] Medical History MCI (mild cognitive impairment) Insufficiency fracture Osteoarthritis of right knee Sacral wound Adult failure to thrive Arthritis Functional capacity: bed bound Pertinent family history: Mother past from Alzheimer Father past from old age Social History Household Members: Spouse Housing: Apartment Do you presently have visiting nurse or other home services: Yes (pt has [employer] ATTEND[employer]) Alcohol intake: never Patient Tobacco Use Status: Never used Tobacco Smoked in Last 30 Days: No Second Hand Smoke Exposure: No Use of substances other than those prescribed or required for medical reasons: No Currently Displaying Signs/Symptoms of Drug Intoxication Withdrawal: No Have you been hit, kicked, punched, or otherwise hurt by someone within the past year? If so, by whom?: No Do you feel safe in your current relationship?: Yes Is there a partner from a previous relationship who is making you feel unsafe now?: No Are you made to feel afraid or neglected: No Advance Directives: Yes Advance Directives on File: Yes Advance Directives Date on File: 06/30/24 Do you have a plan to hurt others: No Plan Recently lost weight without trying: No Nutrition Risks: Dental problems and Difficulty chewing Patient : No : No Poor oral hygiene: No service: No Meds Allergies Allergy/AdvReac Type Severity Reaction Status Date / Time No Known Allergies Allergy Verified 10/06/24 10:10 [No Known Allergies*] Home Medications ?Medication ?Instructions ?Recorded ?Confirmed ?Last Taken ?Type alendronate 70 mg tablet 70 mg PO FR 06/27/24 10/06/24 09/23/24 History cholecalciferol (vitamin D3) 50 50 mcg PO DAILY 06/27/24 10/06/24 10/06/24 History mcg (2,000 unit) capsule (Vitamin D3) lisinopril 20 mg tablet 20 mg PO DAILY 06/27/24 10/06/24 10/06/24 History omeprazole 20 mg capsule,delayed 20 mg PO DAILY@0630 06/27/24 10/06/24 10/06/24 History release tramadol 50 mg tablet 50 mg PO TID 06/27/24 10/06/24 10/06/24 History Physical Exam Vital Signs and Narrative: Vital Signs: Last Vital Signs Temp 99 F 10/06/24 10:12 Pulse 89 10/06/24 12:05 Resp 19 10/06/24 12:05 BP 116/67 10/06/24 12:05 Pulse Ox 100 10/06/24 12:05 O2 Del Method Room Air 10/06/24 12:05 BMI result Body Mass Index 20.0 Gen: comfortable NAD ?HEENT: PERRL, EOMI ?Neuro: CN II-XII normal, sensation intact I: Not performed ?II: Pupils equal and reactive, ?III, IV, : EOM intact, no gaze preference or deviation, no nystagmus. ?V: normal sensation in V1, V2, and V3 segments bilaterally ?VII: no asymmetry, no nasolabial fold flattening ?VIII: normal hearing to speech ?IX, X: normal palatal elevation, no uvular deviation ?XI: 5/5 head turn and 5/5 shoulder shrug bilaterally ?XII: midline tongue protrusion ?CV: RRR, no M/R/G ?Pulm: CTAB ?GI: +nl BS, soft, NDNT ?ext: bilateral legs with non pitting edema +1 Skin: sacral unstageable ulcer Results Labs 10/06/24 10:22 10/06/24 10:22 Labs: Laboratory Results - last 24 hr 10/06/24 10/06/24 10:22 11:19 MCV 78.4 L MCH 23.5 L MCHC 29.9 L RDW 18.1 H Plt Count 613 H MPV 8.4 L Immature Gran % (Auto) 0.6 H Neut % (Auto) 74.2 H Lymph % (Auto) 12.3 L [place] % (Auto) 10.8 Eos % (Auto) 1.2 Baso % (Auto) 0.9 Lymph # (Auto) 1.2 [place] # (Auto) 1.1 Eos # (Auto) 0.1 Baso # (Auto) 0.1 Abs Immat Gran (auto) 0.06 H Absolute Neuts (auto) 7.3 Absolute Nucleated RBC 0.000 Nucleated RBC % (auto) 0.0 ESR 104 H Anion Gap 14 Estim Creat Clear Calc 72.5 Estimated GFR > 60 Random Glucose 128 H Lactic Acid 1.7 Calcium 9.4 D Magnesium 1.6 Total Bilirubin 0.2 Direct Bilirubin < 0.2 AST 17 ALT < 6 Alkaline Phosphatase 79 Total Creatine Kinase 21 L C-Reactive Protein 6.50 H Total Protein 7.3 Albumin 3.1 L Urine Color Red A Urine Appearance Turbid Urine pH 7.5 Ur Specific [place] 1.010 Urine Protein 300 (3+) H Urine Glucose (UA) Negative Urine Ketones Negative Urine Blood Large (3+) H Urine Nitrite Positive H Ur Leukocyte Esterase Large (3+) H Urine RBC >20 H Urine WBC >50 H Urine WBC Clumps Present Ur Squamous Epith Cells 6-10 Urine Bacteria 2+ Hyaline Casts 0-2 Imaging Radiologist's Impressions: Impressions Abdomen/Pelvis CT 10/06/24 11:23 IMPRESSION: 1. Sacral decubitus ulcer which extends to the bone. While there is no gross osseous destruction, osteomyelitis is not excluded. There is an additional decubitus ulcer at the posterior aspect of the left thigh. 2. Findings suggestive of cystitis as described. A tiny bubble of gas in the urinary bladder may be due to prior instrumentation. Clinical correlation is recommended. 3. Bilateral nephrolithiasis as described. Enhancement of the tolentino of the right renal pelvis may indicate pyelitis. 4. Very large amount of stool throughout the colon. Electronically signed by: John Boston MD 10/06/2024 11:59 AM EDT RP Assessment and Plan (1) Acute UTI: Status: Acute (2) Acute pyelitis: Status: Acute (3) Sacral decubitus ulcer: Qualifiers: Pressure injury stage: pressure injury of deep tissue Qualified Code(s): L89.156 - Pressure-induced deep tissue damage of sacral region Status: Acute Plan 79 year old female with a PMH of Mild cognitive impairment, UTI with VRE, FTT, HTN, GERD, anemia, arthritis and sacral wound. Sacral decubitus ulcer appears to be deteriorating potenitally to the bone which is now complicated with a UTI. Sepsis due to decubitis sacral ulcer with potential osteomyelitis -continue Zosyn and Doxy -wound consult -wet to dry dressing -blood cultures pending -MRI to assess for confirmation of osteomyelitis -morphine PRN for pain -blood cultures pending Cystitis, bilaterial nephrolithiasis, UTI -Continue IV ABX -urine culture pending Chronic microcytic anemia -Continue to monitor CBC -continue ferrous sulfate Osteoporosis -continue alendronate - Continue Vitamin D3 GERD -continue omeprazole HTN -Hold Lisinopril Code: Full DVT: patient unable to tolerate pneumatic compression device. Heparin Quality Stroke Does the patient have a stroke diagnosis?: No VTE Prior VTE?: No VTE Risk Level:: Medical - moderate - high VTE Device Contraindication: Treatment Not Tolerated VTE Drug Contraindication: Treatment Not Indicated
[2024-10-06] MEDS: traMADoL HCL 50 MG TABLET PO ×2 (15:38→21:07)
[2024-10-06] MEDS: Heparin Sodium,Porcine 5,000 UNIT/ML VIAL 5000 UNIT SUBCUT (15:39)
[2024-10-06] MEDS: 0.9 % Sodium Chloride Flush 3 ML SYRINGE IVFLUSH ×2 (15:41→21:07)
[2024-10-06] MEDS: Doxycycline Hyclate 100 MG in 0.9 % Sodium Chloride 250 ML 166.67 MG IV (15:41)
[2024-10-07] VITALS (11 sets, daily range): BP systolic 82–124; BP diastolic 54–61; PULSE 88–111; RESP 14–18; TEMP 36.3–37.2; O2SAT 95–99; BMI 24.6
[2024-10-07] MEDS: Doxycycline Hyclate 100 MG in 0.9 % Sodium Chloride 250 ML 166.67 MG IV ×2 (02:20→14:00)
[2024-10-07] MEDS: Heparin Sodium,Porcine 5,000 UNIT/ML VIAL 5000 UNIT SUBCUT ×2 (02:20→13:41)
[2024-10-07] MEDS: Morphine Sulfate 4 MG/ML CARTRIDGE 2 MG IVPUSH (03:41)
[2024-10-07] MEDS: Omeprazole 20 MG CAPSULE.DR PO (05:38)
[2024-10-07 06:05] LABS: Hematocrit 23.4 % (37.0-47.0); Mean Corpuscular HGB Conc 29.9 g/dl (31.0-35.0); Mean Corpuscular Hemoglobin 23.5 pg (27.0-33.0); Mean Corpuscular Volume 78.5 fL (80.0-98.0); Platelet Count 527 X10*3/uL (160-400); Red Blood Count 2.98 X10*6/uL (4.20-5.50); Red Cell Distribution Width 18.1 % (11.0-16.0); White Blood Count 11.3 X10*3/uL (4.8-10.8)
[2024-10-07 06:06] LABS: Anion Gap 11 (12-20); Blood Urea Nitrogen 17 mg/dL (9-16); Calcium 8.6 mg/dL (8.4-10.2); Carbon Dioxide 25 mmol/L (22-29); Chloride 106 mmol/L (96-108); Creatinine Clr Calc Pharmacy 70.6; Estimated Glomerular Filt Rate > 60; Glucose Random 114 mg/dL (60-115); Potassium 4.3 mmol/L (3.3-5.1); Sodium 138 mmol/L (135-145)
[2024-10-07] MEDS: Ferrous Sulfate 324 MG TABLET.DR PO (09:05)
[2024-10-07] MEDS: traMADoL HCL 50 MG TABLET PO ×3 (09:05→21:39)
[2024-10-07] MEDS: Cholecalciferol (Vitamin D3) 25 MCG TABLET 50 MCG PO (09:07)
[2024-10-07] MEDS: 0.9 % Sodium Chloride Flush 3 ML SYRINGE IVFLUSH ×3 (09:09→22:45)
--- NOTE | 2024-10-07 09:44 | P.PNIM_ITS ---
Subjective Subjective Date of Service: 10/07/24 Interval History: f/u on infected sacral ulcer, and anemia h/h is down, no other complaint Physical Exam 2 Vital Signs: Vital Signs: Last Vital Signs Temp 98.6 F 10/07/24 07:43 Pulse 88 10/07/24 07:43 Resp 14 10/07/24 07:43 BP 93/54 L 10/07/24 07:43 Pulse Ox 99 10/07/24 07:43 O2 Del Method Room Air 10/07/24 07:43 BMI result Body Mass Index 24.6 Appearance: Alert. Oriented X3. unkempt and disheveled mild acute distress. CVS: Normal heart rate and rhythm. Pulses normal. Respiratory: No respiratory distress. Breath sounds normal. Abdomen: Soft and nontender. Skin: Skin warm and dry. pale skin color. Back: deep large tunneled sacral wound there is scant bleeding from edge margins she came in without bandage/packing and just a dirty old adult brief, there is an odor to the wound it was covered in feces Extremities: No lower extremity edema. Neuro: Oriented X 3. No motor deficit. No sensory deficit. CN2-12 intact Objective Data Active Medications Acetaminophen (Acetaminophen 325 Mg Tablet) 650 mg PO Q6H PRN PRN Reason: Pain, Mild 1-3,fever,headache Calcium Carbonate (Calcium Carbonate 750 Mg Tab.Chew) 750 mg PO Q4H PRN PRN Reason: Heartburn Ferrous Sulfate (Ferrous Sulfate 324 Mg Tablet.) 324 mg PO DAILY [facility] Last Admin: 10/07/24 09:05 Dose: 324 mg Documented By: MIGUEL Heparin Sodium (Porcine) (Heparin Sodium,Porcine 5,000 Unit/Ml Vial) 5,000 unit SUBCUT Q12H [facility] Last Admin: 10/07/24 02:20 Dose: 5,000 unit Documented By: JUAN ANTONIO Doxycycline Hyclate 100 mg/ (Sodium Chloride) 250 mls @ 166.67 mls/hr IV Q12H [facility] Last Infusion: 10/07/24 04:24 Dose: Infused Documented By: JUAN ANTONIO Piperacillin Sod/Tazobactam (Sod 3.375 gm/ Sodium Chloride) 50 mls @ 100 mls/hr IV Q6H [facility] Magnesium Hydroxide (Milk Of Magnesia 30 Ml Oral.Susp) 30 ml PO DAILY PRN PRN Reason: Constipation Melatonin (Melatonin 3 Mg Tablet) 6 mg PO BEDTIME PRN PRN Reason: Insomnia Morphine Sulfate (Morphine Sulfate 4 Mg/Ml Cartridge) 2 mg IVPUSH Q4H PRN; Protocol PRN Reason: Pain, Severe (Pain Scale 7-10) Last Admin: 10/07/24 03:41 Dose: 2 mg Documented By: JUAN ANTONIO Omeprazole (Omeprazole 20 Mg Capsule.Dr) 20 mg PO DAILY@0630 [facility] Last Admin: 10/07/24 05:38 Dose: 20 mg Documented By: JUAN ANTONIO Sodium Chloride (0.9 % Sodium Chloride Flush 3 Ml Syringe) 3 ml IVFLUSH QSHIFT [facility] Last Admin: 10/07/24 09:09 Dose: 3 ml Documented By: MIGUEL Tramadol HCl (Tramadol Hcl 50 Mg Tablet) 50 mg PO TID [facility] Last Admin: 10/07/24 09:05 Dose: 50 mg Documented By: MIGUEL Vitamin D (Cholecalciferol (Vitamin D3) 25 Mcg Tablet) 50 mcg PO DAILY [facility] Last Admin: 10/07/24 09:07 Dose: 50 mcg Documented By: MIGUEL Labs 10/07/24 05:14 10/07/24 05:14 Labs: Laboratory Results - last 24 hr 10/06/24 10/06/24 10/07/24 10:22 11:19 05:14 MCV 78.4 L 78.5 L MCH 23.5 L 23.5 L MCHC 29.9 L 29.9 L RDW 18.1 H 18.1 H Plt Count 613 H 527 H MPV 8.4 L 9.0 L Immature Gran % (Auto) 0.6 H Neut % (Auto) 74.2 H Lymph % (Auto) 12.3 L [place] % (Auto) 10.8 Eos % (Auto) 1.2 Baso % (Auto) 0.9 Lymph # (Auto) 1.2 [place] # (Auto) 1.1 Eos # (Auto) 0.1 Baso # (Auto) 0.1 Abs Immat Gran (auto) 0.06 H Absolute Neuts (auto) 7.3 Absolute Nucleated RBC 0.000 0.000 Nucleated RBC % (auto) 0.0 0.0 ESR 104 H Anion Gap 14 11 L Estim Creat Clear Calc 72.5 70.6 Estimated GFR > 60 > 60 Random Glucose 128 H 114 Lactic Acid 1.7 Calcium 9.4 D 8.6 D Magnesium 1.6 Total Bilirubin 0.2 Direct Bilirubin < 0.2 AST 17 ALT < 6 Alkaline Phosphatase 79 Total Creatine Kinase 21 L C-Reactive Protein 6.50 H Total Protein 7.3 Albumin 3.1 L Urine Color Red A Urine Appearance Turbid Urine pH 7.5 Ur Specific [place] 1.010 Urine Protein 300 (3+) H Urine Glucose (UA) Negative Urine Ketones Negative Urine Blood Large (3+) H Urine Nitrite Positive H Ur Leukocyte Esterase Large (3+) H Urine RBC >20 H Urine WBC >50 H Urine WBC Clumps Present Ur Squamous Epith Cells 6-10 Urine Bacteria 2+ Hyaline Casts 0-2 Blood Type Antibody Screen Crossmatch 10/07/24 07:55 MCV MCH MCHC RDW Plt Count MPV Immature Gran % (Auto) Neut % (Auto) Lymph % (Auto) [place] % (Auto) Eos % (Auto) Baso % (Auto) Lymph # (Auto) [place] # (Auto) Eos # (Auto) Baso # (Auto) Abs Immat Gran (auto) Absolute Neuts (auto) Absolute Nucleated RBC Nucleated RBC % (auto) ESR Anion Gap Estim Creat Clear Calc Estimated GFR Random Glucose Lactic Acid Calcium Magnesium Total Bilirubin Direct Bilirubin AST ALT Alkaline Phosphatase Total Creatine Kinase C-Reactive Protein Total Protein Albumin Urine Color Urine Appearance Urine pH Ur Specific [place] Urine Protein Urine Glucose (UA) Urine Ketones Urine Blood Urine Nitrite Ur Leukocyte Esterase Urine RBC Urine WBC Urine WBC Clumps Ur Squamous Epith Cells Urine Bacteria Hyaline Casts Blood Type O Positive Antibody Screen NEGATIVE Crossmatch See Detail Assessment and Plan (1) Acute UTI: Status: Acute (2) Sacral decubitus ulcer: Status: Acute Plan 79 year old female with a PMH of Mild cognitive impairment, UTI with VRE, FTT, HTN, GERD, anemia, arthritis and sacral wound. Sacral decubitus ulcer appears to be deteriorating potenitally to the bone which is now complicated with a uti Sepsis due to decubitis sacral ulcer with potential osteomyelitis continue Zosyn and Doxy, started 10/06 wound consult wet to dry dressing blood cultures pending MRI to assess for confirmation of osteomyelitis morphine PRN for pain blood cultures pending Cystitis, bilaterial nephrolithiasis, UTI Continue IV ABX as above urine culture pending Chronic microcytic anemia with acute blood loss Continue to monitor CBC continue ferrous sulfate transfuse 1 unit Osteoporosis continue alendronate Continue Vitamin D3 GERD HTN Hold Lisinopril d/t low bp Code: Full DVT: patient unable to tolerate pneumatic compression device. Heparin Quality Stroke Does the patient have a stroke diagnosis?: No VTE Prior VTE?: No VTE Risk Level:: Medical - moderate - high VTE Device Contraindication: Treatment Not Tolerated VTE Drug Contraindication: N/A - Med Ordered
--- NOTE | 2024-10-07 11:56 | MHC.CM.PN ---
Addendum entered by Humaira Chamberlain 10/07/24 14:38: CASE WORKED ZHANG AND DIANNA FROM [facility] CALLED TO CHECK ON DC DISPO. THEY ARE REQUESTING CM NOTIFY THEIR OFFICE IF PT DC HOME. Original Note: IMM DELIVERED. 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 PCP DR. JACK DP: PT IS ADAMANTLY REFUSING TO GO TO A SNF, WANTS HOME WITH RESUMPTION OF SERVICES. RETURN REFERRAL SENT TO [facility] TO DETERMINE WHAT SERVICES IN PLACE AND FREQUENCY. CM AWAITS RESPONSE. PT WILL NEED BLS TRANSPORT. CM WILL CONTINUE TO FOLLOW FOR ANY CHANGE TO DC PLAN/NEEDS.
--- NOTE | 2024-10-07 13:30 | MHC.CLN ---
NUTRITION DIET=REGULAR. INFECTED, UNSTAGEABLE PRESSURE INJURY TO SACRUM. ADDING ENSURE MAX BID TO PROVIDE 300 KCALS, 60 G PROTEIN. SUPPLEMENT TO PROMOTE WOUND HEALING. FOLLOW FOR PO INTAKE AND SKIN INTEGRITY. SEE CLINICAL NUTRITION ASSESSMENT 10/07/24.
[2024-10-07] MEDS: Acetaminophen 325 MG TABLET 650 MG PO (13:38)
[2024-10-07] MEDS: Piperacillin Sodium/Tazobactam 3.375 GM in 0.9 % Sodium Chloride 50 ML IV ×2 (16:14→22:41)
--- NOTE | 2024-10-07 16:50 | P.CNID_ITS ---
History of Present Illness Data of Consult Service Date: 10/07/24 Requesting physician: Keith Sanchez Primary Care Provider: Ivan España MD HPI Reason for consult: sacral decubiti She presents with sacral decubitus more painful day of admission. She has no fever or chills. Review of Systems 2 Review of Systems: Yes all other systems are reviewed and are negative PMFSH Past Medical History Medical History MCI (mild cognitive impairment) Insufficiency fracture Osteoarthritis of right knee Sacral wound Adult failure to thrive Arthritis Family History Family history: reviewed and not pertinent Social History Social History Household Members: Spouse Housing: Apartment Do you presently have visiting nurse or other home services: Yes (pt has [employer]) Alcohol intake: never Patient Tobacco Use Status: Never used Tobacco Smoked in Last 30 Days: No Second Hand Smoke Exposure: No Use of substances other than those prescribed or required for medical reasons: No Currently Displaying Signs/Symptoms of Drug Intoxication Withdrawal: No Have you been hit, kicked, punched, or otherwise hurt by someone within the past year? If so, by whom?: No Do you feel safe in your current relationship?: Yes Is there a partner from a previous relationship who is making you feel unsafe now?: No Are you made to feel afraid or neglected: No Advance Directives: Yes Advance Directives on File: Yes Advance Directives Date on File: 06/30/24 Do you have a plan to hurt others: No Plan Recently lost weight without trying: No Nutrition Risks: Dental problems and Difficulty chewing Patient : No : No Poor oral hygiene: No service: No Meds Allergies Allergy/AdvReac Type Severity Reaction Status Date / Time No Known Allergies Allergy Verified 10/06/24 10:10 [No Known Allergies*] Active Medications: Current Medications Acetaminophen (Acetaminophen 325 Mg Tablet) 650 mg PO Q6H PRN PRN Reason: Pain, Mild 1-3,fever,headache Last Admin: 10/07/24 13:38 Dose: 650 mg Calcium Carbonate (Calcium Carbonate 750 Mg Tab.Chew) 750 mg PO Q4H PRN PRN Reason: Heartburn Ferrous Sulfate (Ferrous Sulfate 324 Mg Tablet.Dr) 324 mg PO DAILY [facility] Last Admin: 10/07/24 09:05 Dose: 324 mg Heparin Sodium (Porcine) (Heparin Sodium,Porcine 5,000 Unit/Ml Vial) 5,000 unit SUBCUT Q12H [facility] Last Admin: 10/07/24 13:41 Dose: 5,000 unit Doxycycline Hyclate 100 mg/ (Sodium Chloride) 250 mls @ 166.67 mls/hr IV Q12H [facility] Last Infusion: 10/07/24 15:30 Dose: Infused Piperacillin Sod/Tazobactam (Sod 3.375 gm/ Sodium Chloride) 50 mls @ 100 mls/hr IV Q6H [facility] Last Infusion: 10/07/24 16:50 Dose: Infused Magnesium Hydroxide (Milk Of Magnesia 30 Ml Oral.Susp) 30 ml PO DAILY PRN PRN Reason: Constipation Melatonin (Melatonin 3 Mg Tablet) 6 mg PO BEDTIME PRN PRN Reason: Insomnia Morphine Sulfate (Morphine Sulfate 4 Mg/Ml Cartridge) 2 mg IVPUSH Q4H PRN; Protocol PRN Reason: Pain, Severe (Pain Scale 7-10) Last Admin: 10/07/24 03:41 Dose: 2 mg Omeprazole (Omeprazole 20 Mg Capsule.Dr) 20 mg PO DAILY@0630 [facility] Last Admin: 10/07/24 05:38 Dose: 20 mg Sodium Chloride (0.9 % Sodium Chloride Flush 3 Ml Syringe) 3 ml IVFLUSH QSHIFT [facility] Last Admin: 10/07/24 09:09 Dose: 3 ml Tramadol HCl (Tramadol Hcl 50 Mg Tablet) 50 mg PO TID [facility] Last Admin: 10/07/24 14:55 Dose: 50 mg Vitamin D (Cholecalciferol (Vitamin D3) 25 Mcg Tablet) 50 mcg PO DAILY [facility] Last Admin: 10/07/24 09:07 Dose: 50 mcg Home Medications ?Medication ?Instructions ?Recorded ?Confirmed ?Last Taken ?Type alendronate 70 mg tablet 70 mg PO FR 06/27/24 10/06/24 09/23/24 History cholecalciferol (vitamin D3) 50 50 mcg PO DAILY 06/27/24 10/06/24 10/06/24 History mcg (2,000 unit) capsule (Vitamin D3) lisinopril 20 mg tablet 20 mg PO DAILY 06/27/24 10/06/24 10/06/24 History omeprazole 20 mg capsule,delayed 20 mg PO DAILY@0630 06/27/24 10/06/24 10/06/24 History release tramadol 50 mg tablet 50 mg PO TID 06/27/24 10/06/24 10/06/24 History Physical Exam 2 Vital Signs: Vital Signs: Last Vital Signs Temp 97.8 F 10/07/24 15:34 Pulse 93 10/07/24 15:34 Resp 18 10/07/24 15:34 BP 98/54 L 10/07/24 15:34 Pulse Ox 99 10/07/24 15:34 O2 Del Method Room Air 10/07/24 15:34 BMI result Body Mass Index 24.6 Const: General: cooperative HEENT: Head: Yes normal to inspection Face and sinus: Yes normal facial exam Mouth: Normal oral and palatal mucosa present Teeth and gingiva: d entition normal Eyes: General: appearance normal, both eyes and all related structures P upils: Equal, round and reactive pupils present Resp: Effort & Inspection: normal respiratory effort Cardio: Rate: regular rate Rhythm: regular rhythm GI: Palpation (GI): Soft to palpation and nontender Back/Spine/Pelvis: Other: deep full thickness decubitus Skin: General skin exam: no rashes or lesions noted Neuro: General: moves all extremities Cranial nerves: Yes Equal, round and reactive pupils present Extrem: General: Yes normal to inspection Psych: Appearance: grossly normal Results Labs 10/07/24 05:14 10/07/24 05:14 Labs: Short CBC 10/07/24 Range/Units 05:14 WBC 11.3 H (4.8-10.8) X10*3/uL Hgb 7.0 L* (12.0-16.0) g/dl Hct 23.4 L (37.0-47.0) % Plt Count 527 H (160-400) X10*3/uL BMP 10/07/24 05:14 Sodium 138 Potassium 4.3 Chloride 106 Carbon Dioxide 25 BUN 17 H Creatinine 0.60 Calcium 8.6 D Microbiology Microbiology Results: Microbiology 10/06/24 10:22 Blood - Venous Blood Culture - Preliminary No growth after 24 hours. 10/06/24 10:22 Blood - Venous Blood Culture - Preliminary No growth after 24 hours. 10/06/24 Unknown Urine Catheterized - Straight Catheter Urine Culture - Preliminary Gram negative ashley Assessment and Plan (1) Acute UTI: Status: Acute (2) Sacral decubitus ulcer: Qualifiers: Pressure injury stage: pressure injury of deep tissue Qualified Code(s): L89.156 - Pressure-induced deep tissue damage of sacral region Status: Acute Plan Await culture blood. Continue Zosyn and Doxycycline Would change based on blood culture,six weeks cover OM
[2024-10-07] MEDS: Lactated Ringers 1,000 ML 999 ML IV (20:28)
[2024-10-07] MEDS: Albumin Human 25 % 100 ML 133.33 ML IV ×2 (20:28→21:38)
[2024-10-07 20:30] LABS: Hematocrit 27.5 % (37.0-47.0); Hemoglobin 8.8 g/dl (12.0-16.0)
[2024-10-07 20:51] LABS: Lactic Acid 1.5 mmol/L (0.5-2.0)
--- NOTE | 2024-10-07 22:54 | PC.NURSE ---
for 8pm vitals patient was hypotensive but asymptomatic, the highest manual BP was 82/58. Dr. Payton notified and put in orders for 1L LR blous & 2 bags of albumin, along with repeat h&h and lactic. after LR and albumin infusion patients BP went up to 106/60. patient also noted to be collecting red-tinged urine in canister on the wall, same MD is aware.
[2024-10-08] MEDS: Doxycycline Hyclate 100 MG in 0.9 % Sodium Chloride 250 ML 166.67 MG IV ×2 (02:28→16:10)
[2024-10-08] MEDS: Heparin Sodium,Porcine 5,000 UNIT/ML VIAL 5000 UNIT SUBCUT ×2 (02:28→16:06)
[2024-10-08 03:25] VITALS: BP 122/70; PULSE 93; RESP 17; TEMP 36.1; O2SAT 97
[2024-10-08] MEDS: Piperacillin Sodium/Tazobactam 3.375 GM in 0.9 % Sodium Chloride 50 ML IV ×4 (04:03→23:15)
--- NOTE | 2024-10-08 05:39 | PM.EVENT ---
Event Note Date of Service: 10/08/24 Event Note: Nurse reported hypotension overnight when improve with colloid and crystalloid resuscitation. H&H okay. Time Spent With Patient Time: Total time managing care of this patient today ____ minutes.
[2024-10-08] MEDS: Omeprazole 20 MG CAPSULE.DR PO (05:40)
[2024-10-08 06:55] VITALS: BP 118/58; PULSE 88; RESP 18; TEMP 36.8; O2SAT 100
[2024-10-08] MEDS: 0.9 % Sodium Chloride Flush 3 ML SYRINGE IVFLUSH ×3 (09:52→23:16)
[2024-10-08] MEDS: traMADoL HCL 50 MG TABLET PO ×3 (09:53→20:06)
[2024-10-08] MEDS: Cholecalciferol (Vitamin D3) 25 MCG TABLET 50 MCG PO (09:53)
[2024-10-08] MEDS: Ferrous Sulfate 324 MG TABLET.DR PO (10:48)
--- NOTE | 2024-10-08 11:51 | HO.PM.IMPN ---
Subjective Subjective Date of Service: 10/08/24 Interval History: f/u on infected sacral ulcer, and anemia h/h is down, no other complaint Physical Exam Vital Signs: Vital Signs: Last Vital Signs Temp 98.3 F 10/08/24 06:55 Pulse 88 10/08/24 06:55 Resp 18 10/08/24 06:55 BP 118/58 L 10/08/24 06:55 Pulse Ox 100 10/08/24 06:55 O2 Del Method Room Air 10/08/24 06:55 BMI result Body Mass Index 24.6 Appearance: Alert. Oriented X3. unkempt and disheveled mild acute distress. CVS: Normal heart rate and rhythm. Pulses normal. Respiratory: No respiratory distress. Breath sounds normal. Abdomen: Soft and nontender. Skin: Skin warm and dry. pale skin color. Back: deep large tunneled sacral wound there is scant bleeding from edge margins she came in without bandage/packing and just a dirty old adult brief, there is an odor to the wound it was covered in feces Extremities: No lower extremity edema. Neuro: Oriented X 3. No motor deficit. No sensory deficit. CN2-12 intact Objective Data Active Medications Acetaminophen (Acetaminophen 325 Mg Tablet) 650 mg PO Q6H PRN PRN Reason: Pain, Mild 1-3,fever,headache Last Admin: 10/07/24 13:38 Dose: 650 mg Documented By: MIGUEL Calcium Carbonate (Calcium Carbonate 750 Mg Tab.Chew) 750 mg PO Q4H PRN PRN Reason: Heartburn Ferrous Sulfate (Ferrous Sulfate 324 Mg Tablet.) 324 mg PO DAILY [facility] Last Admin: 10/08/24 10:48 Dose: 324 mg Documented By: JUSTIN Heparin Sodium (Porcine) (Heparin Sodium,Porcine 5,000 Unit/Ml Vial) 5,000 unit SUBCUT Q12H [facility] Last Admin: 10/08/24 02:28 Dose: 5,000 unit Documented By: CHRISTIE Doxycycline Hyclate 100 mg/ (Sodium Chloride) 250 mls @ 166.67 mls/hr IV Q12H [facility] Last Infusion: 10/08/24 04:04 Dose: Infused Documented By: CHRISTIE Piperacillin Sod/Tazobactam (Sod 3.375 gm/ Sodium Chloride) 50 mls @ 100 mls/hr IV Q6H [facility] Last Infusion: 10/08/24 11:00 Dose: Infused Documented By: JUSTIN Magnesium Hydroxide (Milk Of Magnesia 30 Ml Oral.Susp) 30 ml PO DAILY PRN PRN Reason: Constipation Melatonin (Melatonin 3 Mg Tablet) 6 mg PO BEDTIME PRN PRN Reason: Insomnia Morphine Sulfate (Morphine Sulfate 4 Mg/Ml Cartridge) 2 mg IVPUSH Q4H PRN; Protocol PRN Reason: Pain, Severe (Pain Scale 7-10) Last Admin: 10/07/24 03:41 Dose: 2 mg Documented By: JUAN ANTONIO Omeprazole (Omeprazole 20 Mg Capsule.) 20 mg PO DAILY@0630 [facility] Last Admin: 10/08/24 05:40 Dose: 20 mg Documented By: CHRISTIE Sodium Chloride (0.9 % Sodium Chloride Flush 3 Ml Syringe) 3 ml IVFLUSH QSHIFT [facility] Last Admin: 10/08/24 09:52 Dose: 3 ml Documented By: JUSTIN Tramadol HCl (Tramadol Hcl 50 Mg Tablet) 50 mg PO TID [facility] Last Admin: 10/08/24 09:53 Dose: 50 mg Documented By: JUSTIN Vitamin D (Cholecalciferol (Vitamin D3) 25 Mcg Tablet) 50 mcg PO DAILY [facility] Last Admin: 10/08/24 09:53 Dose: 50 mcg Documented By: JUSTIN Labs 10/07/24 20:22 10/07/24 05:14 Labs: Laboratory Results - last 24 hr 10/07/24 10/07/24 07:55 20:22 Lactic Acid 1.5 Crossmatch See Detail Microbiology Microbiology Results: Microbiology 10/06/24 Unknown Urine Culture - Final Urine Catheterized - Straight Catheter Proteus mirabilis 10/06/24 10:22 Blood Culture - Preliminary Blood - Venous No growth after 24 hours. 10/06/24 10:22 Blood Culture - Preliminary Blood - Venous No growth after 24 hours. Assessment and Plan (1) Acute UTI: Status: Acute (2) Sacral decubitus ulcer: Status: Acute Plan 79 year old female with a PMH of Mild cognitive impairment, UTI with VRE, FTT, HTN, GERD, anemia, arthritis and sacral wound. Sacral decubitus ulcer appears to be deteriorating potenitally to the bone which is now complicated with a uti Sepsis due to decubitis sacral ulcer with potential osteomyelitis continue Zosyn and Doxy, started 10/06 wound consult wet to dry dressing blood cultures pending MRI to assess for confirmation of osteomyelitis morphine PRN for pain blood cultures pending ID input noted, likely IV Abx x 6 weeks Cystitis, bilaterial nephrolithiasis, UTI, culture Proteus M. Continue IV ABX as above Chronic microcytic anemia with acute blood loss Continue to monitor CBC continue ferrous sulfate transfused 1 unit or RBC on 10/07, H/H is better Osteoporosis continue alendronate Continue Vitamin D3 GERD HTN Hold Lisinopril d/t low bp Code: Full DVT: patient unable to tolerate pneumatic compression device. Heparin Quality Stroke Does the patient have a stroke diagnosis?: No VTE Prior VTE?: No VTE Risk Level:: Medical - moderate - high VTE Device Contraindication: Treatment Not Tolerated VTE Drug Contraindication: N/A - Med Ordered
[2024-10-08 15:51] VITALS: BP 100/65; PULSE 102; RESP 18; TEMP 37; O2SAT 98
[2024-10-08 20:00] VITALS: BP 111/58; PULSE 108; RESP 18; TEMP 37.8; O2SAT 96
[2024-10-09] MEDS: Doxycycline Hyclate 100 MG in 0.9 % Sodium Chloride 250 ML 166.67 MG IV ×2 (03:03→14:24)
[2024-10-09] MEDS: Heparin Sodium,Porcine 5,000 UNIT/ML VIAL 5000 UNIT SUBCUT ×2 (03:08→14:23)
[2024-10-09 04:00] VITALS: BP 110/57; PULSE 91; RESP 17; TEMP 37.4; O2SAT 96
[2024-10-09] MEDS: Piperacillin Sodium/Tazobactam 3.375 GM in 0.9 % Sodium Chloride 50 ML IV ×4 (05:04→21:39)
[2024-10-09] MEDS: Omeprazole 20 MG CAPSULE.DR PO (05:40)
[2024-10-09 08:00] VITALS: BP 124/58; PULSE 87; RESP 16; TEMP 37.1; O2SAT 97
[2024-10-09] MEDS: 0.9 % Sodium Chloride Flush 3 ML SYRINGE IVFLUSH (09:28)
[2024-10-09] MEDS: Cholecalciferol (Vitamin D3) 25 MCG TABLET 50 MCG PO (09:28)
[2024-10-09] MEDS: traMADoL HCL 50 MG TABLET PO ×3 (09:28→21:37)
[2024-10-09] MEDS: Ferrous Sulfate 324 MG TABLET.DR PO (09:28)
--- NOTE | 2024-10-09 09:47 | HO.PM.IMPN ---
Subjective Subjective Date of Service: 10/09/24 Interval History: f/u on infected sacral ulcer, and anemia h/h is down, no other complaint Physical Exam Vital Signs: Vital Signs: Last Vital Signs Temp 98.7 F 10/09/24 08:00 Pulse 87 10/09/24 08:00 Resp 16 10/09/24 08:00 BP 124/58 L 10/09/24 08:00 Pulse Ox 97 10/09/24 08:00 O2 Del Method Room Air 10/09/24 08:00 BMI result Body Mass Index 24.6 Appearance: Alert. Oriented X3. unkempt and disheveled mild acute distress. CVS: Normal heart rate and rhythm. Pulses normal. Respiratory: No respiratory distress. Breath sounds normal. Abdomen: Soft and nontender. Skin: Skin warm and dry. pale skin color. Back: deep large tunneled sacral wound there is scant bleeding from edge margins she came in without bandage/packing and just a dirty old adult brief, there is an odor to the wound it was covered in feces Extremities: No lower extremity edema. Neuro: Oriented X 3. No motor deficit. No sensory deficit. CN2-12 intact Objective Data Active Medications Acetaminophen (Acetaminophen 325 Mg Tablet) 650 mg PO Q6H PRN PRN Reason: Pain, Mild 1-3,fever,headache Last Admin: 10/07/24 13:38 Dose: 650 mg Documented By: MIGUEL Calcium Carbonate (Calcium Carbonate 750 Mg Tab.Chew) 750 mg PO Q4H PRN PRN Reason: Heartburn Ferrous Sulfate (Ferrous Sulfate 324 Mg Tablet.) 324 mg PO DAILY [facility] Last Admin: 10/09/24 09:28 Dose: 324 mg Documented By: JUSTIN Heparin Sodium (Porcine) (Heparin Sodium,Porcine 5,000 Unit/Ml Vial) 5,000 unit SUBCUT Q12H [facility] Last Admin: 10/09/24 03:08 Dose: 5,000 unit Documented By: CHRISTIE Doxycycline Hyclate 100 mg/ (Sodium Chloride) 250 mls @ 166.67 mls/hr IV Q12H [facility] Last Infusion: 10/09/24 05:07 Dose: Infused Documented By: CHRISTIE Piperacillin Sod/Tazobactam (Sod 3.375 gm/ Sodium Chloride) 50 mls @ 100 mls/hr IV Q6H [facility] Last Admin: 10/09/24 09:32 Dose: 100 mls/hr Documented By: JUSTIN Magnesium Hydroxide (Milk Of Magnesia 30 Ml Oral.Susp) 30 ml PO DAILY PRN PRN Reason: Constipation Melatonin (Melatonin 3 Mg Tablet) 6 mg PO BEDTIME PRN PRN Reason: Insomnia Morphine Sulfate (Morphine Sulfate 4 Mg/Ml Cartridge) 2 mg IVPUSH Q4H PRN; Protocol PRN Reason: Pain, Severe (Pain Scale 7-10) Last Admin: 10/07/24 03:41 Dose: 2 mg Documented By: JUAN ANTONIO Omeprazole (Omeprazole 20 Mg Capsule.Dr) 20 mg PO DAILY@0630 [facility] Last Admin: 10/09/24 05:40 Dose: 20 mg Documented By: CHRISTIE Sodium Chloride (0.9 % Sodium Chloride Flush 3 Ml Syringe) 3 ml IVFLUSH QSHIFT [facility] Last Admin: 10/09/24 09:28 Dose: 3 ml Documented By: JUSTIN Tramadol HCl (Tramadol Hcl 50 Mg Tablet) 50 mg PO TID [facility] Last Admin: 10/09/24 09:28 Dose: 50 mg Documented By: JUSTIN Vitamin D (Cholecalciferol (Vitamin D3) 25 Mcg Tablet) 50 mcg PO DAILY [facility] Last Admin: 10/09/24 09:28 Dose: 50 mcg Documented By: JUSTIN Labs 10/07/24 20:22 10/07/24 05:14 Microbiology Microbiology Results: Microbiology 10/06/24 10:22 Blood Culture - Preliminary Blood - Venous No growth after 48 hours. 10/06/24 10:22 Blood Culture - Preliminary Blood - Venous No growth after 48 hours. 10/06/24 Unknown Urine Culture - Final Urine Catheterized - Straight Catheter Proteus mirabilis Assessment and Plan (1) Acute UTI: Status: Acute (2) Sacral decubitus ulcer: Status: Acute Plan 79 year old female with a PMH of Mild cognitive impairment, UTI with VRE, FTT, HTN, GERD, anemia, arthritis and sacral wound. Sacral decubitus ulcer appears to be deteriorating potenitally to the bone which is now complicated with a uti Sepsis due to decubitis sacral ulcer with potential osteomyelitis continue Zosyn and Doxy, started 10/06 MRI 10/08, limitted but no osteo wound consult wet to dry dressing blood cultures pending morphine PRN for pain blood cultures pending ID input noted, likely IV Abx x 6 weeks Cystitis, bilaterial nephrolithiasis, UTI, culture Proteus M. Continue IV ABX as above Chronic microcytic anemia with acute blood loss Continue to monitor CBC continue ferrous sulfate transfused 1 unit or RBC on 10/07, H/H is better Osteoporosis continue alendronate Continue Vitamin D3 GERD HTN Hold Lisinopril d/t low bp Code: Full DVT: patient unable to tolerate pneumatic compression device. Heparin will need SNF placement Quality Stroke Does the patient have a stroke diagnosis?: No VTE Prior VTE?: No VTE Risk Level:: Medical - moderate - high VTE Device Contraindication: Treatment Not Tolerated VTE Drug Contraindication: N/A - Med Ordered
--- NOTE | 2024-10-09 10:16 | MHC.CM.PN ---
JANAE MET WITH PT TO DISCUSS DC PLANS PT STATES SHE IS GOING HOME AT DC SHE SAYS SHE HAS [employer] SERVICES AND REQUESTED A NURSE, BUT THEY HAVE NOT PUT ONE IN YET SHE REQUESTS A REFERRAL TO [facility] FOR WOUND CARE SERVICES AND UNDERSTANDS THEY WILL NOT COME DAILY SHE REPORTS SHE GOES HOME VIA BLS AND HER WILL BE THERE TO LET HER IN. SHE ALSO STATES SOMETIMES CM COORDINATES DC WITH HER [employer] TO ENSURE THEY ARE THERE TO HELP HER GET SETTLED
[2024-10-09 10:45] LABS: Hematocrit 29.1 % (37.0-47.0); Mean Corpuscular HGB Conc 30.9 g/dl (31.0-35.0); Mean Corpuscular Hemoglobin 24.1 pg (27.0-33.0); Mean Platelet Volume 8.4 fL (9.4-12.3); Platelet Count 552 X10*3/uL (160-400); Red Blood Count 3.73 X10*6/uL (4.20-5.50); Red Cell Distribution Width 18.4 % (11.0-16.0); White Blood Count 10.9 X10*3/uL (4.8-10.8)
[2024-10-09 10:59] LABS: Anion Gap 19 (12-20); Blood Urea Nitrogen 19 mg/dL (9-16); Calcium 8.8 mg/dL (8.4-10.2); Carbon Dioxide 21 mmol/L (22-29); Chloride 107 mmol/L (96-108); Creatinine Clr Calc Pharmacy 67.2; Estimated Glomerular Filt Rate > 60; Glucose Random 135 mg/dL (60-115); Potassium 3.6 mmol/L (3.3-5.1); Sodium 143 mmol/L (135-145)
[2024-10-09 16:00] VITALS: BP 104/60; PULSE 105; RESP 16; TEMP 37.2; O2SAT 96
[2024-10-09 19:39] VITALS: BP 130/64; PULSE 113; RESP 18; TEMP 37; O2SAT 97
[2024-10-10] MEDS: Doxycycline Hyclate 100 MG in 0.9 % Sodium Chloride 250 ML 166.67 MG IV ×2 (02:09→16:01)
[2024-10-10] MEDS: Heparin Sodium,Porcine 5,000 UNIT/ML VIAL 5000 UNIT SUBCUT ×2 (02:09→16:01)
[2024-10-10] MEDS: 0.9 % Sodium Chloride Flush 3 ML SYRINGE IVFLUSH ×4 (02:10→20:51)
[2024-10-10] MEDS: Acetaminophen 325 MG TABLET 650 MG PO (02:24)
[2024-10-10 03:48] VITALS: BP 122/70; PULSE 89; RESP 18; TEMP 37.2; O2SAT 97
[2024-10-10] MEDS: Omeprazole 20 MG CAPSULE.DR PO (07:25)
[2024-10-10 07:42] VITALS: BP 130/69; PULSE 95; RESP 16; TEMP 36.9; O2SAT 97
[2024-10-10] MEDS: traMADoL HCL 50 MG TABLET PO ×3 (09:03→20:51)
[2024-10-10] MEDS: Ferrous Sulfate 324 MG TABLET.DR PO (09:04)
[2024-10-10] MEDS: Cholecalciferol (Vitamin D3) 25 MCG TABLET 50 MCG PO (09:04)
[2024-10-10] MEDS: Piperacillin Sodium/Tazobactam 3.375 GM in 0.9 % Sodium Chloride 50 ML IV ×3 (09:10→20:51)
--- NOTE | 2024-10-10 10:26 | HO.PM.IMPN ---
Subjective Subjective Date of Service: 10/10/24 Interval History: Has no new complaint Physical Exam Vital Signs: Vital Signs: Last Vital Signs Temp 98.4 F 10/10/24 07:42 Pulse 95 10/10/24 07:42 Resp 16 10/10/24 07:42 BP 130/69 10/10/24 07:42 Pulse Ox 97 10/10/24 07:42 O2 Del Method Room Air 10/10/24 07:42 BMI result Body Mass Index 24.6 Objective Data Active Medications Acetaminophen (Acetaminophen 325 Mg Tablet) 650 mg PO Q6H PRN PRN Reason: Pain, Mild 1-3,fever,headache Last Admin: 10/10/24 02:24 Dose: 650 mg Documented By: ARTHUR Calcium Carbonate (Calcium Carbonate 750 Mg Tab.Chew) 750 mg PO Q4H PRN PRN Reason: Heartburn Ferrous Sulfate (Ferrous Sulfate 324 Mg Tablet.) 324 mg PO DAILY [facility] Last Admin: 10/10/24 09:04 Dose: 324 mg Documented By: DENNY Heparin Sodium (Porcine) (Heparin Sodium,Porcine 5,000 Unit/Ml Vial) 5,000 unit SUBCUT Q12H [facility] Last Admin: 10/10/24 02:09 Dose: 5,000 unit Documented By: ARTHUR Doxycycline Hyclate 100 mg/ (Sodium Chloride) 250 mls @ 166.67 mls/hr IV Q12H [facility] Last Infusion: 10/10/24 04:50 Dose: Infused Documented By: ARTHUR Piperacillin Sod/Tazobactam (Sod 3.375 gm/ Sodium Chloride) 50 mls @ 100 mls/hr IV Q6H [facility] Last Infusion: 10/10/24 09:40 Dose: Infused Documented By: DENNY Magnesium Hydroxide (Milk Of Magnesia 30 Ml Oral.Susp) 30 ml PO DAILY PRN PRN Reason: Constipation Melatonin (Melatonin 3 Mg Tablet) 6 mg PO BEDTIME PRN PRN Reason: Insomnia Morphine Sulfate (Morphine Sulfate 4 Mg/Ml Cartridge) 2 mg IVPUSH Q4H PRN; Protocol PRN Reason: Pain, Severe (Pain Scale 7-10) Last Admin: 10/07/24 03:41 Dose: 2 mg Documented By: RIGOBERTOILTameka Omeprazole (Omeprazole 20 Mg Capsule.) 20 mg PO DAILY@0630 [facility] Last Admin: 10/10/24 07:25 Dose: 20 mg Documented By: ARTHUR Sodium Chloride (0.9 % Sodium Chloride Flush 3 Ml Syringe) 3 ml IVFLUSH QSHIFT [facility] Last Admin: 10/10/24 09:00 Dose: 3 ml Documented By: DENNY Tramadol HCl (Tramadol Hcl 50 Mg Tablet) 50 mg PO TID [facility] Last Admin: 10/10/24 09:03 Dose: 50 mg Documented By: DENNY Vitamin D (Cholecalciferol (Vitamin D3) 25 Mcg Tablet) 50 mcg PO DAILY [facility] Last Admin: 10/10/24 09:04 Dose: 50 mcg Documented By: DENNY Labs 10/09/24 10:28 10/09/24 10:28 Labs: Laboratory Results - last 24 hr 10/09/24 10:28 MCV 78.0 L MCH 24.1 L MCHC 30.9 L RDW 18.4 H Plt Count 552 H MPV 8.4 L Absolute Nucleated RBC 0.000 Nucleated RBC % (auto) 0.0 Anion Gap 19 Estim Creat Clear Calc 67.2 Estimated GFR > 60 Random Glucose 135 H Calcium 8.8 Assessment and Plan (1) Acute UTI: Status: Acute (2) Sacral decubitus ulcer: Status: Acute Plan 79 year old female with a PMH of Mild cognitive impairment, UTI with VRE, FTT, HTN, GERD, anemia, arthritis and sacral wound. Sacral decubitus ulcer appears to be deteriorating potenitally to the bone which is now complicated with a uti Sepsis due to decubitis sacral ulcer with potential osteomyelitis on Xray, although not clearly seen on MRI which was a poor study cultures thus far negative,. continue Zosyn and Doxy, started 10/06 wound consult pending wet to dry dressing morphine PRN for pain ID input noted, likely IV Abx x 6 weeks, proably PICC line tomorrow and check with ID regarding final Abx recommendation Cystitis, bilaterial nephrolithiasis, UTI, culture Proteus M. Continue IV ABX as above Chronic microcytic anemia with acute blood loss Continue to monitor CBC continue ferrous sulfate transfused 1 unit or RBC on 10/07, H/H is better Osteoporosis continue alendronate Continue Vitamin D3 GERD HTN Hold Lisinopril d/t low bp Code: Full DVT: patient unable to tolerate pneumatic compression device. Heparin will need SNF placement Quality Stroke Does the patient have a stroke diagnosis?: No VTE Prior VTE?: No VTE Risk Level:: Medical - moderate - high VTE Device Contraindication: Treatment Not Tolerated VTE Drug Contraindication: N/A - Med Ordered
--- NOTE | 2024-10-10 10:41 | MHC.CLN ---
F/U DIET=REGULAR. STAGE III PRESSURE INJURY TO SACRUM. ENSURE MAX BID (300 KCALS, 60 G PROTEIN) TO PROMOTE WOUND HEALING. PO INTAKE USUALLY 50-100%. FOLLOW FOR PO INTAKE AND SKIN INTEGRITY.
[2024-10-10 15:35] VITALS: BP 132/60; PULSE 93; RESP 18; TEMP 37.1; O2SAT 95
[2024-10-10 20:00] VITALS: BP 117/62; PULSE 103; RESP 20; TEMP 36.5; O2SAT 94
[2024-10-11] MEDS: Heparin Sodium,Porcine 5,000 UNIT/ML VIAL 5000 UNIT SUBCUT ×2 (03:09→14:24)
[2024-10-11] MEDS: Doxycycline Hyclate 100 MG in 0.9 % Sodium Chloride 250 ML 166.67 MG IV ×2 (03:14→14:21)
[2024-10-11 03:19] VITALS: BP 115/64; PULSE 90; RESP 20; TEMP 36.6; O2SAT 95
[2024-10-11] MEDS: Omeprazole 20 MG CAPSULE.DR PO (04:45)
[2024-10-11] MEDS: Piperacillin Sodium/Tazobactam 3.375 GM in 0.9 % Sodium Chloride 50 ML IV ×4 (04:47→20:58)
[2024-10-11 08:00] VITALS: BP 107/68; PULSE 90; RESP 16; TEMP 37.1; O2SAT 97
--- NOTE | 2024-10-11 08:07 | P.PNIM_ITS ---
Subjective Subjective Date of Service: 10/11/24 Interval History: Possible acute osteomyelitis Review of Systems No new complaints Review of Systems: Yes all other systems are reviewed and are negative Physical Exam 2 Vital Signs: Vital Signs: Last Vital Signs Temp 97.8 F 10/11/24 03:19 Pulse 90 10/11/24 03:19 Resp 20 10/11/24 03:19 BP 115/64 10/11/24 03:19 Pulse Ox 95 10/11/24 03:19 O2 Del Method Room Air 10/11/24 03:19 BMI result Body Mass Index 24.6 Appearance: Alert. Oriented X3. CVS: Normal heart rate and rhythm. Pulses normal. Respiratory: No respiratory distress. Breath sounds normal. Abdomen: Soft and nontender. Skin: Skin warm and dry. pale skin color. Back: please see wound care note. Extremities: No lower extremity edema. Neuro: Oriented X 3. No motor deficit. No sensory deficit. CN2-12 intact Objective Data Active Medications Acetaminophen (Acetaminophen 325 Mg Tablet) 650 mg PO Q6H PRN PRN Reason: Pain, Mild 1-3,fever,headache Last Admin: 10/10/24 02:24 Dose: 650 mg Documented By: ARTHUR Calcium Carbonate (Calcium Carbonate 750 Mg Tab.Chew) 750 mg PO Q4H PRN PRN Reason: Heartburn Ferrous Sulfate (Ferrous Sulfate 324 Mg Tablet.) 324 mg PO DAILY [facility] Last Admin: 10/10/24 09:04 Dose: 324 mg Documented By: DENNY Heparin Sodium (Porcine) (Heparin Sodium,Porcine 5,000 Unit/Ml Vial) 5,000 unit SUBCUT Q12H [facility] Last Admin: 10/11/24 03:09 Dose: 5,000 unit Documented By: EDWIN Comments: given in lt upper arm per pt request Doxycycline Hyclate 100 mg/ (Sodium Chloride) 250 mls @ 166.67 mls/hr IV Q12H [facility] Last Infusion: 10/11/24 04:49 Dose: Infused Documented By: EDWIN Piperacillin Sod/Tazobactam (Sod 3.375 gm/ Sodium Chloride) 50 mls @ 100 mls/hr IV Q6H [facility] Last Infusion: 10/11/24 05:21 Dose: Infused Documented By: EDWIN Magnesium Hydroxide (Milk Of Magnesia 30 Ml Oral.Susp) 30 ml PO DAILY PRN PRN Reason: Constipation Melatonin (Melatonin 3 Mg Tablet) 6 mg PO BEDTIME PRN PRN Reason: Insomnia Morphine Sulfate (Morphine Sulfate 4 Mg/Ml Cartridge) 2 mg IVPUSH Q4H PRN; Protocol PRN Reason: Pain, Severe (Pain Scale 7-10) Last Admin: 10/07/24 03:41 Dose: 2 mg Documented By: JUAN ANTONIO Omeprazole (Omeprazole 20 Mg Capsule.) 20 mg PO DAILY@0630 [facility] Last Admin: 10/11/24 04:45 Dose: 20 mg Documented By: EDWIN Sodium Chloride (0.9 % Sodium Chloride Flush 3 Ml Syringe) 3 ml IVFLUSH QSHIFT [facility] Last Admin: 10/10/24 20:51 Dose: 3 ml Documented By: EDWIN Tramadol HCl (Tramadol Hcl 50 Mg Tablet) 50 mg PO TID [facility] Last Admin: 10/10/24 20:51 Dose: 50 mg Documented By: EDWIN Vitamin D (Cholecalciferol (Vitamin D3) 25 Mcg Tablet) 50 mcg PO DAILY [facility] Last Admin: 10/10/24 09:04 Dose: 50 mcg Documented By: MOHAMER Labs 10/09/24 10:28 10/09/24 10:28 Assessment and Plan (1) Acute UTI: Status: Acute (2) Sacral decubitus ulcer: Status: Acute Plan 79 year old female with a PMH of Mild cognitive impairment, UTI with VRE, FTT, HTN, GERD, anemia, arthritis and sacral wound. Sacral decubitus ulcer appears to be deteriorating potenitally to the bone which is now complicated with a uti Sepsis due to decubitis sacral ulcer with potential acute osteomyelitis on Xray, although not clearly seen on MRI which was a poor study cultures thus far negative,. continue Zosyn and Doxy, started 10/06 wound consult pending wet to dry dressing morphine PRN for pain ID input noted, likely IV Abx x 6 weeks, PICC line ordered with ID -ertapenem 6 weeks once picc line placed. Cystitis, bilaterial nephrolithiasis, UTI, culture Proteus M. Continue IV ABX as above Chronic microcytic anemia with acute blood loss Continue to monitor CBC continue ferrous sulfate transfused 1 unit or RBC on 10/07, H/H is better Osteoporosis continue alendronate Continue Vitamin D3 GERD HTN Hold Lisinopril d/t low bp wound care Sacrum: Stage 4??Present on Admission Wound Bed: full thickness tissue loss with pale pink moist tissue and yellow adherent slough Drainage / Odor: Large amount of medeiros yellow Edges: ? irregular and unattached Aileen wound: ?MASD - full thickness tissue loss with slough noted - No Induration, Fluctuance or Warmth noted Pain: tenderness reported Goals of Treatment: ? Barrier cream and Foam dressing over pressure injury sites to aid in pressure redistribution Bilateral Heels - not assessed today will reconuslt for assessment. Currently in heel boot protectors. Recommend continued use elevating heels off of bed surface with pillows or heel protector boots. Code: Full DVT: patient unable to tolerate pneumatic compression device. Heparin also likely need SNF placement if agrees ongoing hospital need: Quality Stroke Does the patient have a stroke diagnosis?: No VTE Prior VTE?: No VTE Risk Level:: Medical - moderate - high VTE Device Contraindication: Treatment Not Tolerated VTE Drug Contraindication: N/A - Med Ordered
[2024-10-11] MEDS: 0.9 % Sodium Chloride Flush 3 ML SYRINGE IVFLUSH ×3 (09:12→20:55)
[2024-10-11] MEDS: Cholecalciferol (Vitamin D3) 25 MCG TABLET 50 MCG PO (09:13)
[2024-10-11] MEDS: traMADoL HCL 50 MG TABLET PO ×3 (09:13→20:54)
[2024-10-11] MEDS: Ferrous Sulfate 324 MG TABLET.DR PO (09:13)
--- NOTE | 2024-10-11 12:59 | MHC.CM.PN ---
Per MD rounds patient will require 6 wks IV abx. Patient agrees to SNF placement for this, [facility] is first choice. Referrals sent via [employer].
--- NOTE | 2024-10-11 14:43 | HO.WOUND ---
Addendum entered by Monica Suresh RN 10/12/24 15:29: 10/12/24 @ 1529 Discussed with Willis Ambriz - no concern for infection to sacral wound my assessment did not reveal need for surgical intervention including debridement at this time. Would recommend patient continue with daily wet to moist dressing changed to continue autolytic debridement and off load pressure, continue nutritional support at facility. Patient is currently on a speciality Agility Pulsate bed - she will benefit from continued use of specialty support surface. Topical Wound care recommendations: Sacrum - Off Load Pressure with Q2 hr turns and use of pillows - Cleanse and irrigate with NS, pat dry. ?Apply thin layer of Triad to periwound. Lightly pack wound bed with ns moist gauze roll, cover with dry gauze, ABD pad and secure with tape. Change daily. Continue to support nutritional needs. Recommend continued use of specialty mattress for stage 4 pressure injury. Original Note: Wound Consult: Initial 79yr old?female admitted [place] [facility]- See progress notes and H&P for detailed history.? Wound consult placed for Sacral wound.? Patient agreeable to assessment and photo documentation.? Sacrum Etiology: Stage 4??Present on Admission Wound Bed: full thickness tissue loss with pale pink moist tissue and yellow adherent slough Drainage / Odor: Large amount of medeiros yellow Edges: ? irregular and unattached Aileen wound: ?MASD - full thickness tissue loss with slough noted - No Induration, Fluctuance or Warmth noted Pain: tenderness reported Goals of Treatment: ? Barrier cream and Foam dressing over pressure injury sites to aid in pressure redistribution Bilateral Heels - not assessed today will reconuslt for assessment. Currently in heel boot protectors. Recommend continued use elevating heels off of bed surface with pillows or heel protector boots. Recommendations: 1. Turn and Reposition every 2 hours and as needed for patient comfort.? Use pillows or wedges to support off loading positions. 2. Off Load all bony prominences with use of pillows and heel boots if needed.? Apply Preventative foams where needed. ? 3. Monitor for incontinence and moisture control, use barrier creams when needed for prevention and treatment. 4. Provide adequate and supplemental nutrition.? 5. Continue low air loss mattress. 6. When applicable maintain blood glucose levels per Providers order. 7. Sacrum - Off Load Pressure with Q2 hr turns and use of pillows - Cleanse and irrigate with NS, pat dry. ?Apply thin layer of Triad to periwound. Lightly pack wound bed with ns moist gauze roll, cover with dry gauze, ABD pad and secure with tape. Change daily. Re-consult wound care Nurse for wound deterioration or wound changes.
[2024-10-11 15:14] VITALS: BP 135/65; PULSE 104; RESP 18; TEMP 36.7; O2SAT 95
--- NOTE | 2024-10-11 17:39 | P.CDIM_ITS ---
PROVIDER RESPONSE TEXT: To clarify, the appropriate diagnosis supported by the clinical indicators: Acute osteomyelitis sacrum: possible acute OM QUERY TEXT: PHYSICIAN'S DOCUMENTATION REQUEST Date of Query: 10/11/2024 12:21 PM EDT Patient Name: Monica May Admit Date: 10/06/2024 Dear Jhoana Luu MD, A review of the medical record indicates additional documentation may be needed. Please review below and update the documentation accordingly. Clinical Indicators: Progress notes: Sepsis due to decubitus sacral ulcer with potential osteomyelitis on X-ray. Continue Zosyn and Doxy. Sacral decubitus sacral ulcer appears to be deteriorating potentially to the bone which is now compli cated with a UTI. Based on the above, please clarify in the Progress Notes further specificity regarding the acuity of the Osteomyelitis. Acute osteomyelitis sacrum Possible, suspected, cannot rule out, probable etc. Subacute osteomyelitis sacrum Chronic osteomyelitis sacrum Other (explain) Clinically unable to determine (explain) Thank you, Socorro Richardson, CCS, CDIS Use of terms such as suspected, likely, concern for, or probable (associated with a specific diagnosi s that is being evaluated, monitored, or treated as if it exists) are acceptable and can be coded in the inpatient se tting, when documented at the time of discharge. Please use your independent medical judgment in providing your response. THIS QUERY IS PART OF THE PERMANENT MEDICAL RECORD
[2024-10-11 19:24] VITALS: BP 102/53; PULSE 103; RESP 18; TEMP 37.2; O2SAT 96
[2024-10-11] MEDS: Nystatin Powder 15 GM BOTTLE 1 APPL TOPICAL (20:56)
[2024-10-12] MEDS: Heparin Sodium,Porcine 5,000 UNIT/ML VIAL 5000 UNIT SUBCUT ×2 (03:04→14:14)
[2024-10-12] MEDS: Piperacillin Sodium/Tazobactam 3.375 GM in 0.9 % Sodium Chloride 50 ML IV ×3 (03:04→16:32)
[2024-10-12] MEDS: Doxycycline Hyclate 100 MG in 0.9 % Sodium Chloride 250 ML 166.67 MG IV (03:34)
[2024-10-12 03:47] VITALS: BP 109/55; PULSE 89; RESP 17; TEMP 36.7; O2SAT 96
[2024-10-12] MEDS: Morphine Sulfate 4 MG/ML CARTRIDGE 2 MG IVPUSH ×2 (03:52→10:55)
--- NOTE | 2024-10-12 04:02 | MHC.PIE ---
p; pt c/o pain to iv site. note; iv site flushed with ease, but d/t pt arm anatomy, hard to tell if site infiltrated. iv site removed per pt request. pt scheduled for picc placement this AM, pt refusing iv insertion. i; dr brumfield notified e; will cont to [facility]
[2024-10-12] MEDS: Omeprazole 20 MG CAPSULE.DR PO (06:01)
[2024-10-12 07:13] VITALS: BP 110/55; PULSE 87; RESP 18; TEMP 36.3; O2SAT 97
[2024-10-12] MEDS: 0.9 % Sodium Chloride Flush 3 ML SYRINGE IVFLUSH ×2 (10:55→16:31)
--- NOTE | 2024-10-12 10:57 | P.PICC_ITS ---
PICC Line Insertion NPICC Diagnosis: osteomyelitis Indication: 6 weeks of antibiotics Pertinent Labs: Reviewed Technique: Following informed consent including risks, benefits and alternatives and using sterile technique including cap and mask, sterile gown, glove and drape, the right arm was prepped and draped in the usual sterile fashion of full barrier technique with CHG. Following completion of Bertram Protocol the skin and soft tissues were anesthetized with 1% Lidocaine plain. Using ultrasound guidance, the right brachial vein access was obtained in a single attempt by this RN. Over an 0.018 wire through peel-away sheath, a 4 Bulgarian single lumen PASV PICC line was positioned. Catheter length is 43cm internal length, the external length is at the external o jenniffer, for a total trimmed length of 43cm. The procedure was performed in 272. Tip verification was performed by Mary Pacheco with Sherlock 3CG. Tip located in SVC. Ultrasound was used to document vein patency and for needle entry. A formal ultrasound picture and cardiac rhythm strip was recorded. [employer] has released the line for use and it is currently dressed with a StatLock, Tegaderm, and CHG disc. Verification has been performed for blood return and line patency. Arm Circumference: 26 cm Equipment: eGood PowerPICC SOLO Catheter with Sherlock 3 CG Tip Catheter Type: 4 Bulgarian single lumen PASV PICC Lot #: [id number]
--- NOTE | 2024-10-12 11:32 | MHC.CLN ---
F/U DIET=REGULAR. SEEN BY WOUND RN AND WOUND ID STAGE IV SACRUM. BILATERAL HEELS IN PROTECTOR BOOTS. CONTINUE ENSURE MAX BID (300 KCALS, 60 G PROTEIN) TO PROMOTE WOUND HEALING. PO INTAKE USUALLY 50-100%. FOLLOW FOR PO INTAKE AND SKIN INTEGRITY.
[2024-10-12] MEDS: Cholecalciferol (Vitamin D3) 25 MCG TABLET 50 MCG PO (11:34)
[2024-10-12] MEDS: traMADoL HCL 50 MG TABLET PO ×2 (11:35→14:13)
[2024-10-12] MEDS: Nystatin Powder 15 GM BOTTLE 1 APPL TOPICAL (11:35)
[2024-10-12] MEDS: Ferrous Sulfate 324 MG TABLET.DR PO (11:35)
--- NOTE | 2024-10-12 12:40 | MHC.CM.PN ---
Addendum entered by Humaira Chamberlain 10/12/24 15:24: [facility] HAS OBTAINED INSURANCE AUTH. MD AWARE. BLS TRANSPORT BOOKED FOR 6 PM [facility]IA [facility]. RN AWARE. Addendum entered by Humaira Chamberlain 10/12/24 14:50: FINAL IMM DELIVERED Original Note: EMR REVIEWED AND PER MD ROUNDS, PT WILL HAVE PICC PLACED TODAY. PT IS AGREEABLE TO IV RX IN A SNF AND CHOOSES [facility]. [facility] TO START AUTH PROCESS. CM WILL AWAIT INSURANCE APPROVAL.
[2024-10-12 15:18] VITALS: BP 116/66; PULSE 103; RESP 18; TEMP 36.7; O2SAT 94
--- NOTE | 2024-10-12 15:41 | P.DS_ITS ---
DS: Providers Provider Date of Service: 10/12/24 Date of admission: 10/06/24 12:09 Date of discharge: 10/12/24 Primary care physician: Ivan España MD Consults: 10/06/24 14:13 Consult to Wound Care Routine Reason for consultation: sacral decubitus ulcer Has provider been notified: Yes 10/07/24 09:53 Consult to Infectious Diseases Routine Consulting Provider: [facility] Reason for consultation: sacral osteomylitis Attending physician on discharge: Jhoana Luu Discharging clinician: Jhoana Luu DS: Diagnosis Discharge Diagnosis (1) Acute UTI: Status: Acute (2) Sacral decubitus ulcer: Status: Acute DS: Summary Hospital Course Hospital Course: HPI:79 year old female with a PMH of Mild cognitive impairment, UTI with VRE, FTT, HTN, GERD, anemia, arthritis and sacral wound which has progressively gotten worse since Jun 2024 imagining. Patient reports being bed bound for about 1 month, she reports having sacral pain for the past couple of weeks, and that sacral bleeding increased today. In the ER labs, CTA, EKG, BC, urinalysis obtained. Patient was started on Zosyn, Linezolid, morphine and given an LR bolus for the sepsis protocol. Labs significant for ESR 101, CRP 6.50,LA 1.7, CTA: osteomyelitis not excluded, cystitis, and bilateral nephrolithiasis BC pending Urine: large 3+ blood, Positive nitrates, Large 3+ leukocytes esterase, >20 RBC EKG: Sinus rhythm with short NE Patient will be admitted to the hospital for further evaluation of sacral ulcer with potential osteomylitis and UTI. Hospital course:79 year old female with a PMH of Mild cognitive impairment, UTI with VRE, FTT, HTN, GERD, anemia, arthritis and sacral wound. Sacral decubitus ulcer appears to be deteriorating potenitally to the bone which is now complicated with a uti-Sepsis due to decubitis sacral ulcer with potential acute osteomyelitis on Xray, although not clearly seen on MRI which was a poor study: Patient is started on IV antibiotics, blood cultures sent. Wound care consulted. In addition patient was found to have UTI, urine culture also sent and started on antibiotics as above. Patient has sacral decubitus ulcer and possible/potential osteomyelitis acute on x-ray: Started on IV antibiotics, blood cultures sent patient seems to be i mproving: Blood culture negative. Discussed with ID recommended 6 weeks of Zosyn-end date will be November 18 2024. Cystitis/UTI: Urine culture grew Proteus mirabilis, patient is already on Zosyn. Chronic microcytic anemia with acute blood loss: Patient received 1 PRBC: H&H stable around 9.0/29. Continue p.o. iron. moniter cbc ,further anemia workup outpatient. Monitor CBC outpatient. Hypotension: Patient blood pressure is stable without lisinopril, hold lisinopril. If needed for blood pressure can reintroduce if needed outpatient. wound care-Sacrum: Stage 4??Present on Admission-please see wound care instructions. plan: Complete Zosyn-end date November 18 2024. Consider Monitor CBC, CMP, ESR, CRP while on antibiotics Q weekly. Wound care as above. Above management discussed with the patient in detail length she understand and in agreement with the above plan, time spent 40 minute, all question answered. Time Attestation Total time managing care of this patient today: 40 mintues. Discharge Coordination Time (in mins): 40 min Quality: Safe Use of Opioids Does Pt have an Active Cancer Diagnosis on the Problem List?: No Quality: Stroke Does the patient have a stroke diagnosis?: No Physical Exam Vital Signs: Vital Signs: Last Vital Signs Temp 98.1 F 10/12/24 15:18 Pulse 103 H 10/12/24 15:18 Resp 18 10/12/24 15:18 BP 116/66 10/12/24 15:18 Pulse Ox 94 10/12/24 15:18 O2 Del Method Room Air 10/12/24 15:18 BMI result Body Mass Index 24.6 Appearance: Alert. Oriented X3. CVS: Normal heart rate and rhythm. Pulses normal. Respiratory: No respiratory distress. Breath sounds normal. Abdomen: Soft and nontender. Skin: Skin warm and dry. pale skin color. Back: please see wound care note:sacrum : stage 4 (present at admission). Extremities: No lower extremity edema. Neuro: Oriented X 3. moves all ext. DS: Data Imaging Chest x-ray: Radiologist's impression: ITS Impressions Abdomen/Pelvis CT 10/06/24 11:23 IMPRESSION: 1. Sacral decubitus ulcer which extends to the bone. While there is no gross osseous destruction, osteomyelitis is not excluded. There is an additional decubitus ulcer at the posterior aspect of the left thigh. 2. Findings suggestive of cystitis as described. A tiny bubble of gas in the urinary bladder may be due to prior instrumentation. Clinical correlation is recommended. 3. Bilateral nephrolithiasis as described. Enhancement of the tolentino of the right renal pelvis may indicate pyelitis. 4. Very large amount of stool throughout the colon. Discharge Plan Discharge Anticipated Discharge Date/Time: 10/12/24 15:32 Patient Disposition: er [facility] Discharge Diagnosis: possible acute osteomyelitis ,sacral wound. Referrals: [facility] [Outside] - 1 Week (TRANSFER FOR SHORT TERM REHAB FOR IV RX) Ivan España MD [Primary Care Provider] - 1 Week Discharge Medications: New piperacillin-tazobactam 3.375 gram Recon Soln 3.375 g IV Q6H Qty: 1 0RF Rx Instructions: continue zosyn -end date will be november nystatin [Nyamyc] 100,000 unit/gram Powder 1 appl topical BID Qty: 1 0RF Protocol: Apply to: Apply to: Affected area Continued alendronate 70 mg tablet 70 mg PO FR tramadol 50 mg tablet 50 mg PO TID omeprazole 20 mg capsule,delayed release(DR/EC) 20 mg PO DAILY@0630 cholecalciferol (vitamin D3) [Vitamin D3] 50 mcg (2,000 unit) Capsule 50 mcg PO DAILY ferrous sulfate 324 mg (65 mg iron) Tablet,Delayed Release (Dr/Ec) 324 mg PO DAILY Qty: 90 0RF Discontinued lisinopril 20 mg tablet 20 mg PO DAILY Discharge Orders: Discharge Order (Routine); Ordered 10/12/24 Ordered By: Jhoana Luu Diet: Advance to usual diet Activity on Discharge: As tolerated Stand Alone Forms: Patient Portal Discharge page Print Language: Turkmen Activity Restrictions/Additional Instructions: Topical Wound care recommendations: Sacrum - Off Load Pressure with Q2 hr turns and use of pillows - Cleanse and irrigate with NS, pat dry. ?Apply thin layer of Triad to periwound. Lightly pack wound bed with ns moist gauze roll, cover with dry gauze, ABD pad and secure with tape. Change daily. Continue to support nutritional needs. Recommend continued use of specialty mattress for stage 4 pressure injury. Care Plan Goals: Patient has sacral decubitus ulcer and possible/potential osteomyelitis acute on x-ray: Started on IV antibiotics, blood cultures sent patient seems to be improving: Blood culture negative. Discussed with ID recommended 6 weeks of Zosyn-end date will be November 18 2024. Cystitis/UTI: Urine culture grew Proteus mirabilis, patient is already on Zosyn. Chronic microcytic anemia with acute blood loss: Patient received 1 PRBC: H&H stable around 9.0/29. Continue p.o. iron. Monitor CBC outpatient. Hypotension: Patient blood pressure is stable without lisinopril, hold lisinopril. If needed for blood pressure can reintroduce if needed outpatient. Health Concerns: As above. Complete Zosyn-end date November 18 2024. Consider Monitor CBC, CMP, ESR, CRP while on antibiotics Q weekly. Wound care as above. Plan of Treatment: As above. Assessment: As above.
--- NOTE | 2024-10-19 11:20 | PC.NURSE ---
On October 07, 2024 at 13:38 pt received Tylenol for pain score of 5 per pt request.
== END 2024-10-12 18:28 | disposition skilled nursing facility (03) | DRG 593 ==
LOC: HO.ED 12:06 → HO.EDOVER 12:16 → HO.S3 13:44
PROVIDERS: Nurse Practitioner Acute Care; Student in an Organized Health Care Education/Training Program; Admitting Provider Internal Medicine; Emergency Provider Emergency Medicine; PCP Internal Medicine; Visit Provider Internal Medicine
DX: L89.154 Pressure ulcer of sacral region, stage 4 (principal); D62 Acute posthemorrhagic anemia; M46.28 Osteomyelitis of vertebra, sacral and sacrococcygeal region; N30.00 Acute cystitis without hematuria; I95.9 Hypotension, unspecified; G31.84 Mild cognitive impairment of uncertain or unknown etiology; B96.4 Proteus (mirabilis) (morganii) as the cause of diseases classified elsewhere; M81.0 Age-related osteoporosis without current pathological fracture; K21.9 Gastro-esophageal reflux disease without esophagitis; I10 Essential (primary) hypertension; Z79.899 Other long term (current) drug therapy
CPT/HCPCS: 36415; 36573; 72195; 74177; 80048; 80076; 81001; 82550; 83605; 83735; 85014; 85018; 85025; 85027; 85652; 86140; 86850; 86900; 86901; 86923; 87040; 87086; 87088; 87186; 93005; 99285; C1751; J1271; J1644; J2020; J2270; J2543; J7120; P9016; P9047; Q9967

== ENCOUNTER → 2024-10-06 10:00 | Outpatient (BNV) | payer MEDICARE, SELFPAY | PROVIDERS: Admitting Provider Internal Medicine; Emergency Provider Emergency Medicine; PCP Internal Medicine; Visit Provider Radiology Diagnostic Radiology | DX: N20.0 Calculus of kidney (principal); L89.159 Pressure ulcer of sacral region, unspecified stage; K56.41 Fecal impaction | CPT/HCPCS: 74177 ==

== ENCOUNTER → 2024-10-06 11:30 | Outpatient (BNV) | payer MEDICARE, SELFPAY | PROVIDERS: Admitting Provider Internal Medicine; Emergency Provider Emergency Medicine; PCP Internal Medicine; Visit Provider Internal Medicine Cardiovascular Disease | DX: Z13.6 Encounter for screening for cardiovascular disorders (principal) | CPT/HCPCS: 93010 ==

== ENCOUNTER 2024-10-06 12:09 | Outpatient (BNV) | payer MEDICARE, SELFPAY | END 2024-10-07 12:00 | PROVIDERS: Admitting Provider Internal Medicine; Emergency Provider Emergency Medicine; PCP Internal Medicine; Visit Provider Radiology Diagnostic Radiology | DX: L89.159 Pressure ulcer of sacral region, unspecified stage (principal) | CPT/HCPCS: 72195 ==

== ENCOUNTER → 2024-10-06 12:09 | Outpatient (BNV) | payer MEDICARE, SELFPAY | PROVIDERS: Admitting Provider Internal Medicine; Emergency Provider Emergency Medicine; PCP Internal Medicine; Visit Provider Internal Medicine | DX: N39.0 Urinary tract infection, site not specified (principal); L89.156 Pressure-induced deep tissue damage of sacral region | CPT/HCPCS: 99232 ==

== ENCOUNTER → 2024-10-06 12:09 | Outpatient (BNV) | payer MEDICARE, SELFPAY | PROVIDERS: Admitting Provider Internal Medicine; Emergency Provider Emergency Medicine; PCP Internal Medicine; Visit Provider Nurse Practitioner Acute Care | DX: N39.0 Urinary tract infection, site not specified (principal); L89.156 Pressure-induced deep tissue damage of sacral region | CPT/HCPCS: 99223; 99232; 99499 ==

== ENCOUNTER 2024-11-02 11:21 | Emergency (ER) | payer MEDICARE, SELFPAY ==
--- NOTE | ~2024-11-02 | CT_ITS ---
EXAMINATION: CT ABDOMEN AND PELVIS WITHOUT CONTRAST CLINICAL INFORMATION: ? Stone COMPARISON: October 06, 2024. TECHNIQUE: Multidetector volumetric imaging was performed from the superior aspect of the liver through the pubic symphysis. Sagittal and coronal reformatted images were obtained on the technologist's workstation. This CT examination was performed using dose optimization techniques as appropriate, variously including the following: *Automated exposure control *Adjustment of mA and/or kV according to patient size (this includes techniques or standardized protocols for targeted exams where dose is matched to indication/reason for exam; i.e. extremities or head) *Use of iterative reconstruction technique DLP: 1092 mGy centimeter. FINDINGS: Inadequate evaluation of the intra-abdominal organs and vascular structures due to lack of IV contrast. LUNG BASES: Elevated left hemidiaphragm, old. Small volume left sided pleural effusion. Atelectasis lung bases. LIVER, GALLBLADDER, AND BILIARY TREE: Liver measures 15 cm. Cholelithiasis. No intrahepatic or extrahepatic biliary ductal dilatation. PANCREAS: No peripancreatic fluid collections. SPLEEN: 8 cm. Peripheral focal calcification medially. ADRENAL GLANDS: No gross nodular lesions. KIDNEYS AND URETERS: Right kidney: Multiple different sizes calcifications in the renal pelvis and pelvicalyceal system, the largest measures 1.2 cm. No hydronephrosis. No dilatation of the right ureter. Left kidney: Layering calcifications seen the pelvicalyceal system and renal pelvis measuring less than 1.5 mm. No hydronephrosis. No dilatation of the left ureter. BLADDER: Bladder wall thickening slightly asymmetric to the right side of the bladder. GASTROINTESTINAL TRACT: Abundant stool within the large intestine. No air-fluid levels. No intestinal obstruction pattern. Abundant stool in the rectal with mild pericolonic edema pattern/intestinal wall thickening. No pneumatosis intestinalis. No ascites. No pneumoperitoneum. Appendix is normal. ABDOMINAL WALL: No gross umbilical hernia. Edema pattern within the fat planes of the chest abdomen pelvis and no gross fluid collections. There is fatty atrophy of the lumbar muscles and to a lesser extent in the gluteal and upper thighs. There is thickening of the skin in the presacral region without gross fluid collection. LYMPH NODES: No gross lymphadenopathy, retroperitoneum. VASCULAR: Calcified plaques throughout the aorta and iliac arteries and coronary arteries. No aneurysm, abdominal aorta. Decreased density within the lumen of the aorta. . PELVIC VISCERA: Nondiagnostic. OSSEOUS STRUCTURES: Multilevel thoracolumbar spondylosis resulting in grade 1 anterolisthesis L4-5 and grade 1 retrolisthesis L2-3. Old traumatic deformity, right coxofemoral joint. 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 S-shaped curvature of the thoracolumbar spine CT/CT abdomen pelvis wo IV con IMPRESSION: Bilateral nonobstructing nephrolithiasis. Cholelithiasis. Asymmetric thickening. Gallbladder wall. Consider inflammatory versus infectious versus neoplasm. Recommend direct inspection. Stercoral colitis should be considered considered. Small left-sided pleural effusion. Fleischner guidelines were followed. Electronically signed by: Fernando Rivas MD 11/02/2024 02:23 PM EDT
--- NOTE | ~2024-11-02 | US_ITS ---
EXAMINATION: US PELVIS CLINICAL INFORMATION: Vaginal bleeding. COMPARISON: None available. TECHNIQUE: Ultrasound of the pelvis is performed using both transabdominal and transvaginal transducers along with Doppler. Transvaginal imaging is performed due to inadequate visualization transabdominally. FINDINGS: Very limited study due to bowel gas. The uterus is anteverted, anteflexed, atrophic, and measures 4.1 x 2.0 x 3.3 cm. The cervix appears normal. The endometrium could not be well identified. The uterus is smooth in contour and has heterogeneous myometrial echogenicity. No visible fibroid. Adnexa: Neither ovary could be visualized. No adnexal masses. Incidental note made of bladder wall thickening with internal debris. A bladder masslike abnormality in the superior urinary bladder may be present, measuring approximately 2.0 x 1.6 x 2.0 cm. Neoplasm is not excluded given the appearance. US/US pelvic complete IMPRESSION: 1. Atrophic uterus. The endometrium could not be well identified. 2. The ovaries could not be visualized. No adnexal masses. 3. Diffuse bladder wall thickening, with a possible superior bladder wall mass measuring 2.0 x 1.6 x 2.0 cm. Neoplasm is not excluded. Recommend cross-sectional CT imaging. Electronically signed by: Kike Sykes MD 11/02/2024 01:08 PM EDT
[2024-11-02 11:24] VITALS: BP 158/98; PULSE 108; O2SAT 95
[2024-11-02 11:59] VITALS: BP 126/76; PULSE 108; RESP 18; TEMP 36.4; O2SAT 96; BMI 26.5
--- NOTE | 2024-11-02 12:12 | ED_ITS ---
HPI - Female Genitourinary General Chief complaint: Vaginal Bleeding Stated complaint: ?bleeding, on Eliquis, from [facility] Time Seen by Provider: 11/02/24 11:57 Source: patient Mode of arrival: EMS Limitations: no limitations History of Present Illness HPI Narrative: This is a kellie 79 years old the patient essentially bed ridden from the halfway on [facility] with decubitus was sent today for evaluation of possible vaginal bleeding. Patient denies any systemic symptoms such as chest pain shortness of breath she is anticoagulated with apixaban Pertinent past history: recurrent UTIs Onset (ago): day(s) (1) Location of symptoms: external genitalia Severity: mild Female Urogenital Radiation: Non-Radiating Associated symptoms: denies other symptoms Treatment prior to arrival: none Related Data Home Medications ?Medication ?Instructions ?Recorded ?Confirmed alendronate 70 mg tablet 70 mg PO FR 06/27/24 5 cholecalciferol (vitamin D3) 50 50 mcg PO DAILY 10/06/24 mcg (2,000 unit) capsule (Vitamin D3) omeprazole 20 mg capsule,delayed 20 mg PO DAILY@0630 0 06/27/24 10/06/24 release tramadol 50 mg tablet 50 mg PO TID 06/27/24 Previous Rx's ?Medication ?Instructions ?Recorded ferrous sulfate 324 mg (65 mg 324 mg PO DAILY #90 tabs 07/23/24 iron) tablet,delayed release nystatin 100,000 unit/gram topical 1 appl topical BID #1 g 10/12/24 powder (Nyamyc) piperacillin-tazobactam 3.375 gram 3.375 g IV Q6H #1 e a 10/12/24 intravenous solution Allergies Allergy/AdvReac Type Severity Reaction Status Date / Time No Known Allergies (No Known Allergy Verified 11/02/24 12:00 Allergies*) Review of Systems 2 Constitutional: Constitutional: Reports no additional constitutional complaints ENT: Reports system reviewed and no additional complaints, except as documented Genitourinary: Comments: Vaginal bleeding PMFSH Past Medical History Attestation statement: The following information was validated with the patient. Medical History MCI (mild cognitive impairment) Insufficiency fracture Osteoarthritis of right knee Sacral wound Adult failure to thrive Arthritis Social History Social History Household Members: Spouse Housing: Apartment Do you presently have visiting nurse or other home services: Yes (pt has [employer]SELOR) Alcohol intake: never Patient Tobacco Use Status: Never used Tobacco Smoked in Last 30 Days: No Second Hand Smoke Exposure: No Use of substances other than those prescribed or required for medical reasons: No Advance Directives: Yes Advance Directives on File: Yes Advance Directives Date on File: 06/30/24 service: No Physical Exam 2 Vital Signs: Vital Signs: Last Vital Signs Temp 97.6 F 11/02/24 11:59 Pulse 91 11/02/24 14:22 Resp 16 11/02/24 14:22 BP 151/89 H 11/02/24 14:22 Pulse Ox 99 11/02/24 14:22 O2 Del Method Room Air 11/02/24 14:22 BMI result Body Mass Index 26.5 She looks well she is not toxic-appearing Const: General: cooperative Nutritional Appearance: well nourished O rientation/consciousness: patient oriented x3 Limitations: no limitations HEENT: Head: Yes normal to inspection General nose exam: Normal external nose present Face and sinus: Yes normal facial exam Neck: Neck: Yes normal visual inspection Chest: Chest palpation & inspection: normal inspection of the chest Resp: Effort & Inspection: normal respiratory effort Auscultation: clear to auscultation bilaterally Cardio: Jugular venous distension: no JVD Rate: regular rate Rhythm: r egular rhythm GI: Inspection: Yes normal to inspection Palpation (GI): Soft to palpation, not firm and nontender : Other: Very difficult exam the patient is unable to abduct the lower extremity with the help of 2 people I did a rectal exam she has brown stool stools were sent for exam, I inspection of the vagina I could not see any active bleeding considering the exam is limited because unable to abduct extremities. Skin: General skin exam: no rashes or lesions noted Neuro: General: patient oriented x3 Cranial nerves: Yes CN's II-XII intact bilaterally Course Reevaluation(s) Reevaluation #1: PATIENT REMAINED HEMODYNAMICALLY STABLE SHE IS AFEBRILE TEMPERATURE 97.8 DEGREES, LOOKS LIKE SHE HAS A HEMATURIA , UA SHOWS 3+ BLOOD ALSO SHE HAS MORE THAN 21-50 WBC SHE IS RECEIVING IV ZOSYN UNTIL NOVEMBER 18 VIA PICC LINE, THE LAST URINE ON OCTOBER 06 GREW PROTEUS MIRABILIS WHICH WAS SENSITIVE TO CEPHALOSPORIN AND AMPICILLIN. AT THIS POINT I THINK SHE CAN BE DISCHARGED HOME WITHIN NO SEE ANY VAGINAL BLEEDING, WE DID ALSO AN ULTRASOUND OF THE PELVIS WHICH SHOWED ATROPHIC UTERUS, A POSSIBLE BLADDER WALL MASS, WHICH WAS NO SEEN THE BY THE CT OF THE ABDOMEN AND PELVIS Time: 14:39 Medical Decision Making Medical Decision Making [facility] Narrative: Patient is here with a vaginal bleeding I was able to do a limited exam because of severe osteoarthritis on a unable to abduct lower extremities , with the help of 2 people and was able to examined the vagina I do not see active bleeding at this time. We will get labs UA we will do pelvic ultrasound Differential Diagnosis Differential Diagnoses: The differential diagnosis associated with the presentation includes Vaginal bleeding/hematuria/GI bleeding Admission/Observation Consideration of admission/observation: Escalation of care including admission/observation considered Lab Data [facility] Lab Attestation statement: I reviewed the patient's lab results. 11/02/24 12:35 11/02/24 12:35 Labs: Lab Results 11/02/24 11/02/24 Range/Units 12:26 12:35 WBC 6.3 (4.8-10.8) X10*3/uL RBC 3.30 L (4.20-5.50) X10*6/uL Hgb 8.4 L (12.0-16.0) g/dl Hct 27.1 L (37.0-47.0) % MCV 82.1 (80.0-98.0) fL MCH 25.5 L (27.0-33.0) pg MCHC 31.0 (31.0-35.0) g/dl RDW 21.2 H (11.0-16.0) % Plt Count 396 D (160-400) X10*3/uL MPV 8.6 L (9.4-12.3) fL Immature Gran % (Auto) 0.3 (0.0-0.4) % Neut % (Auto) 53.5 (45-73) % Lymph % (Auto) 20.6 (20-40) % [place] % (Auto) 12.7 H (2-11) % Eos % (Auto) 11.2 H (0-4) % Baso % (Auto) 1.7 (0-2) % Lymph # (Auto) 1.3 (1.2-4.9) X10*3/uL [place] # (Auto) 0.8 (0.1-1.2) X10*3/uL Eos # (Auto) 0.7 H (0.0-0.4) X10*3/uL Baso # (Auto) 0.1 (0.0-0.2) X10*3/uL Abs Immat Gran (auto) 0.02 (0.00-0.03) X10*3/uL Absolute Neuts (auto) 3.4 (2.0-8.3) x10*3/uL Absolute Nucleated RBC 0.000 (0.0-0.012) X10*3/uL Nucleated RBC % (auto) 0.0 (0.0-0.2) /100WBC PT 19.0 H D (10.9-12.4) SEC INR 1.7 H (0.9-1.1) APTT 39.7 H (26.0-36.8) SEC Sodium 142 (135-145) mmol/L Potassium 4.1 (3.3-5.1) mmol/L Chloride 108 (96-108) mmol/L Carbon Dioxide 27 (22-29) mmol/L Anion Gap 11 L (12-20) BUN 14 (9-16) mg/dL Creatinine 0.48 L (0.5-1.4) mg/dL Estim Creat Clear Calc 87.3 Estimated GFR > 60 Random Glucose 92 (60-115) mg/dL Calcium 8.7 (8.4-10.2) mg/dL Total Bilirubin 0.2 (0.0-1.0) mg/dL AST 23 (5-31) U/L ALT < 6 (0-31) U/L Alkaline Phosphatase 68 (39-117) U/L Total Protein 6.4 L (6.5-8.0) g/dL Albumin 2.8 L (3.5-5.0) g/dL Urine Color Red A Urine Appearance Cloudy Urine pH 7.0 (5.0-9.0) Ur Specific Pedro 1.010 (1.005-1.025) Urine Protein 100 (2+) H (Neg-Trace) mg/dL Urine Glucose (UA) Negative (Negative) mg/dL Urine Ketones Negative (Negative) mg/dL Urine Blood Large (3+) H (Negative) Urine Nitrite Negative (Negative) Ur Leukocyte Esterase Moderate (2+) H (Negative) Urine RBC >20 H (0-2) /HPF Urine WBC 21-50 H (0-5) /HPF Ur Squamous Epith Cells 6-10 (0-2) /HPF Urine Bacteria None Seen (None Seen) Hyaline Casts 0-2 (0-2) /LPF Independent Interpretation I performed an independent interpretation of an: CT Scan Interpretation: REVIEWED CAT SCAN BY ME THICKENING OF THE BLADDER Radiology Impression Discussion of test interpretation with radiology: I have reviewed the radiologist's reading. Radiologist Impression: PELVIC VISCERA: Nondiagnostic. OSSEOUS STRUCTURES: Multilevel thoracolumbar spondylosis resulting in grade 1 anterolisthesis L4-5 and grade 1 retrolisthesis L2-3. Old traumatic deformity, right coxofemoral joint. 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 S-shaped curvature of the thoracolumbar spine CT/CT abdomen pelvis wo IV con IMPRESSION: Bilateral nonobstructing nephrolithiasis. Cholelithiasis. Asymmetric thickening. Gallbladder wall. Consider inflammatory versus infectious versus neoplasm. Recommend direct inspection. Stercoral colitis should be considered considered. Small left-sided pleural effusion. Fleischner guidelines were followed. Electronically signed by: Fernando Rivas MD 11/02/2024 02:23 PM EDT Dictated By: Fernando Torres MD Signed By: <Electronically signed by Fernando Gordon MD in OV> 11/02/24 1423 External Record Review External record reviewed: Inpatient record Discharge Plan Discharge Clinical Impression: Acute UTI Hematuria Qualifiers: Hematuria type: gross Qualified Code(s): R31.0 - Gross hematuria Patient Disposition: er [facility] Instructions: Hematuria (ED), Urinary Tract Infection in Older Adults (ED) Prescriptions: No Action alendronate 70 mg tablet 70 mg PO FR tramadol 50 mg tablet 50 mg PO TID omeprazole 20 mg capsule,delayed release(DR/EC) 20 mg PO DAILY@0630 cholecalciferol (vitamin D3) [Vitamin D3] 50 mcg (2,000 unit) Capsule 50 mcg PO DAILY ferrous sulfate 324 mg (65 mg iron) Tablet,Delayed Release (Dr/Ec) 324 mg PO DAILY Qty: 90 0RF piperacillin-tazobactam 3.375 gram Recon Soln 3.375 g IV Q6H Qty: 1 0RF Rx Instructions: continue zosyn -end date will be november nystatin [Nyamyc] 100,000 unit/gram Powder 1 appl topical BID Qty: 1 0RF Protocol: Apply to: Apply to: Affected area Referrals: Deni Orozco MD [Primary Care Provider, Medical] - 2 days Print Language: Faroese
[2024-11-02 12:39] LABS: MANUAL DIFF FLAG NO
[2024-11-02 12:41] LABS: Basophils Absolute Auto 0.1 X10*3/uL (0.0-0.2); Basophils Percent Auto 1.7 % (0-2); Eosinophils Absolute Auto 0.7 X10*3/uL (0.0-0.4); Eosinophils Percent Auto 11.2 % (0-4); Hematocrit 27.1 % (37.0-47.0); Hemoglobin 8.4 g/dl (12.0-16.0); Imm Gran Abs Auto 0.02 X10*3/uL (0.00-0.03); Imm Gran Pct Auto 0.3 % (0.0-0.4); Lymphocytes Absolute Auto 1.3 X10*3/uL (1.2-4.9); Lymphocytes Percent Auto 20.6 % (20-40); Mean Corpuscular Hemoglobin 25.5 pg (27.0-33.0); Mean Corpuscular Volume 82.1 fL (80.0-98.0); Mean Platelet Volume 8.6 fL (9.4-12.3); Monocytes Absolute Auto 0.8 X10*3/uL (0.1-1.2); Monocytes Percent Auto 12.7 % (2-11); Neutrophils Absolute Auto 3.4 x10*3/uL (2.0-8.3); Neutrophils Percent Auto 53.5 % (45-73); Platelet Count 396 X10*3/uL (160-400); Red Cell Distribution Width 21.2 % (11.0-16.0); White Blood Count 6.3 X10*3/uL (4.8-10.8)
[2024-11-02 12:50] LABS: INTERNATIONAL NORM RATIO 1.7 (0.9-1.1)
[2024-11-02 12:52] LABS: Partial Thromboplastin Time 39.7 SEC (26.0-36.8)
[2024-11-02 12:57] LABS: Appearance Urine Cloudy; Color Urine Red; Glucose Urine UA Negative (Negative); Leukocyte Esterase Urine Moderate (2+) (Negative); Nitrite Urine Negative (Negative); UMIC TRIGGER UACC YES; Urine Blood Large (3+) (Negative); Urine Ketones Negative (Negative); Urine Protein 100 (2+) mg/dL (Neg-Trace)
[2024-11-02 12:58] LABS: Bacteria Urine None Seen (None Seen); Hyaline Casts Urine 0-2 /LPF (0-2); RBC Urine >20 /HPF (0-2); UACC Culture Trigger YES; WBC Urine 21-50 /HPF (0-5)
[2024-11-02 12:58] LABS: Alanine Aminotransferase < 6 U/L (0-31); Albumin Level 2.8 g/dL (3.5-5.0); Alkaline Phosphatase 68 U/L (39-117); Anion Gap 11 (12-20); Aspartate Amino Transferase 23 U/L (5-31); Bilirubin Total 0.2 mg/dL (0.0-1.0); Blood Urea Nitrogen 14 mg/dL (9-16); Calcium 8.7 mg/dL (8.4-10.2); Carbon Dioxide 27 mmol/L (22-29); Chloride 108 mmol/L (96-108); Creatinine Clr Calc Pharmacy 87.3; Estimated Glomerular Filt Rate > 60; Glucose Random 92 mg/dL (60-115); Potassium 4.1 mmol/L (3.3-5.1); Sodium 142 mmol/L (135-145); Total Protein 6.4 g/dL (6.5-8.0)
--- NOTE | 2024-11-02 13:29 | PC.NURSE ---
pt has urinary bleeding. urine sample sent to lab. Dr. Lee examined vagina - no blood seen.
[2024-11-02 14:22] VITALS: BP 151/89; PULSE 91; RESP 16; O2SAT 99
--- OUTSIDE RECORDS SUMMARY | 2024-11-02 14:51 | XMS_ITS | Data Portability ---
Author Organization [place] [facility] Address [address] [place] [id number] Care Team Providers Care Belt Operator Name Role Phone KAYLEE JACK Primary Care Provider Assessment Encounter Date Assessment Date Assessment LastModified by Organization Details LastModified Time 09/27/2020 09/27/2020 Overview/History : 75 y/o F with PMHx sig for HTN, OA, GERD, chronic back pain, and spinal cyst , new to , who presents w/ c/o urinary frequency x 3 days with intermittent burning. She reports urinating a normal amount every 1-2 hours. Denies polydipsia, weight changes, night sweats, fever, chills, leg weakness, numbness, or tingling. She admits to burning pain from her arthritis and recently had televisit with PCP, she states he increased her Tramadol for this. Admits to intermittent functional urinary incontinence as it is difficult for her to get to the bathroom quick enough due to her arthritis therefore she wears poise pads. She tries to change these as soon as they are soiled. Denies hematuria or malodorous urine. Denies frequent UTIs. Exam: low grade fever, RRR, hypertensive (anxious appearing and in pain from arthritis), normal resps, O2 sat 96% on RA, non-toxic, elderly, frail, and chronically ill appearing. GENERAL: well developed, well nourished, elderly, frail, chronically ill appearing, appears stated age, sitting comfortably in no acute distress. RESP: normal I:E, breathing non-labored, no accessory muscle use, clear to auscultation bilaterally, no wheezes, rhonchi, or rales. CARDIO: RRR, normal S1, S2, no murmurs, rubs, or gallops, radial, PT/AT/DP pulses 2+ bilaterally. ABD: soft, non-tender, non-distended, normoactive BS x4, no masses or HSM, no suprapubic tenderness. BACK: no CVAT. EXTREMITIES: warm, well perfused, no cyanosis, swelling or rashes. NEURO: awake, alert, oriented x3, mild memory impairment, no focal neuro deficits, moving all extremities spontaneously, slow antalgic gait with walker. PSYCH: pleasant, anxious, hyperverbal, frequently conversing with herself and muttering, appropriate mood and affect. DDx considered, but not limited to: UTI - likely w/ c/o urinary frequency, burning, and UA + leuks and blood pyelo - unlikely, no CVAT urosepsis - unlikely, no tachycardia, hypotension, tachypnea, patient non-toxic appearing nephrolithiasis - unlikely, no radiating flank pain cauda equina - less likely, patient mostly continent at baseline, no saddle anesthesia or leg weakness diabetes - less likely, no weight change, no polydipsia, no glucosuria or ketonuria. Work up/Results: UA ++leuks, +blood; UCx pending. Plan/Discussion: -probable UTI -Start Keflex 500 mg TID x5 days, first dose given on scene at 16:00, second dose given for patient to take at midnight since cannot get to pharmacy until the morning -patient educated to hydrate with water and wipe front to back and change pads as soon as they are soiled -patient advised if symptoms worsen to go to ER -will call with urine culture results -f/u with PCP in 2-3 days Thank you [facility]. We cannot always find the exact cause of your symptoms during your initial visit. Please follow up with your primary care provider or specialist to be rechecked or seek medical attention if your symptoms do not go away or get worse. If you develop any new or worsening symptoms and need after hours care, please go to nearest ER and/or call 911. If you have additional concerns or develop a change in your condition between 8am-10pm, please call [facility] at [phone] to help navigate your care. Time On Scene with Patient: 01:35:14 mariela Not available 09/27/2020 17:04:18 Plan of Treatment Reminders Order Date Submit Date Provider Last Modified By Organization Details Last Modified Time Details Appointments None recorded. Lab urinalysis, dipstick 2020 berenicekaci [facility] [place], [address] [place] [address], [id number], 16:04:13 culture, urine 2020 HUGHES [facility] (Centralized Electronic Ordering - All Locations), Patient Can Go To The Location Of Their Choice, 07:45:17 Referral None recorded. Procedures None recorded. Surgeries None recorded. Imaging None recorded. Medication Orders cephalexin 500 mg capsule 2020 [facility], [address] [place] [address], [id number], 16:24:39 Patient TargetsNo targets recorded. Patient InstructionsNo instructions recorded. Reason for Referral None Reported. Results Created Date Observation Date Name Description Value Unit Range Abnormal Flag Note LastModifiedBy Organization Detail LastModifiedTime 09/28/1909/28/2020 cultu re, urine specimen description URINE Not Available [facility] (Centralized [facility] Ordering - All Locations) Patient Can Go To The Location Of Their Choice, 09/29/2020 07:45:17 09/28/1909/28/2020 cultu re, urine special requests NONE Not Available [facility] (Centralized Electronic Ordering - All Locations) Patient Can Go To The Location Of Their Choice, 09/29/2020 07:45:17 09/28/1909/29/2020 cultu re, urine culture NO GROWTH Not Available [facility] (Centralized Electronic Ordering - All Locations) Patient Can Go To The Location Of Their Choice, 09/29/2020 07:45:17 09/28/1909/29/2020 cultu re, urine report status FINAL 2020 Not Available [facility] (Centralized Electronic Ordering - All Locations) Patient Can Go To The Location Of Their Choice, 09/29/2020 07:45:17 09/28/1909/27/2020 urina lysis , dipst ick Appearance clear Not Available Spr - [facility] [address] [place], [address], 09/27/2020 15:46:59 09/28/19 21 09/27/2020 urina lysis , dipst ick Color yellow Not Available Spr - Home [address] [place], [address], 09/27/2020 15:46:59 09/28/19 21 09/27/2020 urina lysis , dipst ick Glucose negati ve Not Available Spr - Home [address] [place], [address], 09/27/2020 15:46:59 09/28/19 21 09/27/2020 urina lysis , dipst ick Bilirubin negati ve Not Available Spr - Home [address] [place], [address], 09/27/2020 15:46:59 09/28/19 21 09/27/2020 urina lysis , dipst ick Ketones NEG Not Available Spr - Home [address] [place], [address], 09/27/2020 15:46:59 09/28/19 21 09/27/2020 urina lysis , dipst ick Sp. [place] 1.010 Not Available Spr - Home [address] [place], [address], 09/27/2020 15:46:59 09/28/19 21 09/27/2020 urina lysis , dipst ick Blood + Not Available Spr - Home [address] [place], [address], 09/27/2020 15:46:59 09/28/19 21 09/27/2020 urina lysis , dipst ick pH 7.5 Not Available Spr - Home [address] [place], [address], 09/27/2020 15:46:59 09/28/19 21 09/27/2020 urina lysis , dipst ick Protein positi ve Not Available Spr - Home [address] [place], [address], 09/27/2020 15:46:59 09/28/19 21 09/27/2020 urina lysis , dipst ick Urobilirubin negati ve Not Available Spr - Home [address] [place], [address], 09/27/2020 15:46:59 09/28/19 21 09/27/2020 urina lysis , dipst ick Nitrites NEG Not Available Spr - [facility] [address] [place], [address], 09/27/2020 15:46:59 09/28/19 21 09/27/2020 urina lysis , dipst ick Leukocytes ++ Not Available Spr - [facility] [address]me [address] [place], [address], 09/27/2020 15:46:59 Result Notes None recorded. Problems Name Problem SNOMED Code Status Onset Date Resolution Date Notes Provider Name and Address Organization Details Recorded Time Osteoarthrit is [id number] Active 2020 ANTOLIN HOLLINGSWORTH [address] [place], [address], [place] [facility] 15:38:25 Problem Notes None recorded. Medical Equipment None Reported. Allergies No known drug allergies Medications Name Sig Start Date Stop Date Status Note LastModified by Organization Details LastModified Time celecoxib 200 mg capsule TAKE 1 CAPSULE BY MOUTH ONCE DAILY FOR 90 DAYS active Not Available Not Available No t Available lisinopril 20 mg tablet TAKE 1 TABLET BY MOUTH ONCE DAILY FOR 90 DAYS active Not Available Not Available No t Available alendronate 70 mg tablet TAKE 1 TABLET BY MOUTH ONCE A WEEK active Not Available Not Available No t Available tramadol 50 mg tablet TAKE 1 TABLET BY MOUTH TWICE DAILY NEEDED active Not Available Not Available No t Available cephalexin 500 mg capsule TAKE 1 CAPSULE BY MOUTH EVERY 8 HOURS WITH MEALS active Not Available Not Available No t Available omeprazole 20 mg capsule,delay ed release TAKE 1 CAPSULE BY MOUTH ONCE DAILY active Not Available Not Available No t Available Vitals Date Recorded Heart rate Oxygen saturation Oxygen saturation in Arterial blood by Pulse oximetry Respiratory rate Body temperature Systolic blood pressure Diastolic blood pressure Provider Name and Address Organization Details Last Updated DateTime 95 /min 96 % 96 % 20 /min 99.4 [degF] 162 mm[Hg] 92 mm[Hg] Not Available [facility] 15:24:42 Social History Question Answer Notes LastModified by Organizat ion Details LastModified Time Tobacco Smoking Status Never Smoker ANTOLIN HOLLINGSWORTH [address], [place], [address], [place] [facility] 09/27/2020 15:45:25 Do You Have An Advance Directive? Yes [email or web address] Information not available 09/27/2020 What Is Your Code Status? Full Code [email or web address] Information not available 09/27/2020 Within The Past 12 Months, Has It Happened That The Food You Bought Just Didn't Last And You Didn't Have Money To Get More. No [email or web address] Information not available 09/27/2020 Within The Past 12 Months, Have You Worried That Your Food Would Run Out Before You Got Money To Buy More. No [email or web address] Information not available 09/27/2020 Fall Risk: Do You Feel Unsteady When Standing Or Walking? Yes [email or web address] Information not available 09/27/2020 We Know That How And When People Interact With Friends And Family Can Be Very Different From Person To Person. How Often Do You Have The Opportunity To See Or Talk To People That You Care About And Feel Close To? (Ex: Talking To Friends On The Phone Or Visiting Friends Or Family Or Going To [employer]ish Or Club Meetings) 5 Or More Times Per Week [employer] Information not available 09/27/2020 Excessive Alcohol Or Drug Use No [email or web address] Information not available 09/27/2020 We Know From Many Of Our Patients That Covering All Of Their Costs Can Be Difficult At Times. This Can Cause Stress And Impact Health. In The Past Year, Have You Been Unable To Get Any Of The Following When It Was Really Needed? No [employer] Information not available 09/27/2020 What Is Your Housing Situation Today? I Have Housing [employer] Information not available 09/27/2020 Would You Like Help Connecting To Resources? None [employer] Information not available 09/27/2020 Sex: Unknown Functional Status None recorded. Mental Status None recorded. Family History Relationship Description Onset Age of this Age Resolved Age Notes LastModified by Organization Details LastModified Time Mother Alzheimer's disease mariela Not available 2020 16:33:09 Medical History Condition Response Diabetes N Coronary Artery Disease N High Cholesterol N Pulmonary Embolism N Cancer N Hypertension Y Stroke N Asthma N COPD N Depression N Kidney Disease N Gynecological HistoryNo gynecological history recorded. Obstetrics History GPAL:G 0 P 0 0 0 0 Past Encounters Encounter ID Performer Location Encounter Start Date Encounter Closed Date Diagnosis/Indication Diagnosis SNOMED-CT Code Diagnosis ICD10 Code Diagnosis Note [id number] ANTOLIN HOLLINGSWORTH [facility] [address] [facility] [place] [address] 09/27/2020 15:05:57 10/01/2020 12:42:13 Dysuria 72856722 R30.9 Increased frequency of urination 354794803 R35.0 Acute urin harshal tract infection 393785697 N39.0 Health Concerns Section Related Observation LastModified by Organization Detai ls LastModified Time None Recorded Concern Status LastModified by Organization Details LastModified Time None Recorded Advance Directives Directive Y: Payers Insurance Date Sequence Insurance Name Policy Number Policy Llamas Covered Member ID Llamas Member ID Guarantor Name 10/11/2020 1 [facility] (MEDICARE REPLACEMENT/A DVANTAGE - PPO) [id number] Monica Lalo [id number] Monica Lalo 10/11/2020 2 [facility] (MEDICARE REPLACEMENT/A DVANTAGE - HMO) [id number] Monica Lalo [id number] Monica Lalo 09/27/2020 1 [facility] (MEDICARE REPLACEMENT/A DVANTAGE - HMO) [id number] Monica Lalo [id number] Monica Lalo 09/27/2020 2 [place] B[place]: [employer] Monica Lalo [id number] Monica Lalo 09/27/2020 2 [facility] (MEDICARE REPLACEMENT/A DVANTAGE - HMO) [id number] Monica Lalo [id number] Monica Lalo 09/27/2020 1 *SELF PAY* Monica Springerk [id number] Monica Lalo 10/11/2020 1 [place]: [facility] Monica May [id number] Monica May 09/27/2020 1 [place]ICARE [place]: [facility] Monica May [id number] Monica May Notes Date Note Type Note Provider Name and Address Organization Details Recorded Time 09/27/2020 text/html 75 y/o F with PM Hx sig for HTN, OA, GERD, chronic back pain, and spinal cyst , new to , who presents w/ c/o urinary frequency x 3 days with intermittent burning. She reports urinating a normal amount every 1-2 hours. Denies polydipsia, weight changes, night sweats, fever, chills, leg weakness, numbness, or tingling. She admits to burning pain from her arthritis and recently had televisit with PCP, she states he increased her Tramadol for this. Admits to intermittent functional urinary incontinence as it is difficult for her to get to the bathroom quick enough due to her arthritis therefore she wears poise pads. She tries to change these as soon as they are soiled. Denies hematuria or malodorous urine. Denies frequent UTIs. ANTOLIN HOLLINGSWORTH [address] [place], [address], [place] [facility] 09/27/2020 17:05:49 OBGyn Episode No OBEpisode recorded.
[2024-11-02 16:22] VITALS: BP 169/101; PULSE 97; RESP 20; TEMP 36.7; O2SAT 99
[2024-11-02 17:09] VITALS: BP 169/101; PULSE 97; RESP 20; TEMP 36.7; O2SAT 99
== END 2024-11-02 17:18 ==
PROVIDERS: Emergency Provider Emergency Medicine; PCP Family Medicine
DX: N39.0 Urinary tract infection, site not specified (principal); R31.0 Gross hematuria; N85.8 Other specified noninflammatory disorders of uterus; L89.159 Pressure ulcer of sacral region, unspecified stage; Z87.440 Personal history of urinary (tract) infections; Z74.01 Bed confinement status; Z79.01 Long term (current) use of anticoagulants; Z79.899 Other long term (current) drug therapy
CPT/HCPCS: 36415; 74176; 76856; 80053; 81001; 85025; 85610; 85730; 87086; 99284

== ENCOUNTER → 2024-11-02 12:11 | Outpatient (BNV) | payer MEDICARE, SELFPAY | PROVIDERS: Emergency Provider Emergency Medicine; PCP Family Medicine; Visit Provider Radiology Diagnostic Radiology | DX: N20.0 Calculus of kidney (principal) | CPT/HCPCS: 74176 ==